=== PATIENT | female | born 1960 | race Caucasian/White ===

== ENCOUNTER 2017-04-20 01:56 | Emergency (ER) | payer MEDICAID ==
[~2017-04-20] VITALS: Ht 165.1 cm; Wt 45.4 kg
--- NOTE | 2017-04-20 02:05 | NUR ---
TO BED 1 A 56 YO FEMALE BIBSELF W C/O SOB AND PRODUCTIVE COUGH WITH GREEN PHLEGM [id number], HX COPD, SMOKER. VSS. AFEBRILE. NONDIAPHORETIC. GOWNED. COMFORT MEASURES RENDERED. AWAITING FOR ER MD MASSEY.
--- NOTE | 2017-04-20 02:10 | NUR ---
DR GANDHI AT BEDSIDE TO EVAL.
[2017-04-20] MEDS ORDERED: ALBUTEROL FS 2.5 MG/0.5 ML VIAL.NEB ONE (02:24)
[2017-04-20] MEDS ORDERED: ALBUTEROL FS 2.5 MG/0.5 ML VIAL.NEB NEB ONE (02:30)
--- NOTE | 2017-04-20 02:30 | NUR ---
ONGOING BREATHING TREATMENT BY RT.
--- NOTE | 2017-04-20 03:17 | NUR ---
Patient reports "feeling better, relieved from sob." Patient discharged to home in stable condition. Written and verbal after care instructions given. Patient verbalizes understanding of instruction. Patient is ambulatory with steady gait, no further complaints. vss.
[2017-04-20 03:18] VITALS: BP 128/76
== END 2017-04-20 03:19 | disposition home or self-care (01) ==
LOC: ER 01:57
DX: J45.909 Unspecified asthma, uncomplicated (principal); B19.20 Unspecified viral hepatitis C without hepatic coma; F17.200 Nicotine dependence, unspecified, uncomplicated; J44.9 Chronic obstructive pulmonary disease, unspecified; Z88.0 Allergy status to penicillin
CPT/HCPCS: 71010; 94640; 99283; A4606; Z7610

== ENCOUNTER 2017-05-26 07:44 | Emergency (ER) | payer MEDICAID ==
[~2017-05-26] VITALS: Ht 165.1 cm; Wt 45.4 kg
--- NOTE | 2017-05-26 09:30 | NUR ---
SELF PRESENT TO ER C/O SOB X 1 WEEK. PATIENT A/OX 4. BREATHING EVEN AND UNLABORED AT THIS TIME. VITALS WNL. SAFETY AND COMFORT MEASURES IN PLACE. AWAITING MD ORDERS .
[2017-05-26] MEDS ORDERED: ALBUTEROL FS 2.5 MG/3 ML VIAL.NEB ONE (10:14)
[2017-05-26] MEDS ORDERED: IPRATROPIUM NEB FS 0.5 MG/2.5 ML AMPUL.NEB ONE (10:14)
[2017-05-26] MEDS ORDERED: methylPREDNISolone SOD SUCC 125 MG/2ML VIAL IV ONE (10:30)
[2017-05-26] MEDS ORDERED: IPRATROPIUM NEB FS 0.5 MG/2.5 ML AMPUL.NEB NEB ONE (10:30)
[2017-05-26] MEDS ORDERED: LEVOFLOXACIN 500 MG /D5W 100ML 500 MG in PREMIX 1 EA IV SCH (10:30)
[2017-05-26] MEDS ORDERED: ALBUTEROL FS 2.5 MG/3 ML VIAL.NEB CONTNEB ONE (10:30)
[2017-05-26] MEDS ORDERED: IV NS 0.9% 1,000 ML BAG IV ONE (10:30)
--- NOTE | 2017-05-26 10:40 | NUR ---
NEW IV STARTED RFA, 22 G.
[2017-05-26] MEDS ORDERED: methylPREDNISolone SOD SUCC 125 MG/2ML VIAL ONE (10:44)
[2017-05-26] MEDS ORDERED: LEVOFLOXACIN 500 MG /D5W 100ML 100 ML IV ONE (10:50)
--- NOTE | 2017-05-26 10:57 | NUR ---
MOBILITY SCOOTER REPAIRER AT BEDSIDE.
[2017-05-26 10:58] LABS: BASOPHILS # (AUTO) 0.2 /CMM (0.0-0.2); BASOPHILS % (AUTO) 1.6 % (0.0-2.0); EOSINOPHILS # (AUTO) 0.3 /CMM (0.0-0.7); EOSINOPHILS % (AUTO) 2.6 % (0.0-6.0); HEMATOCRIT 43 % (33-45); HEMOGLOBIN 14.6 g/dL (11.5-14.8); LYMPHOCYTES % (AUTO) 15.4 % (20.0-44.0); MEAN CORPUSCULAR HEMOGLOBIN 30 PG (26.0-33.0); MEAN CORPUSCULAR HGB CONC 34 g/dl (31.0-36.0); MEAN CORPUSCULAR VOLUME 88 fL (82-100); MONOCYTES # (AUTO) 0.9 /CMM (0.1-1.30); MONOCYTES % (AUTO) 7.4 % (2.0-12.0); NEUTROPHILS # (AUTO) 9.4 /CMM (1.8-8.9); PLATELET COUNT (AUTO) 267 /CMM (150-450); RDW COEFFICIENT OF VARIATION 13.1 (11.5-15.0); RED BLOOD CELL COUNT(AUTO) 4.91 MIL/uL (4.0-5.2); WHITE BLOOD COUNT (AUTO) 12.8 K/uL (4.3-11.0)
[2017-05-26 11:01] LABS: CALCIUM, SERUM 9.8 mg/dL (8.5-10.1); CREATININE 0.7 mg/dL (0.6-1.3)
[2017-05-26 11:13] LABS: ALBUMIN 2.5 g/dL (3.4-5.0); BILIRUBIN,DIRECT 0.2 mg/dL (0.0-0.2); BILIRUBIN,TOTAL 0.4 mg/dL (0.2-1.0)
[2017-05-26 12:23] VITALS: BP 114/60
== END 2017-05-26 12:25 | disposition home or self-care (01) ==
LOC: ER 07:46
DX: J44.9 Chronic obstructive pulmonary disease, unspecified (principal); J45.909 Unspecified asthma, uncomplicated; B19.20 Unspecified viral hepatitis C without hepatic coma; Z88.0 Allergy status to penicillin; Z87.891 Personal history of nicotine dependence
CPT/HCPCS: 36415; 71010; 80048; 80076; 85025; 96365; 96375; 99285; A4216; A4606; J1956 ×2; J2930; J7030 ×2; Z7610

== ENCOUNTER 2017-06-14 22:25 | Emergency (ER) | payer MEDICAID ==
[~2017-06-14] VITALS: Ht 165.1 cm; Wt 45.4 kg
[2017-06-14 22:36] VITALS: BP 141/71
--- NOTE | 2017-06-14 23:10 | NUR ---
Kourtney Mendoza to evaluate patient.
== END 2017-06-14 23:40 | disposition home or self-care (01) ==
LOC: ER 22:33
DX: L03.317 Cellulitis of buttock (principal); J45.909 Unspecified asthma, uncomplicated; J44.9 Chronic obstructive pulmonary disease, unspecified; Z86.19 Personal history of other infectious and parasitic diseases; Z88.0 Allergy status to penicillin
CPT/HCPCS: 99284; A4606; Z7610

== ENCOUNTER 2017-06-17 14:24 | Emergency (ER) | payer MEDICAID ==
[~2017-06-17] VITALS: Ht 165.1 cm; Wt 46.3 kg
--- NOTE | 2017-06-17 14:35 | NUR ---
Presents to ER c/o worseing left buttock pain and swelling, seen here 3 days ago for possible cellulitis vs abscess, taking keflex and bactrim. Patient a/ox 4. Breathing even and unlabored. no sob. vitals stable. safety and comfort measurse in place. Awaiting md orders.
--- NOTE | 2017-06-17 14:45 | NUR ---
RICKEY POPE AT BEDSIDE FOR EVAL AND POSSIBLE I/D.
[2017-06-17 15:36] VITALS: BP 104/62
--- NOTE | 2017-06-17 15:38 | NUR ---
Patient discharged to home in stable condition. Written and verbal after care instructions given. Patient verbalizes understanding of instruction.
== END 2017-06-17 15:37 | disposition home or self-care (01) ==
LOC: ER 14:26
DX: L02.416 Cutaneous abscess of left lower limb (principal); B19.20 Unspecified viral hepatitis C without hepatic coma; J44.9 Chronic obstructive pulmonary disease, unspecified; F17.200 Nicotine dependence, unspecified, uncomplicated; Z88.0 Allergy status to penicillin; Z86.19 Personal history of other infectious and parasitic diseases
CPT/HCPCS: 10061; 99284; A4606; A6402; A6407; Z7610

== ENCOUNTER 2017-06-18 08:56 | Emergency (ER) | payer MEDICAID ==
[~2017-06-18] VITALS: Ht 167.6 cm; Wt 53.1 kg
[2017-06-18 09:04] VITALS: BP 106/59
== END 2017-06-18 09:19 | disposition home or self-care (01) ==
LOC: ER 08:58
DX: L02.31 Cutaneous abscess of buttock (principal); J44.9 Chronic obstructive pulmonary disease, unspecified; F17.200 Nicotine dependence, unspecified, uncomplicated; Z88.0 Allergy status to penicillin; Z86.19 Personal history of other infectious and parasitic diseases
CPT/HCPCS: 99282; A4217; A4606; Z7610

== ENCOUNTER 2017-06-26 20:43 | Inpatient (IN) | payer MEDICAID ==
[~2017-06-26] VITALS: Ht 165.1 cm; Wt 45.4 kg
[2017-06-26] MEDS ORDERED: Magnesium 1GM/D5W 100ML PREMIX 200 ML IV ONE (20:46)
[2017-06-26] MEDS ORDERED: ALBUTEROL FS 2.5 MG/3 ML VIAL.NEB ONE (20:51)
[2017-06-26] MEDS ORDERED: IPRATROPIUM NEB FS 0.5 MG/2.5 ML AMPUL.NEB ONE (20:51)
[2017-06-26] MEDS ORDERED: methylPREDNISolone SOD SUCC 125 MG/2ML VIAL IV ONE (21:00)
[2017-06-26] MEDS ORDERED: methylPREDNISolone SOD SUCC 125 MG/2ML VIAL ONE (21:00)
[2017-06-26] MEDS ORDERED: Magnesium 1GM/D5W 100ML PREMIX 100 ML IV ONE (21:00)
[2017-06-26] MEDS ORDERED: IPRATROPIUM NEB FS 0.5 MG/2.5 ML AMPUL.NEB NEB ONE (21:00)
[2017-06-26] MEDS ORDERED: ALBUTEROL FS 2.5 MG/3 ML VIAL.NEB CONTNEB ONE (21:00)
--- NOTE | 2017-06-26 21:00 | NUR ---
PT WALKED INTO ER FROM HOME, SOB/LABORED WITH AUDIBLE WHEEZING, O2 RA 91%, SKIN WARM/DRY/INTACT, NO C/O PAIN
--- NOTE | 2017-06-26 21:30 | NUR ---
PT SITTING IN BED, BREATHING UNLABORED WITH CONTINUOUS TX RUNNING, NETWORK STRATEGIST IN PLACE NSR, NO C/O PAIN
--- NOTE | 2017-06-26 21:41 | NUR ---
PT AMBULATED TO RESTROOM WITH STEADY GAIT, NO DISTURBANCES NOTED
--- NOTE | 2017-06-26 23:04 | NUR ---
PT SLEEPING IN BED, AROUSED EASILY TO VOICE, BREATHING EVEN/UNLABORED, OXYGEN 3L VIA NASAL CANULA SAT 95%, CARDIAC MONIOTR IN PLACE NSR 81BPM, NO C/O PAIN, NAD NOTED.
--- NOTE | 2017-06-26 23:27 | NUR ---
PT AMBULATED, NO GAIT DISTURBANCES, BREATHING EVEN/UNLABORED, NO C/O PAIN
[2017-06-27 00:15] LABS: BASOPHILS % (AUTO) 0.1 % (0.0-2.0); EOSINOPHILS # (AUTO) 0.1 /CMM (0.0-0.7); EOSINOPHILS % (AUTO) 0.8 % (0.0-6.0); HEMATOCRIT 45 % (33-45); HEMOGLOBIN 14.8 g/dL (11.5-14.8); LYMPHOCYTES # (AUTO) 0.7 /CMM (0.8-4.8); LYMPHOCYTES % (AUTO) 9.3 % (20.0-44.0); MEAN CORPUSCULAR HEMOGLOBIN 30 PG (26.0-33.0); MEAN CORPUSCULAR HGB CONC 33 g/dl (31.0-36.0); MEAN CORPUSCULAR VOLUME 90 fL (82-100); MONOCYTES % (AUTO) 0.4 % (2.0-12.0); NEUTROPHILS # (AUTO) 7.1 /CMM (1.8-8.9); NEUTROPHILS % (AUTO) 89.4 % (43.0-81.0); PLATELET COUNT (AUTO) 266 /CMM (150-450); RED BLOOD CELL COUNT(AUTO) 4.93 MIL/uL (4.0-5.2); WHITE BLOOD COUNT (AUTO) 7.9 K/uL (4.3-11.0)
[2017-06-27 00:18] LABS: ABG OXYGEN SATURATION 88.6 % (92.0-98.5); ABG PCO2 38.2 mmHg (35.0-45.0); COHb 0.6 % (0.5-1.5); MetHb 0.5 % (0.0-1.5); O2Hb 87.6 % (94.0-97.0); SITE, ABG Left Radial; VENT MODE, BG RA
[2017-06-27 00:27] LABS: CREATININE 0.9 mg/dL (0.6-1.3); POTASSIUM 3.9 mmol/L (3.5-5.1)
--- NOTE | 2017-06-27 00:40 | NUR ---
[facility] DR. MEDINA ON PHONE W/ MARCO A MILLAN
--- NOTE | 2017-06-27 00:42 | NUR ---
Lalo salvador in [facility] - 06/27/17 at 0043 by APASCUAL M/S [id number]
--- NOTE | 2017-06-27 00:43 | NUR ---
TELE [id number]
--- NOTE | 2017-06-27 00:55 | NUR ---
REPORT TO CATHI JOHANSEN
[2017-06-27 01:30] VITALS: BP 117/71
--- NOTE | 2017-06-27 01:30 | NUR ---
RN ADMITTING NOTES RECEIVED REPORT FROM HAND SPLITTER. Pt ARRIVED TO FLOOR VIA ER GURNEY. NO S/S OF ACUTE DISTRESS NOTED. Pt C/O NO CHEST PAIN OR SEVERE SOB. Pt IS A/OX4, VERBAL, ABLE TO MAKE NEEDS KNOWN. IV ACCESS ON RFA #20G, SL. ADMITTED TO TELE. SAFETY MEASURES IN PLACE. BED LOW, LOCKED, HOB ELEVATED SIDE RAILS UP, CALL LIGHT AND BED SIDE TABLE WITHIN REACH. WILL CONTINUE TO MONITOR Pt THROUGHOUT THE NIGHT FOR SAFETY.
[2017-06-27] MEDS ORDERED: ACETAMINOPHEN 325 MG TABLET PO PRN (02:00)
[2017-06-27] MEDS ORDERED: ONDANSETRON HCL/PF 4 MG/2 ML VIAL IVP PRN (02:00)
[2017-06-27] MEDS ORDERED: AZITHROMYCIN 250 MG TABLET PO SCH (02:00)
[2017-06-27] MEDS: methylPREDNISolone SOD SUCC 125 MG/2ML VIAL IV SCH ×4 (02:00→17:29)
[2017-06-27] MEDS ORDERED: AZITHROMYCIN 250 MG TABLET ONE (03:29)
[2017-06-27 04:00] VITALS: BP 114/69
[2017-06-27] MEDS ORDERED: TIOT4MIS3 IH (05:20)
[2017-06-27] MEDS ORDERED: ALBU8.5H2 INH (05:20)
--- NOTE | 2017-06-27 06:40 | NUR ---
RN CLOSING NOTES NO SIGNIFICANT CHANGES IN Pt's CONDITION. Pt REMAINS STABLE AT THIS TIME. NO S/S OF ACUTE DISTRESS OR SOB NOTED DURING THE NIGHT. ALL NEEDS MET AND ATTENDED TO. SAFETY MEASURES IN PLACE. WILL ENDORSE TO DAYSHIFT RN FOR Pt's ANDRE. Addendum: 06/27/17 at 0651 by JAE BRADFORD RN TELE READING [id number]
[2017-06-27 06:50] VITALS: BP 109/65
--- NOTE | 2017-06-27 07:30 | NUR ---
LABORATORY GENETICIST NOTES PATIENT ASLEEP BUT EASILY AROUSABLE, NO S/SX OF RESPIRATORY DISTRESS, NO IV FLUIDS ORDERED AT THIS TIME, ALL NEEDS ATTENDED AND ANTICIPATED, SAFETY MEASURES IN PLACED, CALL LIGHT WITHIN REACH, WILL CONTINUE TO MONITOR.
[2017-06-27] MEDS: PANTOPRAZOLE 40 MG TABLET.DR PO SCH (09:18)
[2017-06-27] MEDS: GUAIFENESIN LA 600 MG TABLET.SA PO SCH ×2 (09:18→20:50)
[2017-06-27] MEDS: IPRATROPIUM NEB FS 0.5 MG/2.5 ML AMPUL.NEB NEB SCH ×3 (09:47→20:16)
[2017-06-27] MEDS: ALBUTEROL FS 2.5 MG/0.5 ML VIAL.NEB NEB SCH ×3 (09:47→20:16)
[2017-06-27 16:00] VITALS: BP 93/53
--- NOTE | 2017-06-27 17:32 | NUR ---
RN MS NOTES PATIENT COMPLAINED OF NAUSEA, HEIDY PULLED OUT, WHEN OFFERED TO PATIENT, PATIENT REFUSED MEDICATION, STATING NAUSEA WENT AWAY. PATIENT COMPLAINTS OF SOB DURING ADLS ESPECIALLY WHEN PATIENT REMOVES OXYGEN. WHEN PATIENT IS PLACED BACK ON OXYGEN PATIENT FEELS RELIEVED AND SPO2 SHOWS MORE THAN 92%
[2017-06-27] MEDS ORDERED: ALBUTEROL SULFATE 8 GM HFA.AER.AD IH PRN (18:00)
--- NOTE | 2017-06-27 19:21 | NUR ---
RN MS NOTES PATIENT IS IN NO DISTRESS, NO CHANGE IN LOC, STILL NOTED WITH SHORTNESS OF BREATH ON SCHEDULED BREATHING TREATMENT, ALL DUE MEDS GIVEN ORDERED, ENCOURAGED PATIENT TO REST IN BED, BATHROOM PRIVILEGE ONLY, NEEDS ATTENDED AND MET, CALL LIGHT WITHIN REACH, SAFETY MEASURES IN PLACED, WILL ENDORSE TO TRANSPORTATION SALES CONSULTANT FOR ANDRE.
--- NOTE | 2017-06-27 19:35 | NUR ---
MS RN INITIAL NOTES PT IS IN BED SLEEPING, EASILY AROUSED. A/O X4 ABLE TO MAKE NEEDS KNOWN. BREATHING IS SOB. PT IS AMBULATORY, ABLE TO DO TO THE RESTROOM WITHOUT DISTRESS. IV ACCESS IS INTACT AND PATENT. DENIES PAIN. BED IS IN LOW AND LOCKED POSITION, CALL LIGHT IS WITHIN REACH. WILL CONTINUE TO MONITOR PT
--- NOTE | 2017-06-27 19:45 | NUR ---
RN MS NOTES ONDANSETRON VIAL WASTED WITNESSED BY ANOTHER NURSE DAVE.
[2017-06-27 20:00] VITALS: BP 97/53
[2017-06-27] MEDS: AZITHROMYCIN 250 MG TABLET PO SCH (20:50)
[2017-06-28] MEDS: ALBUTEROL FS 2.5 MG/0.5 ML VIAL.NEB NEB SCH ×4 (02:02→19:29)
[2017-06-28] MEDS: IPRATROPIUM NEB FS 0.5 MG/2.5 ML AMPUL.NEB NEB SCH ×4 (02:02→19:28)
--- NOTE | 2017-06-28 06:23 | NUR ---
MS RN CLOSING NOTES PT IS IN BED RESTING, NO ACUTE CHANGES THROUGHOUT MY SHIFT. SOB MINIMIZED THROUGHOUT THE NIGHT. ALL NEEDS WERE ANTICIPATED AND MET. BED IS IN LOW AND LOCKED POSITION, CALL LIGHT WITHIN REACH. WILL ENDORSE TO DAY SHIFT
[2017-06-28 07:53] LABS: BASOPHILS % (AUTO) 0.1 % (0.0-2.0); HEMATOCRIT 41 % (33-45); HEMOGLOBIN 13.5 g/dL (11.5-14.8); LYMPHOCYTES # (AUTO) 1.5 /CMM (0.8-4.8); LYMPHOCYTES % (AUTO) 5.4 % (20.0-44.0); MEAN CORPUSCULAR HEMOGLOBIN 30 PG (26.0-33.0); MEAN CORPUSCULAR HGB CONC 33 g/dl (31.0-36.0); MEAN CORPUSCULAR VOLUME 92 fL (82-100); MONOCYTES # (AUTO) 0.4 /CMM (0.1-1.30); MONOCYTES % (AUTO) 1.5 % (2.0-12.0); NEUTROPHILS # (AUTO) 26.3 /CMM (1.8-8.9); PLATELET COUNT (AUTO) 246 /CMM (150-450); RDW COEFFICIENT OF VARIATION 17.4 (11.5-15.0); RED BLOOD CELL COUNT(AUTO) 4.47 MIL/uL (4.0-5.2); WHITE BLOOD COUNT (AUTO) 28.3 K/uL (4.3-11.0)
[2017-06-28 08:00] VITALS: BP 97/61
[2017-06-28 08:06] LABS: ALBUMIN 2.4 g/dL (3.4-5.0); BILIRUBIN,TOTAL 0.2 mg/dL (0.2-1.0); CALCIUM, SERUM 10.5 mg/dL (8.5-10.1); CREATININE 0.8 mg/dL (0.6-1.3); MAGNESIUM 2.3 mg/dL (1.8-2.4); PHOSPHORUS 2.8 mg/dL (2.5-4.9); POTASSIUM 4.8 mmol/L (3.5-5.1); TOTAL PROTEIN, SERUM 7.1 g/dL (6.4-8.2)
[2017-06-28] MEDS: GUAIFENESIN LA 600 MG TABLET.SA PO SCH ×2 (08:23→21:09)
[2017-06-28] MEDS: PANTOPRAZOLE 40 MG TABLET.DR PO SCH (08:23)
[2017-06-28] MEDS: methylPREDNISolone SOD SUCC 125 MG/2ML VIAL IV SCH ×3 (08:23→16:40)
--- NOTE | 2017-06-28 10:12 | NUR ---
IV REMOVED FROM RIGHT FA AND PLACED IN FA. IV REMOVED WAS LEAKING. SITE CLEAR.
[2017-06-28 10:27] LABS: BAND % (MANUAL) 2 % (0.0-5.0); LYMPHOCYTES % (MANUAL) 6 % (16-48); MONOCYTES % (MANUAL) 3 % (0-11.0); NEUTROPHILS % (MANUAL) 89 (42-76)
[2017-06-28] MEDS: ENOXAPARIN SODIUM 30 MG/0.3 ML DISP.SYRIN SQ SCH (14:00)
[2017-06-28 16:00] VITALS: BP 104/66
[2017-06-28 16:07] LABS: APPEARANCE,URINE SL CLOUDY (CLEAR); BILIRUBIN,URINE NEGATIVE (NEGATIVE); BLOOD, URINE NEGATIVE Ery/uL (NEGATIVE); COLOR,URINE YELLOW (YELLOW); KETONES,URINE NEGATIVE (NEGATIVE); LEUKOCYTE ESTERASE ,URINE NEGATIVE (NEGATIVE); NITRITE, URINE NEGATIVE (NEGATIVE); PROTEIN,URINE NEGATIVE (NEGATIVE); UGLUCOSE TRACE mg/dL (NEGATIVE); UROBILINOGEN,URINE 0.2 EU/dL (0.2)
[2017-06-28 16:25] LABS: RBC,URINE 0-2 /HPF (0-2)
[2017-06-28 16:26] LABS: BACTERIA,URINE Many /HPF (None Seen); CALCIUM OXALATE CRYSTALS,UR Few /HPF (None Seen); SQUAMOUS EPITHELIAL CELL,UR Many /HPF (None Seen)
--- NOTE | 2017-06-28 17:16 | NUR ---
PER ND ALEXEI FERRERA TO PLACE ORDER FOR ZOLPIDEM 5MG 1X ONLY TO SEE HOW PTS TOLERATES. ORDER PLACED.
[2017-06-28] MEDS ORDERED: MENTHOL/CETYLPYRD (CEPACOL) 1 LOZ LOZENGE PO PRN (17:30)
--- NOTE | 2017-06-28 18:47 | NUR ---
MS RN: CLOSING NOTE PT A/O4. TOOK ALL MEDICATIONS ON TIME. NO ADVERSE REACTIONS NOTED. AMBULATORY WITH OUT ASSIST. ON REGULAR DIET. NO N/V NOTED. SKIN INTACT. L UP #24 SL. SITE CLEAR AND PATENT. NO REDNESS. NO BLEEDING NOTED. ON 3L NC SATING AT 96%. PER MD CHANCE TO TITRATE THE O2 DOWN TOLERATED. RESTING COMFORTABLY IN BED. CALL LIGHT WITHIN REACH.
--- NOTE | 2017-06-28 19:25 | NUR ---
MS RN OPENING NOTES RECEIVED PATIENT RESTING IN BED IN MODERATE SEMI URBAN POSITION. ON O2 @ 3 LPM VIA NC WITH O2SAT 95 %. NO SOB, NO C/O CHEST PAIN, NO ACUTE DISTRESS/DISCOMFORT NOTED. A & O X 4, TALKATIVE. IV ACCESS TO LFA, SL, INTACT PATENT. IN STABLE CONDITION. MILD COUGH NOTED INTERMITTENTLY, HAS COPD. BED IN LOW LOCKED POSITION. CALL LIGHT WITHIN REACH. WILL CONTINUE TO OBSERVE CLOSELY FOR ANY CHANGES.
--- NOTE | 2017-06-28 19:46 | NUR ---
PRN CEPACOL GIVEN PATIENT C/O IRRITATION TO HER THROAT & SLIGHT PRODUCTIVE COUGH. PRN CEPACOL GIVEN ORDERED BY MD. WILL MONITOR FOR EFFECTIVENESS.
[2017-06-28 20:00] VITALS: BP 103/67
[2017-06-28 20:01] VITALS: BP 103/67
[2017-06-28] MEDS ORDERED: ZOLPIDEM TARTRATE 5 MG TABLET PO ONE (21:00)
[2017-06-28] MEDS: AZITHROMYCIN 250 MG TABLET PO SCH (21:09)
[2017-06-29] MEDS: ALBUTEROL FS 2.5 MG/0.5 ML VIAL.NEB NEB SCH ×3 (02:06→20:20)
[2017-06-29] MEDS: IPRATROPIUM NEB FS 0.5 MG/2.5 ML AMPUL.NEB NEB SCH ×4 (02:06→20:20)
--- NOTE | 2017-06-29 06:28 | NUR ---
MS RN CLOSING NOTES PATIENT SLEPT INTERMITTENTLY IN HIGH URBAN POSITION. A & O X 4. NO C/O CP OR ANY OTHER PAIN NOTED. ON O2 @ 2LPM VIA NC SATING AROUND 95 %. BRP TOLERATED. ABLE TO TOLERATE PO INTAKE. NO WORSENING SYMPTOMS NOTED. BREATHING TX GIVEN BY RT ORDERED. MILD PRODUCTIVE COUGH NOTED, PRN CEPACOL GIVEN & EFFECTIVE. LABS IN AM. ASSISTED WITH ADL'S FOR SAFETY. BED IN LOW LOCKED POSITION. CALL LIGHT WITHIN REACH. WILL ENDORSE TO AM SHIFT FOR CONTINUITY OF CARE.
--- NOTE | 2017-06-29 07:10 | NUR ---
MS RN OPENING NOTES RECEIVED PT FROM NIGHTSHIFT NURSE IN STABLE CONDITION PT IS A.O X4. NO SOB OR SIGNS OF DISTRESS NOTED. BREATHING IS EVEN AND UNLABORED. PT IS ON 2L O2 AND SATING WELL @ 94%. PT DENIES ANY PAIN AT THIS TIME. IV NOTED ON LEFT ANTERIOR FOOT. IV IS PATENT AND INTACT. NO REDNESS OR SIGNS OF INFILTRATION NOTED. BED IN LOW LOCKED POSITION, SIDE RAILS UP X2, CALL LIGHT WITHIN REACH. WILL CONTINUE TO MONITOR.
[2017-06-29 07:21] LABS: BASOPHILS % (AUTO) 0.2 % (0.0-2.0); HEMATOCRIT 42 % (33-45); LYMPHOCYTES # (AUTO) 1.4 /CMM (0.8-4.8); LYMPHOCYTES % (AUTO) 5.9 % (20.0-44.0); MEAN CORPUSCULAR HEMOGLOBIN 31 PG (26.0-33.0); MEAN CORPUSCULAR HGB CONC 33 g/dl (31.0-36.0); MEAN CORPUSCULAR VOLUME 92 fL (82-100); MONOCYTES # (AUTO) 0.3 /CMM (0.1-1.30); MONOCYTES % (AUTO) 1.1 % (2.0-12.0); NEUTROPHILS # (AUTO) 21.3 /CMM (1.8-8.9); NEUTROPHILS % (AUTO) 92.8 % (43.0-81.0); PLATELET COUNT (AUTO) 253 /CMM (150-450); RDW COEFFICIENT OF VARIATION 17.5 (11.5-15.0); RED BLOOD CELL COUNT(AUTO) 4.58 MIL/uL (4.0-5.2)
[2017-06-29 08:00] VITALS: BP 115/67
[2017-06-29] MEDS: ENOXAPARIN SODIUM 30 MG/0.3 ML DISP.SYRIN SQ SCH (09:00)
[2017-06-29] MEDS: PANTOPRAZOLE 40 MG TABLET.DR PO SCH (09:18)
[2017-06-29] MEDS: GUAIFENESIN LA 600 MG TABLET.SA PO SCH ×2 (09:18→21:56)
[2017-06-29] MEDS: methylPREDNISolone SOD SUCC 125 MG/2ML VIAL IV SCH ×3 (09:18→18:12)
--- NOTE | 2017-06-29 11:34 | NUR ---
MS RN NOTES PER ALEXEI FERRERA, IT IS OKAY FOR THE PT TO HAVE HER IV ON HER FOOT. SEVERAL ATTEMPTS WERE MADE PRIOR TO BEGIN AN IV IN VARIOUS PLACES HOWEVER EACH HAVE INFILTRATED. IV WAS INSERTED BY AN ER NURSE DURING THE NIGHTSHIFT. THE PT CURRENTLY HAS AN IV ON HER LEFT ANTERIOR FOOT 24G. IV IS PATENT TO NS FLUSH AND INTACT. IV ON FOOT ORDER WAS PLACED.
[2017-06-29] MEDS: ALBUTEROL FS 2.5 MG/3 ML VIAL.NEB NEB PRN (13:38)
[2017-06-29 16:00] VITALS: BP 102/58
--- NOTE | 2017-06-29 18:32 | NUR ---
MS RN CLOSING NOTES PT REMAINS IN STABLE. NO ACUTE CHANGES IN CONDITION DURING SHIFT. ALL DUE MEDS GIVEN AND ORDERS CARRIED OUT ACCORDINGLY. IV REMAINS PATENT AND INTACT. NO SOB NOTED AT THIS TIME. PT REMAINS ON 2L O2 VIA NC AND SATING @96%. SAFETY MEASURES REMAIN IN PLACE. WILL ENDORSE TO NIGHTSHIFT NURSE FOR ANDRE
--- NOTE | 2017-06-29 19:30 | NUR ---
MS RN OPENING NOTES RECEIVED PT IN STABLE CONDITION PT IS A.O X4. NO SOB OR SIGNS OF DISTRESS NOTED. BREATHING IS EVEN AND UNLABORED. PT IS ON 2L O2 AND SATING WELL @ 96%. PT DENIES ANY PAIN AT THIS TIME. IV NOTED ON LEFT ANTERIOR FOOT. IV IS PATENT AND INTACT. NO REDNESS OR SIGNS OF INFILTRATION NOTED. BED IN LOW LOCKED POSITION, SIDE RAILS UP X2, CALL LIGHT WITHIN REACH. WILL CONTINUE TO MONITOR.
[2017-06-29 20:00] VITALS: BP 110/82
[2017-06-29] MEDS: AZITHROMYCIN 250 MG TABLET PO SCH (21:56)
[2017-06-29 22:00] VITALS: BP 110/82
[2017-06-30] MEDS ORDERED: ZOLPIDEM TARTRATE 5 MG TABLET ONE (01:27)
[2017-06-30] MEDS: ZOLPIDEM TARTRATE 5 MG TABLET PO PRN ×2 (01:31→21:15)
--- NOTE | 2017-06-30 06:17 | NUR ---
MS RN NOTE PATIENT STABLE. ALL NEEDS MET AND ATTENDED TO. WILL ENDORSE TO DAY SHIFT FOR ANDRE.
--- NOTE | 2017-06-30 07:24 | NUR ---
MS RN OPENING NOTES RECEIVED PATIENT IN STABLE CONDITION. PATIENT IS RESTING IN BED. BED IS LOCKED AND LOWERED. SIDE RAILS ARE UP X2. CALL LIGHT IS WITHIN REACH. WILL CONTINUE TO MONITOR.
[2017-06-30 08:00] VITALS: BP 113/79
[2017-06-30 08:18] LABS: BASOPHILS % (AUTO) 0.1 % (0.0-2.0); EOSINOPHILS # (AUTO) 0.1 /CMM (0.0-0.7); EOSINOPHILS % (AUTO) 0.3 % (0.0-6.0); HEMATOCRIT 40 % (33-45); HEMOGLOBIN 13.5 g/dL (11.5-14.8); LYMPHOCYTES # (AUTO) 1.2 /CMM (0.8-4.8); LYMPHOCYTES % (AUTO) 7.1 % (20.0-44.0); MEAN CORPUSCULAR HEMOGLOBIN 31 PG (26.0-33.0); MEAN CORPUSCULAR HGB CONC 34 g/dl (31.0-36.0); MEAN CORPUSCULAR VOLUME 92 fL (82-100); MONOCYTES # (AUTO) 0.8 /CMM (0.1-1.30); MONOCYTES % (AUTO) 4.9 % (2.0-12.0); NEUTROPHILS # (AUTO) 14.8 /CMM (1.8-8.9); NEUTROPHILS % (AUTO) 87.6 % (43.0-81.0); PLATELET COUNT (AUTO) 239 /CMM (150-450); RDW COEFFICIENT OF VARIATION 17.4 (11.5-15.0); RED BLOOD CELL COUNT(AUTO) 4.38 MIL/uL (4.0-5.2); WHITE BLOOD COUNT (AUTO) 16.9 K/uL (4.3-11.0)
[2017-06-30] MEDS: IPRATROPIUM NEB FS 0.5 MG/2.5 ML AMPUL.NEB NEB SCH (08:29)
[2017-06-30] MEDS: ALBUTEROL FS 2.5 MG/0.5 ML VIAL.NEB NEB SCH (08:29)
[2017-06-30 08:35] LABS: CALCIUM, SERUM 9.9 mg/dL (8.5-10.1); CREATININE 0.7 mg/dL (0.6-1.3); POTASSIUM 4.3 mmol/L (3.5-5.1)
[2017-06-30] MEDS: ENOXAPARIN SODIUM 30 MG/0.3 ML DISP.SYRIN SQ SCH (09:00)
[2017-06-30] MEDS: methylPREDNISolone SOD SUCC 125 MG/2ML VIAL IV SCH ×3 (09:15→17:00)
[2017-06-30] MEDS: PANTOPRAZOLE 40 MG TABLET.DR PO SCH (09:46)
[2017-06-30] MEDS: GUAIFENESIN LA 600 MG TABLET.SA PO SCH ×2 (09:46→20:56)
--- NOTE | 2017-06-30 11:19 | NUR ---
SPOKE TO ALEXEI FERRERA ABOUT BAD IV LINE AND UNABLE TO GET NEW IV. #24 LEFT ANTERIOR FOOT IV. SOLU MEDROL IV WILL BE DISCONTINUED AND SWITCHED TO PO. AWAITING ORDER.
[2017-06-30] MEDS: ALBUTEROL FS 2.5 MG/3 ML VIAL.NEB NEB PRN (15:11)
[2017-06-30 16:43] VITALS: BP 100/69
--- NOTE | 2017-06-30 19:00 | NUR ---
PATIENT IS IN STABLE CONDITION. ALERT AND ORIENTED. BEDSIDE RAILS ARE UP X2. BED IS LOCKED AND LOWERED. CALL LIGHT IS WITHIN REACH. WILL ENDORSE CARE TO PRESSER ALL AROUND NURSE FOR ANDRE.
--- NOTE | 2017-06-30 19:30 | NUR ---
RN OPENING NOTES PATIENT IS SLEEPING IN BED. EASILY AROUSABLE, ALERT AND ORIENTED X4. VS STABLE. NO SOB. RESPIRATIONS EVEN AND UNLABORED. IV ACCESS ON LEFT ANTERIOR FOOT #24 PATENT AND INTACT. BED IN LOW POSITION. SIDE RAILSX2. CALL LIGHT WITHIN EASY REACH. CONTINUE TO MONITOR AND EDUCATE DURING THE SHIFT.
[2017-06-30 20:00] VITALS: BP_SYST 101; BP_DIAS 69; BP_DIAS 96
[2017-06-30] MEDS: AZITHROMYCIN 250 MG TABLET PO SCH (20:57)
--- NOTE | 2017-07-01 06:46 | NUR ---
RN CLOSING NOTES PATIENT IS SLEEPING IN BED. EASILY AROUSABLE, ALERT AND ORIENTED X4. VS STABLE. NO SOB. NO C/O PAIN AT THIS TIME. RESPIRATIONS EVEN AND UNLABORED. PATIENT WANTS HER LAB DRAW AFTER THE BREAKFAST. ALL MEDICATIONS GIVEN PER MD ORDER. BED IN LOW POSITION. SIDE RAILSX2. CALL LIGHT WITHIN EASY REACH. WILL ENDORSE TO RN DAY SHIFT FOR CONTINUITY OF CARE.
--- NOTE | 2017-07-01 07:14 | NUR ---
MS RN OPENING NOTES RECEIVED PATIENT IN STABLE CONDITION. PATIENT IS RESTING IN BED IN NO APPARENT DISTRESS. BEDSIDE RAILS ARE UP X2. BED IS LOCKED AND LOWERED. CALL LIGHT IS WITHIN REACH. WILL CONTINUE TO MONITOR.
[2017-07-01 08:00] VITALS: BP 105/75
[2017-07-01] MEDS: ENOXAPARIN SODIUM 30 MG/0.3 ML DISP.SYRIN SQ SCH (09:00)
[2017-07-01] MEDS: ALBUTEROL FS 2.5 MG/3 ML VIAL.NEB NEB PRN ×2 (09:06→19:46)
[2017-07-01] MEDS: PANTOPRAZOLE 40 MG TABLET.DR PO SCH (09:41)
[2017-07-01] MEDS: GUAIFENESIN LA 600 MG TABLET.SA PO SCH ×2 (09:41→20:10)
--- NOTE | 2017-07-01 09:56 | NUR ---
SOLU MEDROL NOT ADMINISTERED. AWAITING MIDLINE INSERTION TO BEGIN SOLU MEDROL
[2017-07-01] MEDS: methylPREDNISolone SOD SUCC 125 MG/2ML VIAL IV SCH ×2 (12:51→20:12)
--- NOTE | 2017-07-01 13:00 | NUR ---
MIDLINE WAS STARTED ON RIGHT UPPER ARM. FIRST DOSE OF SOLU MEDROL WAS ADMINISTERED.
[2017-07-01 14:03] LABS: BASOPHILS % (AUTO) 0.2 % (0.0-2.0); EOSINOPHILS # (AUTO) 0.3 /CMM (0.0-0.7); HEMATOCRIT 39 % (33-45); HEMOGLOBIN 12.6 g/dL (11.5-14.8); LYMPHOCYTES # (AUTO) 2.1 /CMM (0.8-4.8); LYMPHOCYTES % (AUTO) 22.9 % (20.0-44.0); MEAN CORPUSCULAR HEMOGLOBIN 30 PG (26.0-33.0); MEAN CORPUSCULAR HGB CONC 33 g/dl (31.0-36.0); MEAN CORPUSCULAR VOLUME 93 fL (82-100); MONOCYTES # (AUTO) 0.8 /CMM (0.1-1.30); MONOCYTES % (AUTO) 8.2 % (2.0-12.0); NEUTROPHILS % (AUTO) 65.7 % (43.0-81.0); PLATELET COUNT (AUTO) 227 /CMM (150-450); RDW COEFFICIENT OF VARIATION 17.3 (11.5-15.0); RED BLOOD CELL COUNT(AUTO) 4.16 MIL/uL (4.0-5.2); WHITE BLOOD COUNT (AUTO) 9.2 K/uL (4.3-11.0)
[2017-07-01 14:19] LABS: CALCIUM, SERUM 9.2 mg/dL (8.5-10.1); CREATININE 0.9 mg/dL (0.6-1.3); POTASSIUM 3.6 mmol/L (3.5-5.1)
[2017-07-01 16:00] VITALS: BP 98/65
--- NOTE | 2017-07-01 18:19 | NUR ---
PATIENT IS ALERT AND IN NO APPARENT DISTRESS. ALL NEEDS WERE MET. PATIENT IS RESTING IN BED. BEDSIDE RAILS ARE UP X2. BED IS LOCKED AND LOWERED. WILL ENDORSE CARE TO DOCUMENT PROCESSING SPECIALIST NURSE FOR ANDRE.
--- NOTE | 2017-07-01 19:30 | NUR ---
RN OPENING NOTES PATIENT IS IN BED, ALERT AND ORIENTED X4. BOYFRIEND PRESENT AT BEDSIDE. VS STABLE. NO SOB. RESPIRATIONS EVEN AND UNLABORED. IV ACCESS ON RIGHT UPPER ARM MIDLINE PATENT AND INTACT. FLUSHING WELL WITH NS. NO SIGNS OF REDNESS OR INFILTRATION NOTED. BED IN LOW POSITION. SIDE RAILSX2. CALL LIGHT WITHIN EASY REACH. CONTINUE TO MONITOR AND EDUCATE DURING THE SHIFT.
[2017-07-01 20:00] VITALS: BP 108/63
[2017-07-01] MEDS: AZITHROMYCIN 250 MG TABLET PO SCH (20:10)
[2017-07-01] MEDS: ZOLPIDEM TARTRATE 5 MG TABLET PO PRN (21:46)
[2017-07-02] MEDS: methylPREDNISolone SOD SUCC 125 MG/2ML VIAL IV SCH ×3 (04:55→21:52)
--- NOTE | 2017-07-02 07:01 | NUR ---
RN CLOSING NOTES PATIENT IS SLEEPING IN BED, EASILY AROUSABLE. VS STABLE. NO SOB. RESPIRATIONS EVEN AND UNLABORED. IV ACCESS ON RIGHT UPPER ARM MIDLINE PATENT AND INTACT. FLUSHING WELL WITH NS. NO SIGNS OF REDNESS OR INFILTRATION NOTED. ALL MEDICATIONS GIVEN PER MD ORDER. BED IN LOW POSITION. SIDE RAILSX2. CALL LIGHT WITHIN EASY REACH. WILL ENDORSE TO RN DAY SHIFT FOR CONTINUITY OF CARE.
[2017-07-02 07:17] LABS: BASOPHILS % (AUTO) 0.1 % (0.0-2.0); HEMATOCRIT 40 % (33-45); LYMPHOCYTES # (AUTO) 0.7 /CMM (0.8-4.8); LYMPHOCYTES % (AUTO) 5.3 % (20.0-44.0); MEAN CORPUSCULAR HEMOGLOBIN 30 PG (26.0-33.0); MEAN CORPUSCULAR HGB CONC 33 g/dl (31.0-36.0); MEAN CORPUSCULAR VOLUME 92 fL (82-100); MONOCYTES # (AUTO) 0.1 /CMM (0.1-1.30); NEUTROPHILS % (AUTO) 93.6 % (43.0-81.0); PLATELET COUNT (AUTO) 222 /CMM (150-450); RDW COEFFICIENT OF VARIATION 17.4 (11.5-15.0); RED BLOOD CELL COUNT(AUTO) 4.32 MIL/uL (4.0-5.2); WHITE BLOOD COUNT (AUTO) 13.9 K/uL (4.3-11.0)
--- NOTE | 2017-07-02 07:20 | NUR ---
RN OPENING NOTES RECEIVED PATIENT IN BED RESTING, A/OX3. ON O2 AT 2LPM VIA NC. NO ACUTE DISTRESS, NO SOB NOTED. DENIES PAIN OR DISCOMFORT. IV SITE INTACT AND PATENT. BED IN LOW POSITION, LOCKED, SIDERAILS UPX2, CALL LIGHT IN REACH, WILL CONTINUE TO MONITOR ACCORDINGLY.
[2017-07-02 07:26] LABS: CALCIUM, SERUM 9.4 mg/dL (8.5-10.1); CREATININE 0.8 mg/dL (0.6-1.3); POTASSIUM 3.9 mmol/L (3.5-5.1)
[2017-07-02 08:00] VITALS: BP 102/68
[2017-07-02] MEDS: PANTOPRAZOLE 40 MG TABLET.DR PO SCH (08:57)
[2017-07-02] MEDS: GUAIFENESIN LA 600 MG TABLET.SA PO SCH ×2 (08:57→21:52)
[2017-07-02] MEDS: ENOXAPARIN SODIUM 30 MG/0.3 ML DISP.SYRIN SQ SCH (08:58)
[2017-07-02 16:00] VITALS: BP 111/67
--- NOTE | 2017-07-02 19:10 | NUR ---
MS/RN NOTES RECEIVED PT. SITTING UP IN BED. AWAKE, ALERT AND ORIENTED X4. BREATHING EVEN AND UNLABORED ON 2LPM O2 VIA NC. NO SOB, RESPIRATORY DISTRESS OR COMPLAINTS OF PAIN NOTED AT THIS TIME. PT. WITH RIGHT UPPER ARM MIDLINE PRESENT, PATENT AND INTACT. BED LOCKED AND IN LOWEST POSITION, SIDE RAILS UP X2, CALL LIGHT WITHIN REACH, WILL CONTINUE TO MONITOR.
--- NOTE | 2017-07-02 19:10 | NUR ---
RN CLOSING NOTES PATIENT IN BED RESTING, A/OX4. ON 2LPM O2 VIA NC, 94% SAT. NO ACUTE DISTRESS, NO SOB NOTED. DENIES PAIN OR DISCOMFORT. ALL NEEDS ATTENDED AND PROVIDED. BED IN LOWEST POSITION, LOCKED, SIDERAILS UPX2, CALL LIGHT IN REACH. ENDORSED TO NIGHT RN FOR ANDRE
[2017-07-02 20:00] VITALS: BP 118/73
[2017-07-03] MEDS: methylPREDNISolone SOD SUCC 125 MG/2ML VIAL IV SCH ×2 (05:32→17:05)
--- NOTE | 2017-07-03 06:37 | NUR ---
MS/RN NOTES PT. IS LYING IN BED RESTING. BREATHING EVEN AND UNLABORED ON 2LPM O2 VIA NC. NO SOB, RESPIRATORY DISTRESS OR COMPLAINTS OF PAIN NOTED AT THIS TIME AND THROUGHOUT SHIFT. PT. WITH RIGHT UPPER ARM MIDLINE PRESENT, PATENT AND INTACT. ALL PT. NEEDS MET. BED LOCKED AND IN LOWEST POSITION, SIDE RAILS UP X2, CALL LIGHT WITHIN REACH, WILL ENDORSE TO DAYSHIFT NURSE FOR CONTINUITY OF CARE.
[2017-07-03 07:31] LABS: BASOPHILS % (AUTO) 0.1 % (0.0-2.0); EOSINOPHILS % (AUTO) 0.2 % (0.0-6.0); HEMATOCRIT 39 % (33-45); HEMOGLOBIN 12.7 g/dL (11.5-14.8); LYMPHOCYTES # (AUTO) 1.1 /CMM (0.8-4.8); LYMPHOCYTES % (AUTO) 5.2 % (20.0-44.0); MEAN CORPUSCULAR HEMOGLOBIN 30 PG (26.0-33.0); MEAN CORPUSCULAR HGB CONC 33 g/dl (31.0-36.0); MEAN CORPUSCULAR VOLUME 92 fL (82-100); MONOCYTES # (AUTO) 0.5 /CMM (0.1-1.30); MONOCYTES % (AUTO) 2.5 % (2.0-12.0); NEUTROPHILS # (AUTO) 19.1 /CMM (1.8-8.9); PLATELET COUNT (AUTO) 203 /CMM (150-450); RDW COEFFICIENT OF VARIATION 17.2 (11.5-15.0); RED BLOOD CELL COUNT(AUTO) 4.21 MIL/uL (4.0-5.2); WHITE BLOOD COUNT (AUTO) 20.8 K/uL (4.3-11.0)
[2017-07-03 07:46] LABS: CALCIUM, SERUM 9.2 mg/dL (8.5-10.1); CREATININE 0.6 mg/dL (0.6-1.3); POTASSIUM 4.7 mmol/L (3.5-5.1)
[2017-07-03 08:00] VITALS: BP 101/65
[2017-07-03] MEDS: PANTOPRAZOLE 40 MG TABLET.DR PO SCH (08:02)
[2017-07-03] MEDS: GUAIFENESIN LA 600 MG TABLET.SA PO SCH ×2 (08:04→20:01)
[2017-07-03] MEDS: ENOXAPARIN SODIUM 30 MG/0.3 ML DISP.SYRIN SQ SCH (09:00)
[2017-07-03 16:00] VITALS: BP 98/62
--- NOTE | 2017-07-03 18:45 | NUR ---
RN CLOSING NOTES PATIENT IN BED RESTING, A/OX4. ON 2LPM O2 VIA NC, 96% SAT. NO ACUTE DISTRESS, NO SOB NOTED. DENIES PAIN OR DISCOMFORT. ALL NEEDS ATTENDED AND PROVIDED. BED IN LOWEST POSITION, LOCKED, SIDERAILS UPX2, CALL LIGHT IN REACH. WILL ENDORSE TO NIGHT RN FOR ANDRE.
[2017-07-03 20:00] VITALS: BP_SYST 101; BP_SYST 126; BP_DIAS 71; BP_DIAS 72
--- NOTE | 2017-07-03 20:00 | NUR ---
MS/RN OPENING NOTES PATIENT IN BED, AWAKE, ALERT X4. ABLE TO VERBALIZE NEEDS. REPORTED SOME INDIGESTIONS AND PREFER TO HAVE SLEEPING BED AT BEDTIME, REQUESTED FOR SOME SNACKS, JELLO AND PUDDING, CALM AND COOPERATIVE TO CARE. MD CONTACTED AND GAVE ORDER FOR TUMS FOR INDIGESTION, NO PAIN VERBALIZED. RECEIVED REPORT FROM AM RN FOR ANDRE. CALL LIGHTS WITHIN REACH, BED IN LOCK POSITION. WILL CONTINUE TO MONITOR.
[2017-07-03] MEDS: CALCIUM CARBONATE 500 MG TAB.CHEW PO SCH (20:01)
[2017-07-03] MEDS: ZOLPIDEM TARTRATE 5 MG TABLET PO PRN (21:51)
--- NOTE | 2017-07-04 06:31 | NUR ---
MS/RN NOTES PATIENT ABLE TO SLEEP DURING THE NIGHT, NO DISCOMFORT, OBSERVE NO GUARDING OR GRIMACE, SLEEPING MEDICATION EFFECTIVE, TOLERATE SNACKS AND VERBALIZE NEEDS AT ALL TIMES WHEN AWAKE. SAFETY MEASURES PROVIDED, VERBALIZED UNDERSTANDING, WILL ENDORSE TO AM RN FOR ANDRE.
--- NOTE | 2017-07-04 07:30 | NUR ---
MS RN OPENING NOTES RECEIVED PATIENT IN NO APPARENT DISTRESS. PATIENT IS ALERT AND ORIENTED. BEDSIDE RAILS ARE UP X2. BED IS LOCKED AND LOWERED. CALL LIGHT IS WITHIN REACH. WILL CONTINUE TO MONITOR.
[2017-07-04 08:59] VITALS: BP 98/67
[2017-07-04] MEDS: ENOXAPARIN SODIUM 30 MG/0.3 ML DISP.SYRIN SQ SCH (09:00)
[2017-07-04] MEDS: PANTOPRAZOLE 40 MG TABLET.DR PO SCH (09:18)
[2017-07-04] MEDS: CALCIUM CARBONATE 500 MG TAB.CHEW PO SCH ×2 (09:19→20:19)
[2017-07-04] MEDS: GUAIFENESIN LA 600 MG TABLET.SA PO SCH ×2 (09:19→20:19)
[2017-07-04] MEDS: methylPREDNISolone SOD SUCC 125 MG/2ML VIAL IV SCH ×2 (09:22→16:09)
--- NOTE | 2017-07-04 09:31 | NUR ---
CONTACTED JEANA FROM CASE MANAGEMENT TO SPEAK TO THE PATIENT ABOUT DISCHARGE OPTIONS. CASE MANAGEMENT WILL SPEAK TO THE PATIENT
[2017-07-04 16:00] VITALS: BP 102/67
--- NOTE | 2017-07-04 19:27 | NUR ---
MS RN CLOSING NOTES PATIENT IS IN NO APPARENT DISTRESS. BED IS LOCKED AND LOWERED. BEDSIDE RAILS ARE UP X2. CALL LIGHT IS WITHIN REACH. GAVE REPORT TO IDALIA SHOPFITTER NURSE FOR ANDRE.
--- NOTE | 2017-07-04 19:30 | NUR ---
MS/RN OPENING NOTES PT RECEIVED AWAKE, SITTING UP IN BED. A/OX4. ON ROOM AIR WITH NO APPARENT DISTRESS. BREATHING IS EVEN AND UNLABORED. DENIES SOB OR PAIN AT THIS TIME. CAMELIA MIDLINE PATENT AND INTACT. BED IN LOW/LOCKED POSITION WITH CALL LIGHT IN REACH. SIDE RAILS UPX2. WILL CONTINUE TO MONITOR
[2017-07-04 20:00] VITALS: BP 104/72
--- NOTE | 2017-07-05 06:54 | NUR ---
MS/RN CLOSING NOTES PT ASLEEP, EASILY AROUSABLE TO NAME. A/OX4. CURRENTLY ON 2L O2 VIA NC, BREATHING EVEN AND UNLABORED. NO APPARENT DISTRESS NOTED. DENIES SOB OR PAIN. CAMELIA MIDLINE PATENT AND INTACT. MADE PT COMFORTABLE DURING SHIFT. ALL NEEDS MET. BED IN LOW/LOCKED POSITION WITH CALL LIGHT IN REACH. SIDE RAILS UPX2. WILL ENDORSE TO AM SHIFT ANDRE.
[2017-07-05 08:00] VITALS: BP 109/73
--- NOTE | 2017-07-05 08:07 | NUR ---
MS RN NOTES PATIENT IN BED, AWAKE. A/O X4. BREATH SOUNDS CLEAR, NO SOB. CAMELIA MIDLINE INTACT, APPEARS COMFORTABLE IN BED. PER REPORT, PATIENT TO BE DISCHARGED HOME TODAY. WILL CONT TO MONITOR.
[2017-07-05] MEDS: methylPREDNISolone SOD SUCC 125 MG/2ML VIAL IV SCH (08:41)
[2017-07-05] MEDS: GUAIFENESIN LA 600 MG TABLET.SA PO SCH (08:42)
[2017-07-05] MEDS: PANTOPRAZOLE 40 MG TABLET.DR PO SCH (08:42)
[2017-07-05] MEDS: CALCIUM CARBONATE 500 MG TAB.CHEW PO SCH (08:43)
[2017-07-05] MEDS: ENOXAPARIN SODIUM 30 MG/0.3 ML DISP.SYRIN SQ SCH (08:54)
--- NOTE | 2017-07-05 16:18 | NUR ---
MS RN CLOSING NOTES PATIENT HAS BEEN CLEARED FOR DISCHARGE HOME BY SILVIANO. VS REMAINS STABLE, NO SOB. AMBULATORY WITH STEADY GAIT AND BALANCE, SKIN INTACT. PATIENT HAD BOWEL MOVEMENT TODAY. CAMELIA MIDLINE REMOVED, GAUZE APPLIED, NO BLEEDING NOTED. DISCHARGE INSTRUCTION GIVEN TO THE PATIENT, VERBALIZED UNDERSTANDING. BELONGINGS AND PRESCRIPTION GIVEN TO THE PATIENT UPON DC. PATIENT LEFT HOSP IN STABLE CONDITION, ACCOMPANIED BY HER FRIEND.
== END 2017-07-05 16:00 | disposition home or self-care (01) | DRG 140 ==
LOC: ER 20:45 → TELE 06-27 00:46 → MED 06-27 11:36
PROVIDERS: ADMIT Internal Medicine; ATTEND Internal Medicine
PROC: 05H533Z Insertion of Infusion Device into Right Subclavian Vein, Percutaneous Approach (ICD-10-PCS; principal; 2017-06-27)
PROC: B546ZZA Ultrasonography of Right Subclavian Vein, Guidance (ICD-10-PCS; principal; 2017-06-27)
DX: J44.1 Chronic obstructive pulmonary disease with (acute) exacerbation (principal); J96.01 Acute respiratory failure with hypoxia; E44.0 Moderate protein-calorie malnutrition; J44.0 Chronic obstructive pulmonary disease with (acute) lower respiratory infection; K21.9 Gastro-esophageal reflux disease without esophagitis; F41.9 Anxiety disorder, unspecified; D72.829 Elevated white blood cell count, unspecified; Z88.0 Allergy status to penicillin; Z98.890 Other specified postprocedural states; B19.20 Unspecified viral hepatitis C without hepatic coma; Z87.891 Personal history of nicotine dependence; T38.0X5A Adverse effect of glucocorticoids and synthetic analogues, initial encounter; Y92.009 Unspecified place in unspecified non-institutional (private) residence as the place of occurrence of the external cause; J20.9 Acute bronchitis, unspecified
CPT/HCPCS: 36415; 36600; 71010-TC; 80048-TC; 80053-TC; 81000-TC; 82803-TC; 83735-TC; 84100-TC; 85025-TC; 87040-TC; 87081-TC; 87086-TC; 94799-TC; A4606; J1650; J2405; J2930; J3475; Z7610

== ENCOUNTER 2017-08-13 01:25 | Emergency (ER) | payer MEDICAID ==
[~2017-08-13] VITALS: Ht 160 cm; Wt 50.3 kg
[~2017-08-13 01:25] MED LIST: ALBU8.5H8 INH; TIOT4MIS3 IH
[2017-08-13] MEDS ORDERED: DEXAMETHASONE SOD PHOSPHATE 10 MG/ML VIAL ONE (01:30)
--- NOTE | 2017-08-13 01:30 | NUR ---
56 YO FEMALE BB SELF. PATIENT IS A/O X 3, C/O SOB. PATIENT SPO2 IS NOTED TO BE 80% ON ROOM AIR, ON ASCULTATION NOTED WHEEZING ALL LOBES. PATIENT WAS GOWNED, PLACED ON DENSITY CONTROL PUNCHER. PATIENT IS NOTED TO BE TACHYCARDIC IN THE 140'S. AWAITING ORDERS FROM PROVIDER, WILL CONTINUE TO MONITOR
[2017-08-13] MEDS ORDERED: ALBUTEROL FS 2.5 MG/3 ML VIAL.NEB ONE (01:31)
[2017-08-13] MEDS ORDERED: IPRATROPIUM NEB FS 0.5 MG/2.5 ML AMPUL.NEB ONE (01:31)
[2017-08-13] MEDS: ALBUTEROL FS 2.5 MG/3 ML VIAL.NEB CONTNEB ONE (01:38)
[2017-08-13] MEDS: IPRATROPIUM NEB FS 0.5 MG/2.5 ML AMPUL.NEB NEB ONE (01:38)
[2017-08-13] MEDS: DEXAMETHASONE SOD PHOSPHATE 10 MG/ML VIAL IV ONE (01:52)
--- NOTE | 2017-08-13 01:55 | NUR ---
22GRIGHT ROMAN IV STARTED, BLOOD SAMPLE OBTAINED AND SENT TO LAB. MEDICATED PT ORDERED
[2017-08-13 02:04] LABS: ABG BASE EXCESS 2.2 mmol/L; ABG OXYGEN SATURATION 57.1 % (92.0-98.5); ABG PH 7.373 (7.350-7.450); ABG PO2 33.1 mmHg (75.0-100.0); COHb 1.3 % (0.5-1.5); MetHb 0.5 % (0.0-1.5); O2Hb 56.1 % (94.0-97.0); VENT MODE, BG Nebulizer mask 7L
[2017-08-13 02:10] LABS: BASOPHILS # (AUTO) 0.2 /CMM (0.0-0.2); BASOPHILS % (AUTO) 1.1 % (0.0-2.0); EOSINOPHILS # (AUTO) 0.3 /CMM (0.0-0.7); HEMATOCRIT 43 % (33-45); HEMOGLOBIN 14.4 g/dL (11.5-14.8); LYMPHOCYTES # (AUTO) 2.9 /CMM (0.8-4.8); MEAN CORPUSCULAR HEMOGLOBIN 30 PG (26.0-33.0); MEAN CORPUSCULAR HGB CONC 33 g/dl (31.0-36.0); MEAN CORPUSCULAR VOLUME 91 fL (82-100); MONOCYTES # (AUTO) 1.5 /CMM (0.1-1.30); MONOCYTES % (AUTO) 9.3 % (2.0-12.0); NEUTROPHILS # (AUTO) 11.4 /CMM (1.8-8.9); NEUTROPHILS % (AUTO) 69.6 % (43.0-81.0); PLATELET COUNT (AUTO) 340 /CMM (150-450); RED BLOOD CELL COUNT(AUTO) 4.77 MIL/uL (4.0-5.2); WHITE BLOOD COUNT (AUTO) 16.3 K/uL (4.3-11.0)
[2017-08-13 02:27] LABS: CALCIUM, SERUM 10.3 mg/dL (8.5-10.1); CARBON DIOXIDE 30 mmol/L (21-32); CHLORIDE 104 mmol/L (98-107); GLUCOSE 105 mg/dL (74-106); POTASSIUM 4.1 mmol/L (3.5-5.1); SODIUM SERUM 141 mmol/L (136-145); UREA NITROGEN, BLOOD 19 mg/dL (7-18)
[2017-08-13] MEDS ORDERED: ONDANSETRON HCL/PF 4 MG/2 ML VIAL ONE (02:33)
[2017-08-13 02:34] LABS: TROPONIN I < 0.017 ng/mL (0.00-0.056)
[2017-08-13] MEDS: ONDANSETRON HCL/PF 4 MG/2 ML VIAL IV ONE (02:37)
[2017-08-13 02:38] LABS: B-TYPE NATRIURETIC PEPTIDE 365 PG/ML (0-125)
[2017-08-13] MEDS ORDERED: DOXYCYCLINE 100 MG VIAL ONE (02:56)
[2017-08-13] MEDS: DOXYCYCLINE 100 MG in IV D5W 100 ML IV ONE (03:00)
--- NOTE | 2017-08-13 05:30 | NUR ---
pt ok to be discharged per dr massey. IV removed. Catheter intact and site benign. Pressure and 4x4 applied to site. No bleeding noted.Patient discharged to home in stable condition. Written and verbal after care instructions given. Patient verbalizes understanding of instruction.Patient is awake and alert to self, day, and place. pt ambulatory with a steady gait
[2017-08-13 05:31] VITALS: BP 115/71
== END 2017-08-13 05:33 | disposition home or self-care (01) ==
LOC: ER 01:27
DX: J44.1 Chronic obstructive pulmonary disease with (acute) exacerbation (principal); L03.115 Cellulitis of right lower limb; Z86.19 Personal history of other infectious and parasitic diseases; Z90.89 Acquired absence of other organs; Z88.0 Allergy status to penicillin
CPT/HCPCS: 36415; 36600; 71045; 80048; 83880; 84484; 85025; 87081; 87804 ×2; 93005; 94644; 96365; 96375; 99285; A4606; J1100; J2405; J3490 ×2; J7030; J7060; Z7610; 87400

== ENCOUNTER 2017-08-24 00:59 | Emergency (ER) | payer MEDICAID ==
[~2017-08-24] VITALS: Ht 160 cm; Wt 49.9 kg
--- NOTE | 2017-08-24 01:00 | NUR ---
to bed 3 bib self c/o worsening sob, wheezing heard bilaterally on auscultation. pt aaox4 no acute distress noted, resp even and unlabored. place pt on cardiac monitoring, continuous pox. er md at bedside to eval pt with orders received.
[2017-08-24] MEDS ORDERED: ALBUTEROL FS 2.5 MG/3 ML VIAL.NEB ONE ×2 (01:22→02:00)
--- NOTE | 2017-08-24 01:22 | NUR ---
rt at bedside to give hhn tx.
[2017-08-24] MEDS ORDERED: ALBUTEROL FS 2.5 MG/0.5 ML VIAL.NEB NEB ONE ×2 (01:30→02:00)
[2017-08-24] MEDS ORDERED: DEXAMETHASONE SOD PHOSPHATE 4 MG/ML VIAL IM ONE (02:00)
[2017-08-24] MEDS ORDERED: LIDOCAINE HCL/MPF 1% 30 ML VIAL IJ ONE (02:26)
[2017-08-24] MEDS ORDERED: DEXAMETHASONE SOD PHOSPHATE 10 MG/ML VIAL ONE (02:41)
--- NOTE | 2017-08-24 02:46 | NUR ---
edith silva at bedside for I&D.
--- NOTE | 2017-08-24 03:06 | NUR ---
Patient discharged to home in stable condition. Written and verbal after care instructions given. Patient verbalizes understanding of instruction. ambulatory with a steady gait noted. pt aaox4 no acute distress noted, resp even and unlabored.
[2017-08-24 03:08] VITALS: BP 106/51
== END 2017-08-24 03:09 | disposition home or self-care (01) ==
LOC: ER 01:00
DX: L02.415 Cutaneous abscess of right lower limb (principal); J44.9 Chronic obstructive pulmonary disease, unspecified; F17.200 Nicotine dependence, unspecified, uncomplicated; B19.20 Unspecified viral hepatitis C without hepatic coma; Z88.0 Allergy status to penicillin
CPT/HCPCS: 71045-TC; A4217; A4606; A6402; A6407; J1100; J3490; Z7610

== ENCOUNTER 2017-08-27 14:10 | Inpatient (IN) | payer MEDICAID ==
[~2017-08-27] VITALS: Ht 160 cm; Wt 63.6 kg
--- NOTE | 2017-08-27 14:20 | NUR ---
PRESENTS TO ER C/O WORSENING SOB, H/O COPD, WHEEZING. PATIENT ALSO STATING SHE HAS A WOUND ON RIGHT HIP. A/OX 4. BREATHING EVEN AND UNLABORED. VITALS STABLE. SAFETY AND COMFORT MEASURES IN PLACE. AWAITING MD ORDERS.
[2017-08-27] MEDS ORDERED: ALBUTEROL FS 2.5 MG/3 ML VIAL.NEB ONE (14:39)
[2017-08-27] MEDS ORDERED: IPRATROPIUM NEB FS 0.5 MG/2.5 ML AMPUL.NEB ONE (14:39)
--- NOTE | 2017-08-27 14:45 | NUR ---
NEW IV STARTED ON RFA, 20 G. BLOOD DRAWN AND SENT TO LAB.
[2017-08-27 14:55] LABS: BASOPHILS # (AUTO) 0.6 /CMM (0.0-0.2); BASOPHILS % (AUTO) 3.3 % (0.0-2.0); EOSINOPHILS # (AUTO) 0.8 /CMM (0.0-0.7); EOSINOPHILS % (AUTO) 4.5 % (0.0-6.0); HEMATOCRIT 49 % (33-45); HEMOGLOBIN 16.5 g/dL (11.5-14.8); LYMPHOCYTES # (AUTO) 3.8 /CMM (0.8-4.8); LYMPHOCYTES % (AUTO) 21.7 % (20.0-44.0); MEAN CORPUSCULAR HEMOGLOBIN 30 PG (26.0-33.0); MEAN CORPUSCULAR HGB CONC 34 g/dl (31.0-36.0); MEAN CORPUSCULAR VOLUME 89 fL (82-100); MONOCYTES # (AUTO) 1.1 /CMM (0.1-1.30); MONOCYTES % (AUTO) 6.5 % (2.0-12.0); NEUTROPHILS # (AUTO) 11.2 /CMM (1.8-8.9); PLATELET COUNT (AUTO) 253 /CMM (150-450); RDW COEFFICIENT OF VARIATION 13.7 (11.5-15.0); RED BLOOD CELL COUNT(AUTO) 5.48 MIL/uL (4.0-5.2); WHITE BLOOD COUNT (AUTO) 17.5 K/uL (4.3-11.0)
--- NOTE | 2017-08-27 14:55 | NUR ---
STAFF WRITER AT BEDSIDE.
[2017-08-27] MEDS ORDERED: ALBUTEROL FS 2.5 MG/3 ML VIAL.NEB CONTNEB ONE (15:00)
[2017-08-27] MEDS ORDERED: IPRATROPIUM NEB FS 0.5 MG/2.5 ML AMPUL.NEB NEB ONE (15:00)
[2017-08-27 15:05] LABS: CALCIUM, SERUM 9.7 mg/dL (8.5-10.1); CARBON DIOXIDE 26 mmol/L (21-32); CHLORIDE 105 mmol/L (98-107); GLUCOSE 161 mg/dL (74-106); POTASSIUM 3.6 mmol/L (3.5-5.1); SODIUM SERUM 138 mmol/L (136-145); UREA NITROGEN, BLOOD 23 mg/dL (7-18)
[2017-08-27 15:09] LABS: INR 1.06 (0.87-1.13)
[2017-08-27 15:13] LABS: TROPONIN I < 0.017 ng/mL (0.00-0.056)
[2017-08-27 15:16] LABS: ALANINE AMINOTRANSFERASE 74 U/L (12-78); ALBUMIN 2.7 g/dL (3.4-5.0); ALKALINE PHOSPHATASE 125 U/L (46-116); ASPARTATE AMINOTRANSFERASE 68 U/L (15-37); BILIRUBIN,DIRECT 0.1 mg/dL (0.0-0.2); BILIRUBIN,TOTAL 0.7 mg/dL (0.2-1.0); TOTAL PROTEIN, SERUM 6.8 g/dL (6.4-8.2)
[2017-08-27] MEDS ORDERED: LEVOFLOXACIN 750 MG /D5W 150ML 750 MG in PREMIX 1 EA IV SCH ×2 (15:30→17:30)
[2017-08-27] MEDS ORDERED: methylPREDNISolone SOD SUCC 125 MG/2ML VIAL IV ONE (15:30)
[2017-08-27] MEDS ORDERED: methylPREDNISolone SOD SUCC 125 MG/2ML VIAL ONE (15:35)
[2017-08-27 16:04] LABS: APPEARANCE,URINE Cloudy (CLEAR); BILIRUBIN,URINE SMALL (NEGATIVE); BLOOD, URINE Negative Ery/uL (NEGATIVE); KETONES,URINE 15 (NEGATIVE); LEUKOCYTE ESTERASE ,URINE Negative (NEGATIVE); NITRITE, URINE Negative (NEGATIVE); PH,URINE 5.5 (5.0-8.0); PROTEIN,URINE 30 mg/dl (NEGATIVE); UGLUCOSE Negative (NEGATIVE)
[2017-08-27 16:05] LABS: COLOR,URINE Dark Yellow (YELLOW)
[2017-08-27 16:17] LABS: RBC,URINE 0-3 /HPF (0-2)
[2017-08-27 16:18] LABS: BACTERIA,URINE Few /HPF (None Seen); CALCIUM OXALATE CRYSTALS,UR Few /HPF (None Seen); SQUAMOUS EPITHELIAL CELL,UR Few /HPF (None Seen)
[2017-08-27 16:24] LABS: ABG BASE EXCESS 0.9 mmol/L; ABG OXYGEN SATURATION 90.1 % (92.0-98.5); ABG PCO2 36.8 mmHg (35.0-45.0); ABG PH 7.444 (7.350-7.450); ABG PO2 59.7 mmHg (75.0-100.0); MetHb 0.4 % (0.0-1.5); O2Hb 88.8 % (94.0-97.0); SITE, ABG Right Radial; VENT MODE, BG ROOM AIR
--- NOTE | 2017-08-27 16:28 | NUR ---
CALLED [employer] REFINISH TECHNICIAN WAS PAGED.
[2017-08-27] MEDS ORDERED: IV NS 0.9% 1,000 ML BAG IV ONE (16:30)
[2017-08-27] MEDS ORDERED: VANCOMYCIN 1 GM in IV D5W 250 ML IV ONE (16:30)
--- NOTE | 2017-08-27 17:06 | NUR ---
CALLED [employer], SAFETY INVESTIGATOR/CAUSE ANALYST WAS PAGED.
[2017-08-27] MEDS ORDERED: PANTOPRAZOLE 40 MG VIAL IV SCH (17:30)
[2017-08-27] MEDS ORDERED: IV NS 0.9% 1,000 ML IV PRN (17:30)
[2017-08-27] MEDS ORDERED: GUAIFENESIN LA 600 MG TABLET.SA PO SCH (17:30)
[2017-08-27] MEDS ORDERED: ACETAMINOPHEN 650 MG/SUPP.RECT RC PRN ×2 (17:30→18:45)
[2017-08-27] MEDS ORDERED: ZOLPIDEM TARTRATE 5 MG TABLET PO PRN (17:30)
[2017-08-27] MEDS ORDERED: IPRATROPIUM NEB FS 0.5 MG/2.5 ML AMPUL.NEB NEB SCH (17:30)
--- NOTE | 2017-08-27 18:14 | NUR ---
Lalo salvador in [facility] - 08/27/17 at 1816 by VANESSA ROBEL BACA ON THE PHONE WITH LOADING RACK SUPERVISOR DEGRASSE.
--- NOTE | 2017-08-27 18:19 | NUR ---
REPORT GIVEN TO PRASANNA JOHANSEN FOR ANDRE UPON ADMISSION.
--- NOTE | 2017-08-27 18:35 | NUR ---
PATIENT TRANSPORTED TO [facility] VIA ACLS PROTOCOL. RNHILLARY TO PROVIDE ANDRE.
[2017-08-27 19:00] VITALS: BP 98/64
--- NOTE | 2017-08-27 19:00 | NUR ---
LONG TERM CARE PHARMACIST NOTE RECEIVED PATIENT AWAKE AND ALERT IN BED. NO SOB OR DISCOMFORT NOTED. ABLE TO MAKE NEEDS KNOWN. IV SITES INTACT WITH NO S/S OF INFECTION NOTED. ABSCESS NOTED TO RIGHT LATERAL HIP. CLEANSED WITH NS, PAT DRY, COVERED WITH 4X4 DRESSING. WOUND CONSULT ORDERED. ALL BELONGINGS CHECKED AND ACCOUNTED FOR. ORIENTED PATIENT TO ROOM AND TO UNIT. BED LOCKED AND IN LOWEST POSITION. SIDE RAILS UP, CALL LIGHT WITHIN REACH. WILL CONTINUE TO MONITOR.
[2017-08-27] MEDS ORDERED: ALBUTEROL FS 2.5 MG/0.5 ML VIAL.NEB NEB SCH (19:30)
[2017-08-27 20:00] VITALS: BP 107/74
[2017-08-27] MEDS: methylPREDNISolone SOD SUCC 40 MG/ML VIAL IV SCH (20:58)
[2017-08-27] MEDS: GUAIFENESIN LA 600 MG TABLET.SA PO SCH (20:58)
[2017-08-27] MEDS: IV NS 0.9% 1,000 ML IV PRN (20:58)
[2017-08-27] MEDS: ZOLPIDEM TARTRATE 5 MG TABLET PO PRN (21:00)
[2017-08-28] VITALS: BP 98/57
[2017-08-28 04:00] VITALS: BP 97/59
--- NOTE | 2017-08-28 06:32 | NUR ---
TESTING ENGINEER NOTE PATIENT STABLE. ALL NEEDS MET AND ATTENDED TO. DRESSING TO RIGHT HIP CHANGED. WILL ENDORSE TO DAY SHIFT FOR ANDRE.
[2017-08-28 08:00] VITALS: BP 126/73
--- NOTE | 2017-08-28 08:15 | NUR ---
RN NOTES RECEIVED PATIENT, AWAKE ALERT AND VERBALLY RESPONSIVE, IN BED RESTING COMFORTABLY, ABLE TO MAKE NEEDS KNOWN. RESPIRATIONS EVEN AND UNLABORED, DENIES ANY PAIN OR DISCOMFORT AT THIS TIME. IV ACCESS TO RIGHT FORE ARM PATENT AND INTACT NO REDNESS OR INFILTRATION NOTED. KEPT CLEAN AND COMFORTABLE, SAFETY MEASURES IN PLACE WILL CONTINUE TO MONITOR
[2017-08-28] MEDS ORDERED: methylPREDNISolone SOD SUCC 125 MG/2ML VIAL IV SCH (09:00)
[2017-08-28] MEDS: GUAIFENESIN LA 600 MG TABLET.SA PO SCH ×2 (09:01→21:11)
[2017-08-28] MEDS: methylPREDNISolone SOD SUCC 40 MG/ML VIAL IV SCH ×3 (09:01→16:46)
[2017-08-28] MEDS: PANTOPRAZOLE 40 MG VIAL IV SCH (09:01)
[2017-08-28] MEDS: ALBUTEROL FS 2.5 MG/0.5 ML VIAL.NEB NEB SCH ×3 (10:54→20:17)
[2017-08-28] MEDS: IPRATROPIUM NEB FS 0.5 MG/2.5 ML AMPUL.NEB NEB SCH ×3 (10:54→20:17)
--- NOTE | 2017-08-28 12:40 | NUR ---
WOUND CARE CONSULT: PT PRESENTS WITH ABSCESS WOUND S/P I&D TO RT HIP AREA, PRESENT ON ADMISSION. RECOMMEND SURGICAL FOLLOW UP. RECOMMENDATONS MADE FOR WOUND CARE AND SKIN PROTECTION. DISCUSSED WITH NURSING STAFF. PT IS AMBULATORY AND CONTINENT. WILL SEE PRN. MERAZ IN AGREEMENT WITH PLAN OF CARE. Addendum: 08/28/17 at 1242 by BREANNA WEEKS WNDNU Amended: Links added.
[2017-08-28] MEDS: LEVOFLOXACIN 750 MG /D5W 150ML 750 MG in PREMIX 1 EA IV SCH (15:08)
[2017-08-28] MEDS: IV NS 0.9% 1,000 ML IV PRN (15:10)
[2017-08-28 16:00] VITALS: BP_SYST 100; BP_SYST 126; BP_DIAS 64; BP_DIAS 73
--- NOTE | 2017-08-28 17:48 | NUR ---
met with patient, she is alert and pleasant. She lives locally with a roommate. She is ambulatory and independent with adl's. Has no DME or homehealth reported. She plan to return home when discharge. Addendum: 08/28/17 at 1748 by MELISSA LANGE RN Amended: Links added.
--- NOTE | 2017-08-28 19:20 | NUR ---
RN NOTES PATIENT, AWAKE ALERT AND VERBALLY RESPONSIVE, IN BED RESTING COMFORTABLY, ABLE TO MAKE NEEDS KNOWN. RESPIRATIONS EVEN AND UNLABORED, DENIES ANY PAIN OR DISCOMFORT AT THIS TIME. IV ACCESS TO RIGHT ARM PATENT AND INTACT NO REDNESS OR INFILTRATION NOTED. KEPT CLEAN AND COMFORTABLE, SAFETY MEASURES IN PLACE ENDORSED TO NEXT SHIFT FOR CONTINUITY OF CARE
--- NOTE | 2017-08-28 19:40 | NUR ---
MS RN OPENING NOTES RECEIVED PATIENT RESTING IN BED, AWAKE ALERT AND VERBALLY RESPONSIVE, ABLE TO MAKE NEEDS KNOWN. RESPIRATIONS EVEN AND UNLABORED, DENIES ANY PAIN, SOB OR ANY ACUTE DISCOMFORT AT THIS TIME. IV ACCESS TO RIGHT FORE ARM PATENT AND INTACT, RUNNING WITH LAST BAG OF MAGNESIUM REPLACEMENT. NO REDNESS OR INFILTRATION NOTED. BED IN LOW LOCKED POSITION. CALL LIGHT WITHIN REACH. SAFETY MEASURES IN PLACE WILL CONTINUE TO MONITOR CLOSELY.
--- NOTE | 2017-08-28 19:40 | NUR ---
ADDENDUM PT NOT RUNNING WITH MAGNESIUM REPLACEMENT, IV ACCESS TO RIGHT ARM RUNNING WITH NS @ 100ML/HR ORDERED. WILL CONTINUE TO MONITOR.
[2017-08-28 20:00] VITALS: BP 103/65
[2017-08-28 20:17] VITALS: BP 103/65
[2017-08-28] MEDS: ZOLPIDEM TARTRATE 5 MG TABLET PO PRN (21:15)
--- NOTE | 2017-08-28 21:15 | NUR ---
PRN AMBIEN GIVEN PATIENT REQUESTED FOR AMBIEN FOR SLEEPLESSNESS, PRN AMBIEN GIVEN. WILL MONITOR FOR EFFECTIVENESS.
--- NOTE | 2017-08-28 21:59 | NUR ---
REFUSED IVF PATIENT REFUSED TO BE CONNECTED TO IVF @ THIS TIME, SHE STATED, SHE IS TAKING GOOD PO FLUIDS & WILL LET THE NURSE KNOW WHEN SHE IS READY TO BE CONNECTED TO IVF.
--- NOTE | 2017-08-28 23:12 | NUR ---
MS RN NOTES PATIENT ALLOWED TO GET CONNECTED TO IVF @ THIS TIME. WILL CONTINUE TO OBSERVE.
[2017-08-29] MEDS: IPRATROPIUM NEB FS 0.5 MG/2.5 ML AMPUL.NEB NEB SCH ×3 (00:28→15:41)
[2017-08-29] MEDS: ALBUTEROL FS 2.5 MG/0.5 ML VIAL.NEB NEB SCH ×3 (00:28→15:41)
--- NOTE | 2017-08-29 02:05 | NUR ---
REFUSED IVF AGAIN PATIENT WANTED THE IVF LINE TO BE DISCONNECTED @ THIS TIME & REFUSED TO GET CONNECTED BACK TO IVF, STATED THAT SHE IS EATING & DRINKING WELL, WHICH SHE IS & TOLERATING WELL WELL. WILL MONITOR CLOSELY.
--- NOTE | 2017-08-29 07:08 | NUR ---
MS RN CLOSING NOTES PATIENT SLEPT INTERMITTENTLY @ NIGHT, AWAKE ALERT AND VERBALLY RESPONSIVE, ABLE TO MAKE NEEDS KNOWN. RESPIRATIONS EVEN AND UNLABORED, DENIES ANY PAIN, SOB OR ANY ACUTE DISCOMFORT AT THIS TIME. IV ACCESS TO RIGHT FORE ARM PATENT AND INTACT. NO REDNESS OR INFILTRATION NOTED. BED IN LOW LOCKED POSITION. CALL LIGHT WITHIN REACH. SAFETY MEASURES IN PLACE WILL ENDORSE TO AM RN FOR CONTINUITY OF CARE.
[2017-08-29 08:00] VITALS: BP 112/72
[2017-08-29] MEDS: GUAIFENESIN LA 600 MG TABLET.SA PO SCH (09:24)
[2017-08-29] MEDS: PANTOPRAZOLE 40 MG VIAL IV SCH (09:24)
[2017-08-29] MEDS: methylPREDNISolone SOD SUCC 40 MG/ML VIAL IV SCH ×2 (09:24→13:00)
[2017-08-29] MEDS: LEVOFLOXACIN 750 MG /D5W 150ML 750 MG in PREMIX 1 EA IV SCH (15:00)
[2017-08-29 16:00] VITALS: BP 107/74
--- NOTE | 2017-08-29 16:09 | NUR ---
Social service consult requested by MARCO A Eng for possible transportation and medication refills. Pt. is a 56 year old female who was admitted to [facility] for Acute Respiratory Failure. Pt. has been to [facility] several times in the past. Pt. states she resides with her roommate and his mom [place] [id number], [address] in [place]. [place] Pt. receives approximately $2000 every three months in benefits. Pt. lost her a few months ago and became emotional while talking about it. SW offered emotional support to the pt. SW encouraged pt. to seek therapy due to her recent loss. SW gave pt. list of referrals to mental health clinics in [facility]. Pt. states she would like bus tokens to get to her pharmacy to get her prescription refilled. LASHANDA informed CAPRI Tong that pt. would need three bus tokens upon discharge. lead portfolio manager Jasmin Huff gave pt. information to [facility] so that pt. can follow up with her primary care doctor. No other social service needs are required at this time. SW is available if needed.
--- NOTE | 2017-08-29 17:30 | NUR ---
RN NOTES PATIENT, AWAKE ALERT AND VERBALLY RESPONSIVE, IN BED RESTING COMFORTABLY, ABLE TO MAKE NEEDS KNOWN. RESPIRATIONS EVEN AND UNLABORED, DENIES ANY PAIN OR DISCOMFORT AT THIS TIME. IV ACCESS TO RIGHT FORE ARM REMOVED WITH NO ASE NOTED. WOUND DRESSING CLEANED, PT WITH DISCHARGE ORDERS ALL DISCHARGE INSTRUCTIONS GIVEN TO PATIENT AND REVIEWED WITH NOTED VERBAL UNDERSTANDING NOTED. BUS TOKENS PROVIDED, PRESCRIPTIONS PROVIDED, ASSISTED TO LOBBY BY RN, DISCHARGED IN STABLE CONDITION Addendum: 08/29/17 at 1940 by ALEJANDRO ACEVES RN RN NOTES PICTURE OF WOUND WITHIN 24 HOURS
== END 2017-08-29 17:20 | disposition home or self-care (01) | DRG 140 ==
LOC: ER 14:13 → TELE 19:20 → MED 08-28 11:20
PROVIDERS: ADMIT Internal Medicine; ATTEND Internal Medicine
DX: J44.1 Chronic obstructive pulmonary disease with (acute) exacerbation (principal); J96.20 Acute and chronic respiratory failure, unspecified whether with hypoxia or hypercapnia; B19.20 Unspecified viral hepatitis C without hepatic coma; K21.9 Gastro-esophageal reflux disease without esophagitis; Z87.891 Personal history of nicotine dependence; Z98.890 Other specified postprocedural states; Z88.0 Allergy status to penicillin; Z79.899 Other long term (current) drug therapy; J44.0 Chronic obstructive pulmonary disease with (acute) lower respiratory infection
CPT/HCPCS: 36415; 36600; 71045-TC; 80048-TC; 80076-TC; 81000-TC; 82803-TC; 83605-TC; 84484-TC; 85025-TC; 85730-TC; 87040-TC; 87081-TC; 87086-TC; A4216; A4606; A6253; A6402; A6407; C9113; J1956; J2920; J2930; J3370; J7030; J7060; Z7610

== ENCOUNTER 2017-09-21 02:07 | Emergency (ER) | payer MEDICAID ==
[~2017-09-21] VITALS: Ht 157.5 cm; Wt 56.7 kg
--- NOTE | 2017-09-21 02:15 | NUR ---
TO BED 6 A 56 YO FEMALE PT BIB SELF, PT C/O SOB X 1 WEEK. PATIENT IS SATTING AT 90% ON ROOM AIR, TACHYPNEIC. KEPT HOB ELEVATED. PAGED RT. PLACED PT ON CARDIAC AND VS MONITORING.
[2017-09-21] MEDS ORDERED: ALBUTEROL FS 2.5 MG/0.5 ML VIAL.NEB ONE ×2 (02:17→04:00)
[2017-09-21] MEDS ORDERED: ALBUTEROL FS 2.5 MG/3 ML VIAL.NEB ONE ×2 (02:29→04:00)
[2017-09-21] MEDS ORDERED: IPRATROPIUM NEB FS 0.5 MG/2.5 ML AMPUL.NEB ONE ×2 (02:29→04:00)
[2017-09-21] MEDS ORDERED: ALBUTEROL FS 2.5 MG/0.5 ML VIAL.NEB NEB ONE ×3 (02:30→04:00)
--- NOTE | 2017-09-21 02:40 | NUR ---
ONGOING BREATHING TREATMENT WITH RT RAOUL AT BEDSIDE.
[2017-09-21] MEDS ORDERED: DEXAMETHASONE SOD PHOSPHATE 10 MG/ML VIAL ONE (02:59)
[2017-09-21] MEDS ORDERED: ALBUTEROL FS 2.5 MG/3 ML VIAL.NEB CONTNEB ONE (03:00)
[2017-09-21] MEDS ORDERED: DEXAMETHASONE SOD PHOSPHATE 4 MG/ML VIAL IM ONE (03:00)
[2017-09-21] MEDS ORDERED: IPRATROPIUM NEB FS 0.5 MG/2.5 ML AMPUL.NEB NEB ONE ×2 (03:00→04:00)
--- NOTE | 2017-09-21 05:22 | NUR ---
Patient discharged to home in stable condition. Written and verbal after care instructions given. Patient verbalizes understanding of instruction. Patient is ambulatory with steady gait, vss. nad noted. No further complaints.
[2017-09-21 05:23] VITALS: BP 135/74
== END 2017-09-21 05:23 | disposition home or self-care (01) ==
LOC: ER 02:09
DX: J44.9 Chronic obstructive pulmonary disease, unspecified (principal); J98.01 Acute bronchospasm; F17.200 Nicotine dependence, unspecified, uncomplicated; Z86.19 Personal history of other infectious and parasitic diseases; Z90.89 Acquired absence of other organs; Z88.0 Allergy status to penicillin
CPT/HCPCS: 71045-TC; A4606; J1100; Z7610

== ENCOUNTER 2017-09-24 22:50 | Inpatient (IN) | payer MEDICAID ==
[~2017-09-24] VITALS: Ht 165.1 cm; Wt 47.2 kg
[2017-09-24] MEDS ORDERED: methylPREDNISolone SOD SUCC 125 MG/2ML VIAL ONE (23:24)
[2017-09-24] MEDS ORDERED: methylPREDNISolone SOD SUCC 125 MG/2ML VIAL IV ONE (23:30)
[2017-09-24] MEDS ORDERED: ALBUTEROL FS 2.5 MG/3 ML VIAL.NEB CONTNEB ONE (23:30)
[2017-09-24] MEDS ORDERED: IPRATROPIUM NEB FS 0.5 MG/2.5 ML AMPUL.NEB NEB ONE (23:30)
--- NOTE | 2017-09-24 23:30 | NUR ---
PT A/OX4 PT C/O SOB WITH DIFFIXULTY BRATHING X 1 DAY, PT WAS PUT ON A NON REBREATHER AND STATES IT IS HELPING, RT WAS CALLED FOR A BREATHING TREATMENT, IV PLACED LABS DRAWN, PT ON MONITOR, IN GOWMD Jay MADE AWARE WILL CONTINUE TO MONITOR
[2017-09-24] MEDS ORDERED: IPRATROPIUM NEB FS 0.5 MG/2.5 ML AMPUL.NEB ONE (23:38)
[2017-09-24] MEDS ORDERED: ALBUTEROL FS 2.5 MG/3 ML VIAL.NEB ONE (23:38)
[2017-09-24 23:52] LABS: BASOPHILS # (AUTO) 0.1 /CMM (0.0-0.2); BASOPHILS % (AUTO) 0.8 % (0.0-2.0); EOSINOPHILS # (AUTO) 0.7 /CMM (0.0-0.7); EOSINOPHILS % (AUTO) 9.8 % (0.0-6.0); HEMATOCRIT 46 % (33-45); HEMOGLOBIN 15.6 g/dL (11.5-14.8); LYMPHOCYTES # (AUTO) 2.5 /CMM (0.8-4.8); LYMPHOCYTES % (AUTO) 32.2 % (20.0-44.0); MEAN CORPUSCULAR HEMOGLOBIN 31 PG (26.0-33.0); MEAN CORPUSCULAR HGB CONC 34 g/dl (31.0-36.0); MEAN CORPUSCULAR VOLUME 91 fL (82-100); MONOCYTES # (AUTO) 0.6 /CMM (0.1-1.30); MONOCYTES % (AUTO) 8.4 % (2.0-12.0); NEUTROPHILS # (AUTO) 3.7 /CMM (1.8-8.9); NEUTROPHILS % (AUTO) 48.8 % (43.0-81.0); PLATELET COUNT (AUTO) 181 /CMM (150-450); RDW COEFFICIENT OF VARIATION 14.6 (11.5-15.0); RED BLOOD CELL COUNT(AUTO) 5.09 MIL/uL (4.0-5.2); WHITE BLOOD COUNT (AUTO) 7.6 K/uL (4.3-11.0)
[2017-09-24 23:54] LABS: CARBON DIOXIDE 31 mmol/L (21-32); CHLORIDE 111 mmol/L (98-107); SODIUM SERUM 148 mmol/L (136-145)
[2017-09-24 23:55] LABS: CALCIUM, SERUM 10.2 mg/dL (8.5-10.1); CREATININE 0.7 mg/dL (0.6-1.3); GLUCOSE 108 mg/dL (74-106); UREA NITROGEN, BLOOD 11 mg/dL (7-18)
--- NOTE | 2017-09-25 00:05 | NUR ---
PT IN BED WITH EYES CLOSED PT STATES SHE IS FEELING BETTER THAN SHE WAS, MD MADE AWARE WILL CONTINUE TO MONITOR.
[2017-09-25 00:07] LABS: ALANINE AMINOTRANSFERASE 67 U/L (12-78); ALKALINE PHOSPHATASE 133 U/L (46-116); ASPARTATE AMINOTRANSFERASE 58 U/L (15-37); B-TYPE NATRIURETIC PEPTIDE 164 PG/ML (0-125); BILIRUBIN,DIRECT 0.1 mg/dL (0.0-0.2); BILIRUBIN,TOTAL 0.5 mg/dL (0.2-1.0); TROPONIN I < 0.017 ng/mL (0.00-0.056)
--- NOTE | 2017-09-25 01:39 | NUR ---
PANEL PAGED PER ER MD ORDER.
[2017-09-25] MEDS ORDERED: LEVOFLOXACIN 750 MG /D5W 150ML PIGGYBACK IV ONE (02:00)
[2017-09-25] MEDS ORDERED: LEVOFLOXACIN 750 MG /D5W 150ML 150 ML IV ONE (02:50)
--- NOTE | 2017-09-25 02:50 | NUR ---
LAB AT BEDSIDE TO DRAW BLOOD CULTURES
--- NOTE | 2017-09-25 03:00 | NUR ---
PT STATES SHE IS FEELING BETTER, PT IS ON A NC AT 2L PER MD ORDER, PT IS IN NAD AT THIS TIME, MD MADE AWARE WILL CONTINUE TO MONITOR.
[2017-09-25] MEDS ORDERED: IPRATROPIUM NEB FS 0.5 MG/2.5 ML AMPUL.NEB NEB PRN (03:30)
[2017-09-25] MEDS ORDERED: ALBUTEROL FS 2.5 MG/3 ML VIAL.NEB NEB PRN (03:30)
[2017-09-25] MEDS ORDERED: MAGNESIUM HYDROXIDE 30 ML UDC PO PRN (03:30)
[2017-09-25] MEDS ORDERED: ONDANSETRON HCL/PF 4 MG/2 ML VIAL IVP PRN (03:30)
[2017-09-25] MEDS ORDERED: HYDROCODONE/APAP 5/325MG 1 EACH TABLET PO PRN (03:30)
[2017-09-25] MEDS ORDERED: ACETAMINOPHEN 325 MG TABLET PO PRN (03:30)
--- NOTE | 2017-09-25 03:37 | NUR ---
20G RIGHT FOREARM IV INFLITRATED, INFUSION STOPPED, IV REMOVED, NEW IV ESTABLISHED IN OPPOSITE ARM, INFUSION STARTED AGAIN, MD MADE AWARE PT DENIES ANY PAIN AT THIS TIME WILL CONTINUE TO MONITOR.
[2017-09-25 04:00] VITALS: BP 118/83
--- NOTE | 2017-09-25 04:00 | NUR ---
RN OPEN NOTES RECEIVED PATIENT FROM ER VIA GURNEY, PATIENT ABLE TO AMBULATE TO BED. A/OX4. NO SIGNS OF DISTRESS OR DISCOMFORT. BREATHING EVEN AND UNLABORED. ON 2LPM O2 VIA NC. ATTACHED PATIENT TO TELE MONITOR WITH ST 112 NOTED. ORIENTED PATIENT TO UNIT AND ROOM. BED IN LOW LOCKED POSITION WITH SIDE RAILS X2. CALL LIGHT WITHIN REACH. WILL CONTINUE TO MONITOR.
[2017-09-25] MEDS: methylPREDNISolone SOD SUCC 40 MG/ML VIAL IV SCH ×3 (05:29→21:20)
--- NOTE | 2017-09-25 06:49 | NUR ---
RN CLOSING NOTES PATIENT AWAKE IN BED. A/OX4. NO SIGNS OF DISTRESS OR DISCOMFORT. BREATHING EVEN AND UNLABORED. ON 2LPM O2 VIA NC. ON TELE MONITOR WITH SR 83 NOTED. ALL NEEDS MET. NO SIGNIFICANT CHANGES THROUGH THE NIGHT. BED IN LOW LOCKED POSITION WITH SIDE RAILS X2. CALL LIGHT WITHIN REACH. WILL ENDORSE TO AM SHIFT FOR ANDRE.
--- NOTE | 2017-09-25 07:25 | NUR ---
RN NOTES PT IS SLEEPING IN BED, NO SIGNS OF DISTRESS NOTED. PT ON 2L O2, RESPIRATIONS ARE EVEN AND UNLABORED. IV ON LFA INTACT AND SL. SAFETY MEASURES ARE IN PLACE, CALL LIGHT IS IN REACH. WILL CONTINUE TO MONITOR.
[2017-09-25] MEDS: PANTOPRAZOLE 40 MG TABLET.DR PO SCH (07:30)
[2017-09-25 08:00] VITALS: BP 110/64
[2017-09-25] MEDS: DOCUSATE SODIUM 100 MG CAPSULE PO SCH ×2 (08:08→17:13)
[2017-09-25] MEDS: FLUTICASONE/VILANTEROL 1 EACH BLST.W.DEV IH SCH (09:25)
[2017-09-25] MEDS ORDERED: IV NS 0.9% 1,000 ML IV PRN (09:35)
--- NOTE | 2017-09-25 09:50 | NUR ---
RN NOTES PT IS SITTING UP IN BED, NO SIGNS OF DISTRESS NOTED. PT A/O X4. ON 2L O2, RESPIRATIONS ARE EVEN AND UNLABORED. IV ON LFA INTACT AND RUNNING NS @ 75ML/HR. SAFETY MEASURES ARE IN PLACE, CALL LIGHT IS IN REACH. WILL ENDORSE TO [facility] [place] RN FOR CONTINUITY OF CARE.
--- NOTE | 2017-09-25 10:13 | NUR ---
ZEHRA BARRAGAN RN: INITIAL NOTE RECEIVED REPORT FROM ADOLFO JOHANSEN. PT A/OX4. NO DISTRESS NOTED. NO SOB NOTED. NO PAIN NOTED. ON 2L NC SATING AT 95%. BRP. SKIN INTACT. ON REGULAR DIET, LFA #18 RUNNING NS AT 125ML/HR. SITE CLEAR AND PATENT. RESTING COMFORTABLY IN BED. CALL LIGHT WITHIN REACH.
[2017-09-25] MEDS ORDERED: IV D5/0.45 NACL 1,000 ML IV ONE (10:30)
[2017-09-25 10:59] LABS: BASOPHILS % (AUTO) 0.2 % (0.0-2.0); HEMATOCRIT 44 % (33-45); HEMOGLOBIN 14.6 g/dL (11.5-14.8); LYMPHOCYTES # (AUTO) 0.6 /CMM (0.8-4.8); LYMPHOCYTES % (AUTO) 9.7 % (20.0-44.0); MEAN CORPUSCULAR HEMOGLOBIN 30 PG (26.0-33.0); MEAN CORPUSCULAR HGB CONC 33 g/dl (31.0-36.0); MEAN CORPUSCULAR VOLUME 91 fL (82-100); MONOCYTES % (AUTO) 0.3 % (2.0-12.0); NEUTROPHILS # (AUTO) 5.8 /CMM (1.8-8.9); NEUTROPHILS % (AUTO) 89.8 % (43.0-81.0); PLATELET COUNT (AUTO) 189 /CMM (150-450); RDW COEFFICIENT OF VARIATION 14.9 (11.5-15.0); WHITE BLOOD COUNT (AUTO) 6.5 K/uL (4.3-11.0)
[2017-09-25 11:53] LABS: THYROID STIMULATING HORMONE 0.455 uIU/mL (0.358-3.74)
[2017-09-25 14:48] LABS: CREATININE 1.1 mg/dL (0.6-1.3); POTASSIUM 3.9 mmol/L (3.5-5.1)
[2017-09-25 14:58] LABS: MAGNESIUM 2.1 mg/dL (1.8-2.4); PHOSPHORUS 2.4 mg/dL (2.5-4.9)
[2017-09-25 16:00] VITALS: BP 95/73
[2017-09-25 18:42] VITALS: BP 95/75
--- NOTE | 2017-09-25 18:43 | NUR ---
MS RN: CLOSING NOTE PT TOOK ALL MEDICATIONS ON TIME. NO ADVERSE REACTIONS NOTED. NO SOB NOTED. ON 2L NC SATING AT 95%. A/OX4. MS. BRP. AMBULATORY. SKIN INTACT. REGULAR DIET. INSERTED NEW IV ON R WRIST RUNNING D5 1/2 NS AT 100ML/HR. SITE CLEAR AND PATENT. L FA #22 SL. SITE CLEAR AND PATENT. RESTING COMFORTABLY IN BED. CALL LIGHT WITHIN REACH.
--- NOTE | 2017-09-25 19:20 | NUR ---
RN OPEN NOTES RECEIVED PATIENT AWAKE IN BED WATCHING TV. A/O X4. NO SIGNS OF DISTRESS OR DISCOMFORT. BREATHING EVEN AND UNLABORED. ON 2LPM O2 VIA NC. IV ACCESS IN R WRIST WITH D5 1/2 NS INFUSING, PATENT AND INTACT, NO SIGNS OF REDNESS OR INFILTRATION . BED IN LOW LOCKED POSITION WITH SIDE RAILS X2. CALL LIGHT WITHIN REACH. WILL CONTINUE TO MONITOR.
[2017-09-25 20:00] VITALS: BP 107/68
--- NOTE | 2017-09-25 20:10 | NUR ---
Patient lives locally with a roommate. She is ambulatory and independent with adl's. Has no DME or homehealth reported. She plan to return home when discharge. Addendum: 09/25/17 at 2011 by MELISSA LANGE RN Amended: Links added.
[2017-09-26] MEDS: methylPREDNISolone SOD SUCC 40 MG/ML VIAL IV SCH ×3 (06:05→20:02)
--- NOTE | 2017-09-26 06:29 | NUR ---
RN CLOSING NOTES PATIENT AWAKE IN BED. A/OX4. NO SIGNS OF DISTRESS OR DISCOMFORT. BREATHING EVEN AND UNLABORED. ON 2LPM O2 VIA NC. IV ACCESS IN R WRIST, PATENT AND INTACT, NO SIGNS OF REDNESS OR INFILTRATION. ALL NEEDS MET. NO SIGNIFICANT CHANGES THROUGH THE NIGHT. BED IN LOW LOCKED POSITION WITH SIDE RAILS X2. CALL LIGHT WITHIN REACH. WILL ENDORSE TO AM SHIFT FOR ANDRE.
--- NOTE | 2017-09-26 07:25 | NUR ---
RN NOTES PT IS SITTING UP IN BED, ALERT AND ORIENTED. PT ON 3L O2, RESPIRATIONS ARE EVEN AND UNLABORED. NO SIGNS OF DISTRESS NOTED. IV ON LFA INTACT AND PATENT. SAFETY MEASURES ARE IN PLACE, CALL LIGHT IS IN REACH. WILL CONTINUE TO MONITOR.
[2017-09-26 07:57] VITALS: BP 109/67
[2017-09-26 08:02] LABS: BASOPHILS % (AUTO) 0.1 % (0.0-2.0); HEMATOCRIT 42 % (33-45); HEMOGLOBIN 14.1 g/dL (11.5-14.8); LYMPHOCYTES # (AUTO) 1.4 /CMM (0.8-4.8); LYMPHOCYTES % (AUTO) 6.8 % (20.0-44.0); MEAN CORPUSCULAR HEMOGLOBIN 30 PG (26.0-33.0); MEAN CORPUSCULAR HGB CONC 33 g/dl (31.0-36.0); MEAN CORPUSCULAR VOLUME 91 fL (82-100); MONOCYTES # (AUTO) 0.8 /CMM (0.1-1.30); MONOCYTES % (AUTO) 3.7 % (2.0-12.0); NEUTROPHILS # (AUTO) 18.3 /CMM (1.8-8.9); NEUTROPHILS % (AUTO) 89.4 % (43.0-81.0); PLATELET COUNT (AUTO) 169 /CMM (150-450); RDW COEFFICIENT OF VARIATION 14.5 (11.5-15.0); RED BLOOD CELL COUNT(AUTO) 4.67 MIL/uL (4.0-5.2); WHITE BLOOD COUNT (AUTO) 20.5 K/uL (4.3-11.0)
[2017-09-26] MEDS: FLUTICASONE/VILANTEROL 1 EACH BLST.W.DEV IH SCH (08:18)
[2017-09-26] MEDS: DOCUSATE SODIUM 100 MG CAPSULE PO SCH ×2 (08:18→16:00)
[2017-09-26] MEDS: PANTOPRAZOLE 40 MG TABLET.DR PO SCH (08:18)
[2017-09-26] MEDS: LEVOFLOXACIN 500 MG /D5W 100ML 500 MG in PREMIX 1 EA IV SCH (08:19)
[2017-09-26 09:56] LABS: CALCIUM, SERUM 10.1 mg/dL (8.5-10.1); CREATININE 0.8 mg/dL (0.6-1.3); MAGNESIUM 2.1 mg/dL (1.8-2.4); POTASSIUM 4.1 mmol/L (3.5-5.1)
[2017-09-26 16:54] VITALS: BP_SYST 109; BP_SYST 114; BP_DIAS 66; BP_DIAS 85
--- NOTE | 2017-09-26 18:45 | NUR ---
RN NOTES PT IS SITTING UP IN BED, RESTING COMFORTABLY. PT ON 2L O2, RESPIRATIONS ARE EVEN AND UNLABORED. IV ON LFA INTACT AND SL. ALL MEDS GIVEN ORDERED AND PT NEEDS MET. BREATHING TREATMENTS GIVEN ORDERED. SAFETY MEASURES ARE IN PLACE, CALL LIGHT IS IN REACH. WILL ENDORSE TO TELEHEALTH NURSE EDUCATOR RN FOR CONTINUITY OF CARE.
--- NOTE | 2017-09-26 19:25 | NUR ---
MS HAILY OPENING NOTES: RECEIVED PT AWAKE AND IS ANTICIPATING SOME VISITORS. PT INFORMED TO USE HER NASAL CANNULA FOR O2 SUPPLEMENTATION. PT ON ROOM AIR AT THIS TIME AND TOLERATING WELL. PT HAS IV ON L FOREARM #18G AND IS PATENT AND INTACT. CURRENTLY S/L. PT ALSO HAS IV ON R FOREARM #20G AND IS CURRENTLY S/L. CALL LIGHT WITHIN PT'S REACH. BED KEPT IN HIGH URBAN'S POSITION, LOCKED, AND LOW. WILL CONTINUE TO MONITOR PT.
--- NOTE | 2017-09-26 19:40 | NUR ---
MS RN NOTES: SPOKE WITH WEB PRESS OPERATOR IBAN. INFORMED HIM THAT PT IS REQUESTING FOR TUMS. GOT ORDER FOR PRN TABLET.
[2017-09-26 20:00] VITALS: BP 110/69
[2017-09-26] MEDS: CALCIUM CARBONATE 500 MG TAB.CHEW PO PRN (20:02)
--- NOTE | 2017-09-26 21:20 | NUR ---
MS RN NOTES: PT REQUESTED FOR SLEEPING PILL. PT WAS ADMINISTERED AMBIEN 5MG PO.
[2017-09-26] MEDS: ZOLPIDEM TARTRATE 5 MG TABLET PO PRN (21:22)
--- NOTE | 2017-09-27 05:50 | NUR ---
MS RN NOTES: PT WOULD LIKE HER SOLUMEDROL A LITTLE AFTER 6.
[2017-09-27] MEDS: methylPREDNISolone SOD SUCC 40 MG/ML VIAL IV SCH ×3 (06:08→21:22)
--- NOTE | 2017-09-27 06:30 | NUR ---
MS RN CLOSING NOTES: ALL NEEDS WERE ATTENDED AND ANTICIPATED FOR. PT ASLEEP AT THIS TIME AND IS ON HIGH URBAN'S POSITION. PT HAS L FOREARM #18G AND IS CURRENTLY S/L. PT ALSO HAS R FOREARM #20G AND IS PATENT AND INTACT AND ALSO S/L. PT ON ROOM AIR AND TOLERATING WELL. PT HAS NC AT BEDSIDE FOR O2 SUPPLEMENTATION. CALL LIGHT WITHIN PT'S REACH. BED KEPT IN LOW, LOCKED POSITION, AND SIDE RAILS X 2UP. WILL ENDORSE TO AM NURSE FOR ANDRE.
[2017-09-27 08:00] VITALS: BP 126/75
[2017-09-27 08:07] LABS: BASOPHILS % (AUTO) 0.2 % (0.0-2.0); HEMATOCRIT 44 % (33-45); HEMOGLOBIN 14.6 g/dL (11.5-14.8); LYMPHOCYTES # (AUTO) 1.6 /CMM (0.8-4.8); LYMPHOCYTES % (AUTO) 8.3 % (20.0-44.0); MEAN CORPUSCULAR HEMOGLOBIN 30 PG (26.0-33.0); MEAN CORPUSCULAR HGB CONC 34 g/dl (31.0-36.0); MEAN CORPUSCULAR VOLUME 91 fL (82-100); NEUTROPHILS # (AUTO) 16.9 /CMM (1.8-8.9); NEUTROPHILS % (AUTO) 86.5 % (43.0-81.0); PLATELET COUNT (AUTO) 193 /CMM (150-450); RDW COEFFICIENT OF VARIATION 14.6 (11.5-15.0); RED BLOOD CELL COUNT(AUTO) 4.81 MIL/uL (4.0-5.2); WHITE BLOOD COUNT (AUTO) 19.6 K/uL (4.3-11.0)
[2017-09-27 08:15] LABS: CREATININE 0.7 mg/dL (0.6-1.3); MAGNESIUM 2.2 mg/dL (1.8-2.4); POTASSIUM 3.9 mmol/L (3.5-5.1)
--- NOTE | 2017-09-27 08:20 | NUR ---
ms rn receive don bed, awake,alert,orientedx4,not in any form of distress, respirations even and unlabored,no sob noted, lungs have ronchi bilaterally,abdomen soft,positive bowel sounds denies pain at this time,all needs attended.
--- NOTE | 2017-09-27 09:00 | NUR ---
ms castillo breakfast served,due meds given,tolerated well.
[2017-09-27] MEDS ORDERED: ERGOCALCIFEROL (VITAMIN D 2) 50,000 UNIT CAPSULE PO SCH (09:30)
[2017-09-27] MEDS ORDERED: MAGNESIUM HYDROXIDE 30 ML UDC PO PRN (09:30)
[2017-09-27] MEDS: PANTOPRAZOLE 40 MG TABLET.DR PO SCH (09:38)
[2017-09-27] MEDS: LEVOFLOXACIN 500 MG /D5W 100ML 500 MG in PREMIX 1 EA IV SCH (09:38)
[2017-09-27] MEDS: CALCIUM CARBONATE 500 MG TAB.CHEW PO PRN ×2 (09:38→21:49)
[2017-09-27] MEDS: DOCUSATE SODIUM 100 MG CAPSULE PO SCH ×2 (09:38→16:26)
--- NOTE | 2017-09-27 11:00 | NUR ---
ms rn inserted new iv at right thumb g 24, w/ good venous return.
[2017-09-27] MEDS: BENZONATATE 100 MG CAPSULE PO SCH ×2 (14:32→16:26)
[2017-09-27] MEDS: GUAIFENESIN LA 600 MG TABLET.SA PO SCH ×2 (14:32→21:47)
[2017-09-27] MEDS: SENNOSIDES/DOCUSATE SODIUM 1 TAB TABLET PO SCH (14:33)
--- NOTE | 2017-09-27 15:00 | NUR ---
ms rn on bed, no distress noted.
[2017-09-27 16:00] VITALS: BP 107/67
[2017-09-27] MEDS: FLUTICASONE/VILANTEROL 1 EACH BLST.W.DEV IH SCH (16:25)
--- NOTE | 2017-09-27 18:32 | NUR ---
ms rn on bed,no change of condition.
[2017-09-27 20:00] VITALS: BP 118/83
--- NOTE | 2017-09-27 20:00 | NUR ---
MS MEDICATION COORDINATOR INITIAL NOTES RECEIVED PT IN BED AWAKE AND ALERT SITTING WHILE WATCHING TV AT THIS TIME. DENIES ANY DISCOMFORT NO SOB NOTED , WITH O2 AT 2 LITERS VIA NC. PT REQUESTED TO HAVE HER SLEEP MEDICATION LATER, KEPT HER WARM AND COMFORTABLE AT ALL TIMES. PLACE CALL LIGHT AT REACH. WILL CONTINUE MONITORING.
[2017-09-27] MEDS: ZOLPIDEM TARTRATE 5 MG TABLET PO PRN (21:47)
--- NOTE | 2017-09-27 22:00 | NUR ---
SOAKER HIDES NOTES ROUTINE MEDS GIVEN WELL HER SLEEP MEDICATION . LIGHT SNACKS ALSO SERVED. PT TOLERATED WELL . KEPT HER WARM AND COMFORTABLE AT ALL TIMES. LIGHT WITHIN REACH.
--- NOTE | 2017-09-28 01:32 | NUR ---
COOLER SERVICE SUPERVISOR/NOTES SLEEPING AT THIS TIME WITHOUT ANY ACUTE DISTRESS NOTED. KEPT HER WARM AND COMFORTABLE AT ALL TIMES. WILL CONTINUE TO MONITOR.
[2017-09-28] MEDS: methylPREDNISolone SOD SUCC 40 MG/ML VIAL IV SCH (05:49)
--- NOTE | 2017-09-28 07:51 | NUR ---
PIPE ASSEMBLY WORKER/CLOSING NOTYES PT SEEM AWAKE NOW AND SITTING ON HER BED WITHOUT ANY ACUTE DISTRESS NOTED. STILL WITH O2 AT 3LITERS VIA NC. STABLE STEPHANIE THE NIGHT AND SLEEP WELL. ALL DUE MEDS GIVEN AND ALL NEEDS MET. KEPT HER WARM AND COMFORTABLE AT ALL TIMES. PLACE CALL LIGHT AT REACH. ENDORSE TO AM NURSE.
[2017-09-28 08:00] VITALS: BP 106/67
--- NOTE | 2017-09-28 08:00 | NUR ---
MS RN NOTES PATIENT IN BED RESTING NO SOB OR ACUTE DISTRESS NOTED. PATIENT ALERT, ORIENTED X3. DENIES ANY PAIN AT THIS TIME. BED IN LOW LOCKED POSITION. CALL LIGHT WITHIN REACH. PERIPHERAL IV INTACT PATENT. WILL CONTINUE TO MONITOR.
[2017-09-28] MEDS: BENZONATATE 100 MG CAPSULE PO SCH ×3 (08:14→17:46)
[2017-09-28] MEDS: PANTOPRAZOLE 40 MG TABLET.DR PO SCH (08:14)
[2017-09-28] MEDS: GUAIFENESIN LA 600 MG TABLET.SA PO SCH ×2 (08:14→20:55)
[2017-09-28] MEDS: SENNOSIDES/DOCUSATE SODIUM 1 TAB TABLET PO SCH (08:14)
[2017-09-28] MEDS: DOCUSATE SODIUM 100 MG CAPSULE PO SCH ×2 (08:15→17:46)
[2017-09-28] MEDS: FLUTICASONE/VILANTEROL 1 EACH BLST.W.DEV IH SCH (08:18)
[2017-09-28] MEDS ORDERED: LEVO500T2 PO (10:06)
[2017-09-28] MEDS ORDERED: METH4TAB3 PO (10:06)
[2017-09-28] MEDS ORDERED: GUAI600T53 PO (10:06)
--- NOTE | 2017-09-28 10:37 | NUR ---
Social service consult requested by Dr. Chung for social issues. Pt. is a 56 year old female who was admitted to [facility] for COPD Exacerbation. Pt. has been to [facility] several times in the past. SW is familiar with pt. from previous admission. Pt. states she resides with her roommate Mahin and his mom at [id number], [address] in [place]. [place] Pt. receives approximately $2000 every three months in benefits. Pt. states she has anxiety and panic attacks. SW informed pt. she will inform her RN Zara regarding her anxiety and possibly getting medication for it by consulting with Dr. Chung. Pt. informed SW that her roommate will not be home until tomorrow morning. SW informed pt. she is unclear as to when the discharge is and will follow up with her once there is discharge order. No other social service needs are required at this time. SW is available if needed.
[2017-09-28] MEDS: LEVOFLOXACIN (500MG) 500 MG TABLET PO SCH (11:13)
--- NOTE | 2017-09-28 12:00 | NUR ---
MS RN NOTES PATIENT SEEN AND EVALUATED BY DR. KAISER ORDERS FOR DISCHARGE. NOTED AND CARRIED OUT.
--- NOTE | 2017-09-28 12:30 | NUR ---
MS RN NOTES PATIENT STATES SHE HAS NO ONE AT HOME TO HELP HER TODAY OR PICK HER UP. SHE STATES HER ROOMMATE WILL BE ABLE TO PICK HER UP TOMORROW MORNING. CASE MANGER INFORMED . STATES WILL SPEAK TO PATIENT AND MAKE ARRANGEMENTS.
[2017-09-28 16:00] VITALS: BP 121/77
--- NOTE | 2017-09-28 19:30 | NUR ---
RN NOTES: RECEIVED AWAKE LYING ON BED,ON RA SPO2-93%,NO SOB OR SIGN OF RESPIRATORY DISTRESS NOTED UPON ENDORSEMENT,A/OX4, ABLE TO MAKE NEEDS KNOWN,FALL,SAFETY AND ASPIRATION PRECAUTION OBSERVED, CALLS AND NEEDS ATTENDED, REQUEST FOR SNACK, GIVEN.CALL LIGHT KEPT WITHIN EASY REACH.
--- NOTE | 2017-09-28 19:33 | NUR ---
MS RN NOTES PATIENT IN BED RESTING NO SOB OR ACUTE DISTRESS NOTED. ALL DUE MEDICATIONS ADMINISTERED. ALL NEEDS MET. PERIPHERAL IV INTACT PATENT. ENDORSED CARE TO PM SHIFT.
[2017-09-28 20:00] VITALS: BP 119/74
[2017-09-28] MEDS: ZOLPIDEM TARTRATE 5 MG TABLET PO PRN (20:56)
--- NOTE | 2017-09-28 20:56 | NUR ---
RN NOTES: PATIENT STILL AWAKE NO SOB REQUEST FOR HER AMBIEN PRN AFTER MUCINEX WAS GIVEN,PRN MEDS GIVEN PER PATIENT REQUEST, KEPT COMFORTABLE IN BED, CALL LIGHT WITHIN EASY REACH.
--- NOTE | 2017-09-28 22:00 | NUR ---
RN NOTES: ABLE TO SLEEP AND REST, ASLEEP ,KEPT CALL LIGHT WITHIN EASY REACH.
--- NOTE | 2017-09-29 06:34 | NUR ---
RN NOTES: STILL ASLEEP, NO SOB IN THE NIGHT, KEPT COMFORTABLE IN BED, CALL LIHGT WITHIN EASY REACH, ENDORSED FOR CONTINUITY OF CARE.
[2017-09-29 08:00] VITALS: BP 115/85
--- NOTE | 2017-09-29 08:00 | NUR ---
MS RN NOTES PATIENT IN BED RESTING NO SOB OR ACUTE DISTRESS NOTED. PATIENT ALERT, ORIENTED X2. DENIES ANY PAIN AT THIS TIME. BED IN LOW LOCKED POSITION. CALL LIGHT WITHIN REACH. PERIPHERAL IV INTACT PATENT. WILL CONTINUE TO MONITOR.
[2017-09-29] MEDS: PANTOPRAZOLE 40 MG TABLET.DR PO SCH (08:21)
[2017-09-29] MEDS: GUAIFENESIN LA 600 MG TABLET.SA PO SCH ×2 (08:22→21:06)
[2017-09-29] MEDS: predniSONE 20 MG TABLET PO SCH (08:22)
[2017-09-29] MEDS: SENNOSIDES/DOCUSATE SODIUM 1 TAB TABLET PO SCH (08:22)
[2017-09-29] MEDS: BENZONATATE 100 MG CAPSULE PO SCH ×3 (08:22→16:46)
[2017-09-29] MEDS: DOCUSATE SODIUM 100 MG CAPSULE PO SCH ×2 (08:22→16:45)
[2017-09-29] MEDS: FLUTICASONE/VILANTEROL 1 EACH BLST.W.DEV IH SCH (08:25)
[2017-09-29 08:38] LABS: BASOPHILS # (AUTO) 0.1 /CMM (0.0-0.2); BASOPHILS % (AUTO) 0.8 % (0.0-2.0); EOSINOPHILS # (AUTO) 0.4 /CMM (0.0-0.7); EOSINOPHILS % (AUTO) 3.2 % (0.0-6.0); HEMATOCRIT 43 % (33-45); HEMOGLOBIN 14.3 g/dL (11.5-14.8); LYMPHOCYTES # (AUTO) 2.8 /CMM (0.8-4.8); MEAN CORPUSCULAR HEMOGLOBIN 31 PG (26.0-33.0); MEAN CORPUSCULAR HGB CONC 34 g/dl (31.0-36.0); MEAN CORPUSCULAR VOLUME 91 fL (82-100); MONOCYTES # (AUTO) 1.3 /CMM (0.1-1.30); MONOCYTES % (AUTO) 10.8 % (2.0-12.0); NEUTROPHILS # (AUTO) 7.2 /CMM (1.8-8.9); NEUTROPHILS % (AUTO) 61.2 % (43.0-81.0); PLATELET COUNT (AUTO) 161 /CMM (150-450); RDW COEFFICIENT OF VARIATION 14.8 (11.5-15.0); RED BLOOD CELL COUNT(AUTO) 4.66 MIL/uL (4.0-5.2); WHITE BLOOD COUNT (AUTO) 11.8 K/uL (4.3-11.0)
[2017-09-29 08:59] LABS: CALCIUM, SERUM 9.7 mg/dL (8.5-10.1); CREATININE 0.7 mg/dL (0.6-1.3); MAGNESIUM 2.1 mg/dL (1.8-2.4); PHOSPHORUS 2.8 mg/dL (2.5-4.9); POTASSIUM 3.9 mmol/L (3.5-5.1)
[2017-09-29] MEDS: LEVOFLOXACIN (500MG) 500 MG TABLET PO SCH (11:05)
[2017-09-29] MEDS ORDERED: ALBUTEROL FS 2.5 MG/3 ML VIAL.NEB NEB SCH (13:30)
--- NOTE | 2017-09-29 13:30 | NUR ---
MS RN NOTES PATIENT SEEN AND EVALUATED BY DR. KAISER ORDERS NOTED AND CARRIED OUT.
--- NOTE | 2017-09-29 13:30 | NUR ---
MS RN NOTES PATIENT IN BED RESTING NO SOB OR ACUTE DISTRESS NOTED. ALL DUE MEDICATIONS ADMINISTERED. ALL NEEDS MET. PERIPHERAL IV INTACT PATENT. WILL ENDORSE CARE TO PM SHIFT. Addendum: 09/29/17 at 1832 by FANTA SOLO RN ERROR CHARTING.
[2017-09-29] MEDS: ALBUTEROL FS 2.5 MG/3 ML VIAL.NEB NEB SCH ×2 (14:23→19:40)
[2017-09-29] MEDS: IPRATROPIUM NEB FS 0.5 MG/2.5 ML AMPUL.NEB NEB SCH ×2 (14:23→19:40)
[2017-09-29 16:00] VITALS: BP 104/63
--- NOTE | 2017-09-29 18:28 | NUR ---
MS RN NOTES PATIENT IN BED RESTING NO SOB OR ACUTE DISTRESS NOTED. ALL DUE MEDICATIONS ADMINISTERED. ALL NEEDS MET. PERIPHERAL IV INTACT PATENT.WILL ENDORSE CARE TO PM SHIFT.
--- NOTE | 2017-09-29 19:05 | NUR ---
RN OPENING NOTES PT RESTING IN BED. NO COMPLAINTS OF SOB, PAIN OR DISTRESS AT THIS TIME. PT HAS A RIGHT THUMB #20 IV INTACT AND PATENT. SAFETY PRECAUTIONS IN PLACE. BED IN LOW LOCKED POSITION, X2 SIDE RAILS UP, CALL LIGHT WITHIN REACH. WILL CONTINUE TO MONITOR.
[2017-09-29 20:00] VITALS: BP 142/80
--- NOTE | 2017-09-29 21:00 | NUR ---
RN NOTES PT REQUESTED PRN AMBIEN 5MG FOR SLEEP. WILL ADMINISTER AND CONTINUE TO MONITOR.
[2017-09-29] MEDS: ZOLPIDEM TARTRATE 5 MG TABLET PO PRN (21:06)
[2017-09-30] MEDS: ALBUTEROL FS 2.5 MG/3 ML VIAL.NEB NEB SCH ×4 (01:06→20:18)
[2017-09-30] MEDS: IPRATROPIUM NEB FS 0.5 MG/2.5 ML AMPUL.NEB NEB SCH ×4 (01:07→20:18)
--- NOTE | 2017-09-30 06:23 | NUR ---
RN CLOSING NOTES PT SLEEPING IN BED. PT WAKES UP TO NAME. NO COMPLAINTS OF PAIN, DISTRESS, OR SOB. NO SIGNIFICANT CHANGES OVERNIGHT. PT SLEPT WELL. PT IS AMBULATORY WITH BRP. PT HAS A RIGHT THUMB #20 IV, INTACT AND PATENT. PER SW NOTES F/U BEFORE DC. DC PLANNING DONE, DC ORDERED FROM DR KAISER 09/28/17. SAFETY PRECAUTIONS IN PLACE. BED IN LOW LOCKED POSITION, X2SIDE RAILS UP, CALL LIGHT WITHIN REACH. WILL ENDORSE TO DAY SHIFT NURSE FOR CONTINUITY OF CARE.
[2017-09-30 08:00] VITALS: BP 103/70
[2017-09-30 08:24] LABS: CALCIUM, SERUM 9.2 mg/dL (8.5-10.1); CREATININE 0.6 mg/dL (0.6-1.3); MAGNESIUM 2.1 mg/dL (1.8-2.4); PHOSPHORUS 3.5 mg/dL (2.5-4.9); POTASSIUM 3.8 mmol/L (3.5-5.1)
[2017-09-30] MEDS: PANTOPRAZOLE 40 MG TABLET.DR PO SCH (09:45)
[2017-09-30] MEDS: DOCUSATE SODIUM 100 MG CAPSULE PO SCH ×3 (09:45→17:12)
[2017-09-30] MEDS: SENNOSIDES/DOCUSATE SODIUM 1 TAB TABLET PO SCH (09:45)
[2017-09-30] MEDS: GUAIFENESIN LA 600 MG TABLET.SA PO SCH ×2 (09:45→21:16)
[2017-09-30] MEDS: BENZONATATE 100 MG CAPSULE PO SCH ×3 (09:45→17:07)
[2017-09-30] MEDS: FLUTICASONE/VILANTEROL 1 EACH BLST.W.DEV IH SCH (09:45)
[2017-09-30] MEDS: predniSONE 20 MG TABLET PO SCH (09:45)
[2017-09-30] MEDS: LEVOFLOXACIN (500MG) 500 MG TABLET PO SCH (12:20)
[2017-09-30 16:00] VITALS: BP 105/58
--- NOTE | 2017-09-30 19:15 | NUR ---
RN OPENING NOTES PT WAKE AND RESTING IN BED. NO COMPLAINTS OF PAIN, DISTRESS, OR SOB. PT IS AMBULATORY WITH BRP. PT HAS A RIGHT THUMB #20 IV, INTACT AND PATENT. SAFETY PRECAUTIONS IN PLACE. BED IN LOW LOCKED POSITION, X2 SIDE RAILS UP, CALL LIGHT WITHIN REACH. WILL CONTINUE TO MONITOR.
[2017-09-30 20:00] VITALS: BP 120/82
[2017-09-30] MEDS: ZOLPIDEM TARTRATE 5 MG TABLET PO PRN (21:16)
[2017-10-01] MEDS: IPRATROPIUM NEB FS 0.5 MG/2.5 ML AMPUL.NEB NEB SCH ×3 (01:14→15:09)
[2017-10-01] MEDS: ALBUTEROL FS 2.5 MG/3 ML VIAL.NEB NEB SCH ×3 (01:14→15:08)
--- NOTE | 2017-10-01 06:38 | NUR ---
RN CLOSING NOTES PT SLEEPING IN BED. PT IS AMBULATORY WITH [facility]. PT WAKES UP TO NAME. NO COMPLAINTS OF PAIN, DISTRESS, OR SOB. NO SIGNIFICANT CHANGES OVERNIGHT. PT SLEPT WELL. PT HAS A RIGHT THUMB #20 IV, INTACT AND PATENT. SAFETY PRECAUTIONS IN PLACE. BED IN LOW LOCKED POSITION, X2SIDE RAILS UP, CALL LIGHT WITHIN REACH. WILL ENDORSE TO DAY SHIFT NURSE FOR CONTINUITY OF CARE.
[2017-10-01 08:00] VITALS: BP 109/78
[2017-10-01] MEDS ORDERED: SIMETHICONE 80 MG TAB.CHEW PO PRN (08:30)
[2017-10-01] MEDS ORDERED: MAG HYDROX/AL HYDROX/SIMETH 30 ML UDC PO PRN (08:30)
[2017-10-01] MEDS: SENNOSIDES/DOCUSATE SODIUM 1 TAB TABLET PO SCH (09:00)
[2017-10-01] MEDS ORDERED: predniSONE 20 MG TABLET PO SCH (09:00)
[2017-10-01] MEDS: DOCUSATE SODIUM 100 MG CAPSULE PO SCH (09:00)
[2017-10-01] MEDS ORDERED: FAMOTIDINE (20 MG) 20 MG TABLET PO SCH (09:00)
[2017-10-01] MEDS: GUAIFENESIN LA 600 MG TABLET.SA PO SCH (09:46)
[2017-10-01] MEDS: PANTOPRAZOLE 40 MG TABLET.DR PO SCH (09:46)
[2017-10-01] MEDS: FLUTICASONE/VILANTEROL 1 EACH BLST.W.DEV IH SCH (09:46)
[2017-10-01] MEDS: BENZONATATE 100 MG CAPSULE PO SCH ×3 (09:47→16:37)
--- NOTE | 2017-10-01 12:00 | NUR ---
m/s structural ironworker: notes received pt in bed awake, a/ox4. on o2 at 2l/min via n/c. pt for d'c planning home, awaiting for order. pt made aware. instructed to call for assistance. will continue to monitor.
[2017-10-01] MEDS: LEVOFLOXACIN (500MG) 500 MG TABLET PO SCH (13:46)
--- NOTE | 2017-10-01 15:45 | NUR ---
m/s grey stock recorder: notes received order to d'c pt to home. order acknowledged. pt aware, but wants to go home tomorrow instead. cn and case management made aware and will talk pt.
[2017-10-01 16:00] VITALS: BP 98/55
--- NOTE | 2017-10-01 16:00 | NUR ---
m/s pediatrics physician: notes junior and luis enrique (case management) talking to pt at this time. pt agreed to go at 1800 via taxi per case management. cn aware.
--- NOTE | 2017-10-01 18:00 | NUR ---
m/s branch banker: d'c instructions discharged instructions with prescriptions given to pt and verbalized understanding including medications teaching provided. all valuables returned to pt. h/l already dislodged with tip intact with no bleeding noted.
--- NOTE | 2017-10-01 18:45 | NUR ---
m/s truck rental clerk: discharged discharged home via taxi with voucher in stable condition with all d'c papers and belongings.
== END 2017-10-01 18:45 | disposition home or self-care (01) | DRG 133 ==
LOC: ER 22:52 → TELE 09-25 03:09 → MED 09-25 09:24
PROVIDERS: ADMIT Internal Medicine; ATTEND Internal Medicine
DX: J96.20 Acute and chronic respiratory failure, unspecified whether with hypoxia or hypercapnia (principal); E87.0 Hyperosmolality and hypernatremia; E87.2 Acidosis; J44.0 Chronic obstructive pulmonary disease with (acute) lower respiratory infection; J45.901 Unspecified asthma with (acute) exacerbation; E44.1 Mild protein-calorie malnutrition; B19.20 Unspecified viral hepatitis C without hepatic coma; J44.1 Chronic obstructive pulmonary disease with (acute) exacerbation; Z91.19 Patient's noncompliance with other medical treatment and regimen; Z87.891 Personal history of nicotine dependence; Z88.0 Allergy status to penicillin; Z98.890 Other specified postprocedural states; Z79.51 Long term (current) use of inhaled steroids; E55.9 Vitamin D deficiency, unspecified; K59.00 Constipation, unspecified; E86.0 Dehydration; E78.5 Hyperlipidemia, unspecified; F41.9 Anxiety disorder, unspecified; I10 Essential (primary) hypertension; K21.9 Gastro-esophageal reflux disease without esophagitis; J20.8 Acute bronchitis due to other specified organisms; R74.0 Nonspecific elevation of levels of transaminase and lactic acid dehydrogenase [LDH]
CPT/HCPCS: 31720; 36415; 71045-TC; 80048-TC; 80061-TC; 80076-TC; 82306; 83735-TC; 83880; 84100-TC; 84439-TC; 84443-TC; 84484-TC; 85025-TC; 87040-TC; 87081-TC; 93307-TC; 94003-TC; 94799-TC; A4216; A4606; J1956; J2920; J2930; J3490; J7030; Z7610

== ENCOUNTER 2018-05-01 04:31 | Inpatient (IN) | payer MEDICAID ==
[~2018-05-01] VITALS: Ht 167.6 cm; Wt 48.6 kg
[~2018-05-01 04:31] MED LIST changes: +GUAI600T53 PO; +LEVO500T2 PO; +METH4TAB3 PO
--- NOTE | 2018-05-01 04:44 | NUR ---
BIB SELF TO BED 3. PT AA/OX4. C/C OF SOB. SECONDARY TO WHEEZING X4 HOURS. "I HAVE ASTHMA." SPEAKING 3 TO 4 WORD SENTENCES. PAIN TO RIGHT SHOULDER. BILATERAL WHEEZING. SKIN PINK, WARM, DRY. AMBULATED TO BED WITH STEADY GAIT. TACHYCARDIC AT 120 BPM, O2 SAT ROOM AIR 91%. ALL OTHER VSS. AWAITING MD ORDERS/ EVAL.
--- NOTE | 2018-05-01 04:44 | NUR ---
Note undone in EDM - 05/01/18 at 0520 by MARYURI BIB SELF TO BED 3. PT AA/OX4. C/C OF SOB. SECONDARY TO WHEEZING X4 HOURS. "I HAVE ASTHMA." SPEAKING 3 TO 4 WORD SENTENCES. PAIN TO RIGHT SHOULDER. BILATERAL WHEEZING. SKIN PINK, WARM, DRY. AMBULATED TO BED WITH STEADY GAIT. TACHYCARDIC AT 120 BPM. ALL VSS. STABLE CONDITION. AWAITING MD ORDERS/ EVAL.
[2018-05-01] MEDS ORDERED: predniSONE 20 MG TABLET ONE (04:52)
--- NOTE | 2018-05-01 04:54 | NUR ---
AIRPLANE NAVIGATOR AT BEDSIDE
[2018-05-01] MEDS ORDERED: VANCOMYCIN 1 GM VIAL ONE (04:56)
[2018-05-01] MEDS ORDERED: predniSONE 20 MG TABLET PO ONE (05:00)
[2018-05-01] MEDS ORDERED: IPRATROPIUM NEB FS 0.5 MG/2.5 ML AMPUL.NEB NEB ONE (05:00)
[2018-05-01] MEDS ORDERED: VANCOMYCIN 1 GM in IV D5W 250 ML IV ONE (05:00)
[2018-05-01] MEDS ORDERED: ALBUTEROL FS 2.5 MG/3 ML VIAL.NEB NEB ONE (05:00)
[2018-05-01] MEDS ORDERED: ALBUTEROL FS 2.5 MG/3 ML VIAL.NEB ONE ×2 (05:01→06:19)
[2018-05-01] MEDS ORDERED: IPRATROPIUM NEB FS 0.5 MG/2.5 ML AMPUL.NEB ONE (05:01)
--- NOTE | 2018-05-01 05:02 | NUR ---
RT AT BEDSIDE
[2018-05-01 05:42] LABS: BASOPHILS # (AUTO) 0.1 /CMM (0.0-0.2); BASOPHILS % (AUTO) 0.9 % (0.0-2.0); EOSINOPHILS % (AUTO) 2.4 % (0.0-6.0); HEMATOCRIT 44 % (33-45); HEMOGLOBIN 14.6 g/dL (11.5-14.8); LYMPHOCYTES # (AUTO) 2.8 /CMM (0.8-4.8); LYMPHOCYTES % (AUTO) 30.3 % (20.0-44.0); MEAN CORPUSCULAR HEMOGLOBIN 29 PG (26.0-33.0); MEAN CORPUSCULAR HGB CONC 33 g/dl (31.0-36.0); MEAN CORPUSCULAR VOLUME 88 fL (82-100); MONOCYTES # (AUTO) 0.5 /CMM (0.1-1.30); MONOCYTES % (AUTO) 5.7 % (2.0-12.0); NEUTROPHILS # (AUTO) 5.5 /CMM (1.8-8.9); NEUTROPHILS % (AUTO) 60.7 % (43.0-81.0); PLATELET COUNT (AUTO) 190 /CMM (150-450); RDW COEFFICIENT OF VARIATION 13.4 (11.5-15.0); RED BLOOD CELL COUNT(AUTO) 5.04 MIL/uL (4.0-5.2); WHITE BLOOD COUNT (AUTO) 9.1 K/uL (4.3-11.0)
--- NOTE | 2018-05-01 05:47 | NUR ---
DR. TANNER PAGED THROUGH ANSWERING SERVICE.
--- NOTE | 2018-05-01 05:53 | NUR ---
REPORT GIVEN TO MARY METZ
[2018-05-01 06:01] LABS: CALCIUM, SERUM 9.4 mg/dL (8.5-10.1); CREATININE 0.7 mg/dL (0.6-1.3); POTASSIUM 3.4 mmol/L (3.5-5.1)
[2018-05-01 06:06] LABS: INR 1.05 (0.87-1.13)
[2018-05-01 06:08] LABS: ALBUMIN 2.8 g/dL (3.4-5.0); BILIRUBIN,DIRECT 0.2 mg/dL (0.0-0.2); BILIRUBIN,TOTAL 0.6 mg/dL (0.2-1.0); TOTAL PROTEIN, SERUM 7.2 g/dL (6.4-8.2)
--- NOTE | 2018-05-01 06:29 | NUR ---
"DR. TANNER PAGED AGAIN" PER ANSWERING SERVICE
[2018-05-01] MEDS ORDERED: ALBUTEROL FS 2.5 MG/3 ML VIAL.NEB CONTNEB ONE (06:30)
--- NOTE | 2018-05-01 06:37 | NUR ---
PT TRANSPORTED TO TELE UNIT STABLE CONDITION. VSS. NAD. VIA ACLS PROTOCOL
--- NOTE | 2018-05-01 06:45 | NUR ---
SEWER PIPE CLEANER CLOSING NOTE Patient arrived from ED on stretcher, transferred and made comfortable in bed. Placed on 2L O2 NC and connected to court recording monitor. Vitals taken; patient sinus tachycardia at 117 bpm. IV noted in left EJ. Patient oriented to room and call pizarro within reach. Patient care endorsed to day shift nurse.
--- NOTE | 2018-05-01 07:10 | NUR ---
TELE/RN OPENING NOTE PATIENT IS RECEIVED IN BED. AWAKE. ALERT AND ORIENTED X4. RECEIVING OXYGEN 2L/MIN VIA NASAL CANULA AND THE PATIENT DENIES SOB. DENIES PAIN. EXTERNAL TELE BOX ON AND READING SINUS TACHYCARDIA 110. THE PATIENT IN NO APPARENT DISTRESS. NOTED TO HAVE RIGHT ARM REDNESS AND SWELLING. LEFT EXTERNAL JUGULAR G 18 PATENT AND SALINE LOCKED. BED LOW AND LOCKED. SIDE RAILS UP X2. CALL LIGHT WITHIN REACH. WILL CONTINUE TO MONITOR.
[2018-05-01 08:00] VITALS: BP_SYST 115; BP_SYST 145; BP_DIAS 73; BP_DIAS 79
[2018-05-01] MEDS ORDERED: ALBUTEROL HALF STRENGTH 1.25 MG/3 ML VIAL.NEB NEB PRN (08:00)
[2018-05-01] MEDS ORDERED: ACETAMINOPHEN 325 MG TABLET PO PRN (08:00)
[2018-05-01] MEDS ORDERED: IPRATROPIUM NEB FS 0.5 MG/2.5 ML AMPUL.NEB NEB PRN (08:00)
[2018-05-01] MEDS ORDERED: ONDANSETRON HCL/PF 4 MG/2 ML VIAL IVP PRN (08:00)
[2018-05-01] MEDS ORDERED: FEE PK DOSING 1 MIN EA MC ONE (08:03)
[2018-05-01] MEDS: HYDROCODONE/APAP 5/325MG 1 EACH TABLET PO PRN ×2 (08:51→19:40)
[2018-05-01] MEDS: LEVOFLOXACIN 500 MG /D5W 100ML 500 MG in PREMIX 1 EA IV SCH (08:51)
[2018-05-01] MEDS: FLUTICASONE/VILANTEROL 1 EACH BLST.W.DEV IH SCH (08:51)
[2018-05-01] MEDS: methylPREDNISolone SOD SUCC 40 MG/ML VIAL IV SCH ×3 (08:51→23:44)
[2018-05-01] MEDS ORDERED: POTASSIUM CHLORIDE 20 MEQ TAB.PRT.SR PO SCH (11:30)
[2018-05-01 16:00] VITALS: BP 88/54
[2018-05-01] MEDS: VANCOMYCIN 0.75 GM in IV D5W 250 ML IV SCH (17:50)
--- NOTE | 2018-05-01 18:21 | NUR ---
TELE/RN CLOSING NOTE PATIENT IS ALERT AND ORIENTED X4. RECEIVING OXYGEN 2L/MIN VIA NASAL CANNULA AND SATURATION AT 96%. DENIES SOB. NO COUGH NOTED. DENIES PAIN AT THIS TIME. RIGHT UPPER ARM REDNESS AND SWELLING STILL NOTED. EXTERNAL TELE BOX ON AND READING SR 91. LEFT EXTERNAL JUGULAR G 18 PATENT AND IV ANTIBIOTIC INFUSING PER ORDER AND NO ADVERSE REACTIONS NOTED. NO S/S INFILTRATION NOTED. PATIENT CONTINENT ON BOWEL AND BLADDER. NOTED TO HAVE STABLE WALK. BED LOW AND LOCKED. SIDE RAILS UP X3. CALL LIGHT WITHIN REACH. WILL ENDORSE TO HEALTH PROMOTION MANAGER.
--- NOTE | 2018-05-01 19:00 | NUR ---
RN NOTES PT AWAKE AND ALERT, SITTING IN BED. PT IN ROOM AIR, TOLERATING WELL, NO SIGNS OF LABORED BREATHING, NO DISTRESS. CARDIAC MONITORING SHOWS SINUS TACHYCARDIA AT 104. IV ACCESS ON THE LEFT EXTERNAL JUGULAR AUGUST 18G IS PATENT AND INTACT. SAFETY MEASURES IN PLACED, CALL LIGHT WITHIN REACH. WILL CONTINUE TO MONITOR AND ASSESS.
[2018-05-01 20:00] VITALS: BP 109/64
[2018-05-02] VITALS: BP 103/64
[2018-05-02 04:00] VITALS: BP 96/51
[2018-05-02 04:30] VITALS: BP 96/51
--- NOTE | 2018-05-02 04:30 | NUR ---
RN NOTES/ BP PT BP IS 96/51, PT IS RESTING, SLEEPING COMFORTABLY. ASYMPTOMATIC, NO SIGNS OF DISTRESS.
--- NOTE | 2018-05-02 06:13 | NUR ---
RN CLOSING NOTES PT ASLEEP IN BED, COMFORTABLY. PT O2 VIA NASAL CANNULA AT 2L, NO SIGNS OF LABORED BREATHING, NO DISTRESS, SYMMETRICAL EXPANSION OF THE CHEST. CARDIAC MONITORING SHOWS SINUS RHYTHM TO SINUS TACHYCARDIA RANGING FROM 80s-106s. IV ACCESS ON THE LEFT EXTERNAL JUGULAR VEIN 18G IS PATENT AND INTACT. SKIN IS INTACT, RIGHT UPPER ARM TATTOO SHOWS NO WORSENING OF CONDITION, SWELLING HAS IMPROVED AND DECREASED, PICTURE IS ON THE CHART. SAFETY MEASURES IN PLACED, CALL LIGHT WITHIN REACH. WILL ENDORSE CONTINUITY OF CARE TO THE ONCOMING NURSE.
[2018-05-02 06:18] LABS: BASOPHILS % (AUTO) 0.3 % (0.0-2.0); HEMATOCRIT 43 % (33-45); HEMOGLOBIN 13.8 g/dL (11.5-14.8); LYMPHOCYTES % (AUTO) 7.2 % (20.0-44.0); MEAN CORPUSCULAR HEMOGLOBIN 30 PG (26.0-33.0); MEAN CORPUSCULAR HGB CONC 32 g/dl (31.0-36.0); MEAN CORPUSCULAR VOLUME 92 fL (82-100); MONOCYTES # (AUTO) 0.5 /CMM (0.1-1.30); MONOCYTES % (AUTO) 3.4 % (2.0-12.0); NEUTROPHILS # (AUTO) 12.1 /CMM (1.8-8.9); NEUTROPHILS % (AUTO) 89.1 % (43.0-81.0); PLATELET COUNT (AUTO) 162 /CMM (150-450); RDW COEFFICIENT OF VARIATION 14.2 (11.5-15.0); RED BLOOD CELL COUNT(AUTO) 4.67 MIL/uL (4.0-5.2); WHITE BLOOD COUNT (AUTO) 13.6 K/uL (4.3-11.0)
[2018-05-02 06:22] LABS: ALBUMIN 2.6 g/dL (3.4-5.0); BILIRUBIN,TOTAL 0.3 mg/dL (0.2-1.0); CALCIUM, SERUM 9.8 mg/dL (8.5-10.1); CREATININE 0.7 mg/dL (0.6-1.3); MAGNESIUM 2.3 mg/dL (1.8-2.4); POTASSIUM 4.1 mmol/L (3.5-5.1); TOTAL PROTEIN, SERUM 6.9 g/dL (6.4-8.2)
[2018-05-02] MEDS: VANCOMYCIN 0.75 GM in IV D5W 250 ML IV SCH (06:46)
[2018-05-02] MEDS ORDERED: PANTOPRAZOLE 40 MG TABLET.DR PO SCH (07:30)
--- NOTE | 2018-05-02 07:58 | NUR ---
SWITCH CLEANER OPENING NOTES RECEIVED PT FROM NIGHTSHIFT NURSE IN STABLE CONDITION. PT IS A/O X3. N O SOB OR ACUTE SIGNS OF DISTRESS NOTED. BREATHING IS EVEN AND UNLABORED. PT ON RA AND SATING WELL. SHE DENIES ANY PAIN AT THIS TIME. PT IS CURRENTLY SINUS RHYTHM ON THE TELE MONITOR WITH A HR OF 95. IV TO LEFT EXTERNAL JUGULAR NOTED TO BE PATENT AND INTACT. NO REDNESS OR SIGNS OF INFILTRATION NOTED. BED IN LOW LOCKED POSITION, SIDE RAILS UP X2, CALL LIGHT WITHIN REACH. WILL CONTINUE TO MONITOR
[2018-05-02 08:11] VITALS: BP 112/63
[2018-05-02] MEDS: methylPREDNISolone SOD SUCC 40 MG/ML VIAL IV SCH ×2 (08:23→15:24)
[2018-05-02] MEDS: LEVOFLOXACIN 500 MG /D5W 100ML 500 MG in PREMIX 1 EA IV SCH (08:23)
[2018-05-02] MEDS: FLUTICASONE/VILANTEROL 1 EACH BLST.W.DEV IH SCH (08:23)
[2018-05-02] MEDS: HYDROCODONE/APAP 5/325MG 1 EACH TABLET PO PRN (08:41)
--- NOTE | 2018-05-02 10:00 | NUR ---
MS RN NOTES: MD VERBAL ORDERS DR CUNHA IN ROOM AND GAVE VERBAL ORDERS TO APPLY A HOT COMPRESS TO RIGHT UPPER EXTREMITY. INTERVENTION INITIATED AND CARRIED OUT. FURTHER ORDER GIVEN TO OBTAIN A CT OF THE PT'S RIGHT SHOULDER WITH CONTRAST. CONSENT FOR CONTRAST SIGNED BY PT. RADIOLOGIST NOTIFIED AND STATES THAT HE WILL BE UP AROUND 11 TO GET THE PT. LASTLY, ANOTHER VERBAL ORDER WAS GIVEN FOR A SURGICAL CONSULT WITH DR. SHAIKH THE MD IS SUSPECTING AN ABSCESS WHICH MAY BE FORMING IN THAT EXTREMITY. ORDER PLACED. WILL CONTINUE TO MONITOR
--- NOTE | 2018-05-02 12:19 | NUR ---
PT TAKEN DOWN TO CT IN STABLE CONDITION
[2018-05-02] MEDS ORDERED: CT SWABBABLE VALVE TRANS SET 1 EA INFUS.SET MC ONE (12:21)
[2018-05-02] MEDS ORDERED: IV NS 0.9% 250 ML IV ONE (12:21)
[2018-05-02] MEDS ORDERED: IOHEXOL-300 100 ML VIAL IV ONE (12:21)
[2018-05-02] MEDS ORDERED: K PHOS NEUTRAL 250 MG TABLET PO ONE (13:30)
[2018-05-02] MEDS ORDERED: CALCIUM CARBONATE 500 MG TAB.CHEW PO ONE (16:00)
[2018-05-02] MEDS: DOCUSATE SODIUM 100 MG CAPSULE PO SCH ×2 (16:03→16:51)
[2018-05-02 16:08] VITALS: BP 107/68
--- NOTE | 2018-05-02 18:05 | NUR ---
MS REHABILITATOR NOTES PT WAS TRANSFERRED TO [facility] IN STABLE CONDITION. REPORT CALLED AND GIVEN TO GRETEL THE RECEIVING RN,. PER RN, ATTENDING PHYSICIAN IS NOT KNOWN AT THIS TIME, HOWEVER THEIR ADMITTING ALONG WITH THE UNIT IS AWARE THAT THE PT IS EN ROUTE. FACILITY MADE AWARE OF PT'S CT RESULTS ALONG WITH ALL OTHER PERTINENT MEDICAL INFORMATION. RN ALSO MADE AWARE THAT PT WILL BE COMING WITH HER IV. IV WAS PATENT AND INTACT PRIOR TO D/C. NO REDNESS OR SIGNS OF INFILTRATION NOTED. ALL BELONGINGS ACCOUNTED FOR PRIOR. D/C PAPERWORK SIGNED BY PT AND COPIES WERE MADE AND PLACED IN PT'S CHART. D/C PHOTO TAKEN. PT WA SAFELY TRANSFERRED FROM [facility] TO [facility] AND LEFT VIA AMBULANCE TRANSPORT
[2018-05-02] MEDS ORDERED: SENNOSIDES 8.6 MG TABLET PO SCH (22:00)
== END 2018-05-02 18:10 | DRG 140 ==
LOC: ER 04:32 → TELE 05:43 → MED 05-02 08:55
PROVIDERS: ADMIT Internal Medicine; ATTEND Internal Medicine
DX: J44.1 Chronic obstructive pulmonary disease with (acute) exacerbation (principal); I80.9 Phlebitis and thrombophlebitis of unspecified site; B19.20 Unspecified viral hepatitis C without hepatic coma; Z98.82 Breast implant status; L03.113 Cellulitis of right upper limb; E87.6 Hypokalemia; Z98.890 Other specified postprocedural states; Z88.0 Allergy status to penicillin; Z79.51 Long term (current) use of inhaled steroids; R74.0 Nonspecific elevation of levels of transaminase and lactic acid dehydrogenase [LDH]; Z87.891 Personal history of nicotine dependence; E78.5 Hyperlipidemia, unspecified; I10 Essential (primary) hypertension; K21.9 Gastro-esophageal reflux disease without esophagitis
CPT/HCPCS: 36415; 71045-TC; 73060-TC; 73201-TC; 80048-TC; 80053-TC; 80076-TC; 80202-TC; 83735-TC; 84100-TC; 85025-TC; 85730-TC; 87040-TC; 87081-TC; A4216; A4606; J1956; J2920; J3370; J7050; J7060; Q9967; Z7610

== ENCOUNTER 2018-05-11 12:59 | Inpatient (IN) | payer MEDICAID ==
[~2018-05-11] VITALS: Ht 165.1 cm; Wt 43.1 kg
--- NOTE | 2018-05-11 13:02 | NUR ---
CALLED TO TRIAGE, WENT TO VENDING MACHINE PER WR BLOCK CUBER
--- NOTE | 2018-05-11 13:20 | NUR ---
PT AMBULATORY TO ER BED 09. PRESENTS W/ L UPPER EXTREMITY PAIN, REDNESS AND SWELLING. PT WAS ADMITTED FOR CELLULITIS WEEK AGO. TAKING LEVAQUIN. PLACED ALIYA MONITOR. AFEBRILE. AWAITING MD MASSEY.
--- NOTE | 2018-05-11 13:33 | NUR ---
DR MCCLURE AT BEDSIDE FOR EVAL.
[2018-05-11] MEDS ORDERED: LEVO500T90 PO (13:41)
[2018-05-11] MEDS ORDERED: TIOT18CA3 IH (13:41)
[2018-05-11] MEDS ORDERED: PANT40TA4 PO (13:41)
[2018-05-11] MEDS ORDERED: FLUT1DIS5 IH (13:41)
--- NOTE | 2018-05-11 13:49 | NUR ---
IV LINE STARTED BLOOD DRAWN AND SENT TO LAB.
[2018-05-11 14:00] LABS: BASOPHILS # (AUTO) 0.1 /CMM (0.0-0.2); BASOPHILS % (AUTO) 0.9 % (0.0-2.0); EOSINOPHILS % (AUTO) 1.5 % (0.0-6.0); HEMATOCRIT 47 % (33-45); HEMOGLOBIN 15.1 g/dL (11.5-14.8); LYMPHOCYTES # (AUTO) 2.1 /CMM (0.8-4.8); LYMPHOCYTES % (AUTO) 21.8 % (20.0-44.0); MEAN CORPUSCULAR HGB CONC 32 g/dl (31.0-36.0); MEAN CORPUSCULAR VOLUME 90 fL (82-100); MONOCYTES # (AUTO) 0.7 /CMM (0.1-1.30); MONOCYTES % (AUTO) 7.2 % (2.0-12.0); NEUTROPHILS # (AUTO) 6.8 /CMM (1.8-8.9); NEUTROPHILS % (AUTO) 68.6 % (43.0-81.0); PLATELET COUNT (AUTO) 176 /CMM (150-450); RDW COEFFICIENT OF VARIATION 14.6 (11.5-15.0); WHITE BLOOD COUNT (AUTO) 9.8 K/uL (4.3-11.0)
[2018-05-11] MEDS ORDERED: VANCOMYCIN 1 GM in IV D5W 250 ML IV ONE (14:00)
[2018-05-11 14:09] LABS: CREATININE 0.8 mg/dL (0.6-1.3)
--- NOTE | 2018-05-11 14:20 | NUR ---
CALLED [facility] PAGED RIM FIRE PRIMING TOOL SETTER - [place]UL[place]O FOR THIS PATIENT.
--- NOTE | 2018-05-11 14:23 | NUR ---
CALLED NURSING SUP REQUESTING MED SURG BED FOR THIS PATIENT
--- NOTE | 2018-05-11 15:15 | NUR ---
REPORT GIVEN TO JOHANNA JOHANSEN. PT AWAITING TRANSFER TO FLOOR.
--- NOTE | 2018-05-11 15:19 | NUR ---
PT ADMIT TO ROOM 315-2
[2018-05-11] MEDS ORDERED: IPRATROPIUM NEB FS 0.5 MG/2.5 ML AMPUL.NEB NEB PRN (16:00)
[2018-05-11] MEDS ORDERED: ONDANSETRON HCL/PF 4 MG/2 ML VIAL IVP PRN (16:00)
[2018-05-11] MEDS ORDERED: ACETAMINOPHEN 325 MG TABLET PO PRN (16:00)
[2018-05-11] MEDS ORDERED: MAG HYDROX/AL HYDROX/SIMETH 30 ML UDC PO PRN (16:00)
[2018-05-11] MEDS ORDERED: Z GUARD REMEDY 2 OZ OINT TP PRN (16:00)
[2018-05-11] MEDS ORDERED: MAGNESIUM HYDROXIDE 30 ML UDC PO PRN (16:00)
[2018-05-11] MEDS ORDERED: ALBUTEROL FS 2.5 MG/3 ML VIAL.NEB NEB PRN (16:00)
--- NOTE | 2018-05-11 16:15 | NUR ---
PATIENT TRANSPORTED TO [facility] VIA WHEELCHAIR. RNJOHANNA TO PROVIDE ANDRE.
[2018-05-11] MEDS ORDERED: FEE PK DOSING 1 MIN EA MC ONE (16:44)
--- NOTE | 2018-05-11 17:00 | NUR ---
ms rn received a new admission, awake,alert,oriented x4,not in any form of distress, respirations even and unlabored,no sob noted, lungs are clear,abdomen soft,positive bowel sounds, denies pain at this time,came in w/ dx of left upper arm cellulitis, w/ reddish color at site, denies pain at this time,all needs attended.
--- NOTE | 2018-05-11 18:00 | NUR ---
ms rn inserted a new iv site at left forearm due to pain at right site.started on iv hydration, tolerated well.
[2018-05-11] MEDS: IV NS 0.9% 1,000 ML IV PRN (18:30)
--- NOTE | 2018-05-11 18:30 | NUR ---
ms anna text jose or enrique result of 3.0 , awaiting for answer.
--- NOTE | 2018-05-11 19:03 | NUR ---
ms anna garcia did not text back yet, will endorsed to plant operator/shift supervisor for elizabeth.no distress noted.
--- NOTE | 2018-05-11 19:35 | NUR ---
rn ms opening notes received patient in bed,awake alert and oriented x4 , respirations even and unlabored with equal rise and fall of chest, o2 offered per patient will use when needed. iv site to left fa #24g intact and patent, no redness , no infiltration present, ivf running as ordered NS at 75ml/hr. oriented to staff and call light and kept within reach, fluids offered, safety precautions in place, low bed and locked, all needs attended at this time remains comfortable, will continue to monitor.
[2018-05-11 20:00] VITALS: BP 107/50
[2018-05-11] MEDS: HYDROCODONE/APAP 5/325MG 1 EACH TABLET PO PRN (20:26)
--- NOTE | 2018-05-11 20:46 | NUR ---
rn ms notes noted patient with blood pressure of 107/50 highest and lowest 86/55. per patient states " blood pressure is usually on the lower side around 90/60-100/60." no complaints of dizziness or no signs and symptoms present, patient remains comfortable at this time. called and spoked to dr. celis regarding blood pressure and made aware patient is currently on NS @75ml/hr and asymptomatic also made MD aware of patient newly admitted with potassium lab of 3.0 and no replacement was given, new order received and read back potassium PO 40MEQ ONCE. order noted and carried out .
[2018-05-11] MEDS ORDERED: POTASSIUM CHLORIDE 20 MEQ TAB.PRT.SR PO ONE (21:00)
[2018-05-11] MEDS: ZOLPIDEM TARTRATE 5 MG TABLET PO PRN (22:52)
[2018-05-12] MEDS: VANCOMYCIN 0.75 GM in IV D5W 250 ML IV SCH ×2 (01:36→14:24)
--- NOTE | 2018-05-12 07:03 | NUR ---
rn ms closing notes patient in bed sleeping but easily arousable and oriented x4 , respirations even and unlabored with equal rise and fall of chest, iv site to left fa #24g intact and patent, no redness , no infiltration present, ivf running as ordered NS at 75ml/hr. call light kept within reach, fluids offered, safety precautions in place, low bed and locked, all needs attended at this time remains comfortable, will continue to monitor and endorse to next shift.
--- NOTE | 2018-05-12 07:20 | NUR ---
MS/RN OPENING NOTE PATIENT ALERT AND ORIENTED X4. DENIES SOB AT THIS TIME. RESPIRATION REGULAR AND UNLABORED. DENIES PAIN. LEFT UPPER ARM REDNESS AND SWELLING NOTED. NO INCREASE FROM ORIGINAL SIZE AND NO CHANGE IN COLOR. RADIAL PULSE PRESENT. LFA G 24 PATENT AND NORMAL SALINE INFUSING AT 75ML/HR. NO S/S INFILTRATION NOTED. BED LOW AND LOCKED. SIDE RAILS UP X3. CALL LIGHT WITHIN REACH. WILL CONTINUE TO MONITOR.
[2018-05-12 08:00] VITALS: BP 95/53
[2018-05-12 08:31] LABS: BASOPHILS # (AUTO) 0.1 /CMM (0.0-0.2); BASOPHILS % (AUTO) 1.3 % (0.0-2.0); EOSINOPHILS % (AUTO) 2.9 % (0.0-6.0); HEMATOCRIT 44 % (33-45); HEMOGLOBIN 14.5 g/dL (11.5-14.8); LYMPHOCYTES # (AUTO) 2.2 /CMM (0.8-4.8); LYMPHOCYTES % (AUTO) 32.9 % (20.0-44.0); MEAN CORPUSCULAR HGB CONC 33 g/dl (31.0-36.0); MEAN CORPUSCULAR VOLUME 91 fL (82-100); MONOCYTES # (AUTO) 0.4 /CMM (0.1-1.30); MONOCYTES % (AUTO) 6.4 % (2.0-12.0); NEUTROPHILS # (AUTO) 3.8 /CMM (1.8-8.9); NEUTROPHILS % (AUTO) 56.5 % (43.0-81.0); PLATELET COUNT (AUTO) 177 /CMM (150-450); RDW COEFFICIENT OF VARIATION 14.5 (11.5-15.0); RED BLOOD CELL COUNT(AUTO) 4.88 MIL/uL (4.0-5.2); WHITE BLOOD COUNT (AUTO) 6.8 K/uL (4.3-11.0)
[2018-05-12 08:49] LABS: CALCIUM, SERUM 9.2 mg/dL (8.5-10.1); CREATININE 0.8 mg/dL (0.6-1.3); MAGNESIUM 1.9 mg/dL (1.8-2.4); PHOSPHORUS 2.7 mg/dL (2.5-4.9); POTASSIUM 3.9 mmol/L (3.5-5.1)
[2018-05-12 09:04] LABS: THYROID STIMULATING HORMONE 6.133 uIU/mL (0.358-3.74)
[2018-05-12] MEDS: HYDROCODONE/APAP 5/325MG 1 EACH TABLET PO PRN ×2 (09:10→15:40)
[2018-05-12] MEDS: PANTOPRAZOLE 40 MG TABLET.DR PO SCH (09:10)
[2018-05-12] MEDS: IV NS 0.9% 1,000 ML IV PRN (09:11)
[2018-05-12 16:00] VITALS: BP 96/57
--- NOTE | 2018-05-12 19:24 | NUR ---
MS/RN CLOSING NOTE PATIENT ALERT AND ORIENTED X4. DENIES SOB. RESPIRATION REGULAR AND UNLABORED. LEFT UPPER ARM REDNESS AND SWELLING STILL NOTED BUT WITH NO CHANGE IN COLOR AND SIZE. DENIES PAIN. PATIENT IN NO APPARENT DISTRESS. LFA G 24 PATENT AND NORMAL SALINE INFUSING AT 75ML/HR AND NO S/S INFILTRATION NOTED. BED LOW AND LOCKED. SIDE RAILS UP X3. CALL LIGHT WITHIN REACH. WILL ENDORSE TO BUNKER WORKER.
--- NOTE | 2018-05-12 19:30 | NUR ---
RN MS OPENING NOTES RECEIVED PATIENT IN BED AWAKE. ALERT AND ORIENTED X4. VERBALLY RESPONSIVE. BREATHING EVEN AND UNLABORED. NO SOB NOTED. TOLERATING ROOM AIR. NO COMPLAINTS OF PAIN OR DISCOMFORT. NO FACIAL GRIMACING. IV ACCESS ON LEFT FOREARM INTACT AND PATENT. SKIN DRY AND WARM TO TOUCH. AFEBRILE. ALL OTHER NEEDS ATTENDED TO. SAFETY MEASURES ON PLACE. CALL LIGHT WITHIN REACH. WILL CONTINUE TO MONITOR
[2018-05-12 20:00] VITALS: BP 96/65
[2018-05-13] MEDS: ZOLPIDEM TARTRATE 5 MG TABLET PO PRN (00:02)
[2018-05-13] MEDS: VANCOMYCIN 0.75 GM in IV D5W 250 ML IV SCH ×2 (02:21→13:57)
--- NOTE | 2018-05-13 05:03 | NUR ---
RN MS NOTES PATIENT COMPLAINED OF "STINGING" FEELING ON LEFT FOREARM IV ACCESS. IV ACCESS INTACT AND PATENT - WITH GOOD BLOOD RETURN. NO S/S OF INFILTRATION, SWELLING, OR REDNESS. OFFERED TO PUT A NEW IV ACCESS BUT PATIENT REFUSED. PER PATIENT, SHE CAN TOLERATE AND IT ONLY HAPPENS WHEN IT IS BEING IN USED.
[2018-05-13 05:11] VITALS: BP 105/72
--- NOTE | 2018-05-13 06:40 | NUR ---
RN MS CLOSING NOTES PATIENT IN BED ASLEEP. EASILY AROUSABLE. NO ACUTE CHANGES THROUGHOUT SHIFT. ALERT AND ORIENTED X4. VERBALLY RESPONSIVE. BREATHING EVEN AND UNLABORED. NO SOB NOTED. TOLERATING ROOM AIR. NO COMPLAINTS OF PAIN OR DISCOMFORT. NO FACIAL GRIMACING. IV ACCESS ON LEFT FOREARM INTACT AND PATENT - INFUSING NS @ 75ML/HR. SKIN DRY AND WARM TO TOUCH. AFEBRILE. KEPT CLEAN AND COMFORTABLE. ALL OTHER NEEDS ATTENDED TO. SAFETY MEASURES ON PLACE. CALL LIGHT WITHIN REACH. WILL ENDORSE TO ONCOMING NURSE FOR CONTINUITY OF CARE.
[2018-05-13 07:05] LABS: CREATININE 0.7 mg/dL (0.6-1.3); POTASSIUM 3.5 mmol/L (3.5-5.1)
--- NOTE | 2018-05-13 07:10 | NUR ---
MS RN NOTES PATIENT IN BED ALERT ORIENTED X 3. NO ACUTE DISTRESS NOTED. BREATHING UNLABORED. NO SOB NOTED. IV ACCESS PATENT AND INTACT, NO SWELLING OR REDNESS NOTED. SAFETY MEASURES IN PLACE. CALL LIGHT WITHIN REACH. WILL CONTINUE TO MONITOR ACCORDINGLY.
[2018-05-13 08:00] VITALS: BP 99/70
[2018-05-13] MEDS: PANTOPRAZOLE 40 MG TABLET.DR PO SCH (08:10)
[2018-05-13] MEDS: HYDROCODONE/APAP 5/325MG 1 EACH TABLET PO PRN ×2 (08:13→14:05)
[2018-05-13 16:00] VITALS: BP 102/62
[2018-05-13] MEDS ORDERED: ENSURE ENLIVE 237 ML LIQUID (VANILLA) PO SCH (18:00)
--- NOTE | 2018-05-13 19:00 | NUR ---
MS RN NOTES PATIENT DISCHARGE TO [facility] IN STABLE CONDITION. NO ACUTE DISTRESS NOTED. BREATHING UNLABORED. NO SOB NOTED. DISCHARGE INSTRUCTIONS GIVEN TO THE PATIENT, VERBALIZED UNDERSTANDING. REPORT GIVEN TO PERRI JOHANSEN. ALL BELONGINGS ACCOUNTED FOR. IV ACCESS REMOVED, NO BLEEDING, NO REDNESS, NO SWELLING NOTED. DUE MEDICATIONS GIVEN, NO ASE NOTED. NEEDS ATTENDED AND ANTICIPATED. KEPT CLEAN, DRY AND COMFORTABLE. PICKED UP VIA AMBULANCE IN A GURNEY ACCOMPANIED BY 2 EMT PERSONNEL IN STABLE CONDITION.
[2018-05-13] MEDS ORDERED: ALBUTEROL FS 2.5 MG/3 ML VIAL.NEB NEB PRN (19:30)
[2018-05-13] MEDS ORDERED: IPRATROPIUM NEB FS 0.5 MG/2.5 ML AMPUL.NEB NEB SCH (19:30)
[2018-05-14] MEDS ORDERED: FLUTICASONE/VILANTEROL 1 EACH BLST.W.DEV IH SCH (09:00)
[2018-05-14] MEDS ORDERED: LEVOFLOXACIN (500MG) 500 MG TABLET PO SCH (09:00)
== END 2018-05-13 19:00 | disposition short-term general hospital (02) | DRG 383 ==
LOC: ER 13:00 → MED 15:45
PROVIDERS: ADMIT Hospitalist; ATTEND Hospitalist
DX: L03.114 Cellulitis of left upper limb (principal); E43 Unspecified severe protein-calorie malnutrition; J44.9 Chronic obstructive pulmonary disease, unspecified; E87.6 Hypokalemia; Z88.0 Allergy status to penicillin; Z68.1 Body mass index [BMI] 19.9 or less, adult; I10 Essential (primary) hypertension; E78.5 Hyperlipidemia, unspecified; K21.9 Gastro-esophageal reflux disease without esophagitis; Z87.891 Personal history of nicotine dependence
CPT/HCPCS: 36415; 80048-TC; 80061-TC; 80202-TC; 83735-TC; 84100-TC; 84443-TC; 85025-TC; 87081-TC; A4216; A4606; J3370; J7030; J7060; Z7610

== ENCOUNTER 2018-05-30 22:14 | Emergency (ER) | payer MEDICAID ==
[~2018-05-30] VITALS: Ht 165.1 cm; Wt 45.4 kg
[~2018-05-30 22:14] MED LIST changes: +FLUT1DIS5 IH; -GUAI600T53 PO; -LEVO500T2 PO; -METH4TAB3 PO; +PANT40TA4 PO; +TIOT18CA3 IH; -TIOT4MIS3 IH
--- NOTE | 2018-05-30 22:50 | NUR ---
TO ER BED 14 C/O NECK PAIN, COUGH, PICC LINE REMOVAL. PT AA/OX 4. NO S/S SOB. SKIN PINK, WARM, DRY. AMBULATED TO HOSPITAL BED WITH STABLE GAIT. MOVES ALL EXTREMITIES WELL. VSS. NAD. STABLE CONDITION. WILL CONTINUE TO MONITOR.
[2018-05-30] MEDS ORDERED: IPRATROPIUM NEB FS 0.5 MG/2.5 ML AMPUL.NEB NEB ONE (23:30)
[2018-05-30] MEDS ORDERED: CARISOPRODOL 350 MG TABLET PO ONE (23:30)
[2018-05-30] MEDS ORDERED: KETOROLAC TROMETHAMINE INJ 30 MG/ML VIAL IM ONE (23:30)
[2018-05-30] MEDS ORDERED: ALBUTEROL FS 2.5 MG/3 ML VIAL.NEB NEB ONE (23:30)
[2018-05-30] MEDS ORDERED: methylPREDNISolone SOD SUCC 125 MG/2ML VIAL IV ONE (23:30)
[2018-05-30] MEDS ORDERED: IV NS 0.9% 1,000 ML BAG IV ONE (23:30)
[2018-05-30] MEDS ORDERED: methylPREDNISolone SOD SUCC 125 MG/2ML VIAL ONE (23:31)
[2018-05-30] MEDS ORDERED: KETOROLAC TROMETHAMINE INJ 60 MG/2 ML VIAL IM ONE (23:31)
[2018-05-30] MEDS ORDERED: CARISOPRODOL 350 MG TABLET ONE (23:31)
[2018-05-31] MEDS ORDERED: ALBUTEROL FS 2.5 MG/3 ML VIAL.NEB ONE (00:29)
[2018-05-31] MEDS ORDERED: IPRATROPIUM NEB FS 0.5 MG/2.5 ML AMPUL.NEB ONE (00:29)
--- NOTE | 2018-05-31 00:37 | NUR ---
SITTING UPRIGHT IN BED WITH FAMILY AT BEDSIDE. NAD. VSS. SAFTEY MEASURES IN PLACE. CALL LIGHT WITHIN REACH.
[2018-05-31] MEDS ORDERED: KETOROLAC TROMETHAMINE INJ 60 MG/2 ML VIAL IM ONE (00:58)
--- NOTE | 2018-05-31 01:29 | NUR ---
Patient discharged to home in stable condition. Written and verbal after care instructions given. Patient verbalizes understanding of instruction. IV removed. Catheter intact and site benign. Pressure and 4x4 applied to site. No bleeding noted. AMBULATED WITH STEADY GAIT. INSTRUCTED NOT TO DRIVE OR OPERATE HEAVY MACHINERY.
[2018-05-31 01:33] VITALS: BP 110/74
== END 2018-05-31 01:33 | disposition home or self-care (01) ==
LOC: ER 22:22
DX: M54.2 Cervicalgia (principal); R06.2 Wheezing; J44.9 Chronic obstructive pulmonary disease, unspecified; E87.6 Hypokalemia; E88.09 Other disorders of plasma-protein metabolism, not elsewhere classified; F17.200 Nicotine dependence, unspecified, uncomplicated; Z45.2 Encounter for adjustment and management of vascular access device; Z90.89 Acquired absence of other organs; Z88.0 Allergy status to penicillin
CPT/HCPCS: 94640; 96372; 96374; 99284; J1885; J2930; J7030; A4606; A6402; Z7610

== ENCOUNTER 2018-08-01 23:37 | Emergency (ER) | payer OTHER ==
[~2018-08-01] VITALS: Ht 165.1 cm; Wt 46.3 kg
--- NOTE | 2018-08-02 01:00 | NUR ---
PT BIBSELF COMPLAINING OF SOB X5 DAYS, PT STATES WORSE TODAY. PT ABLE TO SPEAK FULL SENTENCES. PT C/O PAIN WITH COUGH AND DEEP INSPIRATION. NOTED PRODUCTIVE COUGH WITH GREEN SPUTUM. PT 91% ON ROOM AIR, PT PLACED ON 2L NC O2, TOLERATED WELL. O2 SAT NOW 97%. PT ALSO COMPLAINING OF RIGHT HAND PAIN. NOTED SWELLING AND REDDNESS, PT DENIES TRUAMA. PT IS AAOX4. RESPIRATIONS EVEN AND UNLABORED. SKIN WARM AND INTACT. NO ACUTE DISTRESS NOTED AT THIS TIME
--- NOTE | 2018-08-02 01:07 | NUR ---
RADIOLOGY AT BEDSIDE FOR CXR
--- NOTE | 2018-08-02 02:18 | NUR ---
Patient discharged to home in stable condition. Written and verbal after care instructions given. Patient verbalizes understanding of instruction. Pt ambulatory with a steady gait
[2018-08-02 02:20] VITALS: BP 135/76
== END 2018-08-02 02:20 | disposition home or self-care (01) ==
LOC: ER 23:47
DX: S69.81XA Other specified injuries of right wrist, hand and finger(s), initial encounter (principal); J40 Bronchitis, not specified as acute or chronic; F17.200 Nicotine dependence, unspecified, uncomplicated; E88.09 Other disorders of plasma-protein metabolism, not elsewhere classified; Z90.89 Acquired absence of other organs; Z88.0 Allergy status to penicillin; Z87.19 Personal history of other diseases of the digestive system; Z79.899 Other long term (current) drug therapy; X58.XXXA Exposure to other specified factors, initial encounter; Y93.89 Activity, other specified; Y92.89 Other specified places as the place of occurrence of the external cause; Y99.8 Other external cause status
CPT/HCPCS: 71045-TC; 73130-TC; A4606; Z7610

== ENCOUNTER 2018-08-12 22:30 | Inpatient (IN) | payer OTHER ==
[~2018-08-12] VITALS: Ht 165.1 cm; Wt 46.3 kg
[2018-08-12] MEDS ORDERED: ALBUTEROL FS 2.5 MG/3 ML VIAL.NEB ONE (22:57)
[2018-08-12] MEDS ORDERED: IPRATROPIUM NEB FS 0.5 MG/2.5 ML AMPUL.NEB ONE (22:57)
[2018-08-12] MEDS ORDERED: IPRATROPIUM NEB FS 0.5 MG/2.5 ML AMPUL.NEB NEB ONE (23:00)
[2018-08-12] MEDS ORDERED: predniSONE 20 MG TABLET PO ONE (23:00)
[2018-08-12] MEDS ORDERED: ALBUTEROL FS 2.5 MG/3 ML VIAL.NEB CONTNEB ONE (23:00)
[2018-08-12] MEDS ORDERED: AZITHROMYCIN 500 MG in IV D5W 250 ML IV ONE (23:30)
[2018-08-12 23:50] LABS: BASOPHILS # (AUTO) 0.1 /CMM (0.0-0.2); BASOPHILS % (AUTO) 1.2 % (0.0-2.0); EOSINOPHILS % (AUTO) 2.4 % (0.0-6.0); HEMATOCRIT 43 % (33-45); HEMOGLOBIN 14.2 g/dL (11.5-14.8); LYMPHOCYTES # (AUTO) 3.2 /CMM (0.8-4.8); LYMPHOCYTES % (AUTO) 38.4 % (20.0-44.0); MEAN CORPUSCULAR HGB CONC 33 g/dl (31.0-36.0); MEAN CORPUSCULAR VOLUME 93 fL (82-100); MONOCYTES # (AUTO) 0.7 /CMM (0.1-1.30); NEUTROPHILS # (AUTO) 4.2 /CMM (1.8-8.9); PLATELET COUNT (AUTO) 215 /CMM (150-450); RED BLOOD CELL COUNT(AUTO) 4.59 MIL/uL (4.0-5.2); WHITE BLOOD COUNT (AUTO) 8.5 K/uL (4.3-11.0)
[2018-08-12] MEDS ORDERED: predniSONE 20 MG TABLET ONE (23:51)
[2018-08-12] MEDS ORDERED: AZITHROMYCIN 500 MG VIAL ONE (23:56)
[2018-08-12 23:59] LABS: CALCIUM, SERUM 9.9 mg/dL (8.5-10.1); CREATININE 0.7 mg/dL (0.6-1.3); POTASSIUM 3.2 mmol/L (3.5-5.1)
[2018-08-13] MEDS ORDERED: ONDANSETRON HCL/PF 4 MG/2 ML VIAL IVP PRN (01:30)
[2018-08-13] MEDS: IPRATROPIUM NEB FS 0.5 MG/2.5 ML AMPUL.NEB NEB SCH ×4 (01:30→20:14)
[2018-08-13] MEDS ORDERED: ACETAMINOPHEN 325 MG TABLET PO PRN (01:30)
[2018-08-13] MEDS: ALBUTEROL FS 2.5 MG/0.5 ML VIAL.NEB NEB SCH ×4 (01:30→20:14)
[2018-08-13] MEDS ORDERED: IV NS 0.9% 1,000 ML BAG IV ONE (01:30)
[2018-08-13 04:00] VITALS: BP 100/74
[2018-08-13] MEDS ORDERED: MORPHINE SULFATE INJ 4 MG/ML DISP.SYRIN IV PRN (04:30)
[2018-08-13] MEDS ORDERED: LEVOFLOXACIN 750 MG /D5W 150ML 150 ML IV ONE (04:35)
[2018-08-13] MEDS: LEVOFLOXACIN 750 MG /D5W 150ML 750 MG in PREMIX 1 EA IV SCH ×2 (04:45→05:00)
[2018-08-13 04:55] LABS: BILIRUBIN,DIRECT 0.2 mg/dL (0.0-0.2); BILIRUBIN,TOTAL 0.4 mg/dL (0.2-1.0)
[2018-08-13] MEDS ORDERED: POTASSIUM CHLORIDE 20 MEQ TAB.PRT.SR PO ONE (05:30)
[2018-08-13 08:00] VITALS: BP 94/60
[2018-08-13] MEDS: methylPREDNISolone SOD SUCC 40 MG/ML VIAL IV SCH ×2 (09:21→16:49)
[2018-08-13 12:00] VITALS: BP 90/56
[2018-08-13] MEDS: HYDROMORPHONE INJ 2 MG/ML DISP.SYRIN IV PRN ×2 (13:26→22:58)
[2018-08-13 16:00] VITALS: BP 97/59
[2018-08-13 20:00] VITALS: BP 101/67
[2018-08-13] MEDS: AZITHROMYCIN 500 MG in IV D5W 250 ML IV SCH (20:09)
[2018-08-14] VITALS: BP 97/57
[2018-08-14] MEDS: methylPREDNISolone SOD SUCC 40 MG/ML VIAL IV SCH ×2 (00:41→08:50)
[2018-08-14] MEDS: ALBUTEROL FS 2.5 MG/0.5 ML VIAL.NEB NEB SCH ×4 (01:00→20:13)
[2018-08-14] MEDS: IPRATROPIUM NEB FS 0.5 MG/2.5 ML AMPUL.NEB NEB SCH ×4 (01:00→20:13)
[2018-08-14] MEDS ORDERED: ZOLPIDEM TARTRATE 5 MG TABLET PO PRN (01:00)
[2018-08-14 04:00] VITALS: BP 95/54
[2018-08-14 07:17] LABS: BASOPHILS # (AUTO) 0.1 /CMM (0.0-0.2); BASOPHILS % (AUTO) 0.3 % (0.0-2.0); HEMATOCRIT 40 % (33-45); HEMOGLOBIN 13.5 g/dL (11.5-14.8); LYMPHOCYTES # (AUTO) 1.2 /CMM (0.8-4.8); LYMPHOCYTES % (AUTO) 7.3 % (20.0-44.0); MEAN CORPUSCULAR HGB CONC 34 g/dl (31.0-36.0); MEAN CORPUSCULAR VOLUME 94 fL (82-100); MONOCYTES # (AUTO) 0.4 /CMM (0.1-1.30); MONOCYTES % (AUTO) 2.5 % (2.0-12.0); NEUTROPHILS # (AUTO) 15.3 /CMM (1.8-8.9); NEUTROPHILS % (AUTO) 89.9 % (43.0-81.0); PLATELET COUNT (AUTO) 115 /CMM (150-450); RED BLOOD CELL COUNT(AUTO) 4.28 MIL/uL (4.0-5.2)
[2018-08-14 07:43] LABS: ALBUMIN 2.5 g/dL (3.4-5.0); BILIRUBIN,TOTAL 0.2 mg/dL (0.2-1.0); CREATININE 0.7 mg/dL (0.6-1.3); MAGNESIUM 2.2 mg/dL (1.8-2.4); PHOSPHORUS 3.1 mg/dL (2.5-4.9); POTASSIUM 4.6 mmol/L (3.5-5.1); TOTAL PROTEIN, SERUM 5.7 g/dL (6.4-8.2)
[2018-08-14 08:00] VITALS: BP 95/58
[2018-08-14 12:00] VITALS: BP 98/52
[2018-08-14] MEDS ORDERED: GUAIFENESIN/D-METHORPHAN HB 5 ML UDC PO PRN (15:30)
[2018-08-14] MEDS ORDERED: IV NS 0.9% 1,000 ML IV PRN (15:30)
[2018-08-14 16:00] VITALS: BP 97/50
[2018-08-14] MEDS ORDERED: BENZONATATE 100 MG CAPSULE PO SCH (17:00)
[2018-08-14] MEDS ORDERED: MEROPENEM 1 G in IV NS 0.9% 100 ML IV SCH (17:00)
[2018-08-14] MEDS ORDERED: ENSURE ENLIVE 237 ML LIQUID (VANILLA) PO SCH (17:00)
[2018-08-14] MEDS ORDERED: PIPERACILLIN /TAZOBACTAM 4.5 G in IV D5W 50 ML IV SCH (18:00)
[2018-08-14] MEDS: HYDROMORPHONE INJ 2 MG/ML DISP.SYRIN IV PRN (19:50)
[2018-08-14 20:00] VITALS: BP 113/62
[2018-08-14] MEDS: AZITHROMYCIN 500 MG in IV D5W 250 ML IV SCH (21:01)
[2018-08-15] MEDS ORDERED: methylPREDNISolone SOD SUCC 40 MG/ML VIAL IV SCH (09:00)
== END 2018-08-14 22:54 | disposition short-term general hospital (02) | DRG 139 ==
LOC: ER 22:33 → TELE 08-13 02:40
PROVIDERS: ADMIT Internal Medicine; ATTEND Internal Medicine
DX: J15.9 Unspecified bacterial pneumonia (principal); J80 Acute respiratory distress syndrome; E88.01 Alpha-1-antitrypsin deficiency; J44.0 Chronic obstructive pulmonary disease with (acute) lower respiratory infection; J44.1 Chronic obstructive pulmonary disease with (acute) exacerbation; I10 Essential (primary) hypertension; B19.20 Unspecified viral hepatitis C without hepatic coma; Z88.0 Allergy status to penicillin; E87.6 Hypokalemia; K21.9 Gastro-esophageal reflux disease without esophagitis; Z79.51 Long term (current) use of inhaled steroids; Z79.899 Other long term (current) drug therapy; Z87.891 Personal history of nicotine dependence
CPT/HCPCS: 36415; 71045-TC; 80048-TC; 80053-TC; 82247-TC; 82248-TC; 83605-TC; 83735-TC; 84100-TC; 85025-TC; 87040-TC; 87081-TC; A4216; G0378; J0456; J1170; J1956; J2185; J2270; J2405; J2543; J2920; J7030; J7040; J7060

== ENCOUNTER 2018-09-07 18:37 | Emergency (ER) | payer OTHER ==
[~2018-09-07] VITALS: Ht 165.1 cm; Wt 48.1 kg
--- NOTE | 2018-09-07 19:05 | NUR ---
patientbib mariya fdue to sob and previously diagnosed with PNA. on room air, labored breathing, patient verbalized she has copd, not using oxygen at home, 92% on RA. connected to the monitor with HR of 121, kept comfortable, IV access initiated on the right hand G24. will continue to monitor accordingly.
[2018-09-07] MEDS ORDERED: methylPREDNISolone SOD SUCC 125 MG/2ML VIAL ONE (19:17)
--- NOTE | 2018-09-07 19:17 | NUR ---
RT PAGED FOR ALIN HERNANDEZ. BUSINESS SOLUTIONS CONSULTANT AT BEDSIDE FOR BLOD DRAW.
[2018-09-07] MEDS ORDERED: ALBUTEROL FS 2.5 MG/3 ML VIAL.NEB ONE ×2 (19:29→20:35)
[2018-09-07] MEDS ORDERED: methylPREDNISolone SOD SUCC 125 MG/2ML VIAL IV ONE (19:30)
[2018-09-07] MEDS ORDERED: ALBUTEROL FS 2.5 MG/3 ML VIAL.NEB NEB ONE ×2 (19:30→20:30)
[2018-09-07 19:53] LABS: BASOPHILS # (AUTO) 0.1 /CMM (0.0-0.2); BASOPHILS % (AUTO) 1.2 % (0.0-2.0); EOSINOPHILS % (AUTO) 6.4 % (0.0-6.0); HEMATOCRIT 45 % (33-45); HEMOGLOBIN 15.2 g/dL (11.5-14.8); LYMPHOCYTES # (AUTO) 2.8 /CMM (0.8-4.8); MEAN CORPUSCULAR HGB CONC 34 g/dl (31.0-36.0); MEAN CORPUSCULAR VOLUME 93 fL (82-100); MONOCYTES # (AUTO) 0.6 /CMM (0.1-1.30); NEUTROPHILS # (AUTO) 3.7 /CMM (1.8-8.9); NEUTROPHILS % (AUTO) 48.4 % (43.0-81.0); PLATELET COUNT (AUTO) 172 /CMM (150-450); WHITE BLOOD COUNT (AUTO) 7.7 K/uL (4.3-11.0)
[2018-09-07 20:02] LABS: CALCIUM, SERUM 10.2 mg/dL (8.5-10.1); CARBON DIOXIDE 28 mmol/L (21-32); CHLORIDE 108 mmol/L (98-107); CREATININE 0.6 mg/dL (0.6-1.3); GLUCOSE 109 mg/dL (74-106); POTASSIUM 3.6 mmol/L (3.5-5.1); SODIUM SERUM 141 mmol/L (136-145); UREA NITROGEN, BLOOD 14 mg/dL (7-18)
[2018-09-07 20:15] LABS: B-TYPE NATRIURETIC PEPTIDE 38 PG/ML (0-125)
--- NOTE | 2018-09-07 20:16 | NUR ---
pt continuously coughing, pt states "I have a very thick mucous stuck in the back of my throat". er md made aware with orders received. RT paged for erica magaña.
[2018-09-07 20:48] LABS: ABG BASE EXCESS -0.1 mmol/L; ABG OXYGEN SATURATION 94.3 % (92.0-98.5); ABG PCO2 41.6 mmHg (35.0-45.0); ABG PH 7.394 (7.350-7.450); ABG PO2 76.1 mmHg (75.0-100.0); AaDO2 74.5 mmHg; COHb 0.8 % (0.5-1.5); MetHb 0.5 % (0.0-1.5); O2Hb 93.1 % (94.0-97.0); SITE, ABG Right Radial; VENT MODE, BG Nasal Cannula
--- NOTE | 2018-09-07 21:50 | NUR ---
RT HAND 24G IV removed. Catheter intact and site benign. Pressure and 4x4 applied to site. No bleeding noted. PT WAS C/O OF PAIN. PT'S PRIMARY NURSE NOTIFIED.
--- NOTE | 2018-09-07 22:48 | NUR ---
pt resting quietly, no acute distress noted, resp even and unlabored. call light within reach. will continue to monitor pt closely.
--- NOTE | 2018-09-07 23:12 | NUR ---
Pt accepted to [facility] [address] Ragland. # for report [phone].
--- NOTE | 2018-09-07 23:51 | NUR ---
[facility] called for transport, ETA 0500.
--- NOTE | 2018-09-07 23:54 | NUR ---
[facility] called for transport , eta 90-120 minutes. Trip#[id number]
--- NOTE | 2018-09-08 00:41 | NUR ---
FOOD TRAY PROVIDED TO PT REQUESTED.
[2018-09-08 02:01] VITALS: BP 125/82
--- NOTE | 2018-09-08 02:01 | NUR ---
TRANSPORT AT BEDSIDE REPORT GIVEN TO EMT.
--- NOTE | 2018-09-08 02:11 | NUR ---
MARQUIS CALLED TO [facility] HAILY MARTINEZ.
== END 2018-09-08 02:26 | disposition short-term general hospital (02) ==
LOC: ER 18:43
DX: J44.1 Chronic obstructive pulmonary disease with (acute) exacerbation (principal); E87.6 Hypokalemia; E88.01 Alpha-1-antitrypsin deficiency; E88.09 Other disorders of plasma-protein metabolism, not elsewhere classified; F17.200 Nicotine dependence, unspecified, uncomplicated; Z86.19 Personal history of other infectious and parasitic diseases; Z98.82 Breast implant status; Z88.0 Allergy status to penicillin; Z88.1 Allergy status to other antibiotic agents
CPT/HCPCS: 36415; 36600 ×2; 71045; 80048; 82803; 83605; 83880; 84484; 85025; 87040; 87804 ×2; 93005; 94640; 96374; 99285; A4606; J2930; Z7610; 87400

== ENCOUNTER 2018-10-09 23:01 | Emergency (ER) | payer OTHER ==
[~2018-10-09] VITALS: Ht 165.1 cm; Wt 49.9 kg
--- NOTE | 2018-10-09 23:25 | NUR ---
ATTEMPTED TO START SL X3 WITH UNSUCCESSFUL RESULT. BRIAN MERAZ MADE AWARE.
[2018-10-09] MEDS ORDERED: IPRATROPIUM NEB FS 0.5 MG/2.5 ML AMPUL.NEB NEB ONE (23:30)
[2018-10-09] MEDS ORDERED: ALBUTEROL FS 2.5 MG/0.5 ML VIAL.NEB NEB ONE (23:30)
[2018-10-09] MEDS ORDERED: methylPREDNISolone SOD SUCC 125 MG/2ML VIAL IV ONE (23:30)
[2018-10-09] MEDS ORDERED: ALBUTEROL FS 2.5 MG/0.5 ML VIAL.NEB ONE (23:40)
[2018-10-09] MEDS ORDERED: IPRATROPIUM NEB FS 0.5 MG/2.5 ML AMPUL.NEB ONE (23:40)
--- NOTE | 2018-10-10 00:40 | NUR ---
PT TRANSPORTED TO RADIOLOGY FOR CT.
[2018-10-10 00:43] LABS: BASOPHILS # (AUTO) 0.1 /CMM (0.0-0.2); BASOPHILS % (AUTO) 0.9 % (0.0-2.0); EOSINOPHILS % (AUTO) 2.3 % (0.0-6.0); HEMATOCRIT 44 % (33-45); HEMOGLOBIN 14.7 g/dL (11.5-14.8); LYMPHOCYTES # (AUTO) 3.1 /CMM (0.8-4.8); LYMPHOCYTES % (AUTO) 34.1 % (20.0-44.0); MEAN CORPUSCULAR HGB CONC 33 g/dl (31.0-36.0); MEAN CORPUSCULAR VOLUME 93 fL (82-100); MONOCYTES # (AUTO) 0.8 /CMM (0.1-1.30); MONOCYTES % (AUTO) 8.4 % (2.0-12.0); NEUTROPHILS % (AUTO) 54.3 % (43.0-81.0); PLATELET COUNT (AUTO) 184 /CMM (150-450); RED BLOOD CELL COUNT(AUTO) 4.73 MIL/uL (4.0-5.2); WHITE BLOOD COUNT (AUTO) 9.2 K/uL (4.3-11.0)
--- NOTE | 2018-10-10 00:52 | NUR ---
PT BACK FROM RADIOLOGY. PENDING CT RESULT.
[2018-10-10 00:53] LABS: CALCIUM, SERUM 9.7 mg/dL (8.5-10.1); CREATININE 0.6 mg/dL (0.6-1.3); POTASSIUM 3.4 mmol/L (3.5-5.1)
--- NOTE | 2018-10-10 02:04 | NUR ---
Patient discharged to home in stable condition. Written and verbal after care instructions given. Patient verbalizes understanding of instruction. ambulatory with a steady gait. pt aaox4 no acute distress noted. resp even and unlabored.
[2018-10-10 02:10] VITALS: BP 139/81
== END 2018-10-10 02:11 | disposition home or self-care (01) ==
LOC: ER 23:07
DX: J98.01 Acute bronchospasm (principal); J39.8 Other specified diseases of upper respiratory tract; E87.6 Hypokalemia; E88.09 Other disorders of plasma-protein metabolism, not elsewhere classified; F17.200 Nicotine dependence, unspecified, uncomplicated; Z86.19 Personal history of other infectious and parasitic diseases; Z98.82 Breast implant status; Z88.0 Allergy status to penicillin; Z88.1 Allergy status to other antibiotic agents
CPT/HCPCS: 36415; 70490; 71045; 80048; 85025; 85730; 94640; 99284; A4606

== ENCOUNTER 2018-10-26 23:24 | Emergency (ER) | payer OTHER ==
[~2018-10-26] VITALS: Ht 165.1 cm; Wt 49.4 kg
--- NOTE | 2018-10-26 23:30 | NUR ---
PT BIBSELF C/O SOB X1 WEEK. PT HAS HX OF COPD. PT DENIES CHEST PAIN, HEADACHE, N/V/D. PT AAOX4. RESPIRATIONS EVEN. VITAL SIGNS STABLE. NO ACUTE DISTRESS NOTED AT THIS TIME. PLACED ON MONITOR WILL CONTINUE TO MONITOR.
--- NOTE | 2018-10-27 00:20 | NUR ---
MD AT BEDSIDE FOR EVALUATION
--- NOTE | 2018-10-27 00:26 | NUR ---
RT AT BEDSIDE FOR BREATHING TREATMENT
[2018-10-27] MEDS ORDERED: ALBUTEROL FS 2.5 MG/3 ML VIAL.NEB ONE (00:27)
[2018-10-27] MEDS ORDERED: IPRATROPIUM NEB FS 0.5 MG/2.5 ML AMPUL.NEB ONE (00:27)
[2018-10-27] MEDS ORDERED: predniSONE 20 MG TABLET ONE (00:28)
[2018-10-27] MEDS ORDERED: predniSONE 20 MG TABLET PO ONE (00:30)
[2018-10-27] MEDS ORDERED: ALBUTEROL FS 2.5 MG/3 ML VIAL.NEB NEB ONE (00:30)
[2018-10-27] MEDS ORDERED: IPRATROPIUM NEB FS 0.5 MG/2.5 ML AMPUL.NEB NEB ONE (00:30)
--- NOTE | 2018-10-27 01:15 | NUR ---
PT C/O RIGHT ARM AND BREAST PAIN. AUTOMOTIVE ENGINEERING TECHNICIAN TO DR. MCCLURE FOR BREAST EXAMINATION.
[2018-10-27] MEDS ORDERED: AZITHROMYCIN 250 MG TABLET PO ONE (01:30)
[2018-10-27] MEDS ORDERED: AZITHROMYCIN 250 MG TABLET ONE (01:48)
--- NOTE | 2018-10-27 01:55 | NUR ---
Patient discharged to home in stable condition. Written and verbal after care instructions given. Patient verbalizes understanding of instruction. Pt ambulatory with a steady gait
[2018-10-27 02:00] VITALS: BP 129/87
== END 2018-10-27 02:01 | disposition home or self-care (01) ==
LOC: ER 23:28
DX: J44.9 Chronic obstructive pulmonary disease, unspecified (principal); E88.01 Alpha-1-antitrypsin deficiency; E87.6 Hypokalemia; R74.0 Nonspecific elevation of levels of transaminase and lactic acid dehydrogenase [LDH]; E88.09 Other disorders of plasma-protein metabolism, not elsewhere classified; F17.200 Nicotine dependence, unspecified, uncomplicated; Z86.19 Personal history of other infectious and parasitic diseases; Z98.82 Breast implant status; Z88.0 Allergy status to penicillin; Z88.1 Allergy status to other antibiotic agents
CPT/HCPCS: 71045; 94640; 99283; A4606; J7512

== ENCOUNTER 2018-10-28 20:22 | Emergency (ER) | payer OTHER ==
[~2018-10-28] VITALS: Ht 165.1 cm; Wt 49.9 kg
--- NOTE | 2018-10-28 20:45 | NUR ---
TO BED 3 AMBULATORY C/O SOB X10 DAYS WORSE LAST NIGHT, WAS SEEN HERE 2 DAYS AGO DX'D BRONCHITIS. PT AAOX4 NO ACUTE DISTRESS NOTED, RESP EVEN AND UNLABORED. PLACE PT ON CARDIAC MONITORING, CONTINUOUS POX, O2@2L/NC. PENDING ER MD MASSEY.
[2018-10-28] MEDS ORDERED: methylPREDNISolone SOD SUCC 125 MG/2ML VIAL ONE (20:54)
[2018-10-28] MEDS ORDERED: IPRATROPIUM NEB FS 0.5 MG/2.5 ML AMPUL.NEB NEB ONE (21:00)
[2018-10-28] MEDS ORDERED: ALBUTEROL FS 2.5 MG/3 ML VIAL.NEB NEB ONE (21:00)
[2018-10-28] MEDS ORDERED: methylPREDNISolone SOD SUCC 125 MG/2ML VIAL IV ONE (21:00)
--- NOTE | 2018-10-28 21:15 | NUR ---
BLOOD DRAWN AND SENT TO LAB.
[2018-10-28 21:21] LABS: BASOPHILS # (AUTO) 0.1 /CMM (0.0-0.2); BASOPHILS % (AUTO) 1.6 % (0.0-2.0); EOSINOPHILS % (AUTO) 3.9 % (0.0-6.0); HEMATOCRIT 47 % (33-45); HEMOGLOBIN 15.8 g/dL (11.5-14.8); LYMPHOCYTES # (AUTO) 2.3 /CMM (0.8-4.8); LYMPHOCYTES % (AUTO) 30.7 % (20.0-44.0); MEAN CORPUSCULAR HGB CONC 33 g/dl (31.0-36.0); MEAN CORPUSCULAR VOLUME 95 fL (82-100); MONOCYTES # (AUTO) 0.6 /CMM (0.1-1.30); MONOCYTES % (AUTO) 7.7 % (2.0-12.0); NEUTROPHILS # (AUTO) 4.2 /CMM (1.8-8.9); NEUTROPHILS % (AUTO) 56.1 % (43.0-81.0); PLATELET COUNT (AUTO) 185 /CMM (150-450); RED BLOOD CELL COUNT(AUTO) 4.98 MIL/uL (4.0-5.2); WHITE BLOOD COUNT (AUTO) 7.5 K/uL (4.3-11.0)
--- NOTE | 2018-10-28 21:32 | NUR ---
RT AT BEDSIDE TO GIVE HHN TX.
[2018-10-28] MEDS ORDERED: ALBUTEROL FS 2.5 MG/3 ML VIAL.NEB ONE (21:34)
[2018-10-28] MEDS ORDERED: IPRATROPIUM NEB FS 0.5 MG/2.5 ML AMPUL.NEB ONE (21:34)
[2018-10-28 21:42] LABS: B-TYPE NATRIURETIC PEPTIDE 24 PG/ML (0-125)
[2018-10-28 22:35] LABS: CALCIUM, SERUM 9.4 mg/dL (8.5-10.1); CARBON DIOXIDE 29 mmol/L (21-32); CHLORIDE 110 mmol/L (98-107); CREATININE 0.6 mg/dL (0.6-1.3); GLUCOSE 96 mg/dL (74-106); POTASSIUM 3.3 mmol/L (3.5-5.1); SODIUM SERUM 143 mmol/L (136-145); UREA NITROGEN, BLOOD 21 mg/dL (7-18)
[2018-10-28 22:40] LABS: ALANINE AMINOTRANSFERASE 49 U/L (12-78); ALKALINE PHOSPHATASE 87 U/L (46-116); ASPARTATE AMINOTRANSFERASE 38 U/L (15-37); BILIRUBIN,DIRECT 0.2 mg/dL (0.0-0.2); BILIRUBIN,TOTAL 0.5 mg/dL (0.2-1.0); TOTAL PROTEIN, SERUM 5.7 g/dL (6.4-8.2)
--- NOTE | 2018-10-28 23:01 | NUR ---
PT RESTING QUIETLY, NO ACUTE DISTRESS NOTED, RESP EVEN AND UNLABORED. CALL LIGHT WITHIN REACH.
--- NOTE | 2018-10-29 02:12 | NUR ---
PT ASLEEP, NO ACUTE DISTRESS NOTED, RESP EVEN AND UNLABORED. CALL LIG WITHIN REACH. WILL CONTINUE TO MONITOR PT CLOSELY.
--- NOTE | 2018-10-29 06:01 | NUR ---
PT ACCEPTED TO [facility] BY DR COYNE. # FOR REPORT [phone]
--- NOTE | 2018-10-29 06:07 | NUR ---
PT ASLEEP, EASILY AROUSABLE, NO ACUTE DISTRESS NOTED, RESP EVEN AND UNLABORED. CALL LIGHT WITHIN REACH. WILL CONTINUE TO MONITOR PT CLOSELY.
--- NOTE | 2018-10-29 06:12 | NUR ---
[facility] CALLED FOR [facility]. ETA [phone] TRIP# [id number]
--- NOTE | 2018-10-29 07:31 | NUR ---
REPORT GIVEN TO MELISSA JOHANSEN AT [facility].
[2018-10-29 10:05] VITALS: BP 106/68
--- NOTE | 2018-10-29 10:10 | NUR ---
patient picked up by regular ambulance going to [facility] in no apparent distress noted. denies any pain or discomfort.
== END 2018-10-29 10:08 | disposition short-term general hospital (02) ==
LOC: ER 20:24
DX: J44.9 Chronic obstructive pulmonary disease, unspecified (principal); E87.6 Hypokalemia; E88.09 Other disorders of plasma-protein metabolism, not elsewhere classified; F17.200 Nicotine dependence, unspecified, uncomplicated; Z86.19 Personal history of other infectious and parasitic diseases; Z88.0 Allergy status to penicillin; Z88.1 Allergy status to other antibiotic agents; Z98.82 Breast implant status
CPT/HCPCS: 36415; 80048; 80076; 83880; 84484; 85025; 93005; 94640; 96374; 99285; A4606; J2930

== ENCOUNTER 2018-12-07 00:26 | Inpatient (IN) | payer OTHER ==
[~2018-12-07] VITALS: Ht 165.1 cm; Wt 52.6 kg
--- NOTE | 2018-12-07 00:34 | NUR ---
PT BIBSELF C/O INTERMITTENT SOB X 1 DAY SAT 90% ON RA, HX OF COPD. L LOWER EXT PAIN/CRAMPS, PT IS AAOX4, V/S STABLE, HOOKED TO MONITOR, KEPT RESTED AND COMFORTABLE, WILL CONTINUE TO MONITOR.
--- NOTE | 2018-12-07 00:46 | NUR ---
DR. YOO AT BEDSIDE FOR EVAL.
[2018-12-07] MEDS ORDERED: ALBUTEROL FS 2.5 MG/3 ML VIAL.NEB NEB ONE (01:00)
[2018-12-07] MEDS ORDERED: IPRATROPIUM NEB FS 0.5 MG/2.5 ML AMPUL.NEB NEB ONE (01:00)
[2018-12-07] MEDS ORDERED: IPRATROPIUM NEB FS 0.5 MG/2.5 ML AMPUL.NEB ONE (01:10)
[2018-12-07] MEDS ORDERED: ALBUTEROL FS 2.5 MG/3 ML VIAL.NEB ONE (01:10)
[2018-12-07 01:45] LABS: BASOPHILS # (AUTO) 0.1 /CMM (0.0-0.2); BASOPHILS % (AUTO) 1.5 % (0.0-2.0); EOSINOPHILS % (AUTO) 2.7 % (0.0-6.0); HEMATOCRIT 46 % (33-45); HEMOGLOBIN 15.4 g/dL (11.5-14.8); LYMPHOCYTES # (AUTO) 2.2 /CMM (0.8-4.8); LYMPHOCYTES % (AUTO) 24.5 % (20.0-44.0); MEAN CORPUSCULAR HGB CONC 33 g/dl (31.0-36.0); MEAN CORPUSCULAR VOLUME 94 fL (82-100); MONOCYTES # (AUTO) 0.8 /CMM (0.1-1.30); MONOCYTES % (AUTO) 9.1 % (2.0-12.0); NEUTROPHILS # (AUTO) 5.6 /CMM (1.8-8.9); NEUTROPHILS % (AUTO) 62.2 % (43.0-81.0); PLATELET COUNT (AUTO) 211 /CMM (150-450); RED BLOOD CELL COUNT(AUTO) 4.91 MIL/uL (4.0-5.2)
--- NOTE | 2018-12-07 01:50 | NUR ---
CXR TAKEN AT BEDSIDE.
[2018-12-07 01:56] LABS: CREATININE 0.9 mg/dL (0.6-1.3); POTASSIUM 3.5 mmol/L (3.5-5.1)
[2018-12-07 02:08] LABS: ALBUMIN 3.1 g/dL (3.4-5.0); BILIRUBIN,DIRECT 0.2 mg/dL (0.0-0.2); BILIRUBIN,TOTAL 0.5 mg/dL (0.2-1.0); TOTAL PROTEIN, SERUM 6.6 g/dL (6.4-8.2)
[2018-12-07 02:37] LABS: ABG OXYGEN SATURATION 93.3 % (92.0-98.5); ABG PCO2 45.8 mmHg (35.0-45.0); ABG PH 7.423 (7.350-7.450); ABG PO2 70.8 mmHg (75.0-100.0); AaDO2 74.8 mmHg; COHb 0.8 % (0.5-1.5); MetHb 0.6 % (0.0-1.5); SITE, ABG Right Radial; VENT MODE, BG 2LPM O2 ON NC
[2018-12-07] MEDS ORDERED: IOHEXOL-350 100 ML VIAL IV ONE (02:56)
[2018-12-07] MEDS ORDERED: CT SWABBABLE VALVE TRANS SET 1 EA INFUS.SET MC ONE (02:56)
[2018-12-07] MEDS ORDERED: IV NS 0.9% 0 ML IV ONE (02:57)
[2018-12-07] MEDS ORDERED: KETOROLAC TROMETHAMINE INJ 30 MG/ML VIAL ONE (03:00)
[2018-12-07] MEDS ORDERED: KETOROLAC TROMETHAMINE INJ 30 MG/ML VIAL IV ONE (03:00)
--- NOTE | 2018-12-07 03:21 | NUR ---
313-2 TELE BED GIVEN
--- NOTE | 2018-12-07 03:40 | NUR ---
REPORT GIVEN TO HAILY ABDI FOR ADMISSION.
[2018-12-07 04:00] VITALS: BP 121/75
[2018-12-07 04:20] VITALS: BP 121/75
--- NOTE | 2018-12-07 05:30 | NUR ---
PAGED SHEN KOEHLER FOR ADMITTING ORDERS AWAITING
--- NOTE | 2018-12-07 06:00 | NUR ---
PER SHEN KOEHLER HOSPITALIST HE WILL ENTER THE ORDERS
--- NOTE | 2018-12-07 06:10 | NUR ---
FIBER DRIER OPERATOR RECEIVE PT VIA GURIMELDA FROM [facility] AT 0415, A/O X4 RESPIRATION EVEN AND UNLABORED, STABLE AND NOT IN DISTRESS, DENIES CHEST PAIN AT THIS TIME. SR 81 IN THE TELE MONITOR. HEAD TO TOE ASSESSMENT IS DONE. NEEDS ATTENDED AND ANTICIPATED, KEPT CLEAN AND DRY AND COMFORTABLE. NURSING CARE RENDERED, SAFETY MEASURES AT ALL TIMES. NO COMPLAIN OF PAIN AT THIS TIME. ENDORSE TO THE NEXT SHIFT.
[2018-12-07] MEDS ORDERED: Z GUARD REMEDY 2 OZ OINT TP PRN (06:30)
[2018-12-07] MEDS ORDERED: ZOLPIDEM TARTRATE 5 MG TABLET PO PRN (06:30)
[2018-12-07] MEDS ORDERED: ONDANSETRON HCL/PF 4 MG/2 ML VIAL IVP PRN (06:30)
[2018-12-07] MEDS ORDERED: IV LR 1000 ML 1,000 ML IV PRN (06:30)
[2018-12-07] MEDS ORDERED: ACETAMINOPHEN 325 MG TABLET PO PRN (06:30)
[2018-12-07] MEDS: ALBUTEROL FS 2.5 MG/0.5 ML VIAL.NEB NEB SCH ×5 (07:48→23:34)
[2018-12-07] MEDS: IPRATROPIUM NEB FS 0.5 MG/2.5 ML AMPUL.NEB NEB SCH ×5 (07:48→23:34)
--- NOTE | 2018-12-07 07:54 | NUR ---
CRUSHER FOREMAN OPENING NOTES RECEIVED PATIENT ON BED ASLEEP BUT EASILY AROUSABLE. A/O X 4 AND ABLE TO MAKE NEEDS KNOWN. RESPIRATION EVEN AND NON LABORED WITH NO ACUTE RESPIRATORY DISTRESS, ON OXYGEN AT 2LPM NEEDED. ABDOMEN SOFT AND NON DISTENDED WITH ACTIVE BOWEL SOUNDS TO ALL QUADRANTS. PATIENT DENIES PAIN AND DISCOMFORT. SKIN WARM TO TOUCH AND DRY. RIGHT LOWER LEG IV AND WAITING FOR PICC LINE INSERTION, LR RUNNING AT 80 ML/HR. TELE MONITOR WITH SR 83. ALL CONCERNS ATTENDED. PLACED CALL LIGHT WITHIN REACH. WILL CONTINUE TO EVALUATE CARE.
[2018-12-07 08:00] VITALS: BP 97/61
[2018-12-07] MEDS ORDERED: IPRATROPIUM NEB FS 0.5 MG/2.5 ML AMPUL.NEB NEB SCH (08:00)
[2018-12-07 08:44] LABS: ABG BASE EXCESS 3.9 mmol/L; ABG OXYGEN SATURATION 93.5 % (92.0-98.5); ABG PCO2 44.4 mmHg (35.0-45.0); AaDO2 77.3 mmHg; COHb 0.9 % (0.5-1.5); MetHb 0.7 % (0.0-1.5); SITE, ABG Right Radial; VENT MODE, BG NC 2L
[2018-12-07] MEDS: methylPREDNISolone SOD SUCC 125 MG/2ML VIAL IV SCH ×3 (09:14→17:05)
[2018-12-07] MEDS: PANTOPRAZOLE 40 MG TABLET.DR PO SCH (09:14)
[2018-12-07] MEDS: FLUTICASONE/VILANTEROL 1 EACH BLST.W.DEV IH SCH (09:33)
--- NOTE | 2018-12-07 13:01 | NUR ---
M/S RN NOTES PAGED DR. HWANG FOR ORDER OF PICC LINE. WAITING FOR RESPONSE.
--- NOTE | 2018-12-07 13:08 | NUR ---
M/S RN NOTES DR. HWANG CALLED BACK WITH NEW ORDER TO DISCONTINUE IV FLUID, KEEP RIGHT LOWER LEG IV SITE IN PLACE SINCE PATIENT DOESN'T HAVE ANY IV ATB. FLUIDS NOT NEEDED AT THIS TIME. ORDER READ BACK, VERIFIED, NOTED AND CARRIED OUT. PATIENT NOTIFIED.
--- NOTE | 2018-12-07 13:58 | NUR ---
M/S RN NOTES CALLED RADIOLOGY AND SPOKE WITH DEMETRIS CLARIFYING THE DISCONTINUATION OF CTA ORDERED. PER DEMETRIS, BRIANA IS LUMBER TRIMMER WITH NO NOTES PLACED FOR DC ORDER.
[2018-12-07 16:00] VITALS: BP 102/72
--- NOTE | 2018-12-07 18:35 | NUR ---
M/S RN CLOSING NOTES PATIENT A/O X 4 AND ABLE TO MAKE NEEDS KNOWN, RESPONSIVE TO ALL STIMULI. RESPIRATION EVEN AND NON LABORED WITH NO SHORTNESS OF BREATH IF SITTING, ON OXYGEN AT 2LPM VIA NASAL CANNULA AND TOLERATED WELL. PATIENT WITH MINIMAL EXERTION IN AMBULATION AND TRANSFER AND NEEDS RESTING PERIOD INTERMITTENTLY. ABDOMEN SOFT AND NON DISTENDED WITH ACTIVE BOWEL SOUNDS, ABLE TO URINATE TODAY WITH BRP IN CLEAR YELLOW URINE. SKIN WARM TO TOUCH AND DRY. PATIENT DENIES PAIN AND DISCOMFORT ALL THROUGHOUT THE SHIFT. IV SITE AT RIGHT LOWER LEG WITH GAUGE 22, PATENT IN FLUSHING WITH NO S/SX OF INFILTRATION. ALL CONCERNS ATTENDED. PLACED MADHU LIGHT WITHIN REACH TO ENSURE SAFETY AT ALL TIMES. ENDORSED PATIENT CARE TO NEXT SHIFT.
--- NOTE | 2018-12-07 19:25 | NUR ---
MS RN A/O X 3, RESPIRATIONS EVEN AND UNLABORED, NO SOB NOTED, NO DISTRESS, SAFETY MEASURES IN PLACE. WILL CONTINUE TO MONITOR.
[2018-12-07 20:00] VITALS: BP_SYST 114; BP_SYST 139; BP_DIAS 53; BP_DIAS 70
--- NOTE | 2018-12-08 01:38 | NUR ---
MS JOHANSEN ASSISTED PT BACK TO BED WITH BILL PEDDLER Addendum: 12/08/18 at 0235 by JESSIE ADAMS RN MISTAKEN ENTRY: DISREGARD THIS DOCUMENTATION THIS IS FOR DIFFERENT PATIENT
--- NOTE | 2018-12-08 01:38 | NUR ---
MS RN ALARM WENT OFF PT FOUND SITTING ON THE FLOOR ASKED PT WHAT HE WAS TRYING TO DO PATIENT STATED "I JUST NEED TO URINATE AND I SUDDENLY SAT DOWN" ASKED PT IF HE HIT HIS HEAD PER PT "NO I DIDN'T HIT MY HEAD I JUST SAT IN THE FLOOR" ASSESS PT LEVEL OF CONSCIOUSNESS NUERO INTACT NO CHANGE IN LOC, NO BRUISES, NO HEMATOMA, ALL EXTREMITIES WNL, NO COMPLAIN OF PAIN. PASTOR. EDUCATED PT TO USE CALL LIGHT IF HE NEEDS ANYTHING VERBALIZED UNDERSTANDING. VS STABLE BP 132/75 R 19 P 77 T 98.7 02 AT 97% Addendum: 12/08/18 at 023 by JESSIE ADAMS RN HEAD TO TOE ASSESSMENT IS DONE NO NOTED INJURY ABLE TO MOVE ALL EXTREMITIES PT TOILETS ALONE AND INSISTS THOUGH NEEDS ASSISTANCE PT EDUCATED IMPORTANCE TO USE CALL LIGHT WHEN NEEDED Addendum: 12/08/18 at 023 by JESSIE ADAMS RN MISTAKEN ENTRY: DISREGARD THIS DOCUMENTATION THIS IS FOR DIFFERENT PATIENT
--- NOTE | 2018-12-08 01:51 | NUR ---
CALLED ADI LEYVA () MADE AWARE ABOUT THE INCIDENT TOLD HER PT IS OKAY AND DIDNT HIT HIS HEAD HE JUST SAT DOWN. APPRECIATIVE TO NURSES Addendum: 12/08/18 at 0235 by JESSIE ADAMS RN MISTAKEN ENTRY: DISREGARD THIS DOCUMENTATION THIS IS FOR DIFFERENT PATIENT
--- NOTE | 2018-12-08 02:19 | NUR ---
JOCY HOSPITALIST SPOKE TO SHEN KOEHLER MADE AWARE ABOUT THE INCIDENT NO NEW ORDERS NOTED AND CARRIED OUT PT NO INJURY NOTED Addendum: 12/08/18 at 0234 by JESSIE ADAMS RN MISTAKEN ENTRY: DISREGARD THIS DOCUMENTATION THIS IS FOR DIFFERENT PATIENT
[2018-12-08] MEDS: IPRATROPIUM NEB FS 0.5 MG/2.5 ML AMPUL.NEB NEB SCH ×6 (03:10→23:02)
[2018-12-08] MEDS: ALBUTEROL FS 2.5 MG/0.5 ML VIAL.NEB NEB SCH ×6 (03:10→23:03)
--- NOTE | 2018-12-08 06:14 | NUR ---
MS HAILY ASLEEP AND EASILY AWAKEN, TOLERATING ROOM AIR 98%. PT SLEPT WELL THROUGHOUT THE NIGHT, RESPIRATION EVEN AND UNLABORED, IN NO APPARENT DISTRESS. NEEDS ATTENDED AND ANTICIPATED, KEPT CLEAN AND DRY AND COMFORTABLE. AM CARE RENDERED. SAFETY MEASURES AT ALL TIMES. ENDORSE TO THE NEXT SHIFT. Addendum: 12/08/18 at 0619 by JESSIE ADAMS RN PT HAS 2LPM VIA NC O2 PRN NEEDED
[2018-12-08 07:25] LABS: BASOPHILS % (AUTO) 0.3 % (0.0-2.0); HEMATOCRIT 44 % (33-45); HEMOGLOBIN 14.8 g/dL (11.5-14.8); LYMPHOCYTES % (AUTO) 7.2 % (20.0-44.0); MEAN CORPUSCULAR HGB CONC 34 g/dl (31.0-36.0); MEAN CORPUSCULAR VOLUME 94 fL (82-100); MONOCYTES # (AUTO) 0.4 /CMM (0.1-1.30); MONOCYTES % (AUTO) 2.9 % (2.0-12.0); NEUTROPHILS # (AUTO) 11.8 /CMM (1.8-8.9); NEUTROPHILS % (AUTO) 89.6 % (43.0-81.0); PLATELET COUNT (AUTO) 184 /CMM (150-450); WHITE BLOOD COUNT (AUTO) 13.2 K/uL (4.3-11.0)
[2018-12-08 07:27] LABS: CALCIUM, SERUM 10.2 mg/dL (8.5-10.1); CREATININE 0.8 mg/dL (0.6-1.3); MAGNESIUM 2.2 mg/dL (1.8-2.4); PHOSPHORUS 2.8 mg/dL (2.5-4.9); POTASSIUM 4.1 mmol/L (3.5-5.1)
--- NOTE | 2018-12-08 08:00 | NUR ---
MS RN OPENING NOTES Received Patient awake and watching TV. A/O x 4. VS stable with no acute distress. Breathing even and unlabored on 2LPM via NC with no respiratory distress. Denies pain at the moment. PIV on RIGHT LOWER LEG 22g clean, dry, intact and flushes well. Skin intact. Safety precautions in place. Bed locked and in lowest position with side rails x 2 up. Call light within reach. Will continue to monitor.
[2018-12-08 08:30] VITALS: BP 109/69
[2018-12-08] MEDS: methylPREDNISolone SOD SUCC 125 MG/2ML VIAL IV SCH ×2 (09:40→12:42)
[2018-12-08] MEDS: PANTOPRAZOLE 40 MG TABLET.DR PO SCH (09:40)
[2018-12-08] MEDS: ENOXAPARIN SODIUM 40 MG/0.4 ML DISP.SYRIN SQ SCH (09:42)
[2018-12-08] MEDS: FLUTICASONE/VILANTEROL 1 EACH BLST.W.DEV IH SCH (09:45)
--- NOTE | 2018-12-08 12:45 | NUR ---
M/S RN NOTES RECEIVED REPORT FROM HAILY NORWOOD FOR PATIENT CONTINUITY OF CARE. PATIENT A/O X 4 AND ABLE TO MAKE NEEDS KNOWN, ON O2 AT 2LPM VIA NASAL CANNULA WITH NO SOB IN SITTING, MINIMAL EXERTION PRESENT IN AMBULATION, NOT USIGN ACCESSORY MUSCLE BUT IN NEED RESTING PERIOD INTERMITTENTLY. ABD SOFT AND NON DISTENDED, DENIES PAIN AND DISCOMFORT. SKIN WARM TO TOUCH AND DRY. ALL CONCERNS ADDRESSED, PLACED CALL LIGHT WITHIN REACH FOR SAFETY. WILL CONTINUE CARE.
--- NOTE | 2018-12-08 13:10 | NUR ---
M/S RN NOTES PAGED DR. HWANG DUE TO PATIENT "STUNG" FEELING ON IV SITE WHEN ADMINISTERING SOLU MEDROL IV PUSH. OBTAINED NEW ORDER TO CHANGE SOLU MEDROL 60 MG IV TO PREDNISONE 60 MG TAB PO TID. READ BACK ORDER, NOTED AND CARRIED OUT. PATIENT NOT IN NEED OF RE-INSERTION PER MD NEITHER MIDLINE NOR PICC LINE SINCE PATIENT IS POSSIBLE DC TOMORROW. PATIENT NOTIFIED.
[2018-12-08 14:03] LABS: ABG BASE EXCESS 3.1 mmol/L; ABG OXYGEN SATURATION 96.3 % (92.0-98.5); ABG PH 7.436 (7.350-7.450); ABG PO2 85.8 mmHg (75.0-100.0); AaDO2 64.3 mmHg; COHb 1.5 % (0.5-1.5); MetHb 1.1 % (0.0-1.5); O2Hb 93.8 % (94.0-97.0); SITE, ABG Right Radial; VENT MODE, BG 2L NC
[2018-12-08 15:51] VITALS: BP 114/65
[2018-12-08] MEDS: predniSONE 20 MG TABLET PO SCH (16:33)
--- NOTE | 2018-12-08 18:20 | NUR ---
M/S RN CLOSING NOTES PATIENT A/O X 4 AND ABLE TO MAKE NEEDS KNOWN, RESPONSIVE TO ALL STIMULI. RESPIRATION EVEN AND UNLABORED WITH NO ACUTE RESPIRATORY DISTRESS. ON O2 AT 1LPM VIA NASAL CANNULA WITH GOAL IN WEANING OFF OXYGEN, PATIENT SATURATION WITH NO O2 AT 95-97%, O2 AT 1LPM 97-99%, PATIENT WITH ON AND OFF OXYGEN, KEPT HEAD OF BED ELEVATED FOR LUNG EXPANSION WITH PATIENT'S COMFORT. ABDOMEN SOFT AND NON DISTENDED WITH ACTIVE BOWEL SOUNDS TO ALL QUADRANTS, CONTINENT IN B&B WITH BRP. SKIN WARM TO TOUCH AND DRY, WOUNDS CLEANED AND LEFT OPEN PER PATIENT PREFERENCE, NO S/SX OF INFECTION NOTED ON SKIN TEARS. PATIENT DENIES PAIN AND DISCOMFORT DURING THE SHIFT. IV SITE AT RIGHT LOWER LEG GAUGE 22, PATENT IN FLUSHING WITH STINGING FEELING WHEN FLUSH PER PATIENT, NO S/SX OF INFILTRATION. PATIENT WITH POSSIBLE DC TOMORROW. ALL CONCERNS AND GOAL MET. CALL LIGHT WITHIN REACH FOR SAFETY. ENDORSED PATIENT CARE TO NEXT SHIFT.
--- NOTE | 2018-12-08 19:52 | NUR ---
RN MS OPENING NOTES RECEIVED PT IN BED AWAKE ALERT ORIENTEDX4, BREATHING EVEN AND UNLABORED ON 1L 02 VIA NC. NO COMPLAINT OF PAIN OR DISCOMFORT AT THIS TIME, IV ACCESS ON THE R LOWER LEG 22G SL. BED IN LOWEST LOCKED POSITION, CALL LIGHT WITHIN REACH AT ALL TIMES, WILL CONTINUE TO MONITOR FREQUENTLY.
[2018-12-08 20:00] VITALS: BP 114/68
[2018-12-08 23:14] VITALS: BP 114/68
--- NOTE | 2018-12-09 01:50 | NUR ---
APPAREL TRIMMINGS SALES REPRESENTATIVE OF CARE NOTES GAVE REPORT TO ERIKA GAYLE IN STABLE CONDITION. SLEEPING, EASILY AROUSED TO NAME CALL OR TOUCH.
--- NOTE | 2018-12-09 01:51 | NUR ---
MS RN NOTE RECEIVED PT IN STABLE CONDITION, A&O X4, ABLE TO MAKE NEEDS KNOWN. PT. CURRENTLY ASLEEP. NO SIGNS OF SOB OR DISTRESS, NO C/O PAIN. ALL CURRENT NEEDS ATTENDED TO. SAFETY PRECAUTIONS IN PLACE: BED LOW, LOCKED,UPPER RAILS UP, AND CALL LIGHT WITHIN REACH. WILL CONT TO MONITOR.
[2018-12-09] MEDS: ALBUTEROL FS 2.5 MG/0.5 ML VIAL.NEB NEB SCH ×3 (03:30→11:12)
[2018-12-09] MEDS: IPRATROPIUM NEB FS 0.5 MG/2.5 ML AMPUL.NEB NEB SCH ×3 (03:30→11:12)
--- NOTE | 2018-12-09 06:41 | NUR ---
MS RN NOTE PT REMAINS IN STABLE CONDITION, A&O X4, ABLE TO MAKE NEEDS KNOWN. PT. STILL ASLEEP EASILY AROUSABLE WHEN NAME IS CALLED. NO SIGNS OF SOB OR DISTRESS, NO C/O PAIN. ALL CURRENT NEEDS ATTENDED TO. SAFETY PRECAUTIONS IN PLACE: BED LOW, LOCKED,UPPER RAILS UP, AND CALL LIGHT WITHIN REACH. WILL CONT TO MONITOR AND ENDORSE TO NEXT SHIFT FOR ANDRE.
--- NOTE | 2018-12-09 07:47 | NUR ---
RT PT REQUESTED BREATHING TX AT A LATER TIME. NO RESP. DISTRESS NOTED. VITAL SIGNS WNL. WILL GIVE TX AT A LATER TIME.
--- NOTE | 2018-12-09 08:00 | NUR ---
MS RN OPENING NOTES Received Patient comfortable and asleep in bed. A/O x 4. VS stable with no acute distress. Breathing even and unlabored on room air with no respiratory distress. Denies pain. PIV 22g on RIGHT LOWER LEG, clean, dry and intact. LEFT LOWER LEG ABRASION kept clean and open to air. Safety precautions in place. Bed locked and in lowest position with side rails x 2 up. All needs rendered at this time. Call light within reach. Will continue to monitor.
[2018-12-09] MEDS ORDERED: PRED20TA PO (08:19)
[2018-12-09 08:35] VITALS: BP 109/73
[2018-12-09 08:37] LABS: BASOPHILS # (AUTO) 0.1 /CMM (0.0-0.2); BASOPHILS % (AUTO) 0.4 % (0.0-2.0); HEMATOCRIT 44 % (33-45); HEMOGLOBIN 14.7 g/dL (11.5-14.8); LYMPHOCYTES # (AUTO) 1.5 /CMM (0.8-4.8); LYMPHOCYTES % (AUTO) 8.1 % (20.0-44.0); MEAN CORPUSCULAR HGB CONC 33 g/dl (31.0-36.0); MEAN CORPUSCULAR VOLUME 94 fL (82-100); MONOCYTES # (AUTO) 1.1 /CMM (0.1-1.30); MONOCYTES % (AUTO) 5.7 % (2.0-12.0); NEUTROPHILS # (AUTO) 15.8 /CMM (1.8-8.9); NEUTROPHILS % (AUTO) 85.8 % (43.0-81.0); PLATELET COUNT (AUTO) 194 /CMM (150-450); RED BLOOD CELL COUNT(AUTO) 4.74 MIL/uL (4.0-5.2); WHITE BLOOD COUNT (AUTO) 18.5 K/uL (4.3-11.0)
[2018-12-09 08:48] LABS: CALCIUM, SERUM 9.9 mg/dL (8.5-10.1); CREATININE 0.8 mg/dL (0.6-1.3); POTASSIUM 4.4 mmol/L (3.5-5.1)
[2018-12-09] MEDS: predniSONE 20 MG TABLET PO SCH ×2 (08:58→13:11)
[2018-12-09] MEDS: PANTOPRAZOLE 40 MG TABLET.DR PO SCH (08:58)
[2018-12-09] MEDS: FLUTICASONE/VILANTEROL 1 EACH BLST.W.DEV IH SCH (08:59)
[2018-12-09] MEDS: ENOXAPARIN SODIUM 40 MG/0.4 ML DISP.SYRIN SQ SCH (08:59)
--- NOTE | 2018-12-09 14:43 | NUR ---
MS PLY SPLICER NOTES Patient discharged at this time going home. VS stable. Breathing even and unlabored upon rest. Patient has tolerable SOB while ambulating, which is baseline for Patient. Denies pain. Skin assessment pictures taken and placed in chart. Medication reconciliation and discharge orders reviewed and explained to Patient. Patient verbalized understanding. All belongings with Patient. Patient will follow up with PCP in 1 week and Title 1 Tutor as scheduled. Escorted Patient to the lobby for safety. Patient picked up by Taxi.
== END 2018-12-09 14:45 | disposition home or self-care (01) | DRG 140 ==
LOC: ER 00:30 → TELE 03:35 → MED 09:42
PROVIDERS: ADMIT Family Medicine; ATTEND Family Medicine
DX: J44.1 Chronic obstructive pulmonary disease with (acute) exacerbation (principal); J96.01 Acute respiratory failure with hypoxia; J96.02 Acute respiratory failure with hypercapnia; Z79.51 Long term (current) use of inhaled steroids; E44.1 Mild protein-calorie malnutrition; Z87.01 Personal history of pneumonia (recurrent); B19.20 Unspecified viral hepatitis C without hepatic coma; E88.01 Alpha-1-antitrypsin deficiency; Z88.1 Allergy status to other antibiotic agents; Z88.0 Allergy status to penicillin; Z79.899 Other long term (current) drug therapy; Z87.891 Personal history of nicotine dependence; J98.11 Atelectasis; R73.9 Hyperglycemia, unspecified; K21.9 Gastro-esophageal reflux disease without esophagitis; Z98.82 Breast implant status; Z82.5 Family history of asthma and other chronic lower respiratory diseases; I10 Essential (primary) hypertension
CPT/HCPCS: 36415; 36600; 71045-TC; 80048-TC; 80061-TC; 80076-TC; 82103; 82803-TC; 83735-TC; 83880; 84100-TC; 84484-TC; 85025-TC; 85378-TC; 87081-TC; 93307-TC; 94799-TC; G0378; J1650; J1885; J2930; J7050; J7120; Q9967

== ENCOUNTER 2019-01-31 23:46 | Emergency (ER) | payer OTHER ==
[~2019-01-31] VITALS: Ht 165.1 cm; Wt 49.9 kg
[~2019-01-31 23:46] MED LIST changes: +PRED20TA PO
--- NOTE | 2019-02-01 | NUR ---
TO BED 2 AMBULATORY C/O "PAIN IN THE BACK OF LUNGS, MY FACE AND HANDS ARE SWOLLEN" X2 DAYS. PT AAOX4 NO ACUTE DISTRESS NOTED, RESP EVEN AND UNLABORED. PLACE PT ON CARDIAC MONITORING, CONTINUOUS POX. PENDING ER MD MASSEY.
[2019-02-01] MEDS ORDERED: ALBUTEROL FS 2.5 MG/0.5 ML VIAL.NEB NEB ONE (00:30)
[2019-02-01] MEDS ORDERED: ALBUTEROL FS 2.5 MG/0.5 ML VIAL.NEB ONE (00:50)
--- NOTE | 2019-02-01 01:43 | NUR ---
Patient discharged to home in stable condition. Written and verbal after care instructions given. Patient verbalizes understanding of instruction. ambulatory with a steady gait
[2019-02-01 01:44] VITALS: BP 127/73
[2019-02-10] MEDS ORDERED: PRED20TA PO (13:35)
[2019-02-10] MEDS ORDERED: METH4TAB3 PO (13:35)
[2019-02-10] MEDS ORDERED: ALBU18HF2 INH (14:09)
== END 2019-02-01 01:45 | disposition home or self-care (01) ==
LOC: ER 23:54
DX: J44.9 Chronic obstructive pulmonary disease, unspecified (principal); E87.6 Hypokalemia; R74.0 Nonspecific elevation of levels of transaminase and lactic acid dehydrogenase [LDH]; E88.09 Other disorders of plasma-protein metabolism, not elsewhere classified; F17.200 Nicotine dependence, unspecified, uncomplicated; Z86.19 Personal history of other infectious and parasitic diseases; Z98.890 Other specified postprocedural states; Z88.0 Allergy status to penicillin; Z88.1 Allergy status to other antibiotic agents
CPT/HCPCS: 71045-TC

== ENCOUNTER 2019-02-07 20:34 | Inpatient (IN) | payer OTHER ==
[~2019-02-07] VITALS: Ht 165.1 cm; Wt 52.2 kg
[2019-02-07] MEDS ORDERED: Magnesium 1GM/D5W 100ML PREMIX 200 ML IV ONE ×2 (20:51→21:04)
[2019-02-07] MEDS ORDERED: ALBUTEROL FS 2.5 MG/3 ML VIAL.NEB ONE (20:57)
[2019-02-07] MEDS ORDERED: IPRATROPIUM NEB FS 0.5 MG/2.5 ML AMPUL.NEB ONE (20:57)
[2019-02-07] MEDS ORDERED: TERBUTALINE SULFATE 1 MG/ML VIAL SQ ONE (21:00)
[2019-02-07] MEDS ORDERED: IV NS 0.9% 500 ML IV ONE (21:00)
[2019-02-07] MEDS ORDERED: IPRATROPIUM NEB FS 0.5 MG/2.5 ML AMPUL.NEB NEB ONE (21:00)
[2019-02-07] MEDS ORDERED: ALBUTEROL FS 2.5 MG/3 ML VIAL.NEB CONTNEB ONE (21:00)
[2019-02-07] MEDS ORDERED: methylPREDNISolone SOD SUCC 125 MG/2ML VIAL IV ONE (21:00)
[2019-02-07] MEDS ORDERED: TERBUTALINE SULFATE 1 MG/ML VIAL ONE (21:03)
[2019-02-07] MEDS ORDERED: methylPREDNISolone SOD SUCC 125 MG/2ML VIAL ONE (21:03)
[2019-02-07 21:25] LABS: ABG OXYGEN SATURATION 91.4 % (92.0-98.5); ABG PCO2 33.1 mmHg (35.0-45.0); ABG PH 7.475 (7.350-7.450); ABG PO2 60.9 mmHg (75.0-100.0); AaDO2 49.2 mmHg; COHb 1.1 % (0.5-1.5); MetHb 0.6 % (0.0-1.5); O2Hb 89.8 % (94.0-97.0); SITE, ABG Left Radial; VENT MODE, BG ROOM AIR
[2019-02-07 21:25] LABS: BASOPHILS # (AUTO) 0.2 /CMM (0.0-0.2); BASOPHILS % (AUTO) 1.3 % (0.0-2.0); EOSINOPHILS % (AUTO) 1.8 % (0.0-6.0); HEMATOCRIT 43 % (33-45); HEMOGLOBIN 14.5 g/dL (11.5-14.8); LYMPHOCYTES # (AUTO) 3.2 /CMM (0.8-4.8); LYMPHOCYTES % (AUTO) 26.2 % (20.0-44.0); MEAN CORPUSCULAR HGB CONC 34 g/dl (31.0-36.0); MEAN CORPUSCULAR VOLUME 94 fL (82-100); MONOCYTES # (AUTO) 0.7 /CMM (0.1-1.30); MONOCYTES % (AUTO) 5.4 % (2.0-12.0); NEUTROPHILS # (AUTO) 7.9 /CMM (1.8-8.9); NEUTROPHILS % (AUTO) 65.3 % (43.0-81.0); PLATELET COUNT (AUTO) 210 /CMM (150-450); RED BLOOD CELL COUNT(AUTO) 4.56 MIL/uL (4.0-5.2); WHITE BLOOD COUNT (AUTO) 12.2 K/uL (4.3-11.0)
[2019-02-07 21:33] LABS: CALCIUM, SERUM 9.7 mg/dL (8.5-10.1); CARBON DIOXIDE 26 mmol/L (21-32); CHLORIDE 106 mmol/L (98-107); CREATININE 0.7 mg/dL (0.6-1.3); GLUCOSE 170 mg/dL (74-106); POTASSIUM 3.9 mmol/L (3.5-5.1); SODIUM SERUM 138 mmol/L (136-145); UREA NITROGEN, BLOOD 13 mg/dL (7-18)
[2019-02-07 21:49] LABS: ALANINE AMINOTRANSFERASE 53 U/L (12-78); ALBUMIN 2.7 g/dL (3.4-5.0); ALKALINE PHOSPHATASE 175 U/L (46-116); ASPARTATE AMINOTRANSFERASE 36 U/L (15-37); B-TYPE NATRIURETIC PEPTIDE 49 PG/ML (0-125); BILIRUBIN,DIRECT 0.2 mg/dL (0.0-0.2); BILIRUBIN,TOTAL 0.6 mg/dL (0.2-1.0); TOTAL PROTEIN, SERUM 6.2 g/dL (6.4-8.2)
[2019-02-07 22:55] VITALS: BP 118/72
[2019-02-07] MEDS ORDERED: ONDANSETRON HCL/PF 4 MG/2 ML VIAL IVP PRN (23:00)
[2019-02-07] MEDS ORDERED: ACETAMINOPHEN 325 MG TABLET PO PRN (23:00)
[2019-02-07] MEDS ORDERED: DOXYCYCLINE 100 MG VIAL ONE (23:51)
[2019-02-07] MEDS: DOXYCYCLINE 100 MG in IV D5W 100 ML IV SCH (23:57)
[2019-02-08] VITALS: BP 115/66
[2019-02-08] MEDS: IPRATROPIUM NEB FS 0.5 MG/2.5 ML AMPUL.NEB NEB SCH ×5 (01:30→19:56)
[2019-02-08] MEDS: ALBUTEROL FS 2.5 MG/0.5 ML VIAL.NEB NEB SCH ×5 (01:30→19:56)
[2019-02-08 04:00] VITALS: BP 109/63
[2019-02-08] MEDS: PANTOPRAZOLE 40 MG TABLET.DR PO SCH (07:42)
[2019-02-08 08:00] VITALS: BP 98/61
[2019-02-08] MEDS: GUAIFENESIN LA 600 MG TABLET.SA PO SCH ×2 (08:51→21:22)
[2019-02-08] MEDS: methylPREDNISolone SOD SUCC 125 MG/2ML VIAL IV SCH ×4 (08:51→16:59)
[2019-02-08] MEDS: DOXYCYCLINE 100 MG in IV D5W 100 ML IV SCH ×2 (11:34→21:22)
[2019-02-08 14:20] LABS: BASOPHILS % (AUTO) 0.1 % (0.0-2.0); HEMATOCRIT 40 % (33-45); HEMOGLOBIN 13.3 g/dL (11.5-14.8); LYMPHOCYTES # (AUTO) 0.7 /CMM (0.8-4.8); LYMPHOCYTES % (AUTO) 4.6 % (20.0-44.0); MEAN CORPUSCULAR HGB CONC 33 g/dl (31.0-36.0); MEAN CORPUSCULAR VOLUME 94 fL (82-100); MONOCYTES # (AUTO) 0.2 /CMM (0.1-1.30); MONOCYTES % (AUTO) 1.1 % (2.0-12.0); NEUTROPHILS # (AUTO) 15.4 /CMM (1.8-8.9); NEUTROPHILS % (AUTO) 94.2 % (43.0-81.0); PLATELET COUNT (AUTO) 179 /CMM (150-450); RED BLOOD CELL COUNT(AUTO) 4.26 MIL/uL (4.0-5.2); WHITE BLOOD COUNT (AUTO) 16.3 K/uL (4.3-11.0)
[2019-02-08 14:44] LABS: CALCIUM, SERUM 9.6 mg/dL (8.5-10.1); CREATININE 0.9 mg/dL (0.6-1.3); MAGNESIUM 2.1 mg/dL (1.8-2.4); PHOSPHORUS 1.9 mg/dL (2.5-4.9); POTASSIUM 4.1 mmol/L (3.5-5.1)
[2019-02-08 16:00] VITALS: BP 97/61
[2019-02-08] MEDS ORDERED: IBUPROFEN 400 MG TABLET PO PRN (17:30)
[2019-02-08 20:00] VITALS: BP 116/71
[2019-02-09] MEDS: ALBUTEROL FS 2.5 MG/0.5 ML VIAL.NEB NEB SCH ×4 (01:30→19:29)
[2019-02-09] MEDS: IPRATROPIUM NEB FS 0.5 MG/2.5 ML AMPUL.NEB NEB SCH ×4 (01:30→19:29)
[2019-02-09 04:00] VITALS: BP 101/59
[2019-02-09 07:01] LABS: BASOPHILS % (AUTO) 0.1 % (0.0-2.0); HEMATOCRIT 39 % (33-45); HEMOGLOBIN 12.7 g/dL (11.5-14.8); LYMPHOCYTES % (AUTO) 4.4 % (20.0-44.0); MEAN CORPUSCULAR HGB CONC 33 g/dl (31.0-36.0); MEAN CORPUSCULAR VOLUME 94 fL (82-100); MONOCYTES # (AUTO) 0.6 /CMM (0.1-1.30); MONOCYTES % (AUTO) 2.7 % (2.0-12.0); NEUTROPHILS # (AUTO) 20.5 /CMM (1.8-8.9); NEUTROPHILS % (AUTO) 92.8 % (43.0-81.0); PLATELET COUNT (AUTO) 192 /CMM (150-450); WHITE BLOOD COUNT (AUTO) 22.1 K/uL (4.3-11.0)
[2019-02-09] MEDS: PANTOPRAZOLE 40 MG TABLET.DR PO SCH (07:33)
[2019-02-09 07:55] LABS: CALCIUM, SERUM 9.7 mg/dL (8.5-10.1); CREATININE 0.9 mg/dL (0.6-1.3); MAGNESIUM 2.1 mg/dL (1.8-2.4); POTASSIUM 4.5 mmol/L (3.5-5.1)
[2019-02-09 08:00] VITALS: BP 109/53
[2019-02-09] MEDS: methylPREDNISolone SOD SUCC 125 MG/2ML VIAL IV SCH ×3 (08:50→17:13)
[2019-02-09] MEDS: GUAIFENESIN LA 600 MG TABLET.SA PO SCH ×2 (08:50→21:40)
[2019-02-09] MEDS: DOXYCYCLINE 100 MG in IV D5W 100 ML IV SCH ×2 (08:50→21:40)
[2019-02-09 16:00] VITALS: BP_SYST 125; BP_SYST 97; BP_DIAS 62
[2019-02-09] MEDS ORDERED: INSULIN REGULAR, HUMAN 100 UNIT/ML 3 ML VIAL SQ PRN (17:30)
[2019-02-09] MEDS ORDERED: DEXTROSE 50%-WATER 50 ML DISP.SYRIN IV PRN (17:30)
[2019-02-09] MEDS: BLOOD SUGAR DIAGNOSTIC 1 EACH STRIP IN SCH ×2 (17:42→21:52)
[2019-02-09 20:00] VITALS: BP 122/72
[2019-02-09 23:11] LABS: APPEARANCE,URINE CLEAR (CLEAR); BILIRUBIN,URINE NEGATIVE (NEGATIVE); BLOOD, URINE NEGATIVE Ery/uL (NEGATIVE); COLOR,URINE YELLOW (YELLOW); KETONES,URINE NEGATIVE (NEGATIVE); LEUKOCYTE ESTERASE ,URINE NEGATIVE (NEGATIVE); NITRITE, URINE NEGATIVE (NEGATIVE); PROTEIN,URINE NEGATIVE (NEGATIVE); UGLUCOSE NEGATIVE (NEGATIVE); UROBILINOGEN,URINE 0.2 EU/dL (0.2)
[2019-02-10] VITALS: BP 126/68
[2019-02-10] MEDS: IPRATROPIUM NEB FS 0.5 MG/2.5 ML AMPUL.NEB NEB SCH ×3 (01:26→14:27)
[2019-02-10] MEDS: ALBUTEROL FS 2.5 MG/0.5 ML VIAL.NEB NEB SCH ×3 (01:26→14:27)
[2019-02-10 07:12] LABS: CALCIUM, SERUM 9.7 mg/dL (8.5-10.1); CREATININE 0.8 mg/dL (0.6-1.3); PHOSPHORUS 2.8 mg/dL (2.5-4.9); POTASSIUM 4.8 mmol/L (3.5-5.1)
[2019-02-10 07:17] LABS: BASOPHILS % (AUTO) 0.2 % (0.0-2.0); HEMATOCRIT 38 % (33-45); HEMOGLOBIN 12.7 g/dL (11.5-14.8); LYMPHOCYTES # (AUTO) 1.2 /CMM (0.8-4.8); LYMPHOCYTES % (AUTO) 6.6 % (20.0-44.0); MEAN CORPUSCULAR HGB CONC 33 g/dl (31.0-36.0); MEAN CORPUSCULAR VOLUME 95 fL (82-100); MONOCYTES # (AUTO) 0.9 /CMM (0.1-1.30); NEUTROPHILS # (AUTO) 15.9 /CMM (1.8-8.9); NEUTROPHILS % (AUTO) 88.2 % (43.0-81.0); PLATELET COUNT (AUTO) 172 /CMM (150-450); RED BLOOD CELL COUNT(AUTO) 4.01 MIL/uL (4.0-5.2)
[2019-02-10 08:00] VITALS: BP 109/70
[2019-02-10] MEDS ORDERED: methylPREDNISolone SOD SUCC 125 MG/2ML VIAL IV SCH (09:00)
[2019-02-10] MEDS: BLOOD SUGAR DIAGNOSTIC 1 EACH STRIP IN SCH ×2 (09:10→12:23)
[2019-02-10] MEDS: GUAIFENESIN LA 600 MG TABLET.SA PO SCH (09:11)
[2019-02-10] MEDS: PANTOPRAZOLE 40 MG TABLET.DR PO SCH (09:12)
[2019-02-10] MEDS: DOXYCYCLINE 100 MG in IV D5W 100 ML IV SCH (09:13)
[2019-02-10 12:00] VITALS: BP 106/61
[2019-02-10] MEDS ORDERED: METH4TAB3 PO (13:35)
[2019-02-10] MEDS ORDERED: PRED20TA PO (13:35)
[2019-02-10] MEDS ORDERED: ALBU18HF2 INH (14:09)
[2019-02-10 16:00] VITALS: BP 106/61
== END 2019-02-10 17:10 | disposition home or self-care (01) | DRG 140 ==
LOC: ER 20:41 → TELE1 21:49 → MEDSG1 02-08 10:25
PROVIDERS: ADMIT Internal Medicine; ATTEND Registered Nurse
PROC: B546ZZA Ultrasonography of Right Subclavian Vein, Guidance (ICD-10-PCS; principal; 2019-02-08)
PROC: 05H533Z Insertion of Infusion Device into Right Subclavian Vein, Percutaneous Approach (ICD-10-PCS; principal; 2019-02-08)
DX: J44.1 Chronic obstructive pulmonary disease with (acute) exacerbation (principal); J96.21 Acute and chronic respiratory failure with hypoxia; K21.9 Gastro-esophageal reflux disease without esophagitis; E87.6 Hypokalemia; E78.5 Hyperlipidemia, unspecified; Z98.82 Breast implant status; Z87.891 Personal history of nicotine dependence; Z79.899 Other long term (current) drug therapy; Z79.51 Long term (current) use of inhaled steroids; Z87.01 Personal history of pneumonia (recurrent); I10 Essential (primary) hypertension; D72.829 Elevated white blood cell count, unspecified; B19.20 Unspecified viral hepatitis C without hepatic coma; Z88.1 Allergy status to other antibiotic agents; Z88.0 Allergy status to penicillin; J20.9 Acute bronchitis, unspecified
CPT/HCPCS: 36415; 36569; 36600; 71045-TC; 80048-TC; 80076-TC; 81000-TC; 82803-TC; 82962-TC; 83735-TC; 83880; 84100-TC; 84484-TC; 85025-TC; 87070-TC; 87081-TC; 94799-TC; G0378; J1815; J2930; J3105; J3475; J3490; J7040; J7060

== ENCOUNTER 2019-02-21 14:11 | Inpatient (IN) | payer OTHER ==
[~2019-02-21] VITALS: Ht 157.5 cm; Wt 56.2 kg
[~2019-02-21 14:11] MED LIST changes: +ALBU18HF2 INH; +METH4TAB3 PO
--- NOTE | 2019-02-21 14:17 | NUR ---
PT SELF PRESENTS TO ED, WHEELED TO ED BED 09 C/O SHORTNESS OF BREATH WORST WHEN SHE STEPPED OUT OF THE HOUSE AND WENT TO [place]. DENIES CHEST PAIN UPON INITIAL ASSESSMENT. GOWNED AAO, GOWNED AND PLACED ON MONITOR. AWAITING MD MASSEY.
[2019-02-21] MEDS ORDERED: IV NS 0.9% 1,000 ML IV ONE (14:21)
[2019-02-21] MEDS ORDERED: Magnesium 1GM/D5W 100ML PREMIX 200 ML IV ONE ×2 (14:21→14:45)
--- NOTE | 2019-02-21 14:23 | NUR ---
DR KING AT BEDSIDE FOR EVAL.
[2019-02-21] MEDS ORDERED: IPRATROPIUM NEB FS 0.5 MG/2.5 ML AMPUL.NEB NEB ONE (14:30)
[2019-02-21] MEDS ORDERED: ALBUTEROL FS 2.5 MG/3 ML VIAL.NEB CONTNEB ONE (14:30)
--- NOTE | 2019-02-21 14:41 | NUR ---
RT AT BEDSIDE FOR BREATHING TREATMENT.
[2019-02-21] MEDS ORDERED: ALBUTEROL FS 2.5 MG/3 ML VIAL.NEB ONE (14:42)
[2019-02-21] MEDS ORDERED: IPRATROPIUM NEB FS 0.5 MG/2.5 ML AMPUL.NEB ONE (14:42)
[2019-02-21 14:43] LABS: BASOPHILS % (AUTO) 0.3 % (0.0-2.0); EOSINOPHILS % (AUTO) 0.1 % (0.0-6.0); HEMATOCRIT 45 % (33-45); HEMOGLOBIN 14.9 g/dL (11.5-14.8); LYMPHOCYTES # (AUTO) 0.9 /CMM (0.8-4.8); LYMPHOCYTES % (AUTO) 6.6 % (20.0-44.0); MEAN CORPUSCULAR HGB CONC 33 g/dl (31.0-36.0); MEAN CORPUSCULAR VOLUME 95 fL (82-100); MONOCYTES # (AUTO) 0.4 /CMM (0.1-1.30); MONOCYTES % (AUTO) 2.9 % (2.0-12.0); NEUTROPHILS # (AUTO) 12.3 /CMM (1.8-8.9); NEUTROPHILS % (AUTO) 90.1 % (43.0-81.0); PLATELET COUNT (AUTO) 167 /CMM (150-450); WHITE BLOOD COUNT (AUTO) 13.6 K/uL (4.3-11.0)
[2019-02-21] MEDS ORDERED: ALBU18HF2 IH (14:43)
[2019-02-21] MEDS ORDERED: PRED20TA PO (14:43)
--- NOTE | 2019-02-21 14:43 | NUR ---
CALLED FOR ICU BED
[2019-02-21 14:49] LABS: CALCIUM, SERUM 9.4 mg/dL (8.5-10.1); CARBON DIOXIDE 30 mmol/L (21-32); CHLORIDE 108 mmol/L (98-107); CREATININE 0.8 mg/dL (0.6-1.3); GLUCOSE 151 mg/dL (74-106); POTASSIUM 3.8 mmol/L (3.5-5.1); SODIUM SERUM 143 mmol/L (136-145); UREA NITROGEN, BLOOD 21 mg/dL (7-18)
[2019-02-21] MEDS ORDERED: DEXAMETHASONE SOD PHOSPHATE 10 MG/ML VIAL ONE (14:56)
[2019-02-21] MEDS ORDERED: DEXAMETHASONE SOD PHOSPHATE 10 MG/ML VIAL IV ONE (15:00)
[2019-02-21 15:05] LABS: B-TYPE NATRIURETIC PEPTIDE 109 PG/ML (0-125)
--- NOTE | 2019-02-21 16:14 | NUR ---
REPORT GIVEN TO CAT RN. AWAITING TRANSFER TO FLOOR.
[2019-02-21] MEDS ORDERED: IV NS 0.9% 1,000 ML IV PRN (16:47)
--- NOTE | 2019-02-21 16:49 | NUR ---
PER JORDAN ELECTRICAL HIGH TENSION TESTER; PT CAN GO MEDR
[2019-02-21] MEDS ORDERED: ONDANSETRON HCL/PF 4 MG/2 ML VIAL IVP PRN (17:00)
[2019-02-21] MEDS ORDERED: ACETAMINOPHEN 325 MG TABLET PO PRN (17:00)
[2019-02-21] MEDS ORDERED: MAG HYDROX/AL HYDROX/SIMETH 30 ML UDC PO PRN (17:00)
[2019-02-21] MEDS ORDERED: MAGNESIUM HYDROXIDE 30 ML UDC PO PRN (17:00)
[2019-02-21] MEDS ORDERED: IPRATROPIUM NEB FS 0.5 MG/2.5 ML AMPUL.NEB NEB PRN (17:00)
[2019-02-21] MEDS ORDERED: ALBUTEROL FS 2.5 MG/3 ML VIAL.NEB NEB PRN (17:00)
--- NOTE | 2019-02-21 17:50 | NUR ---
BATH STEWARD NOTES PATIENT CAME IN VIA GURNEY. AMBULATED TO GO TO HER BED. PATIENT STEADY AND USES A CANE NEEDED. CC OF SOB WHILE WALKING. DC FROM THIS UNIT 10 DAYS AGO. DX WITH COPD EXACERBATION. ON 2L NC SATING 94%. ALERT AND ORIENTED X4. ON TELE MONITOR SR, HR 71. HAS EDEMA ON BOTH FEET. AMBULATORY TO GO TO THE BATHROOM. SKIN HAS VISIBLE SCRATCHES AND BRUISES IN HER EXTREMITIES. HAS A LEFT HAND #22. PER ER NURSE, ROGELIO RUNNING AT 250 ML/HR. NO COMPLAINS OF ANY PAIN NOR SOB. CALL LIGHT WITHIN REACH. WILL CONTINUE TO MONITOR CLOSELY
[2019-02-21 18:00] VITALS: BP 122/75
--- NOTE | 2019-02-21 19:00 | NUR ---
DIRECTOR OF LABOR AND DELIVERY OPENING NOTES PATIENT IN BED, AWAKE AND ALERT X4. ON OXYGEN 2L VIA NASAL CANNULA, SATURATING 94%. NO SOB OR ACUTE DISTRESS NOTED. RR EVEN AND UNLABORED. ON TELE MONITOR SR WITH HR 80S. PATIENT'S IV SITE IS INFILTRATED. SHE COMPLAINS OF STINGING AND PAIN AT SITE. WILL TRY TO INSERT NEW IV. PATIENT STATED "I PREFER TO GET A MIDLINE INSTEAD OF BEING POKED OVER AND OVER AGAIN" SAFETY MEASURES MAINTAINED; BED LOCKED AND IN LOWEST POSITION, CALL LIGHT WITHIN REACH, SIDE RAILS UP X2. WILL CONT TO MONITOR PT.
--- NOTE | 2019-02-21 19:06 | NUR ---
RN CLOSING NOTES PATIENT IN BED, AWAKE AND ALERT. DINNER WAS SERVED. PATIENT ASKED FOR 2 MORE PILLOWS AND FOR HER DIET TO BE CHANGED TO CARDIAC INSTEAD OF CARDIAC/CCHO. PATIENT'S IV SITE IS INFILTRATED. SHE COMPLAINS OF STINGING AND HER SKIN TURNS WHITE EVERY TIME I START THE FLUIDS. ENDORSED THE PROBLEM TO [facility] SHIFT NURSE. PATIENT SAID SHE USUALLY GETS PICC LINE BUT REFUSES TO GET ONE BECAUSE SHE SAID SHE WILL ONLY BE HERE OVERNIGHT AND SHE CAN JUST DRINK WATER PO. NIGHT NURSE IS AWARE. BED LOCKED AND IN LOWEST POSITION. CALL LIGHT WITHIN REACH. ENDORSED EVERYTHING TO NOC SHIFT
[2019-02-21 20:00] VITALS: BP 122/67
[2019-02-21] MEDS: IPRATROPIUM NEB FS 0.5 MG/2.5 ML AMPUL.NEB NEB SCH (20:21)
[2019-02-21] MEDS: methylPREDNISolone SOD SUCC 40 MG/ML VIAL IV SCH (21:21)
[2019-02-21] MEDS: ZOLPIDEM TARTRATE 5 MG TABLET PO PRN (23:26)
[2019-02-22] VITALS: BP 127/79
[2019-02-22] MEDS: IPRATROPIUM NEB FS 0.5 MG/2.5 ML AMPUL.NEB NEB SCH ×4 (01:15→20:06)
[2019-02-22 04:00] VITALS: BP 118/78
[2019-02-22] MEDS: methylPREDNISolone SOD SUCC 40 MG/ML VIAL IV SCH ×2 (05:01→12:32)
[2019-02-22 06:42] LABS: BASOPHILS % (AUTO) 0.2 % (0.0-2.0); HEMATOCRIT 41 % (33-45); HEMOGLOBIN 13.7 g/dL (11.5-14.8); LYMPHOCYTES # (AUTO) 0.8 /CMM (0.8-4.8); LYMPHOCYTES % (AUTO) 5.7 % (20.0-44.0); MEAN CORPUSCULAR HGB CONC 33 g/dl (31.0-36.0); MEAN CORPUSCULAR VOLUME 95 fL (82-100); MONOCYTES # (AUTO) 0.3 /CMM (0.1-1.30); MONOCYTES % (AUTO) 1.8 % (2.0-12.0); NEUTROPHILS # (AUTO) 13.7 /CMM (1.8-8.9); NEUTROPHILS % (AUTO) 92.3 % (43.0-81.0); PLATELET COUNT (AUTO) 141 /CMM (150-450); RED BLOOD CELL COUNT(AUTO) 4.31 MIL/uL (4.0-5.2); WHITE BLOOD COUNT (AUTO) 14.9 K/uL (4.3-11.0)
--- NOTE | 2019-02-22 06:54 | NUR ---
AUDITING SPECIALIST CLOSING NOTES PATIENT IN BED, SLEEPING, BUT EASY TO AROUSE. PATIENT A/OX4. ON OXYGEN 2L VIA NASAL CANNULA; NO SOB OR ACUTE DISTRESS NOTED.RR EVEN AND UNLABORED. ON TELE MONITOR SR WITH HR 80S. IV SITE FA 22G, PATENT AND INTACT, SITE C/D/I. SAFETY MEASURES MAINTAINED; BED LOCKED AND IN LOWEST POSITION, CALL LIGHT WITHIN REACH, SIDE RAILS UP X2. WILL ENDORSE TO AM RN FOR ANDRE.
[2019-02-22 06:55] LABS: CALCIUM, SERUM 9.4 mg/dL (8.5-10.1); CREATININE 0.8 mg/dL (0.6-1.3); MAGNESIUM 2.4 mg/dL (1.8-2.4); PHOSPHORUS 3.1 mg/dL (2.5-4.9); POTASSIUM 4.1 mmol/L (3.5-5.1)
--- NOTE | 2019-02-22 07:10 | NUR ---
RN INITIAL NOTES PATIENT IN BED ASLEEP BUT EASILY AWAKEN WHEN I ENTERED THE ROOM. ALERT AND ORIENTEDX4. ON 2L NC, SATING WELL AT 92-94%. ON TELE MONITOR, SR. HAS BILATERAL FEET EDEMA. AMBULATORY, STEADY. CANE AT BEDSIDE. STATES SHE USES IT PRN. HAS A RIGHT FA #22, NS SUPPOSED TO BE RUNNING BUT PATIENT REFUSED AND STATES SHE WILL JUST DRINK MORE WATER. NO COMPLAINS OF ANY PAIN AND SOB AT THIS TIME. BED IN LOWEST POSITION. WILL CONTINUE TO MONITOR PATIENT
[2019-02-22 08:00] VITALS: BP 107/74
[2019-02-22] MEDS: FLUTICASONE/VILANTEROL 1 EACH BLST.W.DEV IH SCH (08:05)
[2019-02-22] MEDS: PANTOPRAZOLE 40 MG TABLET.DR PO SCH (08:05)
--- NOTE | 2019-02-22 08:45 | NUR ---
RN NOTES PATIENT DUE FOR HER BREATHING TX. I'M AT BEDSIDE, TOGETHER WITH THE RT. PATIENT AWAKE AND ALERT.
[2019-02-22] MEDS ORDERED: TIOTROPIUM BROMIDE 6 CAP/BOX CAP.W.DEV IH SCH (09:00)
[2019-02-22] MEDS ORDERED: FLUTICASONE/SALMETEROL DISKUS IH SCH (09:00)
--- NOTE | 2019-02-22 10:15 | NUR ---
RN NOTES PATIENT DID NOT EAT HER BREAKFAST, SHE SAID SHE IS SLEEPY AND DID NOT GET A GOOD NIGHT SLEEP LAST NIGHT.
--- NOTE | 2019-02-22 14:50 | NUR ---
RN NOTES SOLU MEDROL HAS NOT GIVEN. IV LINE WAS NOT WORKING. MD AWARE. MEDICATION ALREADY IN [place]. WILL TOSS AWAY AND RECORD FROM [facility]
[2019-02-22] MEDS: predniSONE 20 MG TABLET PO SCH (15:16)
[2019-02-22 16:00] VITALS: BP 139/106
--- NOTE | 2019-02-22 16:18 | NUR ---
RN NOTES IV LINE REMOVED. PATIENT DOES NOT HAVE ANY IV SITE, MD AWARE. PATIENT IS A HARD STICK AND MD DOES NOT WANT TO INSERT MIDLINE OR PICC SINCE PT MIGHT GET DC TOMORROW. SOLU MEDROL IV HAS BEEN CHANGED TO PO AND IV FLUIDS DC'D.
[2019-02-22] MEDS ORDERED: ZOLP10TA6 PO (16:28)
--- NOTE | 2019-02-22 18:54 | NUR ---
RN CLOSING NOTES PATIENT AWAKE AND ALERT, WAS IN THE BATHROOM BRUSHING HER TEETH. ON 2L NC, >92%. NO COMPLAINS OF ANY PAIN NOR SOB. ALL MEDS GIVEN. NO IV SITE, MD AWARE. BED ON LOWEST POSITION. CALL LIGHT WITHIN REACH. ENDORSED TO NOC SHIFT FOR ANDRE
--- NOTE | 2019-02-22 19:05 | NUR ---
MS RN OPENING NOTES PATIENT IN BED, AWAKE, A/OX4. ON 2L NC, TOLERATING WELL, NO SOB NOTED, RR EVEN AND UNLABORED. NO IV SITE NOTED, PER AM RN REPORT, AWARE AND DID NOT ORDER NEW IV SITE D/T PATIENT MIGHT BE D/C TOMORROW AND IS HARD STICK. DENIES ANY PAIN OR DISCOMFORT AT THIS TIME. SAFETY MEASURES IN PLACE; BED IN LOWEST POSITION, CALL LIGHT WITHIN REACH. WILL CONTINUE TO MONITOR PATIENT.
[2019-02-22 20:00] VITALS: BP 146/85
[2019-02-22] MEDS: ZOLPIDEM TARTRATE 5 MG TABLET PO PRN (23:04)
[2019-02-23] MEDS: IPRATROPIUM NEB FS 0.5 MG/2.5 ML AMPUL.NEB NEB SCH ×4 (01:30→19:46)
[2019-02-23 04:00] VITALS: BP 131/81
--- NOTE | 2019-02-23 07:23 | NUR ---
MS RN CLOSING NOTES BEDSIDE REPORT GIVEN. PATIENT SLEEPING, BUT EASY TO AROUSE. A/OX4. ON 2L NC, TOLERATING WELL, NO SOB NOTED, RR EVEN AND UNLABORED. NO ACUTE CHANGES THROUGHOUT SHIFT. SAFETY MEASURES MAINTAINED; BED IN LOWEST POSITION, CALL LIGHT WITHIN REACH. ENDORSED TO AM NURSE FOR ANDRE.
[2019-02-23 08:00] VITALS: BP_SYST 125; BP_SYST 128; BP_DIAS 80
--- NOTE | 2019-02-23 08:26 | NUR ---
patient recieved with no iv access and shift superintendent report MD barney
[2019-02-23] MEDS: PANTOPRAZOLE 40 MG TABLET.DR PO SCH (08:46)
[2019-02-23] MEDS: predniSONE 20 MG TABLET PO SCH (09:32)
[2019-02-23] MEDS: FLUTICASONE/VILANTEROL 1 EACH BLST.W.DEV IH SCH (09:33)
--- NOTE | 2019-02-23 13:59 | NUR ---
RESP TX DEFERRED. PT ASLEEP AND IN NO RESP DISTRESS ATT. RN NOTIFIED. WILL CONT TO MONITOR
[2019-02-23 16:00] VITALS: BP 128/82
--- NOTE | 2019-02-23 16:30 | NUR ---
patient ambulates and tolerating well. MARCO A Kiser in and informed about the patient,s blood sugar level.with orders for dischargr home .
--- NOTE | 2019-02-23 19:06 | NUR ---
discharge instructions on file for thr discharge. patient will go after and report will be relayed to the transport tech rn for thr discharge.
[2019-02-23 20:00] VITALS: BP 138/76
--- NOTE | 2019-02-23 20:15 | NUR ---
RN NOTES, PATIENT REPORTED THAT SHE STILL FEEL SHORTNESS OR BREATH WHEN GET UP FROM BED AND WITH EXERTION, O2 SAT 92-94% ON ROOM AIR, REPORTED TO MD BI APPLICATION DEVELOPER CIRO AND REPLIED WITH ORDER TO KEEP PATIENT TONIGHT AND DC IN THE MORNING, NOTED AND CARRIED OUT.
[2019-02-23] MEDS: ZOLPIDEM TARTRATE 5 MG TABLET PO PRN (23:39)
[2019-02-24] MEDS: IPRATROPIUM NEB FS 0.5 MG/2.5 ML AMPUL.NEB NEB SCH ×2 (01:30→07:35)
[2019-02-24 04:00] VITALS: BP 121/75
--- NOTE | 2019-02-24 06:35 | NUR ---
RN notes, patient in stable condition, no acute changes during the night, will be discharged this morning, patient aware, education provided regarding medications, and instructions to follow, will endorse continuity of care to [facility].
--- NOTE | 2019-02-24 07:20 | NUR ---
RN INITIAL NOTES PATIENT IN BED, ASLEEP BUT EASILY AROUSABLE. PER NOC SHIFT RN, PATIENT WAS SUPPOSED TO BE DC LAST NIGHT AT 7PM BUT PATIENT WAS COMPLAINING OF STILL HAVING SOB. PER MD'S ORDERS, STAY FOR THE NIGHT AND DC THIS MORNING. PATIENT IS AWARE. ON 2L NC, SATING WELL >92%. ALERT AND ORIENTED X4. AMBULATORY STEADY GAIT. NO IV SITE, MD IS AWARE. PATIENT REFUSED TO HAVE AN IV SITE. BED IN LOWEST POSITION, CALL LIGHT WITHIN REACH. WILL CONT TO MONITOR
[2019-02-24 08:00] VITALS: BP 119/86
[2019-02-24] MEDS: predniSONE 20 MG TABLET PO SCH (08:01)
[2019-02-24] MEDS: PANTOPRAZOLE 40 MG TABLET.DR PO SCH (08:01)
[2019-02-24] MEDS: FLUTICASONE/VILANTEROL 1 EACH BLST.W.DEV IH SCH (08:02)
--- NOTE | 2019-02-24 11:22 | NUR ---
EXHAUST EMISSIONS INSPECTOR NOTES PATIENT WHEELED OUT THE UNIT BY THE ORNAMENTAL METAL ERECTOR APPRENTICE. PATIENT AWARE AND ALERT. TAXI WAS PROVIDED FOR PATIENT TO GO HOME. NO COMPLAINS OF ANY PAIN NOR SOB. PATIENT STATES SHE LIVES WITH HER FRIEND AT HOME. EXIT CARE GIVEN AND EDUCATED PATIENT REGARDING DISCHARGE INSTRUCTIONS PER MD. PRESCRIPTION GIVEN TOGETHER WITH EXIT CARE. BELONGINGS LIST SIGNED. ID BAND REMOVED. NO IV SITE.
== END 2019-02-24 11:19 | disposition home or self-care (01) | DRG 140 ==
LOC: ER 14:12 → TELE1 17:34 → MEDSG1 02-22 11:22
PROVIDERS: ADMIT Nurse Practitioner Acute Care; ATTEND Nurse Practitioner Acute Care
DX: J44.1 Chronic obstructive pulmonary disease with (acute) exacerbation (principal); J96.01 Acute respiratory failure with hypoxia; J96.02 Acute respiratory failure with hypercapnia; E88.01 Alpha-1-antitrypsin deficiency; E87.6 Hypokalemia; K21.9 Gastro-esophageal reflux disease without esophagitis; Z88.1 Allergy status to other antibiotic agents; Z88.0 Allergy status to penicillin; Z98.890 Other specified postprocedural states; I10 Essential (primary) hypertension; Z87.891 Personal history of nicotine dependence; Z98.82 Breast implant status; Z79.899 Other long term (current) drug therapy; Z79.51 Long term (current) use of inhaled steroids; B19.20 Unspecified viral hepatitis C without hepatic coma
CPT/HCPCS: 36415; 71045-TC; 80048-TC; 83735-TC; 83880; 84100-TC; 84484-TC; 85025-TC; 94799-TC; G0378; J1100; J2920; J3475; J7030

== ENCOUNTER 2019-03-02 19:43 | Inpatient (IN) | payer OTHER ==
[~2019-03-02] VITALS: Ht 165.1 cm; Wt 52.2 kg
[~2019-03-02 19:43] MED LIST changes: +ALBU18HF2 IH; -ALBU18HF2 INH; -ALBU8.5H8 INH; -METH4TAB3 PO; -PANT40TA4 PO; +ZOLP10TA6 PO
--- NOTE | 2019-03-02 20:00 | NUR ---
PT BIBSELF C/O SOB X 30 MIN. HX COPD. PT AOX4. NAD NOTED. RESP EVEN. PT ON MONITOR IN BED 2 AWAITING MD MASSEY. WILL CONTINUE TO MONITOR.
[2019-03-02] MEDS ORDERED: Magnesium 1GM/D5W 100ML PREMIX 200 ML IV ONE (20:39)
--- NOTE | 2019-03-02 20:44 | NUR ---
TECH AT BEDSIDE FOR EKG
[2019-03-02] MEDS ORDERED: ALBUTEROL FS 2.5 MG/3 ML VIAL.NEB ONE ×2 (20:48)
[2019-03-02] MEDS ORDERED: IPRATROPIUM NEB FS 0.5 MG/2.5 ML AMPUL.NEB ONE (20:49)
[2019-03-02] MEDS ORDERED: methylPREDNISolone SOD SUCC 125 MG/2ML VIAL IV ONE (21:00)
[2019-03-02] MEDS ORDERED: IPRATROPIUM NEB FS 0.5 MG/2.5 ML AMPUL.NEB NEB ONE (21:00)
[2019-03-02] MEDS ORDERED: TERBUTALINE SULFATE 1 MG/ML VIAL SQ ONE (21:00)
[2019-03-02] MEDS ORDERED: ALBUTEROL FS 2.5 MG/3 ML VIAL.NEB CONTNEB ONE (21:00)
--- NOTE | 2019-03-02 21:06 | NUR ---
RADIOLOGY AT BEDSIDE FOR XRAY
--- NOTE | 2019-03-02 21:29 | NUR ---
NURSE AT BEDSIDE FOR MIDLINE INSERTION
[2019-03-02 21:34] LABS: ABG BASE EXCESS 3.9 mmol/L; ABG OXYGEN SATURATION 92.5 % (92.0-98.5); ABG PCO2 32.9 mmHg (35.0-45.0); ABG PH 7.518 (7.350-7.450); ABG PO2 64.5 mmHg (75.0-100.0); AaDO2 96.3 mmHg; COHb 1.1 % (0.5-1.5); MetHb 0.5 % (0.0-1.5); SITE, ABG Right Radial
--- NOTE | 2019-03-02 21:41 | NUR ---
R UPPER ARM 18G MIDLINE INSERTED.
[2019-03-02] MEDS ORDERED: Magnesium 1GM/D5W 100ML PREMIX 100 ML IV ONE (21:51)
[2019-03-02] MEDS ORDERED: TERBUTALINE SULFATE 1 MG/ML VIAL ONE (21:51)
[2019-03-02] MEDS ORDERED: methylPREDNISolone SOD SUCC 125 MG/2ML VIAL ONE (21:51)
--- NOTE | 2019-03-02 21:51 | NUR ---
[facility] PAGED
[2019-03-02 22:12] LABS: BASOPHILS # (AUTO) 0.1 /CMM (0.0-0.2); BASOPHILS % (AUTO) 0.6 % (0.0-2.0); EOSINOPHILS % (AUTO) 1.3 % (0.0-6.0); HEMATOCRIT 48 % (33-45); HEMOGLOBIN 15.8 g/dL (11.5-14.8); LYMPHOCYTES % (AUTO) 19.7 % (20.0-44.0); MEAN CORPUSCULAR HGB CONC 33 g/dl (31.0-36.0); MEAN CORPUSCULAR VOLUME 95 fL (82-100); MONOCYTES # (AUTO) 1.1 /CMM (0.1-1.30); MONOCYTES % (AUTO) 6.9 % (2.0-12.0); NEUTROPHILS % (AUTO) 71.5 % (43.0-81.0); PLATELET COUNT (AUTO) 188 /CMM (150-450); RED BLOOD CELL COUNT(AUTO) 5.02 MIL/uL (4.0-5.2); WHITE BLOOD COUNT (AUTO) 15.4 K/uL (4.3-11.0)
[2019-03-02 22:22] LABS: CALCIUM, SERUM 9.8 mg/dL (8.5-10.1); CREATININE 1.1 mg/dL (0.6-1.3); POTASSIUM 3.5 mmol/L (3.5-5.1)
[2019-03-02 22:35] LABS: ALBUMIN 2.8 g/dL (3.4-5.0); BILIRUBIN,DIRECT 0.4 mg/dL (0.0-0.2); BILIRUBIN,TOTAL 1.1 mg/dL (0.2-1.0); TOTAL PROTEIN, SERUM 6.1 g/dL (6.4-8.2)
--- NOTE | 2019-03-02 22:41 | NUR ---
REPORT GIVEN TO HAILY ABDI FOR ANDRE
--- NOTE | 2019-03-02 22:50 | NUR ---
HAILY MS ADMISSION NOTES RECEIVED PATIENT FROM ER VIA SHARI. DX. COPD. PATIENT WAS CURRENTLY ADMITTED 10 DAYS AGO FOR SAME REASON. PATIENT IS ALERT AND ORIENTED X4, VERBALLY RESPONSIVE, ABLE TO MAKE NEEDS KNOWN. BREATHING EVEN AND UNLABORED. NO SOB NOTED. ON 2LPM VIA MT. DENIES ANY PAIN OR DISCOMFORT. NO CP. NO N/V. RIGHT UPPER MIDLINE INTACT AND PATENT. SKIN DRY AND WARM TO TOUCH. AFEBRILE. PATIENT IS AMBULATORY WITH STEADY GAIT. ORIENTED TO THE USE OF UNIT AMENITIES. SKIN ASSESSMENT RENDERED WITH PICTURES TAKE AND PLACED IN CHART. SAFETY MEASURES IN PLACE. CALL LIGHT WITHIN REACH. WILL CONTINUE TO MONITOR.
[2019-03-02] MEDS ORDERED: ZOLPIDEM TARTRATE 10 MG TABLET PO PRN (23:30)
[2019-03-02 23:40] VITALS: BP 115/64
[2019-03-03] MEDS ORDERED: AZITHROMYCIN 250 MG TABLET PO ONE (01:00)
[2019-03-03] MEDS ORDERED: MAGNESIUM HYDROXIDE 30 ML UDC PO PRN (01:00)
[2019-03-03] MEDS ORDERED: MAG HYDROX/AL HYDROX/SIMETH 30 ML UDC PO PRN (01:00)
[2019-03-03] MEDS ORDERED: ALBUTEROL FS 2.5 MG/3 ML VIAL.NEB NEB PRN (01:00)
[2019-03-03] MEDS ORDERED: LORAZEPAM 1 MG TABLET PO PRN (01:00)
[2019-03-03] MEDS ORDERED: ONDANSETRON HCL/PF 4 MG/2 ML VIAL IVP PRN (01:00)
[2019-03-03] MEDS ORDERED: Z GUARD REMEDY 2 OZ OINT TP PRN (01:00)
[2019-03-03] MEDS ORDERED: ZOLPIDEM TARTRATE 5 MG TABLET PO PRN (01:00)
[2019-03-03] MEDS ORDERED: HYDROCODONE/APAP 5/325MG 1 EACH TABLET PO PRN (01:00)
[2019-03-03] MEDS ORDERED: ACETAMINOPHEN 325 MG TABLET PO PRN (01:00)
[2019-03-03] MEDS: AZITHROMYCIN 250 MG TABLET PO SCH (01:12)
[2019-03-03] MEDS: IPRATROPIUM NEB FS 0.5 MG/2.5 ML AMPUL.NEB NEB SCH ×4 (01:30→21:15)
--- NOTE | 2019-03-03 02:24 | NUR ---
RN MS NOTES PATIENT REFUSED BREATHING TREATMENT. EXPLAINED RISKS AND BENEFITS BUT STILL REFUSED AND WOULD JUST LIKE TO REST. PATIENT IN NO DISTRESS. NO SOB. SATURATION 93% ON RA. PUT NASAL CANNULA BACK ON AT 2LPM. WILL CONTINUE TO MONITOR.
--- NOTE | 2019-03-03 06:50 | NUR ---
RN MS CLOSING NOTES PATIENT RESTING IN BED. NO ACUTE CHANGES THROUGHOUT SHIFT. BREATHING EVEN AND UNLABORED. NO SOB NOTED. ON 2LPM VIA NC. NO COMPLAINTS OF PAIN OR DISCOMFORT. ALL NEEDS MET AND ATTENDED TO. SAFETY MEASURES IN PLACE. CALL LIGHT WITHIN REACH. WILL ENDORSE TO ONCOMING NURSE FOR ANDRE.
--- NOTE | 2019-03-03 07:44 | NUR ---
MS RN OPENING NOTE PATIENT IN BED RESTING COMFORTABLY. PATIENT BREATHING ON OXYGEN NC 2L. PATIENT IN NO ACUTE DISTRESS. NO SOB NOTED. PATIENT VERBALIZES NEEDS AND CONCERNS. NEEDS AND CONCERNS ADDRESSED. PATIENT BREATHING IS EVEN AND UNLABORED. SAFETY PRECAUTIONS IN PLACE. PATIENT BED IS LOCKED AND IN LOWEST POSITION. CALL LIGHT WITHIN REACH. WILL CONTINUE TO MONITOR.
[2019-03-03 08:00] VITALS: BP 110/69
--- NOTE | 2019-03-03 09:09 | NUR ---
WOUND CARE CONSULT: PT REFUSED SKIN ASSESSMENT, STATED THAT SHE ONLY HAS SCRATCHES AND BRUISES. PT STATES THAT SHE SCRATCHES HER SKIN. PT IS AMBULATORY AND CONTINENT. WILL SEE PRN. CURRENT JOE SCORE IS 20.
[2019-03-03] MEDS: methylPREDNISolone SOD SUCC 125 MG/2ML VIAL IV SCH ×4 (09:46→20:40)
--- NOTE | 2019-03-03 10:00 | NUR ---
MS RN NOTE PATIENTS BREO ELLIPTA INHALER IS NOT IN [place]. CALLED TO INFORM PHARMACY. PER PHARMACY THE INHALER IS TO BE BROUGHT ANYTIME FROM 1000 TO 1200 WHEN MADE READILY AVAILABLE. PATIENT IN NO ACUTE DISTRESS. WILL CONTINUE TO MONITOR.
--- NOTE | 2019-03-03 11:34 | NUR ---
MS RN NOTE PATIENT IS IN NO ACUTE DISTRESS. PATIENT VERBALIZES NEEDS AND CONCERNS. NEEDS AND CONCERNS WERE ADDRESSED. PATIENT BREATHING IS EVEN AND UNLABORED. PATIENT ON OXYGEN NC 2L. WILL CONTINUE TO MONITOR.
[2019-03-03] MEDS: FLUTICASONE/VILANTEROL 1 EACH BLST.W.DEV IH SCH (12:43)
[2019-03-03 16:00] VITALS: BP 111/69
--- NOTE | 2019-03-03 19:02 | NUR ---
MS RN CLOSING NOTES PATIENT IN BED WATCHING TV. PATIENT BREATHING ON OXYGEN NC AT 2L SATURATING >95% SPO2. PATIENT IN NO ACUTE DISTRESS. NO SOB NOTED. PATIENT BREATHING IS EVEN AND UNLABORED. PATIENT VERBALIZED NEEDS AND CONCERNS. NEEDS AND CONCERNS ADDRESSED. IV INTACT. ALL NURSING NEEDS MET. PATIENT COMPLAINS OF NO PAIN AT THIS TIME. PATIENT BED IS LOCKED AND IN LOWEST POSITION. CALL LIGHT WITHIN REACH. WILL ENDORSE CARE TO PM SHIFT FOR ANDRE.
--- NOTE | 2019-03-03 20:25 | NUR ---
MS RN OPENING NOTES Received this patient, A/O x4, able to perform ADLs independently. Denies discomfort at this time. Discussed with patient the POC for this shift, patient verbalized understanding. Kept bed low and locked, call light within easy reach. Will continue to monitor accordingly.
[2019-03-03 20:33] VITALS: BP 122/77
[2019-03-04] MEDS: AZITHROMYCIN 250 MG TABLET PO SCH (00:05)
[2019-03-04] MEDS: IPRATROPIUM NEB FS 0.5 MG/2.5 ML AMPUL.NEB NEB SCH ×4 (01:54→20:16)
[2019-03-04 06:21] LABS: BASOPHILS # (AUTO) 0.1 /CMM (0.0-0.2); BASOPHILS % (AUTO) 0.7 % (0.0-2.0); EOSINOPHILS % (AUTO) 0.4 % (0.0-6.0); HEMATOCRIT 41 % (33-45); HEMOGLOBIN 13.5 g/dL (11.5-14.8); LYMPHOCYTES # (AUTO) 0.6 /CMM (0.8-4.8); LYMPHOCYTES % (AUTO) 3.6 % (20.0-44.0); MEAN CORPUSCULAR HGB CONC 33 g/dl (31.0-36.0); MEAN CORPUSCULAR VOLUME 96 fL (82-100); MONOCYTES # (AUTO) 0.4 /CMM (0.1-1.30); MONOCYTES % (AUTO) 2.7 % (2.0-12.0); NEUTROPHILS # (AUTO) 14.4 /CMM (1.8-8.9); NEUTROPHILS % (AUTO) 92.6 % (43.0-81.0); PLATELET COUNT (AUTO) 147 /CMM (150-450); RED BLOOD CELL COUNT(AUTO) 4.33 MIL/uL (4.0-5.2); WHITE BLOOD COUNT (AUTO) 15.5 K/uL (4.3-11.0)
[2019-03-04 06:35] LABS: CALCIUM, SERUM 9.9 mg/dL (8.5-10.1); CREATININE 0.9 mg/dL (0.6-1.3); MAGNESIUM 2.2 mg/dL (1.8-2.4); PHOSPHORUS 2.7 mg/dL (2.5-4.9)
--- NOTE | 2019-03-04 06:41 | NUR ---
MS RN CLOSING NOTES Patient asleep at this time. No complaints made within the shift. Alverto noted to be effective. Able to take all due meds as ordered. All nursing needs attended. Kept clean, dry and comfortable. Call light within easy reach. Endorsed to the next shift.
--- NOTE | 2019-03-04 07:27 | NUR ---
MS/RN - Assessment Patient in bed awake, A/O X 4, states breathing improved, no apparent distress seen, stable on room air, no complaints overnight. Midline on the CAMELIA is patent, intact, flushing well. Labs reviewed, no critical results. Fall precautions maintained. Patient updated on plan of care and in agreement. Will continue with current medical management.
[2019-03-04 08:00] VITALS: BP 125/81
[2019-03-04] MEDS: FLUTICASONE/VILANTEROL 1 EACH BLST.W.DEV IH SCH (08:09)
[2019-03-04] MEDS: methylPREDNISolone SOD SUCC 125 MG/2ML VIAL IV SCH ×4 (08:09→21:36)
[2019-03-04 09:49] LABS: ALBUMIN 2.4 g/dL (3.4-5.0); BILIRUBIN,DIRECT 0.1 mg/dL (0.0-0.2); BILIRUBIN,TOTAL 0.7 mg/dL (0.2-1.0); TOTAL PROTEIN, SERUM 5.3 g/dL (6.4-8.2)
--- NOTE | 2019-03-04 11:10 | NUR ---
MS/RN - Hospitalist leon Seen and examined by Dao Martines NP with order to check labs in AM.
[2019-03-04] MEDS: ALBUTEROL FS 2.5 MG/3 ML VIAL.NEB NEB SCH ×2 (12:00→13:30)
--- NOTE | 2019-03-04 14:30 | NUR ---
MS/RN - Rell Elmore Seen and examined by Dr. Escobar with orders, noted and carried out.
[2019-03-04 15:30] VITALS: BP 134/85
[2019-03-04] MEDS: ALBUTEROL HALF STRENGTH 1.25 MG/3 ML VIAL.NEB NEB SCH ×2 (15:30→20:16)
--- NOTE | 2019-03-04 17:15 | NUR ---
MS/RN - End of shift summary Patient denies pain, currently on low flow oxygen, still c/o shortness of breath with exertion, continue IV steroids, bronchodilators adjusted by Dr. Escobar, pending Xray sinus complete. All needs attended. Will continue with current medical management.
--- NOTE | 2019-03-04 19:16 | NUR ---
RN cynthiasurstanford opening notes Received Pt from morning nurse. Pt is alert and oriented X4. Pt is resting in bed comfortably watching TV. Respiration is normal. Pt is on low oxygen 2 L NC. No SOB. No nausea or vomiting. Pt denies any pain or discomfort. IV sites at CAMELIA midline# 18 is intact, patent and SL. Pt has a steady gait. Safety precautions is maintained. Instructed to call. Bed at low position, brakes on, side rails up x2 and call light is within reach. Will continue to monitor and assist all needs.
[2019-03-04 20:00] VITALS: BP 137/87
--- NOTE | 2019-03-04 21:45 | NUR ---
RN medsurg notes Contacted and informed Dr. Chavarria that Pt needs a sleeping pill.
--- NOTE | 2019-03-04 21:55 | NUR ---
RN medsurg notes Received an ordered Ambien 5 mg/PO from Dr. Chavarria. Order carried out.
[2019-03-04] MEDS ORDERED: ZOLPIDEM TARTRATE 5 MG TABLET PO PRN (22:00)
--- NOTE | 2019-03-04 22:23 | NUR ---
RN medsurg notes Administered Ambien 5 mg/PO as ordered per Pt requested. Instructed to call. Will continue to monitor.
--- NOTE | 2019-03-04 23:08 | NUR ---
HAILY medsurstanford notes Pt is resting in bed comfortably. NO SOB. Pt denies any pain or discomfort at this time. Instructed to call. Will continue to monitor.
[2019-03-05] MEDS: AZITHROMYCIN 250 MG TABLET PO SCH (00:30)
[2019-03-05] MEDS: ALBUTEROL HALF STRENGTH 1.25 MG/3 ML VIAL.NEB NEB SCH ×4 (00:47→19:56)
[2019-03-05] MEDS: IPRATROPIUM NEB FS 0.5 MG/2.5 ML AMPUL.NEB NEB SCH ×4 (00:47→19:56)
--- NOTE | 2019-03-05 00:55 | NUR ---
HAILY medsurstanford notes Pt refused breathing treatment by RT.
[2019-03-05 06:40] LABS: BASOPHILS % (AUTO) 0.2 % (0.0-2.0); HEMATOCRIT 42 % (33-45); LYMPHOCYTES % (AUTO) 4.4 % (20.0-44.0); MEAN CORPUSCULAR HGB CONC 33 g/dl (31.0-36.0); MEAN CORPUSCULAR VOLUME 96 fL (82-100); NEUTROPHILS % (AUTO) 92.4 % (43.0-81.0); PLATELET COUNT (AUTO) 118 /CMM (150-450); RED BLOOD CELL COUNT(AUTO) 4.38 MIL/uL (4.0-5.2); WHITE BLOOD COUNT (AUTO) 15.3 K/uL (4.3-11.0)
[2019-03-05 06:41] LABS: LYMPHOCYTES # (AUTO) 0.7 /CMM (0.8-4.8); MONOCYTES # (AUTO) 0.5 /CMM (0.1-1.30); NEUTROPHILS # (AUTO) 14.1 /CMM (1.8-8.9)
[2019-03-05 06:48] LABS: CALCIUM, SERUM 10.4 mg/dL (8.5-10.1); CREATININE 0.8 mg/dL (0.6-1.3); POTASSIUM 4.1 mmol/L (3.5-5.1)
--- NOTE | 2019-03-05 07:00 | NUR ---
RN medsurg closing notes Pt is alert and orientedX4. Pt is asleep in bed comfortably. No SOB. No nausea or vomiting. No S/S of distress noted. IV sites at CAMELIA is intact, patent and SL. Routine meds were given as ordered. Pt refused to have NC on. Education and teaching provided. Pt verbalized understanding. VS is stable. All needs met and attended. Safety precautions is maintained. Bed at low position and call light is within reach. Will endorse to morning nurse for ANDRE.
--- NOTE | 2019-03-05 07:30 | NUR ---
RN OPENING NOTES RECEIVED PATIENT IN BED ASLEEP, EASILY AROUSABLE. A/OX3, ABLE TO MAKE NEEDS KNOWN. NOT IN ANY FORM OF DISTRESS, NO SOB, DENIED PAIN OR DISCOMFORT AT THIS TIME. IV ACCESS INTACT AND PATENT. KEPT PATIENT SAFE AND COMFORTABLE. BED IN LOW/LOCKED POSITION. SIDERAILS UPX2, CALL LIGHT IN REACH. WILL CONTINUE TO MONITOR ACCORDINGLY
[2019-03-05 08:00] VITALS: BP 118/74
[2019-03-05] MEDS: methylPREDNISolone SOD SUCC 125 MG/2ML VIAL IV SCH ×4 (09:59→20:46)
[2019-03-05 16:00] VITALS: BP 138/78
--- NOTE | 2019-03-05 18:26 | NUR ---
RN CLOSING NOTES PATIENT IN STABLE CONDITION. ALL NEEDS ATTENDED AND PROVIDED. ALL DUE MEDICATIONS GIVEN ORDERED. ASSISTED WITH ADLS. KEPT PATIENT SAFE AND COMFORTABLE. BED IN LOW/LOCKED POSITION, SIDERAILS UPX2, CALL LIGHT IN REACH. WILL ENDORSE TO NIGHT RN FOR ANDRE.
--- NOTE | 2019-03-05 19:36 | NUR ---
RN MS OPENING NOTES RECEIVED PATIENT IN BED AWAKE, ALERT AND ORIENTED X4, VERBALLY RESPONSIVE, ABLE TO MAKE NEEDS KNOWN. BREATHING EVEN AND UNLABORED. NO SOB NOTED. ON 2LPM VIA NC. CURRENTLY WITH NO COMPLAINTS OF PAIN OR DISCOMFORT. RIGHT UPPER MIDLINE INTACT AND PATENT. SKIN DRY AND WARM TO TOUCH. AFEBRILE. ALL OTHER NEEDS MET. SAFETY MEASURES IN PLACE. CALL LIGHT WITHIN REACH. WILL CONTINUE TO MONITOR.
[2019-03-05 20:00] VITALS: BP 125/72
[2019-03-06] MEDS: ALBUTEROL HALF STRENGTH 1.25 MG/3 ML VIAL.NEB NEB SCH ×4 (00:57→19:30)
[2019-03-06] MEDS: IPRATROPIUM NEB FS 0.5 MG/2.5 ML AMPUL.NEB NEB SCH ×4 (00:57→19:30)
[2019-03-06] MEDS: AZITHROMYCIN 250 MG TABLET PO SCH (01:11)
--- NOTE | 2019-03-06 01:14 | NUR ---
RN MS NOTES PATIENT REFUSED BREATHING TX. EXPLAINED RISKS AND BENEFITS BUT STILL REFUSED. PER PATIENT, SHE WOULD JUST LIKE TO SLEEP. PATIENT IN NO DISTRESS. NO SOB NOTED. TOLERATING ROOM AIR. SP02 >92%. WILL CONTINUE TO MONITOR.
--- NOTE | 2019-03-06 07:07 | NUR ---
RN MS CLOSING NOTES PATIENT RESTING IN BED. NO ACUTE CHANGES THROUGHOUT SHIFT. BREATHING EVEN AND UNLABORED. NO SOB NOTED. TOLERATING ROOM AIR. NO COMPLAINTS OF PAIN OR DISCOMFORT. ALL NEEDS MET AND ATTENDED TO. SAFETY MEASURES IN PLACE. CALL LIGHT WITHIN REACH. WILL ENDORSE TO ONCOMING NURSE FOR ANDRE.
--- NOTE | 2019-03-06 07:30 | NUR ---
MS RN NOTE RECEIVED PATIENT IN BED. A/O X4. RESPIRATIONS ARE EVEN AND UNLABORED. PATIENT DENIES SOB. PATIENT DENIES PAIN AT THIS TIME. PATIENT IN NO APPARENT DISTRESS. IV ACCESS IS RIGHT UPPER ARM MIDLINE GAUGE 18 PATENT AND SALINE LOCKED. BED IS IN THE LOWEST POSSIBLE SETTING AND LOCKED. CALL LIGHT WITHIN REACH. WILL CONTINUE TO MONITOR.
[2019-03-06 08:00] VITALS: BP 133/86
[2019-03-06] MEDS: methylPREDNISolone SOD SUCC 125 MG/2ML VIAL IV SCH (08:31)
[2019-03-06 16:00] VITALS: BP 134/84
--- NOTE | 2019-03-06 18:12 | NUR ---
MS/RN NOTE THE PATIENT IS ALERT AND ORIENTED X4. RECEIVING OXYGEN AT 2L/MIN VIA NASAL CANNULA AND SATURATION IS AT 96%. DENIES SOB. RESPIRATION REGULAR AND UNLABORED. DENIES PAIN. PATIENT IN NO APPARENT DISTRESS. CAMELIA MIDLINE G 18 PATENT AND SALINE LOCKED. BED LOW AND LOCKED. SIDE RAILS UP X3. CALL LIGHT WITHIN REACH. WILL ENDORSE TO DIRECTOR CASE.
--- NOTE | 2019-03-06 19:30 | NUR ---
MS RN RECEIVE PT IN AWAKE WATCHING TV IN BED A/O X 3, STABLE, RESPIRATIONS EVEN AND UNLABORED, SAFETY MEASURES IN PLACE. WILL CONTINUE TO MONITOR
[2019-03-06 20:00] VITALS: BP 125/75
[2019-03-07] MEDS: AZITHROMYCIN 250 MG TABLET PO SCH (00:02)
[2019-03-07] MEDS: IPRATROPIUM NEB FS 0.5 MG/2.5 ML AMPUL.NEB NEB SCH ×3 (00:35→14:08)
[2019-03-07] MEDS: ALBUTEROL HALF STRENGTH 1.25 MG/3 ML VIAL.NEB NEB SCH ×3 (00:35→14:08)
--- NOTE | 2019-03-07 06:23 | NUR ---
MILL DRESSER PT SLEPT WELL THROUGHOUT THE NIGHT. NO SOB. TOLERATING ROOM AIR. NO S/S OF DISTRESS, NOT IN RESPIRATORY DISTRESS. KEPT CLEAN AND DRY AND COMFORTABLE. NEEDS ATTENDED AND ANTICIPATED. NURSING CARE RENDERED, NO C/O PAIN AT THIS TIME.OFFLOAD HEELS AND ELBOWS AT ALL TIMES. SAFETY MEASURES AT ALL TIMES. ENDORSE TO THE NEXT SHIFT.
--- NOTE | 2019-03-07 07:24 | NUR ---
MS RN OPENING NOTES RECEIVED PT AWAKE, SITTING UP IN BED. A/O X4. RESPIRATIONS ARE EVEN AND UNLABORED, NOT IN ANY ACUTE DISTRESS NOTED. PT DENIES ANY PAIN AT THIS TIME, NO C/O SOB, N/V. MIDLINE TO CAMELIA INTACT, NO INFILTRATION NOTED. DRESSING KEPT CLEAN AND DRY. SAFETY MEASURES ARE IN PLACE. INSTRUCTED PT TO USE CALL LIGHT WHEN ASSISTANCE IS NEEDED, CALL LIGHT IS LEFT WITHIN REACH. WILL MONITOR THROUGHOUT SHIFT FOR CONTINUITY OF CARE.
[2019-03-07 07:51] LABS: CREATININE 0.8 mg/dL (0.6-1.3); POTASSIUM 4.1 mmol/L (3.5-5.1)
[2019-03-07 07:53] LABS: BASOPHILS % (AUTO) 0.6 % (0.0-2.0); EOSINOPHILS % (AUTO) 0.7 % (0.0-6.0); HEMATOCRIT 46 % (33-45); HEMOGLOBIN 15.2 g/dL (11.5-14.8); LYMPHOCYTES # (AUTO) 0.9 /CMM (0.8-4.8); LYMPHOCYTES % (AUTO) 10.9 % (20.0-44.0); MEAN CORPUSCULAR HGB CONC 33 g/dl (31.0-36.0); MEAN CORPUSCULAR VOLUME 96 fL (82-100); MONOCYTES # (AUTO) 0.6 /CMM (0.1-1.30); NEUTROPHILS # (AUTO) 6.7 /CMM (1.8-8.9); NEUTROPHILS % (AUTO) 80.8 % (43.0-81.0); PLATELET COUNT (AUTO) 79 /CMM (150-450); RED BLOOD CELL COUNT(AUTO) 4.78 MIL/uL (4.0-5.2); WHITE BLOOD COUNT (AUTO) 8.3 K/uL (4.3-11.0)
[2019-03-07 08:00] VITALS: BP_SYST 115; BP_SYST 124; BP_DIAS 66; BP_DIAS 77
[2019-03-07] MEDS ORDERED: methylPREDNISolone SOD SUCC 125 MG/2ML VIAL IV SCH (09:00)
[2019-03-07] MEDS ORDERED: PRED20TA PO (09:50)
[2019-03-07 10:06] LABS: LYMPHOCYTES % (MANUAL) 13 % (16-48); MONOCYTES % (MANUAL) 6 % (0-11.0); NEUTROPHILS % (MANUAL) 81 (42-76)
--- NOTE | 2019-03-07 12:59 | NUR ---
MS RN NOTES-- PT ABLE TO MAKE NEEDS KNOWN. NEEDS MET AND ANTICIPATED. PT MADE AWARE OF DISCHARGE. PER PT, "I WILL LEAVE TONIGHT BECAUSE MY ROOMMATE GETS HOME AT 5PM TONIGHT."
--- NOTE | 2019-03-07 18:21 | NUR ---
MS DATABASE OPERATOR NOTE PT DISCHARGED TO HOME VIA TAXI IN STABLE CONDITION. PT IS A/O X4, AFEBRILE. RESPIRATIONS ARE EVEN AND UNLABORED, NOT IN ANY ACUTE DISTRESS NOTED. PT DENIES ANY PAIN AT THIS TIME, NO C/O SOB, N/V. ABDOMEN IS SOFT AND NONDISTENDED, BOWEL SOUNDS ARE PRESENT IN ALL 4 QUADRANTS UPON AUSCULTATION. DENIES ANY BLADDER DISCOMFORT. PT IS AMBULATORY AND CONTINENT. PICTURES TAKEN OF SKIN DURING SKIN ASSESSMENT AND PLACED IN CHART. EXPLAINED DISCHARGE PAPERWORK TO PT W/ VERBAL AND WRITTEN UNDERSTANDING, INCLUDING TAKING PRESCRIBED MEDICATIONS ORDERED. MIDLINE TO CAMELIA REMOVED, APPLIED PRESSURE AND TOLERATED WELL. ID BANDS REMOVED. PT LEFT WITH ALL BELONGINGS ACCOMPANIED W/ 1 STAFF ASSIST VIA WC TO TAXI. PT LEFT IN STABLE CONDITION.
== END 2019-03-07 18:25 | disposition home or self-care (01) | DRG 140 ==
LOC: ER 19:51 → TELE 22:23 → MED 03-03 01:07
PROVIDERS: ADMIT Internal Medicine; ATTEND Internal Medicine
PROC: 05H933Z Insertion of Infusion Device into Right Brachial Vein, Percutaneous Approach (ICD-10-PCS; principal; 2019-03-02)
DX: J44.1 Chronic obstructive pulmonary disease with (acute) exacerbation (principal); J96.01 Acute respiratory failure with hypoxia; E43 Unspecified severe protein-calorie malnutrition; E87.0 Hyperosmolality and hypernatremia; D69.6 Thrombocytopenia, unspecified; E88.01 Alpha-1-antitrypsin deficiency; J98.11 Atelectasis; R74.0 Nonspecific elevation of levels of transaminase and lactic acid dehydrogenase [LDH]; T38.0X5A Adverse effect of glucocorticoids and synthetic analogues, initial encounter; Y92.89 Other specified places as the place of occurrence of the external cause; D72.829 Elevated white blood cell count, unspecified; I10 Essential (primary) hypertension; E78.5 Hyperlipidemia, unspecified; K21.9 Gastro-esophageal reflux disease without esophagitis; Z87.891 Personal history of nicotine dependence; Z86.19 Personal history of other infectious and parasitic diseases; Z68.1 Body mass index [BMI] 19.9 or less, adult; F41.9 Anxiety disorder, unspecified; Z88.0 Allergy status to penicillin
CPT/HCPCS: 36415; 36600; 70220-TC; 71045-TC; 80048-TC; 80076-TC; 83735-TC; 83880; 84100-TC; 84484-TC; 85025-TC; 87081-TC; 94799-TC; A4216; G0378; J2930; J3105; J3475

== ENCOUNTER 2019-03-11 20:01 | Emergency (ER) | payer OTHER ==
[~2019-03-11] VITALS: Ht 165.1 cm; Wt 52.2 kg
--- NOTE | 2019-03-11 22:47 | NUR ---
VOUCHER CLERK AT THE BED SIDE
[2019-03-11] MEDS ORDERED: ALBUTEROL FS 2.5 MG/3 ML VIAL.NEB ONE (22:51)
[2019-03-11] MEDS ORDERED: IPRATROPIUM NEB FS 0.5 MG/2.5 ML AMPUL.NEB ONE (22:51)
[2019-03-11] MEDS ORDERED: ALBUTEROL FS 2.5 MG/3 ML VIAL.NEB NEB ONE (23:00)
[2019-03-11] MEDS ORDERED: IPRATROPIUM NEB FS 0.5 MG/2.5 ML AMPUL.NEB NEB ONE (23:00)
[2019-03-11] MEDS ORDERED: LIDOCAINE 1% INJ 50 ML MDV IJ ONE ×2 (23:30→23:39)
--- NOTE | 2019-03-12 00:17 | NUR ---
AT THE BED SIDE
--- NOTE | 2019-03-12 00:34 | NUR ---
Patient discharged to home in stable condition. Rx and Written and verbal after care instructions given. Patient verbalizes understanding of instruction.
[2019-03-12 00:47] VITALS: BP 133/81
== END 2019-03-12 00:56 | disposition home or self-care (01) ==
LOC: ER 20:01
DX: S60.451A Superficial foreign body of left index finger, initial encounter (principal); J44.1 Chronic obstructive pulmonary disease with (acute) exacerbation; I10 Essential (primary) hypertension; Z98.890 Other specified postprocedural states; Z86.19 Personal history of other infectious and parasitic diseases; Z88.0 Allergy status to penicillin; Z88.1 Allergy status to other antibiotic agents; Z79.899 Other long term (current) drug therapy; X58.XXXA Exposure to other specified factors, initial encounter; Y93.89 Activity, other specified; Y92.89 Other specified places as the place of occurrence of the external cause; Y99.8 Other external cause status
CPT/HCPCS: 64450; 71045; 73140; 93005; 94640; 99284; A6403; J3490

== ENCOUNTER 2019-04-08 23:33 | Emergency (ER) | payer OTHER ==
[2019-04-09] MEDS ORDERED: ALBUTEROL FS 2.5 MG/3 ML VIAL.NEB CONTNEB ONE
[2019-04-09] MEDS ORDERED: IPRATROPIUM NEB FS 0.5 MG/2.5 ML AMPUL.NEB NEB ONE
[2019-04-09] MEDS ORDERED: ALBUTEROL FS 2.5 MG/3 ML VIAL.NEB ONE (00:03)
[2019-04-09] MEDS ORDERED: IPRATROPIUM NEB FS 0.5 MG/2.5 ML AMPUL.NEB ONE (00:03)
[2019-04-09] MEDS ORDERED: POTASSIUM CHLORIDE 20 MEQ TAB.PRT.SR PO ONE ×2 (01:30→01:49)
[2019-04-28] MEDS ORDERED: CEFE1PIG3 IV (15:07)
[2019-04-28] MEDS ORDERED: methylPREDNISolone SOD SUCC IV (15:07)
[2019-04-28] MEDS ORDERED: VANC750F IV (15:07)
[2019-04-28] MEDS ORDERED: RXVAN XX (15:07)
== END 2019-04-09 04:06 | disposition home or self-care (01) ==
DX: J44.1 Chronic obstructive pulmonary disease with (acute) exacerbation (principal); J98.01 Acute bronchospasm; H11.31 Conjunctival hemorrhage, right eye; I10 Essential (primary) hypertension; E87.6 Hypokalemia; R74.0 Nonspecific elevation of levels of transaminase and lactic acid dehydrogenase [LDH]; F17.200 Nicotine dependence, unspecified, uncomplicated; R00.0 Tachycardia, unspecified; Z86.19 Personal history of other infectious and parasitic diseases; Z98.890 Other specified postprocedural states; Z88.0 Allergy status to penicillin; Z88.1 Allergy status to other antibiotic agents

== ENCOUNTER 2019-04-20 04:05 | Emergency (ER) | payer OTHER ==
[~2019-04-20] VITALS: Ht 154.9 cm; Wt 55.3 kg
[2019-04-20 04:12] VITALS: BP 137/76
--- NOTE | 2019-04-20 04:12 | NUR ---
PT BIBS. C/O "COULDNT BREATHE AT HOME, INHALER NOT WORKING" +SOB NOTED. PT AOX4. VSS. NAD NOTED. PT DENIES PAIN AT THIS TIME. PT ON MONITOR IN BED 9. WILL CONTINUE TO MONITOR.
[2019-04-20] MEDS ORDERED: predniSONE 20 MG TABLET ONE (04:16)
--- NOTE | 2019-04-20 04:19 | NUR ---
RADIOLOGY AT BEDSIDE FOR XRAY
[2019-04-20] MEDS ORDERED: ALBUTEROL FS 2.5 MG/3 ML VIAL.NEB ONE (04:20)
[2019-04-20] MEDS ORDERED: IPRATROPIUM NEB FS 0.5 MG/2.5 ML AMPUL.NEB ONE (04:21)
--- NOTE | 2019-04-20 04:21 | NUR ---
RT AT BEDSIDE FOR BREATHING TREATMENT
[2019-04-20] MEDS ORDERED: IPRATROPIUM NEB FS 0.5 MG/2.5 ML AMPUL.NEB NEB ONE (04:30)
[2019-04-20] MEDS ORDERED: predniSONE 20 MG TABLET PO ONE (04:30)
[2019-04-20] MEDS ORDERED: ALBUTEROL FS 2.5 MG/0.5 ML VIAL.NEB NEB ONE (04:30)
[2019-04-20] MEDS ORDERED: DOXYCYCLINE HYCLATE (100 MG) 100 MG TABLET PO ONE (05:00)
[2019-04-20] MEDS ORDERED: DOXYCYCLINE HYCLATE (100 MG) 100 MG TABLET ONE (05:05)
--- NOTE | 2019-04-20 05:50 | NUR ---
Patient discharged to home in stable condition. Written and verbal after care instructions given. Patient verbalizes understanding of instruction. PT AMBULATORY WITH STEADY GAIT.
[2019-04-28] MEDS ORDERED: RXVAN XX (15:07)
[2019-04-28] MEDS ORDERED: CEFE1PIG3 IV (15:07)
[2019-04-28] MEDS ORDERED: methylPREDNISolone SOD SUCC IV (15:07)
[2019-04-28] MEDS ORDERED: VANC750F IV (15:07)
== END 2019-04-20 05:59 | disposition home or self-care (01) ==
LOC: ER 04:07
DX: J44.9 Chronic obstructive pulmonary disease, unspecified (principal); L03.116 Cellulitis of left lower limb; F17.200 Nicotine dependence, unspecified, uncomplicated; I10 Essential (primary) hypertension; Z86.19 Personal history of other infectious and parasitic diseases; Z98.890 Other specified postprocedural states; Z88.0 Allergy status to penicillin; Z88.1 Allergy status to other antibiotic agents; Z79.899 Other long term (current) drug therapy
CPT/HCPCS: 71045; 94644; 99285; 99406; J7512

== ENCOUNTER 2019-04-23 15:42 | Emergency (ER) | payer OTHER ==
[~2019-04-23] VITALS: Ht 165.1 cm; Wt 53.5 kg
[2019-04-23] MEDS ORDERED: IPRATROPIUM NEB FS 0.5 MG/2.5 ML AMPUL.NEB ONE (16:40)
[2019-04-23] MEDS ORDERED: ALBUTEROL FS 2.5 MG/3 ML VIAL.NEB ONE (16:40)
--- NOTE | 2019-04-23 16:55 | NUR ---
SOB X1 WK, HEADACHE. PT AAOX4, DENIES CP, DIZZINESS, N/V, WEAKNESS @ THIS TIME. SEEN & EVAL'D BY DR. GARCIA. PT'S GETTING BREATHING TX, PT JESSY WELL. PLACED ON VICE PRESIDENT FINANCIAL, NO ECTOPY NOTED. WILL CONT TO MONITOR.
[2019-04-23] MEDS ORDERED: SULFAMETH/TRIMETH 800/160 MG 1 UDTAB TABLET PO ONE (17:00)
[2019-04-23] MEDS ORDERED: IPRATROPIUM NEB FS 0.5 MG/2.5 ML AMPUL.NEB NEB ONE (17:00)
[2019-04-23] MEDS ORDERED: ALBUTEROL FS 2.5 MG/3 ML VIAL.NEB NEB ONE (17:00)
[2019-04-23 17:05] LABS: BASOPHILS # (AUTO) 0.1 /CMM (0.0-0.2); BASOPHILS % (AUTO) 0.4 % (0.0-2.0); EOSINOPHILS % (AUTO) 0.4 % (0.0-6.0); HEMATOCRIT 46 % (33-45); LYMPHOCYTES # (AUTO) 1.3 /CMM (0.8-4.8); LYMPHOCYTES % (AUTO) 9.5 % (20.0-44.0); MEAN CORPUSCULAR HGB CONC 33 g/dl (31.0-36.0); MEAN CORPUSCULAR VOLUME 96 fL (82-100); MONOCYTES # (AUTO) 0.5 /CMM (0.1-1.30); MONOCYTES % (AUTO) 3.8 % (2.0-12.0); NEUTROPHILS # (AUTO) 11.4 /CMM (1.8-8.9); NEUTROPHILS % (AUTO) 85.9 % (43.0-81.0); PLATELET COUNT (AUTO) 245 /CMM (150-450); RED BLOOD CELL COUNT(AUTO) 4.77 MIL/uL (4.0-5.2); WHITE BLOOD COUNT (AUTO) 13.3 K/uL (4.3-11.0)
[2019-04-23 17:11] LABS: CALCIUM, SERUM 10.1 mg/dL (8.5-10.1); CREATININE 1.2 mg/dL (0.6-1.3); POTASSIUM 3.9 mmol/L (3.5-5.1)
[2019-04-23] MEDS ORDERED: SULFAMETH/TRIMETH 800/160 MG 1 UDTAB TABLET ONE (17:34)
--- NOTE | 2019-04-23 18:09 | NUR ---
Patient discharged to home in stable condition. Written and verbal after care instructions given. Patient verbalizes understanding of instruction.
[2019-04-23 18:10] VITALS: BP 124/72
[2019-04-28] MEDS ORDERED: CEFE1PIG3 IV (15:07)
[2019-04-28] MEDS ORDERED: methylPREDNISolone SOD SUCC IV (15:07)
[2019-04-28] MEDS ORDERED: VANC750F IV (15:07)
[2019-04-28] MEDS ORDERED: RXVAN XX (15:07)
== END 2019-04-23 18:12 | disposition home or self-care (01) ==
LOC: ER 15:44
DX: J44.9 Chronic obstructive pulmonary disease, unspecified (principal); L03.317 Cellulitis of buttock; I10 Essential (primary) hypertension; F17.200 Nicotine dependence, unspecified, uncomplicated; Z86.19 Personal history of other infectious and parasitic diseases; Z88.0 Allergy status to penicillin; Z88.1 Allergy status to other antibiotic agents; Z79.899 Other long term (current) drug therapy
CPT/HCPCS: 36415; 71045-TC; 80048-TC; 85025-TC; 87040-TC

== ENCOUNTER 2019-04-27 17:07 | Inpatient (IN) | payer OTHER ==
[~2019-04-27] VITALS: Ht 165.1 cm; Wt 52.6 kg
[2019-04-27] MEDS ORDERED: ALBUTEROL FS 2.5 MG/3 ML VIAL.NEB NEB ONE (17:30)
[2019-04-27] MEDS ORDERED: IPRATROPIUM NEB FS 0.5 MG/2.5 ML AMPUL.NEB NEB ONE (17:30)
[2019-04-27] MEDS ORDERED: ALBUTEROL FS 2.5 MG/3 ML VIAL.NEB ONE (17:59)
[2019-04-27] MEDS ORDERED: IPRATROPIUM NEB FS 0.5 MG/2.5 ML AMPUL.NEB ONE (17:59)
--- NOTE | 2019-04-27 18:05 | NUR ---
GAVE MOVESHEET TO ADMITTING FOR IPA CASE MANAGEMENT
--- NOTE | 2019-04-27 18:07 | NUR ---
PT REC'D TO ER C/O SOB IV STARTED 22G RT HAND LABS DRAWN SENT TO LAB. RT AT THE BEDSIDE GIVING BREATHING TX
--- NOTE | 2019-04-27 18:11 | NUR ---
called house sup for tele bed
[2019-04-27 18:18] LABS: BASOPHILS % (AUTO) 0.3 % (0.0-2.0); EOSINOPHILS % (AUTO) 0.1 % (0.0-6.0); HEMATOCRIT 45 % (33-45); HEMOGLOBIN 14.7 g/dL (11.5-14.8); LYMPHOCYTES # (AUTO) 0.8 /CMM (0.8-4.8); LYMPHOCYTES % (AUTO) 5.7 % (20.0-44.0); MEAN CORPUSCULAR HGB CONC 33 g/dl (31.0-36.0); MEAN CORPUSCULAR VOLUME 97 fL (82-100); MONOCYTES # (AUTO) 0.4 /CMM (0.1-1.30); MONOCYTES % (AUTO) 2.5 % (2.0-12.0); NEUTROPHILS # (AUTO) 13.2 /CMM (1.8-8.9); NEUTROPHILS % (AUTO) 91.4 % (43.0-81.0); PLATELET COUNT (AUTO) 207 /CMM (150-450); RED BLOOD CELL COUNT(AUTO) 4.64 MIL/uL (4.0-5.2); WHITE BLOOD COUNT (AUTO) 14.4 K/uL (4.3-11.0)
[2019-04-27] MEDS ORDERED: SULF1TAB3 PO (18:24)
[2019-04-27] MEDS ORDERED: FURO20TA4 PO (18:24)
[2019-04-27] MEDS ORDERED: DOXY100C2 PO (18:24)
[2019-04-27 18:28] LABS: CALCIUM, SERUM 9.9 mg/dL (8.5-10.1); CARBON DIOXIDE 25 mmol/L (21-32); CHLORIDE 102 mmol/L (98-107); GLUCOSE 216 mg/dL (74-106); POTASSIUM 4.1 mmol/L (3.5-5.1); SODIUM SERUM 137 mmol/L (136-145); UREA NITROGEN, BLOOD 18 mg/dL (7-18)
[2019-04-27 18:41] LABS: ALANINE AMINOTRANSFERASE 109 U/L (12-78); ALKALINE PHOSPHATASE 331 U/L (46-116); ASPARTATE AMINOTRANSFERASE 72 U/L (15-37); B-TYPE NATRIURETIC PEPTIDE 90 PG/ML (0-125); BILIRUBIN,TOTAL 0.8 mg/dL (0.2-1.0); TOTAL PROTEIN, SERUM 7.1 g/dL (6.4-8.2)
[2019-04-27 18:50] LABS: ALBUMIN 2.6 g/dL (3.4-5.0)
[2019-04-27] MEDS ORDERED: CEFTRIAXONE 1 G in IV D5W 50 ML IV STA (19:02)
[2019-04-27] MEDS ORDERED: CEFTRIAXONE 1GM BAG (ER ONLY) 50 ML IV ONE (19:17)
[2019-04-27] MEDS ORDERED: CEFEPIME 1 GM in IV D5W 50 ML IV STA (19:20)
[2019-04-27] MEDS ORDERED: VANCOMYCIN 1 GM in IV D5W 250 ML IV STA (19:20)
--- NOTE | 2019-04-27 19:23 | NUR ---
JOCY JIMENEZ FOR ADMISSION
[2019-04-27] MEDS ORDERED: AZITHROMYCIN 500 MG in IV D5W 250 ML IV ONE (19:30)
[2019-04-27] MEDS ORDERED: IV NS 0.9% 1,000 ML BAG IV ONE (19:30)
[2019-04-27] MEDS ORDERED: LIDOCAINE HCL/PF 1% 30 ML VIAL TP ONE (19:30)
[2019-04-27] MEDS ORDERED: LIDOCAINE 1%-EPI 1:100,000 20 ML VIAL ONE (19:44)
[2019-04-27] MEDS ORDERED: CEFEPIME 1 GM VIAL ONE (19:45)
[2019-04-27] MEDS ORDERED: VANCOMYCIN 1 GM VIAL ONE (19:46)
[2019-04-27] MEDS ORDERED: LIDOCAINE 1% INJ 50 ML MDV IJ ONE (19:54)
--- NOTE | 2019-04-27 19:56 | NUR ---
at the bed side for i&d
--- NOTE | 2019-04-27 20:01 | NUR ---
pt assigned to bed 312-2.
--- NOTE | 2019-04-27 20:26 | NUR ---
REPORT GIVE TO LINDA ON THIRD FLOOR
[2019-04-27] MEDS ORDERED: Z GUARD REMEDY 2 OZ OINT TP PRN (20:30)
[2019-04-27] MEDS ORDERED: HYDROCODONE/APAP 5/325MG 1 EACH TABLET PO PRN (20:30)
[2019-04-27] MEDS ORDERED: ALBUTEROL FS 2.5 MG/0.5 ML VIAL.NEB NEB PRN (20:30)
[2019-04-27] MEDS ORDERED: CEFEPIME 1 GM in IV D5W 50 ML IV SCH (20:30)
[2019-04-27] MEDS ORDERED: MAGNESIUM HYDROXIDE 30 ML UDC PO PRN (20:30)
[2019-04-27] MEDS ORDERED: MAG HYDROX/AL HYDROX/SIMETH 30 ML UDC PO PRN (20:30)
[2019-04-27] MEDS ORDERED: ACETAMINOPHEN 325 MG TABLET PO PRN (20:30)
[2019-04-27] MEDS ORDERED: ONDANSETRON HCL/PF 4 MG/2 ML VIAL IVP PRN (20:30)
--- NOTE | 2019-04-27 20:49 | NUR ---
pt was transferred to 312 under acls .
--- NOTE | 2019-04-27 21:00 | NUR ---
RAJINDER MEDICARE BILLER NOTE: RECEIVED TRANSFER PT FROM [facility] WITH ADMITTING DIAGNOSIS OF SEPSIS. PT IS ALERT AND ORIENTED X4. NO APPARENT DISTRESS NOTED. DENIES PAIN AND DISCOMFORT AT THIS TIME. ON 2LPM NASAL CANNULA, NO SOB NOTED AT THIS TIME. ON TELE MONITOR SINUS RHYTHM HR 99BPM. IV ON RIGHT WRIST #22 INTACT AND PATENT, FLUSHING WELL. PERTINENT ASSESSMENTS DONE, SCABS ON LEFT FOOT AND RIGHT ANKLE WAS NOTED, WOUND ON LEFT HIP WAS ALSO NOTED, PER PT I&D WAS DONE IN ER. MINIMAL BLEEDING STILL NOTED ON THE WOUND, PICTURES TAKEN AND PLACED ON CHART. KEPT CLEAN, DRY AND COMFORTABLE. CALL LIGHT PLACED WITHIN REACH. SAFETY AND FALL PRECAUTIONS OBSERVED AND MAINTAINED. WILL CONTINUE TO MONITOR PT Addendum: 04/28/19 at 0631 by HUSSEIN YU RN UNABLE TO MEASURE WOUND ON LEFT HIP BECAUSE OF THE PACKING THAT WAS PUT IN THE ER.
[2019-04-27] MEDS ORDERED: methylPREDNISolone SOD SUCC 125 MG/2ML VIAL IV ONE (21:30)
--- NOTE | 2019-04-27 21:52 | NUR ---
TD RN NOTE: RECEIVED A CALL FROM LAB REGARDING CRIT HIGH LACTIC ACID 3.3. DR. JIMENEZ NOTIFIED, 1.6L OF NS WILL BE GIVEN. WILL CONTINUE TO MONITOR PT.
[2019-04-27 22:18] VITALS: BP 112/52
[2019-04-28] VITALS: BP 107/63
[2019-04-28 04:00] VITALS: BP 110/66
[2019-04-28 06:33] LABS: BASOPHILS % (AUTO) 0.1 % (0.0-2.0); HEMATOCRIT 39 % (33-45); HEMOGLOBIN 12.7 g/dL (11.5-14.8); LYMPHOCYTES # (AUTO) 0.5 /CMM (0.8-4.8); LYMPHOCYTES % (AUTO) 4.7 % (20.0-44.0); MEAN CORPUSCULAR HGB CONC 33 g/dl (31.0-36.0); MEAN CORPUSCULAR VOLUME 96 fL (82-100); MONOCYTES # (AUTO) 0.1 /CMM (0.1-1.30); MONOCYTES % (AUTO) 1.1 % (2.0-12.0); NEUTROPHILS # (AUTO) 10.1 /CMM (1.8-8.9); NEUTROPHILS % (AUTO) 94.1 % (43.0-81.0); PLATELET COUNT (AUTO) 142 /CMM (150-450); RED BLOOD CELL COUNT(AUTO) 4.03 MIL/uL (4.0-5.2); WHITE BLOOD COUNT (AUTO) 10.7 K/uL (4.3-11.0)
--- NOTE | 2019-04-28 06:37 | NUR ---
TD RN NOTE: NO CHANGES NOTED THROUGHOUT THE SHIFT. NO APPARENT DISTRESS NOTED. DENIES PAIN AND DISCOMFORT AT THIS TIME. ON 2LPM NASAL CANNULA, BREATHING EVEN AND UNLABORED WITH NORMAL RESPIRATIONS. SINUS RHYTHM ON TELE MONITOR HR 90BPM. RIGHT UPPER ARM MIDLINE INTACT AND PATENT, FLUSHING WELL. KEPT CLEAN, DRY AND COMFORTABLE. CALL LIGHT PLACED WITHIN REACH. SAFETY AND FALL PRECAUTIONS OBSERVED AND MAINTAINED. WILL ENDORSE TO DAY SHIFT RN FOR CONTINUITY OF CARE.
[2019-04-28 06:45] LABS: CALCIUM, SERUM 9.2 mg/dL (8.5-10.1); CREATININE 0.8 mg/dL (0.6-1.3); MAGNESIUM 1.9 mg/dL (1.8-2.4); PHOSPHORUS 2.3 mg/dL (2.5-4.9); POTASSIUM 4.3 mmol/L (3.5-5.1)
[2019-04-28] MEDS ORDERED: FEE PK DOSING 1 MIN EA MC ONE (07:13)
[2019-04-28 08:00] VITALS: BP 111/68
[2019-04-28] MEDS: methylPREDNISolone SOD SUCC 125 MG/2ML VIAL IV SCH ×3 (08:27→16:44)
[2019-04-28] MEDS ORDERED: VANCOMYCIN 0.75 GM in IV D5W 250 ML IV SCH (09:00)
--- NOTE | 2019-04-28 09:00 | NUR ---
RN NOTE 0715: Received patient awake, A/Ox3. On room air at this time, tolerated. CAMELIA midline intact. No adverse reactions from ATB therapy. Encouraged patient to use call light when needed assistance or just by blue to restroom to assist. 0830:L S/E by Soheila, for wound care consult, with order of packing left hip SP I&D. Tolerated diet. 0900: S/E by Bobbi STRICKLAND, awaiting LA result.Still on room air, tolerated.
--- NOTE | 2019-04-28 09:01 | NUR ---
WOUND CARE CONSULT: PT PRESENTS WITH WOUND TO LEFT HIP AREA, S/P I&D IN ER. RECOMMENDATIONS MADE FOR WOUND CARE AND SKIN PROTECTION. DISCUSSED WITH NURSING STAFF. PACKING CHANGED. PT TOLERATED WELL. SLIGHT REDNESS NOTED AROUND HIP/BUTTOCK AREA BUT NO INDURATION. WILL SEE PRN. MERAZ IN AGREEMENT WITH PLAN OF CARE. Addendum: 04/28/19 at 0903 by BREANNA WEEKS WNDNU Amended: Links added.
[2019-04-28 12:00] VITALS: BP 115/70
[2019-04-28] MEDS ORDERED: K PHOS NEUTRAL 250 MG TABLET PO ONE (12:30)
[2019-04-28] MEDS ORDERED: IV NS 0.9% 500 ML IV ONE (13:00)
--- NOTE | 2019-04-28 13:02 | NUR ---
RN NOTE Informed Martines PIEROGI MAKER re: LA 3.3, obtained order to give 500mL NS bolus and repeat LA after. Made patient aware and verbalized understanding.
[2019-04-28] MEDS ORDERED: IV NS 0.9% 1,000 ML IV PRN ×2 (14:00→15:00)
--- NOTE | 2019-04-28 14:30 | NUR ---
RN NOTE Phleb came and given blood from line. Endorsed to [facility] for ANDRE.
[2019-04-28] MEDS ORDERED: CEFE1PIG3 IV (15:07)
[2019-04-28] MEDS ORDERED: RXVAN XX (15:07)
[2019-04-28] MEDS ORDERED: methylPREDNISolone SOD SUCC IV (15:07)
[2019-04-28] MEDS ORDERED: VANC750F IV (15:07)
[2019-04-28 16:00] VITALS: BP 122/77
--- NOTE | 2019-04-28 16:00 | NUR ---
ICU/RN: RECEIVED REPORT FROM NICHOLE JOHANSEN. PT ALERT, AWAKE, FOLLOWS COMMANDS. ON ROOM AIR, NO DISTRESS. ALL NEEDS WILL BE ATTENDED TO, SAFETY MEASURES TAKEN, BED IN LOW POSITION, SIDE RAILS UP, CALL LIGHT WITHIN REACH. WILL CONTINUE CARE. POSSIBLE TRANSFER TO [facility] TODAY.
--- NOTE | 2019-04-28 17:53 | NUR ---
ICU/RN: REPORT ENDORSED TO THIEN JOHANSEN AT [facility]. PT SCHEDULED FOR PICKUP AT 1800. PT WILL BE GOING TO ROOM 2260. REPORT CALLED TO [phone]. PT INFORMED. ACCEPTING MD IS .
[2019-04-28] MEDS ORDERED: CEFEPIME 2 GM in IV D5W 100 ML IV SCH (18:00)
--- NOTE | 2019-04-28 18:20 | NUR ---
ICU/RN: AMBULANCE AT BEDSIDE. REPORT ENDORSED. ALL BELONGINGS SENT WITH PT. EXIT CARE PACKET AND RECORDS SENT WITH EMT. WOUND PHOTOS NOT TAKEN, PHOTOS TAKEN IN AM, PLACED IN CHART. ALL NEEDS ATTENDED TO. REPORT ENDORSED TO [facility].
== END 2019-04-28 18:30 | disposition short-term general hospital (02) | DRG 720 ==
LOC: ER 17:13 → TELE 20:13 → TELE-TD 21:15 → MEDSG1 04-28 12:00
PROVIDERS: ADMIT Internal Medicine; ATTEND Nurse Practitioner Acute Care
PROC: 05HB33Z Insertion of Infusion Device into Right Basilic Vein, Percutaneous Approach (ICD-10-PCS; principal; 2019-04-28)
DX: A41.9 Sepsis, unspecified organism (principal); J96.01 Acute respiratory failure with hypoxia; E43 Unspecified severe protein-calorie malnutrition; R65.21 Severe sepsis with septic shock; E87.2 Acidosis; J44.1 Chronic obstructive pulmonary disease with (acute) exacerbation; E88.01 Alpha-1-antitrypsin deficiency; I10 Essential (primary) hypertension; K21.9 Gastro-esophageal reflux disease without esophagitis; Z88.1 Allergy status to other antibiotic agents; Z88.0 Allergy status to penicillin; Z79.899 Other long term (current) drug therapy; Z79.51 Long term (current) use of inhaled steroids; L03.116 Cellulitis of left lower limb; L02.416 Cutaneous abscess of left lower limb; Z98.82 Breast implant status; Z87.891 Personal history of nicotine dependence; Z86.19 Personal history of other infectious and parasitic diseases; Z98.890 Other specified postprocedural states
CPT/HCPCS: 36415; 71045-TC; 80048-TC; 80076-TC; 83605-TC; 83735-TC; 83880; 84100-TC; 84484-TC; 85025-TC; 87040-TC; 87081-TC; A6253; A6407; G0378; J0692; J0696; J2930; J3370; J3490; J7030; J7040; J7060

== ENCOUNTER 2019-05-20 15:39 | Emergency (ER) | payer OTHER ==
[~2019-05-20] VITALS: Ht 165.1 cm; Wt 52.2 kg
[~2019-05-20 15:39] MED LIST changes: +CEFE1PIG3 IV; -PRED20TA PO; +RXVAN XX; +VANC750F IV; +methylPREDNISolone SOD SUCC IV
--- NOTE | 2019-05-20 16:00 | NUR ---
BETSY CAME IN TO THE ER C/O L SIDED RIB AREA PAIN, SOB X 2 DAYS. ON 02 2 2LPM VIA NC, BREATHING EVENLY AND UNLABORED. CONNECTED TO THE MONITOR AND PULSE OX. KEPT COMFORTABLE, WILL CONTINUE TO MONITOR ACCORDINGLY.
[2019-05-20] MEDS ORDERED: ALBUTEROL FS 2.5 MG/3 ML VIAL.NEB NEB ONE (17:00)
[2019-05-20] MEDS ORDERED: IPRATROPIUM NEB FS 0.5 MG/2.5 ML AMPUL.NEB NEB ONE (17:00)
[2019-05-20 17:07] LABS: ABG BASE EXCESS 5.9 mmol/L; ABG OXYGEN SATURATION 92.4 % (92.0-98.5); ABG PH 7.481 (7.350-7.450); ABG PO2 66.8 mmHg (75.0-100.0); AaDO2 84.5 mmHg; COHb 1.8 % (0.5-1.5); MetHb 0.5 % (0.0-1.5); O2Hb 90.3 % (94.0-97.0); SITE, ABG Left Radial; VENT MODE, BG Nasal Cannuia
[2019-05-20] MEDS ORDERED: ALBUTEROL FS 2.5 MG/3 ML VIAL.NEB ONE (17:09)
[2019-05-20] MEDS ORDERED: IPRATROPIUM NEB FS 0.5 MG/2.5 ML AMPUL.NEB ONE (17:09)
[2019-05-20 17:19] LABS: BASOPHILS # (AUTO) 0.1 /CMM (0.0-0.2); BASOPHILS % (AUTO) 1.6 % (0.0-2.0); EOSINOPHILS % (AUTO) 3.2 % (0.0-6.0); HEMATOCRIT 40 % (33-45); HEMOGLOBIN 13.2 g/dL (11.5-14.8); LYMPHOCYTES # (AUTO) 1.6 /CMM (0.8-4.8); MEAN CORPUSCULAR HGB CONC 33 g/dl (31.0-36.0); MEAN CORPUSCULAR VOLUME 94 fL (82-100); MONOCYTES # (AUTO) 0.8 /CMM (0.1-1.30); MONOCYTES % (AUTO) 11.9 % (2.0-12.0); NEUTROPHILS % (AUTO) 59.3 % (43.0-81.0); PLATELET COUNT (AUTO) 213 /CMM (150-450); RED BLOOD CELL COUNT(AUTO) 4.22 MIL/uL (4.0-5.2); WHITE BLOOD COUNT (AUTO) 6.7 K/uL (4.3-11.0)
[2019-05-20 17:37] LABS: ALANINE AMINOTRANSFERASE 63 U/L (12-78); ALBUMIN 2.6 g/dL (3.4-5.0); ALKALINE PHOSPHATASE 204 U/L (46-116); ASPARTATE AMINOTRANSFERASE 93 U/L (15-37); BILIRUBIN,DIRECT 0.6 mg/dL (0.0-0.2); BILIRUBIN,TOTAL 1.1 mg/dL (0.2-1.0); CALCIUM, SERUM 9.2 mg/dL (8.5-10.1); CARBON DIOXIDE 33 mmol/L (21-32); CHLORIDE 98 mmol/L (98-107); GLUCOSE 178 mg/dL (74-106); TOTAL PROTEIN, SERUM 6.4 g/dL (6.4-8.2); UREA NITROGEN, BLOOD 12 mg/dL (7-18)
[2019-05-20 17:44] LABS: SODIUM SERUM 137 mmol/L (136-145)
[2019-05-20 17:47] LABS: POTASSIUM 2.7 mmol/L (3.5-5.1)
[2019-05-20] MEDS ORDERED: POTASSIUM CHLORIDE 20 MEQ TAB.PRT.SR PO ONE ×2 (18:00→18:34)
[2019-05-20] MEDS: POTASSIUM CL. PREMIX PERIPHER. 50 ML IV SCH ×4 (18:00→21:00)
[2019-05-20] MEDS ORDERED: MEROPENEM 500 MG in IV NS 0.9% 50 ML IV ONE (18:00)
[2019-05-20] MEDS ORDERED: AZITHROMYCIN 500 MG in IV D5W 250 ML IV ONE (18:00)
[2019-05-20] MEDS ORDERED: POTASSIUM CL. PREMIX PERIPHER. 200 ML ONE (18:10)
[2019-05-20] MEDS ORDERED: MONT10TA22 PO (18:35)
[2019-05-20] MEDS ORDERED: FURO-144 PO (18:35)
[2019-05-20] MEDS ORDERED: APIX5TAB PO (18:35)
--- NOTE | 2019-05-20 18:46 | NUR ---
patient refused potassium IV. MD at bedside and made aware.
[2019-05-20] MEDS ORDERED: IV NS 0.9% 1,000 ML BAG IV ONE (19:00)
--- NOTE | 2019-05-20 19:19 | NUR ---
REC'D REPORT FROM PEDRO JOHANSEN FOR ANDRE
--- NOTE | 2019-05-20 20:20 | NUR ---
PT PROVIDED WITH SANDWICH AND WATER PER PT REQUEST
--- NOTE | 2019-05-20 21:55 | NUR ---
CALLED SOCIAL CONTACT WORKER: WAS TOLD AWAITING FOR [facility] TO PROVIDE APPROPRIATE BED. WILL CALL BACK SHORTLY.
--- NOTE | 2019-05-20 23:26 | NUR ---
PT WILL BE TRANSFERRED TO [facility] BY INSURANCE REQUEST ACCEPTING : DR. CISSE NUMBER FOR REPORT: [phone] BED ASSIGNMENT: [id number]
--- NOTE | 2019-05-20 23:32 | NUR ---
Lalo salvador in [place] - 05/21/19 at 0045 by ROBERT CALLED [facility] FOR TRANSPORTATION. ETA 0330 TRIP NUMBER [id number]
--- NOTE | 2019-05-20 23:39 | NUR ---
CALLED [facility] FOR TRANSPORTATION. ETA [id number]
--- NOTE | 2019-05-20 23:47 | NUR ---
GAVE REPORT TO AGNES JOHANSEN FROM [facility] FOR ANDRE
[2019-05-20 23:52] VITALS: BP 122/63
--- NOTE | 2019-05-21 00:45 | NUR ---
GAVE REPORT TO [place] [id number] FOR TRANSPORTATION ANDRE
== END 2019-05-21 01:01 | disposition short-term general hospital (02) ==
LOC: ER 15:45
DX: R65.20 Severe sepsis without septic shock (principal); J96.00 Acute respiratory failure, unspecified whether with hypoxia or hypercapnia; J44.1 Chronic obstructive pulmonary disease with (acute) exacerbation; E87.6 Hypokalemia; I10 Essential (primary) hypertension; F17.200 Nicotine dependence, unspecified, uncomplicated; Z98.890 Other specified postprocedural states; Z86.19 Personal history of other infectious and parasitic diseases; Z88.0 Allergy status to penicillin; Z88.1 Allergy status to other antibiotic agents; Z79.899 Other long term (current) drug therapy
CPT/HCPCS: 36415; 36600 ×2; 71045; 80048; 80076; 82803; 83605 ×2; 83735; 84145; 84484; 85025; 85730; 87040 ×2; 93005; 94644; 96365; 96368; 99291; A4216; J0456; J2185; J3480; J7030; J7060

== ENCOUNTER 2019-07-05 18:53 | Inpatient (IN) | payer OTHER ==
[~2019-07-05] VITALS: Ht 165.1 cm; Wt 50.8 kg
[~2019-07-05 18:53] MED LIST changes: +APIX5TAB PO; -CEFE1PIG3 IV; +FURO-144 PO; +MONT10TA22 PO; -RXVAN XX; -VANC750F IV; -ZOLP10TA6 PO; -methylPREDNISolone SOD SUCC IV
--- NOTE | 2019-07-05 19:36 | NUR ---
SENT FROM URGENT CARE FOR "R HIP CELLULITIS", AFEBRILE. -PUS, +REDNESS, TO ER BED 1 MD DONALD AT BEDSIDE
[2019-07-05] MEDS ORDERED: ALBUTEROL FS 2.5 MG/3 ML VIAL.NEB NEB ONE (20:00)
[2019-07-05] MEDS ORDERED: IV NS 0.9% 1,000 ML BAG IV ONE (20:00)
[2019-07-05 20:23] LABS: BASOPHILS % (AUTO) 0.3 % (0.0-2.0); EOSINOPHILS % (AUTO) 0.2 % (0.0-6.0); HEMATOCRIT 41 % (33-45); HEMOGLOBIN 13.4 g/dL (11.5-14.8); LYMPHOCYTES % (AUTO) 6.2 % (20.0-44.0); MEAN CORPUSCULAR HGB CONC 32 g/dl (31.0-36.0); MEAN CORPUSCULAR VOLUME 89 fL (82-100); MONOCYTES # (AUTO) 0.4 /CMM (0.1-1.30); MONOCYTES % (AUTO) 2.2 % (2.0-12.0); NEUTROPHILS # (AUTO) 14.8 /CMM (1.8-8.9); NEUTROPHILS % (AUTO) 91.1 % (43.0-81.0); PLATELET COUNT (AUTO) 262 /CMM (150-450); RED BLOOD CELL COUNT(AUTO) 4.68 MIL/uL (4.0-5.2); WHITE BLOOD COUNT (AUTO) 16.2 K/uL (4.3-11.0)
--- NOTE | 2019-07-05 20:23 | NUR ---
BLOOD DRAWN BY PROMOTOR GROUP TICKET SALES SENT TO LAB
[2019-07-05 20:33] LABS: CALCIUM, SERUM 9.5 mg/dL (8.5-10.1); CARBON DIOXIDE 30 mmol/L (21-32); CHLORIDE 104 mmol/L (98-107); CREATININE 0.9 mg/dL (0.6-1.3); GLUCOSE 229 mg/dL (74-106); POTASSIUM 3.4 mmol/L (3.5-5.1); SODIUM SERUM 141 mmol/L (136-145); UREA NITROGEN, BLOOD 20 mg/dL (7-18)
[2019-07-05 20:39] LABS: ALANINE AMINOTRANSFERASE 78 U/L (12-78); ALBUMIN 2.5 g/dL (3.4-5.0); ALKALINE PHOSPHATASE 198 U/L (46-116); ASPARTATE AMINOTRANSFERASE 52 U/L (15-37); BILIRUBIN,DIRECT 0.3 mg/dL (0.0-0.2); BILIRUBIN,TOTAL 0.7 mg/dL (0.2-1.0); TOTAL PROTEIN, SERUM 5.8 g/dL (6.4-8.2)
[2019-07-05] MEDS ORDERED: CT SWABBABLE VALVE TRANS SET 1 EA INFUS.SET MC ONE (20:40)
[2019-07-05] MEDS ORDERED: IOHEXOL-300 100 ML VIAL IV ONE (20:40)
[2019-07-05] MEDS ORDERED: IV NS 0.9% 250 ML IV ONE (20:40)
[2019-07-05] MEDS ORDERED: VANCOMYCIN 1 GM in IV D5W 250 ML IV ONE (21:00)
[2019-07-05] MEDS ORDERED: ALBUTEROL FS 2.5 MG/3 ML VIAL.NEB ONE (21:12)
--- NOTE | 2019-07-05 21:31 | NUR ---
SPOKE TO PET FEEDER MELITON, ASKED TO BE CALLED BACK WHNE WE HAVE CT RESULTS, WAITING FOR PICC LINE NURSE FOR INSERTION
--- NOTE | 2019-07-05 21:45 | NUR ---
PICC LINE NURSE AT BEDSIDE FOR INSERTION
--- NOTE | 2019-07-05 22:14 | NUR ---
PT TAKEN TO RADIOLOGY VIA SHARI
--- NOTE | 2019-07-05 22:15 | NUR ---
PT TAKEN TO CT
[2019-07-05] MEDS ORDERED: VANCOMYCIN 1 GM VIAL ONE (22:23)
--- NOTE | 2019-07-05 23:20 | NUR ---
ADMISSION AUTHORIZED BY DRY PRESS OPERATOR HELPER
--- NOTE | 2019-07-05 23:33 | NUR ---
CALLED [facility] PAGED JAIDEN
--- NOTE | 2019-07-06 00:15 | NUR ---
PIPE FITTER APPRENTICE CALL, WILL SPEAK TO MD AND CALL BACK.
--- NOTE | 2019-07-06 00:16 | NUR ---
EXERCISE PHYSIOLOGY PROFESSOR [phone]
--- NOTE | 2019-07-06 00:57 | NUR ---
SPOKE WITH GIVER MELITON, SAYS DR. CISSE IS REFUSING ADMISSION.
[2019-07-06] MEDS ORDERED: ALBUTEROL SULFATE INH 18 GM HFA.AER.AD IH PRN (02:30)
[2019-07-06] MEDS ORDERED: Z GUARD REMEDY 2 OZ OINT TP PRN (02:30)
[2019-07-06] MEDS ORDERED: ONDANSETRON HCL/PF 4 MG/2 ML VIAL IVP PRN (02:30)
[2019-07-06] MEDS ORDERED: MAGNESIUM HYDROXIDE 30 ML UDC PO PRN (02:30)
[2019-07-06] MEDS ORDERED: ACETAMINOPHEN 325 MG TABLET PO PRN (02:30)
[2019-07-06] MEDS ORDERED: MAG HYDROX/AL HYDROX/SIMETH 30 ML UDC PO PRN (02:30)
[2019-07-06] MEDS ORDERED: ZOLPIDEM TARTRATE 5 MG TABLET PO PRN (02:30)
[2019-07-06 02:45] VITALS: BP 128/86
--- NOTE | 2019-07-06 02:49 | NUR ---
TRANSPORTED TO FLOOR VIA ACLS PROTOCOL
--- NOTE | 2019-07-06 02:50 | NUR ---
COMMERCIAL DRIVER'S LICENSE DRIVERDIRECTOR OF SCIENCE NOTES Received patient A/O x4, awake, on O2 inhalation via NC, saturating well. Brought in by ER staff via gurney. Admitted to Tele 304-2 due to Sepsis under the service of Dr. Hawkins. Admission routine done. On tele monitor with NSR noted. Patient claimed on pain with 8/10, no grimacing or s/sx of discomfort noted. Kept patient on bed clean, dry and comfortable. With ADRIANA Midline #20, initiated with IVF NS @ 125ml/hr as ordered infusing well. Patient preferred to keep her clothes on. Initial skin assessment done, patient denies any skin issues except for redness of R hip and generalized bruising, patient is taking anticoagulant, + hx of blood clot. Kept on bed clean, dry and comfortable with call light at bedside. Will continue to monitor accordingly.
[2019-07-06] MEDS: IV NS 0.9% 1,000 ML IV PRN ×2 (02:58→17:42)
[2019-07-06] MEDS ORDERED: CLINDAMYCIN IV RTU IN D5W 900 MG/50 ML PIGGYBACK IV SCH (03:00)
--- NOTE | 2019-07-06 03:00 | NUR ---
FORGING DIE SINKER NOTES Faxed Chindamycin order to Mechanical Maintenance on duty for stock. Awaiting for the medicine at this time.
[2019-07-06] MEDS ORDERED: CLINDAMYCIN 900 MG/6 ML VIAL ONE (03:50)
[2019-07-06 04:00] VITALS: BP 128/86
--- NOTE | 2019-07-06 04:09 | NUR ---
ESTIMATOR PRINTING PLATE MAKING NOTES Clindamycin picked up from Nursing Office at this time. Administered accordingly.
--- NOTE | 2019-07-06 06:46 | NUR ---
CIGARETTE VENDOR CLOSING NOTES Patient asleep on bed on RA at this time, no SOB/respiratory distress noted. All nursing needs attended, no new complaints made. On tele monitor with NSR noted. Kept on bed clean, dry and comfortable. Call light within easy reach. Endorsed to the next shift.
[2019-07-06 07:22] LABS: BASOPHILS % (AUTO) 0.3 % (0.0-2.0); EOSINOPHILS % (AUTO) 0.9 % (0.0-6.0); HEMATOCRIT 35 % (33-45); HEMOGLOBIN 11.2 g/dL (11.5-14.8); LYMPHOCYTES # (AUTO) 2.1 /CMM (0.8-4.8); LYMPHOCYTES % (AUTO) 18.3 % (20.0-44.0); MEAN CORPUSCULAR HGB CONC 32 g/dl (31.0-36.0); MEAN CORPUSCULAR VOLUME 88 fL (82-100); MONOCYTES % (AUTO) 8.1 % (2.0-12.0); NEUTROPHILS # (AUTO) 8.5 /CMM (1.8-8.9); NEUTROPHILS % (AUTO) 72.4 % (43.0-81.0); PLATELET COUNT (AUTO) 196 /CMM (150-450); RED BLOOD CELL COUNT(AUTO) 3.99 MIL/uL (4.0-5.2); WHITE BLOOD COUNT (AUTO) 11.7 K/uL (4.3-11.0)
[2019-07-06 07:29] LABS: CALCIUM, SERUM 8.5 mg/dL (8.5-10.1); CREATININE 0.6 mg/dL (0.6-1.3); MAGNESIUM 1.4 mg/dL (1.8-2.4); PHOSPHORUS 2.4 mg/dL (2.5-4.9); POTASSIUM 2.9 mmol/L (3.5-5.1)
[2019-07-06 07:59] LABS: BILIRUBIN,DIRECT 0.2 mg/dL (0.0-0.2); BILIRUBIN,TOTAL 0.6 mg/dL (0.2-1.0); TOTAL PROTEIN, SERUM 4.8 g/dL (6.4-8.2)
[2019-07-06 08:00] VITALS: BP 118/72
--- NOTE | 2019-07-06 08:00 | NUR ---
STRUCTURAL METAL FABRICATOR APPRENTICE NOTES PATIENT IN BED RESTING NO SOB OR ACUTE DISTRESS NOTED. MIDLINE INTACT PATIENT. PATIENT AMBULATORY. SKIN INTACT WITH REDNESS TO RIGHT BUTTOCKS AND HIP. BED IN LOW LOCKED POSITION, CALL LIGHT WITHIN REACH. WILL CONTINUE TO MONITOR.
[2019-07-06] MEDS: FLUTICASONE/VILANTEROL 1 EACH BLST.W.DEV IH SCH (08:43)
[2019-07-06] MEDS: FUROSEMIDE 40 MG TABLET PO SCH (08:43)
[2019-07-06] MEDS: MONTELUKAST SODIUM (10MG) 10 MG TABLET PO SCH (08:43)
[2019-07-06] MEDS: APIXABAN 5 MG TABLET PO SCH ×2 (08:44→17:36)
[2019-07-06] MEDS: Magnesium 1GM/D5W 100ML PREMIX 100 ML IV SCH ×4 (10:48→15:51)
[2019-07-06] MEDS ORDERED: K PHOS NEUTRAL 250 MG TABLET PO ONE (11:30)
[2019-07-06] MEDS: POTASSIUM CHLORIDE 20 MEQ TAB.PRT.SR PO SCH ×3 (11:34→13:59)
[2019-07-06 12:00] VITALS: BP_SYST 110; BP_SYST 120; BP_DIAS 62; BP_DIAS 70
[2019-07-06] MEDS ORDERED: LIDOCAINE 2%-EPI 1:100,000 30 ML VIAL IJ ONE (12:30)
--- NOTE | 2019-07-06 13:00 | NUR ---
telegraph office telephone clerk notes Dr Chavarria perfomed bedside I and D procedure patient tolerated well. Wound packed with packing strips. Will continue to monitor.
[2019-07-06] MEDS: CLINDAMYCIN 900 MG in IV D5W 50 ML IV SCH ×2 (13:03→21:07)
[2019-07-06] MEDS: HYDROCODONE/APAP 5/325MG 1 EACH TABLET PO PRN ×2 (13:13→17:43)
[2019-07-06] MEDS: IPRATROPIUM NEB FS 0.5 MG/2.5 ML AMPUL.NEB NEB SCH ×2 (14:56→19:33)
--- NOTE | 2019-07-06 14:56 | NUR ---
RT BREATHING TX GIVEN LATE. RT UNAWARE OF SCHEDULED BREATHING TREATMENTS. PT AWAKE AND RESPONSIVE. NO SOB NOTED AT THIS TIME. Addendum: 07/06/19 at 1457 by GIOVANNA CHILEL RT Amended: Links added.
[2019-07-06 16:00] VITALS: BP 118/66
--- NOTE | 2019-07-06 18:39 | NUR ---
MS RN NOTES PATIENT IN BED RESTING NO SOB OR ACUTE DISTRESS NOTED. NO ACUTE CHANGES NOTED DURING SHIFT. PATIENT REPORTS INCREASED PAIN AT THE SITE OF THE I AND D. PAIN WAS CONTROLLED WITH MEDICATION. BED IN LOW LOCKED POSITION CALL LIGHT WITHIN REACH. WILL ENDORSE CARE TO PM SHIFT.
[2019-07-06 19:50] VITALS: BP 119/70
--- NOTE | 2019-07-06 20:18 | NUR ---
M/S RN NOTES PATIENT CURRENTLY RESTING IN BED A/O x4 AND AMBULATORY. NO SIGNS OF DISTRESS OR SOB NOTED. L FA MIDLINE #20. SAFETY PRECAUTIONS IN PLACE WITH BED IN LOWEST POSITION, LOCKED, AND CALL LIGHT WITHIN REACH. WILL CONTINUE TO MONITOR.
[2019-07-07] MEDS: IPRATROPIUM NEB FS 0.5 MG/2.5 ML AMPUL.NEB NEB SCH ×3 (01:30→14:44)
--- NOTE | 2019-07-07 03:20 | NUR ---
M/S RN NOTES DID NOT TAKE PICTURE OF RIGHT HIP/ BUTTOCKS CELLULITIS WOUND DUE TO POST DEBRIDEMENT PACKING AND DRESSING. WILL ENDORSE TO ONCOMING NURSE TO TAKE PICTURE WHEN DOES DEBRIDEMENT AGAIN.
[2019-07-07] MEDS: IV NS 0.9% 1,000 ML IV PRN (04:00)
[2019-07-07] MEDS: CLINDAMYCIN 900 MG in IV D5W 50 ML IV SCH (05:08)
--- NOTE | 2019-07-07 06:15 | NUR ---
M/S RN CLOSING NOTES PATIENT IS SLEEPING IN BED, SHE IS A/O x4. NO SIGNS OF DISTRESS, BREATHING EVEN AND UNLABORED, NO COMPLAINTS OF PAIN. SHE IS ON 2 L O2 NASAL CANULA NEEDED WITH LEFT FA MIDLINE RUNNING NS @ 125 ML/ HR. PATIENT KEPT CLEAN AND DRIED, ALL NEEDS ATTENDED TO. SAFETY PRECAUTIONS IN PLACE WITH BED IN LOWEST POSITION, LOCKED, AND CALL LIGHT WITHIN REACH. WILL ENDORSE TO ON COMING SHIFT ABOUT ANDRE.
[2019-07-07 06:17] LABS: BASOPHILS # (AUTO) 0.1 /CMM (0.0-0.2); BASOPHILS % (AUTO) 1.1 % (0.0-2.0); EOSINOPHILS % (AUTO) 2.3 % (0.0-6.0); HEMATOCRIT 38 % (33-45); HEMOGLOBIN 12.2 g/dL (11.5-14.8); LYMPHOCYTES # (AUTO) 2.1 /CMM (0.8-4.8); LYMPHOCYTES % (AUTO) 24.8 % (20.0-44.0); MEAN CORPUSCULAR HGB CONC 32 g/dl (31.0-36.0); MEAN CORPUSCULAR VOLUME 88 fL (82-100); MONOCYTES # (AUTO) 0.7 /CMM (0.1-1.30); MONOCYTES % (AUTO) 8.1 % (2.0-12.0); NEUTROPHILS # (AUTO) 5.5 /CMM (1.8-8.9); NEUTROPHILS % (AUTO) 63.7 % (43.0-81.0); PLATELET COUNT (AUTO) 207 /CMM (150-450); WHITE BLOOD COUNT (AUTO) 8.6 K/uL (4.3-11.0)
[2019-07-07 06:37] LABS: CALCIUM, SERUM 8.4 mg/dL (8.5-10.1); CREATININE 0.7 mg/dL (0.6-1.3); MAGNESIUM 2.2 mg/dL (1.8-2.4); PHOSPHORUS 2.6 mg/dL (2.5-4.9); POTASSIUM 3.5 mmol/L (3.5-5.1)
[2019-07-07 08:00] VITALS: BP 120/62
--- NOTE | 2019-07-07 08:09 | NUR ---
MS RN NOTES. PATIENT IN BED RESTING NO SOB OR ACUTE DISTRESS NOTED. PATIENT ALERT, ORIENTED X4. AMBULATORY. BED IN LOW LOCKED POSITION. CALL LIGHT WITHIN REACH. WILL CONTINUE TO MONITOR.
[2019-07-07] MEDS: FUROSEMIDE 40 MG TABLET PO SCH (08:28)
[2019-07-07] MEDS: APIXABAN 5 MG TABLET PO SCH ×2 (08:28→17:01)
[2019-07-07] MEDS: MONTELUKAST SODIUM (10MG) 10 MG TABLET PO SCH (08:29)
[2019-07-07] MEDS: FLUTICASONE/VILANTEROL 1 EACH BLST.W.DEV IH SCH (08:29)
[2019-07-07] MEDS: HYDROCODONE/APAP 5/325MG 1 EACH TABLET PO PRN (09:48)
--- NOTE | 2019-07-07 10:39 | NUR ---
WOUND CARE CONSULT: PT SEEN FOR RT BUTTOCK ABSCESS, S/P I&D. RECOMMENDATIONS MADE FOR WOUND CARE AND SKIN PROTECTION. DISCUSSED WITH NURSING STAFF. PT IS INDEPENDENT WITH BED MOBILITY AND IS CONTINENT. WILL SEE PRN. Addendum: 07/07/19 at 1040 by BREANNA WEEKS WNDNU Amended: Links added.
[2019-07-07] MEDS ORDERED: POTASSIUM CHLORIDE 20 MEQ TAB.PRT.SR PO ONE (12:00)
[2019-07-07] MEDS ORDERED: TRAM50TA2 PO (12:12)
[2019-07-07] MEDS ORDERED: CLIN150C15 PO (12:12)
[2019-07-07] MEDS: CLINDAMYCIN HCL 150 MG CAPSULE PO SCH ×2 (12:20→17:09)
[2019-07-07] MEDS ORDERED: PRED20TA PO (12:34)
--- NOTE | 2019-07-07 15:30 | NUR ---
MS RN NOTES CALLED [facility] CONFIRMED IF ELECTRONIC RX WAS RECEIVED. SPOKE TO CHASITY CONFIRMED RX IS READY. NOTIFIED PATIENT.
[2019-07-07 16:00] VITALS: BP 129/63
[2019-07-07] MEDS ORDERED: TDAP [DIPH/PERTUSSIS/TET] 0.5 ML VIAL IM ONE (16:00)
--- NOTE | 2019-07-07 16:02 | NUR ---
MS RN NOTES PATIENT DOES NOT HAVE ANYONE TO PICK HER UP. REQUESTED TAXI VOUCHER FROM IRRIGATION SPECIALIST. PROVIDED TO PATIENT.
--- NOTE | 2019-07-07 16:36 | NUR ---
MS RN NOTES PROVIDED PATIENT WITH HOME HEALTH INFORMATION ([facility] [phone]) PATIENT WILL BE SEEN TOMORROW AM .
--- NOTE | 2019-07-07 17:00 | NUR ---
MS RN NOTES PROVIDED DISCHARGE INSTRUCTION TO PATIENT, VERBALIZED UNDERSTANDING. DISCHARGE PAPERS PROVIDED. PATIENT REQUESTS TO STAY AND HAVE DINNER BEFORE TAXI IS CALLED. WILL CONTINUE TO MONITOR.
--- NOTE | 2019-07-07 18:30 | NUR ---
MS RN NOTES PATIENT DISCHARGED HOME. DISCHARGE TEACHING PROVIDED VERBALIZED UNDERSTANDING. PATIENT IN STABLE CONDITION. ALL NEEDS MET. MIDLINE REMOVED WITH MINIMAL BLEEDING. IB BAND ALSO REMOVED. TAXI VOUCHER PROVIDED. PATIENT ESCORTED TO TAXI BY RODRIGO.
== END 2019-07-07 18:30 | disposition home health service (06) | DRG 383 ==
LOC: ER 18:55 → TELE 07-06 02:15 → MED 07-06 14:56
PROVIDERS: ADMIT Family Medicine; ATTEND Nurse Practitioner Acute Care
DX: L02.415 Cutaneous abscess of right lower limb (principal); E88.01 Alpha-1-antitrypsin deficiency; E83.39 Other disorders of phosphorus metabolism; L03.115 Cellulitis of right lower limb; E83.42 Hypomagnesemia; J44.9 Chronic obstructive pulmonary disease, unspecified; L02.31 Cutaneous abscess of buttock; K21.9 Gastro-esophageal reflux disease without esophagitis; G43.909 Migraine, unspecified, not intractable, without status migrainosus; I10 Essential (primary) hypertension; Z98.82 Breast implant status; Z87.891 Personal history of nicotine dependence; Z79.899 Other long term (current) drug therapy; Z88.1 Allergy status to other antibiotic agents; Z88.0 Allergy status to penicillin; Z79.51 Long term (current) use of inhaled steroids; Z79.01 Long term (current) use of anticoagulants; E87.6 Hypokalemia; B19.20 Unspecified viral hepatitis C without hepatic coma; Z98.890 Other specified postprocedural states; E88.09 Other disorders of plasma-protein metabolism, not elsewhere classified
CPT/HCPCS: 36415; 71045-TC; 73701-TC; 80048-TC; 80061-TC; 80076-TC; 83605-TC; 83735-TC; 84100-TC; 85025-TC; 85730-TC; 87040-TC; 87070-TC; 87081-TC; 90715; A6253; A6403; A6407; G0378; J3370; J3475; J3490; J7030; J7050; J7060; Q9967

== ENCOUNTER 2019-07-28 17:17 | Emergency (ER) | payer OTHER ==
[~2019-07-28] VITALS: Ht 165.1 cm; Wt 52.2 kg
[~2019-07-28 17:17] MED LIST changes: +CLIN150C15 PO; +PRED20TA PO; +TRAM50TA2 PO
[2019-07-28 17:28] VITALS: BP 115/81
[2019-08-30] MEDS ORDERED: RXENO XX (20:21)
[2019-08-30] MEDS ORDERED: RXVAN XX (20:21)
== END 2019-07-28 18:20 | disposition home or self-care (01) ==
LOC: ER 17:18
DX: L03.314 Cellulitis of groin (principal); I10 Essential (primary) hypertension; J44.9 Chronic obstructive pulmonary disease, unspecified; Z98.890 Other specified postprocedural states; Z86.19 Personal history of other infectious and parasitic diseases; Z88.0 Allergy status to penicillin; Z88.1 Allergy status to other antibiotic agents; Z79.899 Other long term (current) drug therapy

== ENCOUNTER 2019-08-28 21:04 | Inpatient (IN) | payer OTHER ==
[~2019-08-28] VITALS: Ht 165.1 cm; Wt 63.0 kg
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
[2019-08-28] MEDS ORDERED: ALBUTEROL FS 2.5 MG/3 ML VIAL.NEB NEB ONE (21:30)
[2019-08-28] MEDS ORDERED: IPRATROPIUM NEB FS 0.5 MG/2.5 ML AMPUL.NEB NEB ONE (21:30)
[2019-08-28] MEDS ORDERED: VANCOMYCIN 1 GM in IV D5W 250 ML IV ONE (21:30)
[2019-08-28] MEDS ORDERED: ALBUTEROL FS 2.5 MG/3 ML VIAL.NEB ONE (21:38)
[2019-08-28] MEDS ORDERED: IPRATROPIUM NEB FS 0.5 MG/2.5 ML AMPUL.NEB ONE (21:38)
[2019-08-28 22:20] LABS: BASOPHILS # (AUTO) 0.1 /CMM (0.0-0.2); BASOPHILS % (AUTO) 0.8 % (0.0-2.0); EOSINOPHILS % (AUTO) 0.7 % (0.0-6.0); HEMATOCRIT 40 % (33-45); HEMOGLOBIN 12.8 g/dL (11.5-14.8); LYMPHOCYTES % (AUTO) 11.6 % (20.0-44.0); MEAN CORPUSCULAR HGB CONC 32 g/dl (31.0-36.0); MEAN CORPUSCULAR VOLUME 86 fL (82-100); MONOCYTES # (AUTO) 1.4 /CMM (0.1-1.30); MONOCYTES % (AUTO) 7.8 % (2.0-12.0); NEUTROPHILS # (AUTO) 13.8 /CMM (1.8-8.9); NEUTROPHILS % (AUTO) 79.1 % (43.0-81.0); PLATELET COUNT (AUTO) 279 /CMM (150-450); WHITE BLOOD COUNT (AUTO) 17.4 K/uL (4.3-11.0)
[2019-08-28] MEDS ORDERED: VANCOMYCIN 1 GM VIAL ONE (22:25)
[2019-08-28] MEDS ORDERED: IV NS 0.9% 1,000 ML BAG IV ONE (22:30)
[2019-08-28 22:53] LABS: ALANINE AMINOTRANSFERASE 45 U/L (12-78); ALBUMIN 2.4 g/dL (3.4-5.0); ALKALINE PHOSPHATASE 186 U/L (46-116); ASPARTATE AMINOTRANSFERASE 36 U/L (15-37); BILIRUBIN,DIRECT 0.5 mg/dL (0.0-0.2); CALCIUM, SERUM 9.2 mg/dL (8.5-10.1); CARBON DIOXIDE 32 mmol/L (21-32); CHLORIDE 105 mmol/L (98-107); CREATININE 0.8 mg/dL (0.6-1.3); GLUCOSE 174 mg/dL (74-106); POTASSIUM 3.5 mmol/L (3.5-5.1); SODIUM SERUM 142 mmol/L (136-145); TOTAL PROTEIN, SERUM 6.1 g/dL (6.4-8.2); UREA NITROGEN, BLOOD 17 mg/dL (7-18)
--- NOTE | 2019-08-28 23:17 | NUR ---
PT ASLEEP, NO ACUTE DISTRESS NOTED, RESP EVEN AND UNLABORED. CALL LIGHT WITHIN REACH. WILL CONTINUE TO MONITOR PT CLOSELY.
[2019-08-28] MEDS ORDERED: CT SWABBABLE VALVE TRANS SET 1 EA INFUS.SET MC ONE (23:19)
[2019-08-28] MEDS ORDERED: IV NS 0.9% 250 ML IV ONE (23:19)
[2019-08-28] MEDS ORDERED: IOHEXOL-300 100 ML VIAL IV ONE (23:19)
--- NOTE | 2019-08-28 23:23 | NUR ---
PT TRANSPORTED TO RADIOLOGY FOR CT.
[2019-08-29] MEDS ORDERED: diphenhydrAMINE HCL 50 MG/ML VIAL ONE ×2 (00:27→00:58)
[2019-08-29] MEDS ORDERED: IBUPROFEN 600 MG TABLET PO ONE ×3 (00:27→01:00)
[2019-08-29] MEDS ORDERED: diphenhydrAMINE HCL 50 MG/ML VIAL IV ONE (01:00)
--- NOTE | 2019-08-29 01:03 | NUR ---
pt asleep, no acute distress noted, resp even and unlabored. call light within reach. will continue to monitor pt closely.
--- NOTE | 2019-08-29 02:17 | NUR ---
DR GANDHI IS SPEAKING DR RODRÍGUEZ AT [facility]
--- NOTE | 2019-08-29 02:46 | NUR ---
pt ambulatory to the bathroom with steady gait noted. pt aaox4 no acute distress noted. resp even and unlabored.
--- NOTE | 2019-08-29 04:33 | NUR ---
PER SERGE COATING MACHINE OPERATOR HELPER. VERBAL AUTH TO ADMIT PATIENT,
--- NOTE | 2019-08-29 05:19 | NUR ---
pt asleep, no acute distress noted, resp even and unlabored. call light within reach. will continue to monitor pt closely.
--- NOTE | 2019-08-29 05:57 | NUR ---
REPORT CALLED TO INSTRUMENT AND CONTROLS TECHNICIANHAILY ABDI. WILL TRANSPORT PT VIA ACLS PROTOCOL.
[2019-08-29] MEDS ORDERED: MAGNESIUM HYDROXIDE 30 ML UDC PO PRN (06:00)
[2019-08-29] MEDS ORDERED: ONDANSETRON HCL/PF 4 MG/2 ML VIAL IVP PRN (06:00)
[2019-08-29] MEDS ORDERED: MAG HYDROX/AL HYDROX/SIMETH 30 ML UDC PO PRN (06:00)
[2019-08-29] MEDS ORDERED: Z GUARD REMEDY 2 OZ OINT TP PRN (06:00)
[2019-08-29] MEDS ORDERED: HYDROCODONE/APAP 10/325MG 1 EA TABLET PO PRN (06:00)
[2019-08-29] MEDS ORDERED: ACETAMINOPHEN 325 MG TABLET PO PRN (06:00)
[2019-08-29] MEDS ORDERED: HYDROCODONE/APAP 5/325MG 1 EACH TABLET PO PRN (06:00)
[2019-08-29 06:40] VITALS: BP 93/61
--- NOTE | 2019-08-29 06:40 | NUR ---
RN NOTES RECEIVED PT. FROM ER A/OX4, SR ON TELE MONITOR HR-79, NOT IN DISTRESS, MAKE PATIENT COMFORTABLE, DENIES PAIN, SIDERAILSUPX2, ENDORSED TO DAYSHIFT NURSE TO ADMIT THE PATIENT
--- NOTE | 2019-08-29 07:00 | NUR ---
MS/RN Opening Note Received patient in bed, AO x 4, able to responds all stimuli. Pt. does no appears pain or any discomfort. Skin is warm to touch, clean/dry. Kept lower bed of position with elevated HOB. No s/s of respiratory distress. Will continue to monitor.
[2019-08-29 08:00] VITALS: BP 97/51
[2019-08-29] MEDS ORDERED: ZOLP10TA6 PO (08:20)
[2019-08-29] MEDS ORDERED: PRED2.5T PO (08:20)
[2019-08-29] MEDS ORDERED: ALPR1TAB7 PO (08:20)
[2019-08-29] MEDS ORDERED: METF-440 PO (08:20)
[2019-08-29] MEDS ORDERED: TRAM50TA2 PO (08:20)
[2019-08-29] MEDS ORDERED: FEE PK DOSING 1 MIN EA MC ONE (08:31)
[2019-08-29 08:39] LABS: BILIRUBIN,DIRECT 0.3 mg/dL (0.0-0.2); BILIRUBIN,TOTAL 0.8 mg/dL (0.2-1.0); CALCIUM, SERUM 8.7 mg/dL (8.5-10.1); CREATININE 0.6 mg/dL (0.6-1.3); MAGNESIUM 2.2 mg/dL (1.8-2.4); PHOSPHORUS 3.3 mg/dL (2.5-4.9); POTASSIUM 3.2 mmol/L (3.5-5.1); TOTAL PROTEIN, SERUM 5.4 g/dL (6.4-8.2)
[2019-08-29] MEDS: ALBUTEROL FS 2.5 MG/0.5 ML VIAL.NEB NEB SCH ×3 (08:39→20:00)
[2019-08-29] MEDS: IPRATROPIUM NEB FS 0.5 MG/2.5 ML AMPUL.NEB NEB SCH ×3 (08:39→20:00)
[2019-08-29 08:58] LABS: THYROID STIMULATING HORMONE 0.831 uIU/mL (0.358-3.74)
[2019-08-29] MEDS: VANCOMYCIN 0.75 GM in IV D5W 250 ML IV SCH ×2 (11:50→21:38)
[2019-08-29] MEDS: POTASSIUM CHLORIDE 20 MEQ TAB.PRT.SR PO SCH ×2 (12:17→14:24)
[2019-08-29 12:55] LABS: BASOPHILS # (AUTO) 0.1 /CMM (0.0-0.2); BASOPHILS % (AUTO) 0.5 % (0.0-2.0); EOSINOPHILS % (AUTO) 3.2 % (0.0-6.0); HEMATOCRIT 37 % (33-45); HEMOGLOBIN 11.9 g/dL (11.5-14.8); LYMPHOCYTES # (AUTO) 1.5 /CMM (0.8-4.8); MEAN CORPUSCULAR HGB CONC 32 g/dl (31.0-36.0); MEAN CORPUSCULAR VOLUME 87 fL (82-100); MONOCYTES # (AUTO) 0.9 /CMM (0.1-1.30); MONOCYTES % (AUTO) 9.1 % (2.0-12.0); NEUTROPHILS % (AUTO) 72.2 % (43.0-81.0); PLATELET COUNT (AUTO) 179 /CMM (150-450); RED BLOOD CELL COUNT(AUTO) 4.22 MIL/uL (4.0-5.2); WHITE BLOOD COUNT (AUTO) 9.7 K/uL (4.3-11.0)
[2019-08-29] MEDS ORDERED: ALPRAZOLAM 1 MG TABLET PO PRN (15:30)
[2019-08-29] MEDS ORDERED: TRAMADOL HCL 50 MG TABLET PO PRN (15:30)
[2019-08-29] MEDS ORDERED: METFORMIN 500 MG TABLET PO PRN (15:30)
[2019-08-29] MEDS ORDERED: ZOLPIDEM TARTRATE 10 MG TABLET PO PRN (15:30)
[2019-08-29 16:00] VITALS: BP 126/88
[2019-08-29] MEDS ORDERED: APIXABAN 5 MG TABLET PO SCH (17:00)
[2019-08-29] MEDS: MONTELUKAST SODIUM (10MG) 10 MG TABLET PO SCH (18:12)
--- NOTE | 2019-08-29 18:30 | NUR ---
MS/RN Closing Note Patient in bed comfortably, no appears pain or any discomfort. No s/s of respiratory distress, kept lower bed position with elevated HOB. Skin is warm to touch, clean/dry, intact IV site. Call light within reach, will endorse plant operator/shift supervisor.
--- NOTE | 2019-08-29 19:05 | NUR ---
MS RN NOTES RECEIVED PT IN BED AWAKE AND ABLE TO MAKE NEEDS KNOWN. PT A/O X3. RESPIRATIONS EVEN AND UNLABORED WITH NO S/S OF ACUTE DISTRESS OR SOB NOTED. NO COMPLAINTS OF PAIN AT THIS TIME. PT NOTED WITH RWRIST #22G PATENT AND INTACT AND SL. SAFETY MEASURES IN PLACE WITH BED IN LOWEST LOCKED POSITION WITH SIDE RAILS UP X2. CALL LIGHT WITHIN REACH. WILL CONTINUE TO MONITOR.
[2019-08-29] MEDS ORDERED: ALBUTEROL FS 2.5 MG/3 ML VIAL.NEB NEB PRN (19:30)
[2019-08-29 20:00] VITALS: BP 117/75
[2019-08-30] MEDS: ALBUTEROL FS 2.5 MG/0.5 ML VIAL.NEB NEB SCH ×3 (07:11→19:03)
[2019-08-30] MEDS: IPRATROPIUM NEB FS 0.5 MG/2.5 ML AMPUL.NEB NEB SCH ×3 (07:11→19:02)
--- NOTE | 2019-08-30 07:23 | NUR ---
MS RN NOTES PT IN BED AWAKE AND ABLE TO MAKE NEEDS KNOWN. PT A/O X3. RESPIRATIONS EVEN AND UNLABORED WITH NO S/S OF ACUTE DISTRESS OR SOB NOTED THROUGHOUT SHIFT. NO COMPLAINTS OF PAIN AT THIS TIME. SAFETY MEASURES IN PLACE WITH BED IN LOWEST LOCKED POSITION WITH SIDE RAILS UP X2. CALL LIGHT WITHIN REACH. WILL ENDORSE TO ONCOMING NURSE FOR ANDRE.
--- NOTE | 2019-08-30 07:30 | NUR ---
RN OPENING NOTES RECEIVED PATIENT IN BED RESTING. A/OX4, ABLE TO MAKE NEEDS KNOWN. NOT IN ANY FORM OF DISTRESS. NO SOB. DENIED PAIN OR DISCOMFORT AT THIS TIME. NO IV ACCESS AT THIS TIME. KEPT PATIENT SAFE AND COMFORTABLE. BED IN LOW/LOCKED POSITION SIDERAILS UPX2, CALL LIGHT IN REACH. WILL CONT TO MONITOR ACCORDINGLY.
[2019-08-30 08:00] VITALS: BP 112/73
[2019-08-30] MEDS ORDERED: FUROSEMIDE 40 MG TABLET PO SCH (09:00)
[2019-08-30] MEDS ORDERED: predniSONE 5 MG TABLET PO SCH (09:00)
[2019-08-30] MEDS ORDERED: TIOTROPIUM BROMIDE 6 CAP/BOX CAP.W.DEV IH SCH (09:00)
[2019-08-30] MEDS ORDERED: FLUTICASONE/VILANTEROL 1 EACH BLST.W.DEV IH SCH (09:00)
[2019-08-30] MEDS: ENOXAPARIN SODIUM 60 MG/0.6 ML DISP.SYRIN SQ SCH ×3 (09:00→21:10)
--- NOTE | 2019-08-30 11:08 | NUR ---
midline inserted by yisel vernon nurse. left upper arm gauge 18 intact and patent.
[2019-08-30] MEDS: VANCOMYCIN 0.75 GM in IV D5W 250 ML IV SCH ×2 (11:10→21:11)
[2019-08-30 12:00] LABS: BASOPHILS # (AUTO) 0.1 /CMM (0.0-0.2); BASOPHILS % (AUTO) 0.6 % (0.0-2.0); EOSINOPHILS % (AUTO) 3.6 % (0.0-6.0); HEMATOCRIT 36 % (33-45); HEMOGLOBIN 11.5 g/dL (11.5-14.8); LYMPHOCYTES # (AUTO) 1.5 /CMM (0.8-4.8); LYMPHOCYTES % (AUTO) 16.8 % (20.0-44.0); MEAN CORPUSCULAR HGB CONC 32 g/dl (31.0-36.0); MEAN CORPUSCULAR VOLUME 88 fL (82-100); MONOCYTES % (AUTO) 11.1 % (2.0-12.0); NEUTROPHILS # (AUTO) 5.9 /CMM (1.8-8.9); NEUTROPHILS % (AUTO) 67.9 % (43.0-81.0); PLATELET COUNT (AUTO) 181 /CMM (150-450); RED BLOOD CELL COUNT(AUTO) 4.06 MIL/uL (4.0-5.2); WHITE BLOOD COUNT (AUTO) 8.7 K/uL (4.3-11.0)
[2019-08-30 12:08] LABS: CALCIUM, SERUM 9.3 mg/dL (8.5-10.1); CREATININE 0.7 mg/dL (0.6-1.3); POTASSIUM 3.6 mmol/L (3.5-5.1)
--- NOTE | 2019-08-30 14:53 | NUR ---
rn notes patient refused full body assessment and pictures. per patient, "i don't have any open wounds.", "i only have bruises all over from the blood thinners that i take but that's all, i don't want any more pictures, you guys already took it.". Patient agreed to have pictures taken only on bilateral buttocks with cellulitis and left upper arm wound at an earlier time witness by RODRIGO Regalado..
[2019-08-30 16:00] VITALS: BP 101/64
[2019-08-30] MEDS: MONTELUKAST SODIUM (10MG) 10 MG TABLET PO SCH (17:23)
--- NOTE | 2019-08-30 19:45 | NUR ---
RN CLOSING NOTES PATIENT IN STABLE CONDITION. ALL NEEDS ATTENDED AND PROVIDED. ASSISTED WITH ADLS. ALL DUE MEDICATIONS GIVEN ORDERED. KEPT PATIENT SAFE AND COMFORTABLE. BED IN LOW/LOCKED POSITION. SIDERAILS UPX2. CALL LIGHT IN REACH. ENDORSED TO NIGHT RN FOR ANDRE. SCHEDULED FOR TRANSFER AT [facility] TONIGHT.
--- NOTE | 2019-08-30 20:07 | NUR ---
called report to HAILY Snow from [facility].
[2019-08-30] MEDS ORDERED: RXENO XX (20:21)
[2019-08-30] MEDS ORDERED: RXVAN XX (20:21)
--- NOTE | 2019-08-30 20:55 | NUR ---
Call made to [employer] or logistics at [phone] patient was rescheduled for pickup time of 2330 by milton olivera because they needed additional paperwork to be confirmed per termite control service representative.
--- NOTE | 2019-08-30 21:03 | NUR ---
updated [facility] on new pickuptime of 2330 johanna castillo. direct number is [phone] upated on patient status.
--- NOTE | 2019-08-30 23:54 | NUR ---
am west here to miner pick the patient. report given to emt del palacios . of [address]. patient to be transferred to [facility] via ambulance. patient in no apparent distress. breathing even and unlabored patient transferring with iv midline in left upper arm.
== END 2019-08-31 00:03 | disposition short-term general hospital (02) | DRG 383 ==
LOC: ER 21:18 → TELE 08-29 05:46 → MED 08-29 08:23
PROVIDERS: ADMIT Family Medicine; ATTEND Family Medicine
PROC: 05HA33Z Insertion of Infusion Device into Left Brachial Vein, Percutaneous Approach (ICD-10-PCS; principal; 2019-08-30)
DX: L03.116 Cellulitis of left lower limb (principal); D89.9 Disorder involving the immune mechanism, unspecified; E88.01 Alpha-1-antitrypsin deficiency; I82.621 Acute embolism and thrombosis of deep veins of right upper extremity; Z99.81 Dependence on supplemental oxygen; L03.317 Cellulitis of buttock; R06.03 Acute respiratory distress; L03.114 Cellulitis of left upper limb; L02.31 Cutaneous abscess of buttock; R09.02 Hypoxemia; I10 Essential (primary) hypertension; Z88.1 Allergy status to other antibiotic agents; Z88.0 Allergy status to penicillin; Z79.899 Other long term (current) drug therapy; Z79.51 Long term (current) use of inhaled steroids; B19.20 Unspecified viral hepatitis C without hepatic coma; E87.6 Hypokalemia; Z79.01 Long term (current) use of anticoagulants; Z79.52 Long term (current) use of systemic steroids; Z87.891 Personal history of nicotine dependence; K21.9 Gastro-esophageal reflux disease without esophagitis; G43.909 Migraine, unspecified, not intractable, without status migrainosus; Z86.718 Personal history of other venous thrombosis and embolism; Z98.82 Breast implant status; J44.9 Chronic obstructive pulmonary disease, unspecified
CPT/HCPCS: 36415; 71045-TC; 72193-TC; 80048-TC; 80053-TC; 80076-TC; 83605-TC; 83735-TC; 84100-TC; 84443-TC; 84484-TC; 85025-TC; 87040-TC; 87081-TC; 94799-TC; G0378; J1200; J1650; J3370; J7030; J7050; J7060; J7512; Q9967

== ENCOUNTER 2019-09-26 19:25 | Emergency (ER) | payer OTHER ==
[~2019-09-26] VITALS: Ht 165.1 cm; Wt 56.7 kg
[~2019-09-26 19:25] MED LIST changes: +ALPR1TAB7 PO; -APIX5TAB PO; -CLIN150C15 PO; +METF-440 PO; +PRED2.5T PO; -PRED20TA PO; +RXENO XX; +RXVAN XX; +ZOLP10TA6 PO
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
--- NOTE | 2019-09-26 19:59 | NUR ---
MIDLINE NURSE AT BEDSIDE
[2019-09-26] MEDS ORDERED: ONDANSETRON HCL/PF 4 MG/2 ML VIAL IVP ONE (20:00)
[2019-09-26] MEDS ORDERED: MORPHINE SULFATE INJ 2 MG/ML DISP.SYRIN IV ONE (20:00)
--- NOTE | 2019-09-26 20:14 | NUR ---
britt 18g midline
[2019-09-26 20:30] LABS: BASOPHILS # (AUTO) 0.1 /CMM (0.0-0.2); BASOPHILS % (AUTO) 1.5 % (0.0-2.0); EOSINOPHILS % (AUTO) 4.2 % (0.0-6.0); HEMATOCRIT 41 % (33-45); HEMOGLOBIN 12.9 g/dL (11.5-14.8); LYMPHOCYTES # (AUTO) 1.8 /CMM (0.8-4.8); MEAN CORPUSCULAR HGB CONC 31 g/dl (31.0-36.0); MEAN CORPUSCULAR VOLUME 84 fL (82-100); MONOCYTES # (AUTO) 0.7 /CMM (0.1-1.30); MONOCYTES % (AUTO) 8.6 % (2.0-12.0); NEUTROPHILS # (AUTO) 5.3 /CMM (1.8-8.9); NEUTROPHILS % (AUTO) 63.7 % (43.0-81.0); PLATELET COUNT (AUTO) 182 /CMM (150-450); RED BLOOD CELL COUNT(AUTO) 4.88 MIL/uL (4.0-5.2); WHITE BLOOD COUNT (AUTO) 8.3 K/uL (4.3-11.0)
[2019-09-26] MEDS ORDERED: ONDANSETRON HCL/PF 4 MG/2 ML VIAL ONE (20:35)
[2019-09-26] MEDS ORDERED: MORPHINE SULFATE INJ 4 MG/ML DISP.SYRIN ONE (20:36)
[2019-09-26 20:45] LABS: CALCIUM, SERUM 10.2 mg/dL (8.5-10.1); CREATININE 0.8 mg/dL (0.6-1.3); POTASSIUM 3.4 mmol/L (3.5-5.1)
[2019-09-26] MEDS ORDERED: HYDROCODONE/APAP 5/325MG 1 EACH TABLET ONE (21:59)
[2019-09-26] MEDS ORDERED: HYDROCODONE/APAP 5/325MG 1 EACH TABLET PO ONE (22:00)
[2019-09-26 22:21] VITALS: BP 124/81
--- NOTE | 2019-09-26 22:21 | NUR ---
IV removed. Catheter intact and site benign. Pressure and 4x4 applied to site. No bleeding noted.Patient discharged to home in stable condition. Written and verbal after care instructions given. Patient verbalizes understanding of instruction. Patient is ambulatory with a steady gait.
== END 2019-09-26 22:23 | disposition home or self-care (01) ==
LOC: ER 19:28
DX: J44.9 Chronic obstructive pulmonary disease, unspecified (principal); R07.81 Pleurodynia; I10 Essential (primary) hypertension; Z98.890 Other specified postprocedural states; Z88.0 Allergy status to penicillin; Z88.1 Allergy status to other antibiotic agents; Z79.899 Other long term (current) drug therapy; Z79.84 Long term (current) use of oral hypoglycemic drugs
CPT/HCPCS: 36410; 36415; 71045; 80048; 84484; 85025; 93005; 96374; 96375; 99285; J2270; J2405

== ENCOUNTER 2019-10-18 21:46 | Emergency (ER) | payer OTHER ==
[~2019-10-18] VITALS: Ht 165.1 cm; Wt 52.2 kg
--- NOTE | 2019-10-18 21:51 | NUR ---
BIBS FOR C/O "L CHEST PAIN , SOB AND COUGH X 2 WKS. I COUGHED UP BLOOD LAST NIGHT" PT TO BED 6, PT AWAKE, ALERT, AAOX4, VSS, NAD NOTED, PENDING MD MASSEY
[2019-10-18 22:39] LABS: BASOPHILS # (AUTO) 0.1 /CMM (0.0-0.2); BASOPHILS % (AUTO) 1.2 % (0.0-2.0); EOSINOPHILS % (AUTO) 2.7 % (0.0-6.0); HEMATOCRIT 47 % (33-45); HEMOGLOBIN 15.1 g/dL (11.5-14.8); LYMPHOCYTES # (AUTO) 2.6 /CMM (0.8-4.8); LYMPHOCYTES % (AUTO) 28.1 % (20.0-44.0); MEAN CORPUSCULAR HGB CONC 32 g/dl (31.0-36.0); MEAN CORPUSCULAR VOLUME 85 fL (82-100); MONOCYTES # (AUTO) 0.8 /CMM (0.1-1.30); NEUTROPHILS # (AUTO) 5.4 /CMM (1.8-8.9); PLATELET COUNT (AUTO) 213 /CMM (150-450); WHITE BLOOD COUNT (AUTO) 9.1 K/uL (4.3-11.0)
[2019-10-18 22:45] LABS: CALCIUM, SERUM 10.4 mg/dL (8.5-10.1); CARBON DIOXIDE 28 mmol/L (21-32); CHLORIDE 104 mmol/L (98-107); GLUCOSE 132 mg/dL (74-106); POTASSIUM 3.6 mmol/L (3.5-5.1); SODIUM SERUM 141 mmol/L (136-145); UREA NITROGEN, BLOOD 18 mg/dL (7-18)
--- NOTE | 2019-10-18 22:45 | NUR ---
PT TO CT AT THIS TIME
[2019-10-18 22:52] LABS: ALANINE AMINOTRANSFERASE 128 U/L (12-78); ALBUMIN 3.3 g/dL (3.4-5.0); ALKALINE PHOSPHATASE 187 U/L (46-116); ASPARTATE AMINOTRANSFERASE 107 U/L (15-37); BILIRUBIN,DIRECT 0.3 mg/dL (0.0-0.2); BILIRUBIN,TOTAL 0.7 mg/dL (0.2-1.0); TOTAL PROTEIN, SERUM 7.2 g/dL (6.4-8.2)
[2019-10-18] MEDS ORDERED: HYDROCODONE/APAP 5/325MG 1 EACH TABLET ONE (22:59)
[2019-10-18] MEDS ORDERED: HYDROCODONE/APAP 5/325MG 1 EACH TABLET PO ONE (23:00)
[2019-10-18] MEDS ORDERED: IPRATROPIUM NEB FS 0.5 MG/2.5 ML AMPUL.NEB ONE (23:57)
[2019-10-19] MEDS ORDERED: AZITHROMYCIN 250 MG TABLET PO ONE
[2019-10-19] MEDS ORDERED: IPRATROPIUM NEB FS 0.5 MG/2.5 ML AMPUL.NEB NEB ONE
--- NOTE | 2019-10-19 00:05 | NUR ---
TURNED IN CLINICALS AND FACESHEET TO ADMITTING
--- NOTE | 2019-10-19 00:07 | NUR ---
PT RECIEVING BREATHING TEREATMENT
[2019-10-19] MEDS ORDERED: AZITHROMYCIN 250 MG TABLET ONE (00:15)
[2019-10-19] MEDS ORDERED: ENOXAPARIN SODIUM 60 MG/0.6 ML DISP.SYRIN SQ ONE ×2 (00:28→00:30)
--- NOTE | 2019-10-19 00:36 | NUR ---
BRIAN MERAZ SPOKE TO DR. OSUNA AT [facility] REGARDING PT.
--- NOTE | 2019-10-19 00:36 | NUR ---
Lalo salvador in [facility] - 10/19/19 at 0039 by MAMADOU BRIAN MERAZ SPOKE TO DR. RUSSO AT [facility] REGARDING PT.
--- NOTE | 2019-10-19 02:37 | NUR ---
received auth number for Ambulance: [id number] Awaiting for call from [facility] for bed number.
--- NOTE | 2019-10-19 03:05 | NUR ---
PT RESTING QUIETLY, NO ACUTE DISTRESS NOTED, RESP EVEN AND UNLABORED. CALL LIGHT WIHTIN REACH. WILL CONTINUE TO MONITOR PT CLOSELY.
--- NOTE | 2019-10-19 05:02 | NUR ---
SPOKE TO DARIANA (ASSISTANT PROFESSOR OF RELIGION) PT ACCEPTED AT [facility] ACCEPTING MD COYNE PHONE NUMBER FOR REPORT ROOM #[phone]
--- NOTE | 2019-10-19 05:02 | NUR ---
Lalo salvador in [facility] - 10/19/19 at 7681 by MAMADOU SPOKE TO DARIANA (RURAL CARRIER ASSOCIATE) PT ACCEPTED AT [facility] ACCEPTING MD COYNE PHONE NUMBER FOR REPORT
--- NOTE | 2019-10-19 05:12 | NUR ---
REPORT CALLED TO [facility] HAILY MORIN. WILL CALL FOR TRANSPORT.
--- NOTE | 2019-10-19 05:25 | NUR ---
CALLED [facility] FOR ALS TRANSPORT TO [facility]. #[id number] ETA: 1 HOUR
--- NOTE | 2019-10-19 06:15 | NUR ---
[facility] NEW ETA 1100.
--- NOTE | 2019-10-19 06:26 | NUR ---
CALLED [facility] FOR ALS TRANSPORT DUE TO THE "UPDATED" ETA OF [facility] AT 1100. ETA FOR [facility]: 1 HOUR RUN #: KIRA (LAST NAME OF PT)
[2019-10-19 07:51] VITALS: BP 135/71
--- NOTE | 2019-10-19 07:52 | NUR ---
patient wheeled via gurney accompanied by 2 emt in no distress going to [facility].
== END 2019-10-19 07:52 | disposition short-term general hospital (02) ==
LOC: ER 21:49
DX: J44.1 Chronic obstructive pulmonary disease with (acute) exacerbation (principal); E88.01 Alpha-1-antitrypsin deficiency; R00.0 Tachycardia, unspecified; I10 Essential (primary) hypertension; E87.6 Hypokalemia; R74.0 Nonspecific elevation of levels of transaminase and lactic acid dehydrogenase [LDH]; Z86.19 Personal history of other infectious and parasitic diseases; Z88.0 Allergy status to penicillin; Z88.1 Allergy status to other antibiotic agents; Z79.899 Other long term (current) drug therapy
CPT/HCPCS: 36415; 71250; 80048; 80076; 84484; 85025; 93005; 94640; 96372; 99285; J1650

== ENCOUNTER 2020-03-16 22:25 | Emergency (ER) | payer OTHER ==
[~2020-03-16] VITALS: Ht 165.1 cm; Wt 47.6 kg
[2020-03-16 22:27] VITALS: BP 136/84
== END 2020-03-17 00:23 | disposition home or self-care (01) ==
LOC: ER 22:25
DX: S90.121A Contusion of right lesser toe(s) without damage to nail, initial encounter (principal); R05 Cough; I10 Essential (primary) hypertension; F17.200 Nicotine dependence, unspecified, uncomplicated; Z86.19 Personal history of other infectious and parasitic diseases; Z98.890 Other specified postprocedural states; Z88.0 Allergy status to penicillin; Z88.1 Allergy status to other antibiotic agents; Z79.899 Other long term (current) drug therapy; W22.8XXA Striking against or struck by other objects, initial encounter; Y93.89 Activity, other specified; Y92.89 Other specified places as the place of occurrence of the external cause; Y99.8 Other external cause status
CPT/HCPCS: 71045-TC; 73630-TC

== ENCOUNTER 2020-05-11 20:32 | Emergency (ER) | payer OTHER ==
[2020-05-11] MEDS ORDERED: IPRATROPIUM NEB FS 0.5 MG/2.5 ML AMPUL.NEB NEB ONE (22:30)
[2020-05-11] MEDS ORDERED: ALBUTEROL FS 2.5 MG/3 ML VIAL.NEB NEB ONE (22:30)
[2020-05-11] MEDS ORDERED: MORPHINE SULFATE INJ 2 MG/ML DISP.SYRIN IV ONE (22:30)
[2020-05-11] MEDS ORDERED: ONDANSETRON HCL/PF - ER 4 MG/2 ML VIAL IV ONE (22:30)
[2020-05-11] MEDS ORDERED: methylPREDNISolone SOD SUCC 125 MG/2ML VIAL IV ONE (22:30)
[2020-05-11] MEDS ORDERED: IV NS 0.9% 500 ML BAG IV ONE (22:30)
[2020-05-11] MEDS ORDERED: ONDANSETRON HCL/PF 4 MG/2 ML VIAL ONE (23:22)
[2020-05-11] MEDS ORDERED: methylPREDNISolone SOD SUCC 125 MG/2ML VIAL ONE (23:22)
[2020-05-11] MEDS ORDERED: MORPHINE SULFATE INJ 4 MG/ML DISP.SYRIN ONE (23:23)
[2020-05-11] MEDS ORDERED: IPRATROPIUM NEB FS 0.5 MG/2.5 ML AMPUL.NEB ONE (23:32)
[2020-05-11] MEDS ORDERED: ALBUTEROL FS 2.5 MG/3 ML VIAL.NEB ONE (23:32)
== END 2020-05-12 01:04 | disposition home or self-care (01) ==
DX: G43.909 Migraine, unspecified, not intractable, without status migrainosus (principal); I10 Essential (primary) hypertension; J44.9 Chronic obstructive pulmonary disease, unspecified; F17.200 Nicotine dependence, unspecified, uncomplicated; Z98.890 Other specified postprocedural states; Z88.0 Allergy status to penicillin; Z88.8 Allergy status to other drugs, medicaments and biological substances; Z79.899 Other long term (current) drug therapy
CPT/HCPCS: 36415; 71045; 80048; 80076; 83880; 84484; 85007; 85025; 93005; 94640; 96361; 96374; 96375; 99285; J2270; J2405 ×2; J2930; J7040

== ENCOUNTER 2020-06-06 16:19 | Emergency (ER) | payer OTHER ==
[~2020-06-06] VITALS: Ht 165.1 cm; Wt 46.3 kg
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
--- NOTE | 2020-06-06 16:46 | NUR ---
AMMON POPE IN THE ROOM CURRENTLY JUSTIN JESSICA
[2020-06-06] MEDS ORDERED: TDAP [DIPH/PERTUSSIS/TET] 0.5 ML VIAL IM ONE ×2 (16:52→17:00)
--- NOTE | 2020-06-06 17:11 | NUR ---
WOUND CARE TX DONE. TETANUS SHOT ADMINISTERED WITH PTS CONSENT
[2020-06-06 17:14] VITALS: BP 110/78
--- NOTE | 2020-06-06 17:27 | NUR ---
Patient discharged to home in stable condition. Written and verbal after care instructions given. Patient verbalizes understanding of instruction.
== END 2020-06-06 17:27 | disposition home or self-care (01) ==
LOC: ER 16:19
DX: S81.812A Laceration without foreign body, left lower leg, initial encounter (principal); I10 Essential (primary) hypertension; J44.9 Chronic obstructive pulmonary disease, unspecified; E87.6 Hypokalemia; R74.01 Elevation of levels of liver transaminase levels; Z86.19 Personal history of other infectious and parasitic diseases; Z98.82 Breast implant status; Z88.0 Allergy status to penicillin; Z79.84 Long term (current) use of oral hypoglycemic drugs; Z79.899 Other long term (current) drug therapy; W22.8XXA Striking against or struck by other objects, initial encounter; Y93.01 Activity, walking, marching and hiking; Y92.89 Other specified places as the place of occurrence of the external cause; Y99.8 Other external cause status
CPT/HCPCS: 90715

== ENCOUNTER 2020-06-16 23:34 | Emergency (ER) | payer OTHER ==
[~2020-06-16] VITALS: Ht 160 cm; Wt 52.2 kg
[2020-06-17 00:02] VITALS: BP 136/85
--- NOTE | 2020-06-17 00:25 | NUR ---
Patient discharged to home in stable condition. Written and verbal after care instructions given. Patient verbalizes understanding of instruction.
== END 2020-06-17 00:26 | disposition home or self-care (01) ==
LOC: ER 23:34
DX: S81.812D Laceration without foreign body, left lower leg, subsequent encounter (principal); I10 Essential (primary) hypertension; J44.9 Chronic obstructive pulmonary disease, unspecified; E87.6 Hypokalemia; Z86.19 Personal history of other infectious and parasitic diseases; Z98.82 Breast implant status; Z88.0 Allergy status to penicillin; Z88.1 Allergy status to other antibiotic agents; Z79.84 Long term (current) use of oral hypoglycemic drugs; Z79.899 Other long term (current) drug therapy; W22.8XXD Striking against or struck by other objects, subsequent encounter

== ENCOUNTER 2020-07-07 23:44 | Emergency (ER) | payer OTHER ==
[~2020-07-07] VITALS: Ht 165.1 cm; Wt 47.2 kg
[2020-07-07 23:54] VITALS: BP 129/80
[2020-07-08] MEDS ORDERED: KETOROLAC TROMETHAMINE 15 MG/ML VIAL ONE (01:28)
[2020-07-08] MEDS ORDERED: KETOROLAC TROMETHAMINE INJ 30 MG/ML VIAL IM ONE (01:30)
--- NOTE | 2020-07-08 01:39 | NUR ---
Patient discharged to home in stable condition. Written and verbal after care instructions given. Patient verbalizes understanding of instruction.
== END 2020-07-08 01:43 | disposition home or self-care (01) ==
LOC: ER 23:44
DX: S82.892D Other fracture of left lower leg, subsequent encounter for closed fracture with routine healing (principal); I10 Essential (primary) hypertension; J44.9 Chronic obstructive pulmonary disease, unspecified; E87.6 Hypokalemia; Z98.82 Breast implant status; Z86.19 Personal history of other infectious and parasitic diseases; Z88.0 Allergy status to penicillin; Z88.1 Allergy status to other antibiotic agents; Z79.899 Other long term (current) drug therapy; Z79.84 Long term (current) use of oral hypoglycemic drugs; W22.8XXD Striking against or struck by other objects, subsequent encounter
CPT/HCPCS: 73590; 96372; 99283; J1885

== ENCOUNTER 2020-08-04 16:34 | Emergency (ER) | payer OTHER ==
[~2020-08-04] VITALS: Ht 165.1 cm; Wt 47.6 kg
[2020-08-04 16:34] VITALS: BP 134/83
== END 2020-08-04 18:42 | disposition home or self-care (01) ==
LOC: ER 16:37
DX: S70.12XA Contusion of left thigh, initial encounter (principal); I10 Essential (primary) hypertension; J44.9 Chronic obstructive pulmonary disease, unspecified; F17.200 Nicotine dependence, unspecified, uncomplicated; Z98.890 Other specified postprocedural states; Z88.0 Allergy status to penicillin; Z88.1 Allergy status to other antibiotic agents; Z79.899 Other long term (current) drug therapy; W01.198A Fall on same level from slipping, tripping and stumbling with subsequent striking against other object, initial encounter; Y93.89 Activity, other specified; Y92.89 Other specified places as the place of occurrence of the external cause; Y99.8 Other external cause status
CPT/HCPCS: 73552; 93971-TC

== ENCOUNTER 2020-08-11 17:26 | Inpatient (IN) | payer MEDICAID, OTHER ==
[~2020-08-11] VITALS: Ht 165.1 cm; Wt 46.3 kg
--- NOTE | 2020-08-11 19:43 | NUR ---
PT CAME TO ER BED 10 C/O HEADACHE. PATIENT IS AAOX2. PATIENT IS BREATHING EVENLY AND UNLABORED ON 2L OF NASAL CANNULA. PER BOYFRIEND PT IS MORE ALTERED THAN NORMAL, C/O HEADACHE SINCE LAST NIGHT.
[2020-08-11] MEDS ORDERED: IV NS 0.9% 1,000 ML BAG IV ONE (20:00)
--- NOTE | 2020-08-11 20:13 | NUR ---
PATIENT TAKEN TO CT.
[2020-08-11 20:19] LABS: BASOPHILS % (AUTO) 0.2 % (0.0-2.0); HEMATOCRIT 46 % (33-45); HEMOGLOBIN 15.3 g/dL (11.5-14.8); LYMPHOCYTES # (AUTO) 0.5 /CMM (0.8-4.8); LYMPHOCYTES % (AUTO) 8.1 % (20.0-44.0); MEAN CORPUSCULAR HGB CONC 33 g/dl (31.0-36.0); MEAN CORPUSCULAR VOLUME 94 fL (82-100); MONOCYTES # (AUTO) 0.4 /CMM (0.1-1.30); MONOCYTES % (AUTO) 6.6 % (2.0-12.0); NEUTROPHILS # (AUTO) 5.4 /CMM (1.8-8.9); NEUTROPHILS % (AUTO) 85.1 % (43.0-81.0); PLATELET COUNT (AUTO) 91 /CMM (150-450); RED BLOOD CELL COUNT(AUTO) 4.91 MIL/uL (4.0-5.2); WHITE BLOOD COUNT (AUTO) 6.4 K/uL (4.3-11.0)
--- NOTE | 2020-08-11 20:32 | NUR ---
called rt for ABG
--- NOTE | 2020-08-11 20:46 | NUR ---
CRISTINA IS AT BEDSIDE FOR WOUND CLEANING ON THE LEFT SIDE OF HEAD.
[2020-08-11 20:53] LABS: SERUM AMMONIA 28 umol/L (11-32)
[2020-08-11 20:57] LABS: CALCIUM, SERUM 9.2 mg/dL (8.5-10.1); CARBON DIOXIDE 30 mmol/L (21-32); CHLORIDE 95 mmol/L (98-107); CREATININE 0.7 mg/dL (0.6-1.3); GLUCOSE 155 mg/dL (74-106); POTASSIUM 3.9 mmol/L (3.5-5.1); SODIUM SERUM 130 mmol/L (136-145); UREA NITROGEN, BLOOD 26 mg/dL (7-18)
[2020-08-11 20:57] LABS: ABG BASE EXCESS 3.5 mmol/L; ABG OXYGEN SATURATION 93.9 % (92.0-98.5); ABG PCO2 42.6 mmHg (35.0-45.0); ABG PH 7.437 (7.350-7.450); ABG PO2 70.7 mmHg (75.0-100.0); AaDO2 107.6 mmHg; COHb 0.9 % (0.5-1.5); MetHb 0.4 % (0.0-1.5); O2Hb 92.7 % (94.0-97.0); SITE, ABG Left Radial; VENT MODE, BG 3 LNC
[2020-08-11 21:03] LABS: ALANINE AMINOTRANSFERASE 65 U/L (12-78); ALBUMIN 2.2 g/dL (3.4-5.0); ALCOHOL, BLOOD < 3 mg/dL (0-0); ALKALINE PHOSPHATASE 80 U/L (46-116); ASPARTATE AMINOTRANSFERASE 125 U/L (15-37); BILIRUBIN,DIRECT 0.8 mg/dL (0.0-0.2); BILIRUBIN,TOTAL 1.1 mg/dL (0.2-1.0); TOTAL PROTEIN, SERUM 6.5 g/dL (6.4-8.2)
--- NOTE | 2020-08-11 21:15 | NUR ---
URINE COLLECTED AND SENT TO THE LAB. FEMALE CLASS A TRUCK DRIVER NOTIFIED.
--- NOTE | 2020-08-11 21:18 | NUR ---
lab called regarding positive covid result.
[2020-08-11 21:19] LABS: ACETAMINOPHEN < 10 ug/ml (10-30)
[2020-08-11 21:20] LABS: ALCOHOL, BLOOD < 3 mg/dL (0-0)
[2020-08-11 21:29] LABS: B-TYPE NATRIURETIC PEPTIDE 289 PG/ML (0-125)
[2020-08-11] MEDS ORDERED: AZITHROMYCIN 500 MG in IV D5W 250 ML IV ONE (21:30)
[2020-08-11] MEDS ORDERED: CEFTRIAXONE 1GM BAG (ER ONLY) 1 GM/50 ML PIGGYBACK IV ONE (21:30)
[2020-08-11] MEDS ORDERED: DEXAMETHASONE SOD PHOSPHATE 10 MG/ML VIAL IV ONE (21:30)
--- NOTE | 2020-08-11 21:34 | NUR ---
REC'D AUTHORIZATION FROM SUPERVISOR METALIZING CYNTHIA TO ADMIT PATIENT TO [facility]
[2020-08-11] MEDS ORDERED: DEXAMETHASONE SOD PHOSPHATE 10 MG/ML VIAL ONE (21:46)
[2020-08-11] MEDS ORDERED: CEFTRIAXONE 1GM BAG (ER ONLY) 50 ML IV ONE (21:46)
[2020-08-11] MEDS ORDERED: AZITHROMYCIN 500 MG VIAL ONE (22:10)
--- NOTE | 2020-08-11 22:12 | NUR ---
CALLED LAB FOR URINE RESULTS, LAB ASSISTANCE SAID THAT IT ISN'T RUNNING YET. WILL RUN RIGHT NOW.
[2020-08-11 22:28] LABS: BILIRUBIN,URINE SMALL (NEGATIVE); COLOR,URINE DARK YELLOW (YELLOW); LEUKOCYTE ESTERASE ,URINE NEGATIVE (NEGATIVE); NITRITE, URINE NEGATIVE (NEGATIVE); PROTEIN,URINE 30 mg/dl (NEGATIVE); UGLUCOSE NEGATIVE (NEGATIVE)
[2020-08-11 22:37] LABS: BACTERIA,URINE None seen /HPF (None Seen); MUCUS,URINE Few /LPF (None Seen); RBC,URINE 0-2 /HPF (0-2); SQUAMOUS EPITHELIAL CELL,UR Few /HPF (None Seen); URINE AMORPHOUS URATE Few /HPF (None Seen); WBC,URINE 0-2 /HPF (0-3)
--- NOTE | 2020-08-11 22:54 | NUR ---
SKYLAR POPE SPOKE TO DR. EVANS REGARDING PT.
[2020-08-12] MEDS ORDERED: ZOLPIDEM TARTRATE 5 MG TABLET PO PRN
[2020-08-12] MEDS ORDERED: ONDANSETRON HCL/PF 4 MG/2 ML VIAL IVP PRN
[2020-08-12] MEDS ORDERED: MAG HYDROX/AL HYDROX/SIMETH 30 ML UDC PO PRN
[2020-08-12] MEDS ORDERED: ACETAMINOPHEN 325 MG TABLET PO PRN
[2020-08-12] MEDS ORDERED: Z GUARD REMEDY 2 OZ OINT TP PRN
[2020-08-12] MEDS ORDERED: MAGNESIUM HYDROXIDE 30 ML UDC PO PRN
[2020-08-12] MEDS ORDERED: ALBUTEROL SULFATE INH 18 GM HFA.AER.AD IH PRN
[2020-08-12] MEDS ORDERED: ENOXAPARIN SODIUM 40 MG/0.4 ML DISP.SYRIN SQ SCH
--- NOTE | 2020-08-12 00:03 | NUR ---
pt asleep, no acute distress noted, resp even and unlabored. no pain or discomfort noted. call light within reach. will continue to monitor pt closely.
[2020-08-12] MEDS: IV NS 0.9% 1,000 ML IV PRN (00:32)
[2020-08-12 04:51] LABS: BASOPHILS % (AUTO) 0.2 % (0.0-2.0); EOSINOPHILS % (AUTO) 0.1 % (0.0-6.0); HEMATOCRIT 40 % (33-45); HEMOGLOBIN 13.4 g/dL (11.5-14.8); LYMPHOCYTES # (AUTO) 0.4 /CMM (0.8-4.8); LYMPHOCYTES % (AUTO) 10.4 % (20.0-44.0); MEAN CORPUSCULAR HGB CONC 34 g/dl (31.0-36.0); MEAN CORPUSCULAR VOLUME 93 fL (82-100); MONOCYTES # (AUTO) 0.2 /CMM (0.1-1.30); MONOCYTES % (AUTO) 5.2 % (2.0-12.0); NEUTROPHILS # (AUTO) 3.6 /CMM (1.8-8.9); NEUTROPHILS % (AUTO) 84.1 % (43.0-81.0); PLATELET COUNT (AUTO) 59 /CMM (150-450); RED BLOOD CELL COUNT(AUTO) 4.26 MIL/uL (4.0-5.2); WHITE BLOOD COUNT (AUTO) 4.3 K/uL (4.3-11.0)
[2020-08-12 05:01] LABS: CALCIUM, SERUM 7.8 mg/dL (8.5-10.1); CREATININE 0.6 mg/dL (0.6-1.3); MAGNESIUM 2.2 mg/dL (1.8-2.4); PHOSPHORUS 2.1 mg/dL (2.5-4.9); POTASSIUM 4.3 mmol/L (3.5-5.1)
[2020-08-12 05:30] LABS: BAND % (MANUAL) 10 % (0.0-5.0); LYMPHOCYTES % (MANUAL) 5 % (16-48); MONOCYTES % (MANUAL) 7 % (0-11.0); NEUTROPHILS % (MANUAL) 78 (42-76)
--- NOTE | 2020-08-12 07:36 | NUR ---
REPORT GIVEN TO KEIRY JOHANSEN FOR ANDRE.
--- NOTE | 2020-08-12 08:30 | NUR ---
pt in bed sleeping. nad noted. pt is easiliy arrousable. swallong eval done. pt able to tolearte thin fluids w/o cough nor choking.
[2020-08-12] MEDS ORDERED: FLUTICASONE/SALMETEROL 1 DISK IH SCH (09:00)
[2020-08-12] MEDS ORDERED: TIOTROPIUM BROMIDE 6 CAP/BOX CAP.W.DEV IH SCH (09:00)
[2020-08-12] MEDS: IPRATROPIUM BROMIDE 14 GM INHALER (or 12.9 GM) IH SCH ×3 (10:00→23:08)
[2020-08-12] MEDS: FLUTICASONE/VILANTEROL 1 EACH BLST.W.DEV IH SCH (10:00)
[2020-08-12] MEDS ORDERED: REMDESIVIR (CHARGED) 200 MG, *LOADING DOSE 1 EA in IV NS 0.9% 210 ML IV ONE (10:30)
[2020-08-12] MEDS: CEFTRIAXONE 1 G in IV D5W 50 ML IV SCH (15:03)
[2020-08-12] MEDS ORDERED: K PHOS NEUTRAL 250 MG TABLET PO ONE (16:30)
[2020-08-12] MEDS ORDERED: MONTELUKAST SODIUM (10MG) 10 MG TABLET ONE (17:26)
[2020-08-12] MEDS ORDERED: K PHOS NEUTRAL 250 MG TABLET ONE (17:27)
--- NOTE | 2020-08-12 17:30 | NUR ---
pt provided with meal
--- NOTE | 2020-08-12 17:30 | NUR ---
Pt provided with measl
--- NOTE | 2020-08-12 17:52 | NUR ---
urine output from [facility] 1000ml
[2020-08-12] MEDS: MONTELUKAST SODIUM (10MG) 10 MG TABLET PO SCH (18:28)
--- NOTE | 2020-08-12 19:49 | NUR ---
PT'S SIGNIFICANT OTHER, SHILPA WAS UPDATED WITH PT'S CONDITION. PT IS TO HAVE A ALPHA PROTEIN 1 INFUSION ON FRIDAYS AT [facility]. [facility] WILL BE CALLING
--- NOTE | 2020-08-12 20:20 | NUR ---
BED ASSIGNMENT 205-2
--- NOTE | 2020-08-12 20:37 | NUR ---
REPORT GIVEN TO HAILY AGUILERA FOR ANDRE
--- NOTE | 2020-08-12 20:59 | NUR ---
[place] emt and rn at bedside with acls protocol. nad noted during transport.
[2020-08-12 22:30] VITALS: BP 93/59
[2020-08-12] MEDS: AZITHROMYCIN 500 MG in IV D5W 250 ML IV SCH (23:08)
[2020-08-13] VITALS (12 sets, daily range): BP systolic 90–122; BP diastolic 48–66
[2020-08-13] MEDS: DEXAMETHASONE SOD PHOSPHATE 4 MG/ML VIAL IV SCH ×2 (00:55→21:00)
[2020-08-13] MEDS: IPRATROPIUM BROMIDE 14 GM INHALER (or 12.9 GM) IH SCH ×4 (04:47→21:07)
--- NOTE | 2020-08-13 07:00 | NUR ---
LINE WELDER CLOSING NOTES: PT IN BED, ASLEEP,AROUSABLE,NO S/S OF DISTRESS NOTED. CALL LIGHT WITHIN REACH. BED IN LOWEST AND LOCKED POSITION. BED ALARM ON. HOB ELEVATED. WITH O2 AT 5L/MIN NASAL CANNULA SATTING AT 94-95%. NO COMPLAIN OF PAIN. PT HAS PROLASTIN INFUSION WEEKLY EVERY SUNDAY AT [facility], AND PT SAID THAT SHE CANNOT MISS IT, MARCO A GUERRA MADE AWARE LAST NIGHT, ENDORSED TO HAILY MEJIA.
[2020-08-13 07:33] LABS: CALCIUM, SERUM 8.6 mg/dL (8.5-10.1); CREATININE 0.5 mg/dL (0.6-1.3); PHOSPHORUS 2.5 mg/dL (2.5-4.9); POTASSIUM 4.1 mmol/L (3.5-5.1)
[2020-08-13] MEDS: IV NS 0.9% 1,000 ML IV PRN (08:08)
[2020-08-13] MEDS ORDERED: REMDESIVIR (CHARGED) 100 MG in IV NS 0.9% 230 ML IV SCH (10:30)
[2020-08-13] MEDS: FLUTICASONE/VILANTEROL 1 EACH BLST.W.DEV IH SCH (11:16)
--- NOTE | 2020-08-13 11:58 | NUR ---
RN NOTE Spoke with Pema infusion nurse at [facility] and patient has been taken off the list for infusion today. Per Dr. Chavarria, we do not have the medication available alpha-1 antitrypsin. Patient made aware.
[2020-08-13] MEDS: CEFTRIAXONE 1 G in IV D5W 50 ML IV SCH (15:42)
[2020-08-13] MEDS: MONTELUKAST SODIUM (10MG) 10 MG TABLET PO SCH (18:07)
--- NOTE | 2020-08-13 19:37 | NUR ---
RN CLOSING NOTE Patient is resting in bed, A/O x3, with periods of confusion, showing no signs of acute distress or SOB, saturating 92% on 3L NC. IV line is clean and intact flushing well. All patient needs met, all due medications given, patient kept clean and dry throughout shift. Fall safety and aspiration precautions enforced. Will endorse to boat canvas installer for ANDRE.
[2020-08-13] MEDS: AZITHROMYCIN 500 MG in IV D5W 250 ML IV SCH (21:00)
[2020-08-14] VITALS: BP 107/67
[2020-08-14] MEDS: IPRATROPIUM BROMIDE 14 GM INHALER (or 12.9 GM) IH SCH ×4 (03:38→21:49)
[2020-08-14 04:00] VITALS: BP 116/65
--- NOTE | 2020-08-14 06:44 | NUR ---
BUS INFO CONSULTANT CLOSING NOTES: PT IN BED, ASLEEP,AROUSABLE, A/O X4. NO S/S OF DISTRESS NOTED. CALL LIGHT WITHIN REACH. BED IN LOWEST AND LOCKED POSITION. BED ALARM ON. O2 TITRATED TO 2L/MIN NASAL CANNULA,SATTING GOOD.
[2020-08-14] MEDS: IV NS 0.9% 1,000 ML IV PRN (07:55)
[2020-08-14 08:00] VITALS: BP 110/61
--- NOTE | 2020-08-14 08:00 | NUR ---
RN Opening note Received patient in bed, AO x 4 able to responds all stimuli, Pt does no appears pain or distress. Skin is warm to touch keep clean/dry intact IV site, respiratory even and unlabored with oxygen at 2LPM O2sat 92%. Kept locked bed with elevated HOB for aspiration precaution and ensure airway and lowest bed foe safety. Call light within reach, will continue to monitor.
[2020-08-14] MEDS: FLUTICASONE/VILANTEROL 1 EACH BLST.W.DEV IH SCH (10:16)
[2020-08-14 10:35] LABS: BASOPHILS % (AUTO) 0.1 % (0.0-2.0); HEMATOCRIT 43 % (33-45); LYMPHOCYTES # (AUTO) 0.4 /CMM (0.8-4.8); LYMPHOCYTES % (AUTO) 9.1 % (20.0-44.0); MEAN CORPUSCULAR HGB CONC 33 g/dl (31.0-36.0); MEAN CORPUSCULAR VOLUME 95 fL (82-100); MONOCYTES # (AUTO) 0.3 /CMM (0.1-1.30); MONOCYTES % (AUTO) 7.8 % (2.0-12.0); NEUTROPHILS # (AUTO) 3.7 /CMM (1.8-8.9); PLATELET COUNT (AUTO) 87 /CMM (150-450); RED BLOOD CELL COUNT(AUTO) 4.48 MIL/uL (4.0-5.2); WHITE BLOOD COUNT (AUTO) 4.4 K/uL (4.3-11.0)
[2020-08-14 11:09] LABS: CALCIUM, SERUM 8.5 mg/dL (8.5-10.1); CREATININE 0.6 mg/dL (0.6-1.3); MAGNESIUM 2.9 mg/dL (1.8-2.4); PHOSPHORUS 2.4 mg/dL (2.5-4.9); POTASSIUM 4.1 mmol/L (3.5-5.1)
[2020-08-14 12:00] VITALS: BP 105/60
[2020-08-14] MEDS: CEFTRIAXONE 1 G in IV D5W 50 ML IV SCH (14:51)
[2020-08-14 15:14] LABS: BAND % (MANUAL) 4 % (0.0-5.0); LYMPHOCYTES % (MANUAL) 6 % (16-48); MONOCYTES % (MANUAL) 8 % (0-11.0); NEUTROPHILS % (MANUAL) 82 (42-76)
[2020-08-14] MEDS ORDERED: K PHOS NEUTRAL 250 MG TABLET PO ONE (15:30)
[2020-08-14 16:00] VITALS: BP 122/66
[2020-08-14] MEDS: MONTELUKAST SODIUM (10MG) 10 MG TABLET PO SCH (17:05)
--- NOTE | 2020-08-14 18:30 | NUR ---
RN closing Patient in bed resting, does no appears pain or discomfort. Skin is warm to touch kepp clean/dry, intact site running NS at 50 ml/hr. Respiratory even and unlabored with oxygen at 2LPM O2sat 92%. Kept elevated HOB for ensure air way and aspiration precaution and lowest bed for safety. Call light within reach, will endorse date night sitter.
--- NOTE | 2020-08-14 19:30 | NUR ---
TELE/RN OPENING NOTES RECEIVED PATIENT IN BED RESTING. PATIENT IS ALERT AND ORIENTED X 4. PATIENT BREATHING IS EVEN AND UNLABORED, NO SIGNS OF RESPIRATORY DISTRESS NOTED. PATIENT HAS LEFT EJ RUNNING NS AT 50CC/HR. SAFETY MEASURES ARE IN PLACE, BED IS LOCKED AND PLACED IN THE LOW POSITION , SIDE RAILS UP X 2, CALL LIGHT WITHIN REACH. WILL CONTINUE TO MONITOR THROUGH OUT SHIFT.
[2020-08-14 20:00] VITALS: BP 106/74
[2020-08-14] MEDS: DEXAMETHASONE SOD PHOSPHATE 4 MG/ML VIAL IV SCH (21:49)
[2020-08-15] VITALS: BP 112/77
[2020-08-15] MEDS: IPRATROPIUM BROMIDE 14 GM INHALER (or 12.9 GM) IH SCH ×4 (03:21→20:56)
[2020-08-15 04:00] VITALS: BP 115/66
[2020-08-15] MEDS: IV NS 0.9% 1,000 ML IV PRN (06:01)
[2020-08-15 06:52] LABS: BASOPHILS % (AUTO) 0.2 % (0.0-2.0); HEMATOCRIT 44 % (33-45); HEMOGLOBIN 14.5 g/dL (11.5-14.8); LYMPHOCYTES # (AUTO) 0.4 /CMM (0.8-4.8); LYMPHOCYTES % (AUTO) 8.7 % (20.0-44.0); MEAN CORPUSCULAR HGB CONC 33 g/dl (31.0-36.0); MEAN CORPUSCULAR VOLUME 93 fL (82-100); MONOCYTES # (AUTO) 0.4 /CMM (0.1-1.30); MONOCYTES % (AUTO) 9.2 % (2.0-12.0); NEUTROPHILS # (AUTO) 3.6 /CMM (1.8-8.9); NEUTROPHILS % (AUTO) 81.9 % (43.0-81.0); PLATELET COUNT (AUTO) 105 /CMM (150-450); RED BLOOD CELL COUNT(AUTO) 4.71 MIL/uL (4.0-5.2); WHITE BLOOD COUNT (AUTO) 4.4 K/uL (4.3-11.0)
--- NOTE | 2020-08-15 07:00 | NUR ---
TELE/RN CLOSING NOTES PATIENT IN BED RESTING. PATIENT IS ALERT AND ORIENTED X 4. PATIENT BREATHING IS EVEN AND UNLABORED, NO SIGNS OF RESPIRATORY DISTRESS NOTED. PATIENT HAS LEFT EJ RUNNING NS AT 50CC/HR. ALL PATIENTS NEEDS HAVE BEEN MET DURING SHIFT. SAFETY MEASURES ARE IN PLACE, BED IS LOCKED AND PLACED IN THE LOW POSITION , SIDE RAILS UP X 2, CALL LIGHT WITHIN REACH. WILL ENDORSE CARE TO DAY SHIFT NURSE.
[2020-08-15 07:21] LABS: CALCIUM, SERUM 8.6 mg/dL (8.5-10.1); CREATININE 0.5 mg/dL (0.6-1.3); MAGNESIUM 2.4 mg/dL (1.8-2.4); PHOSPHORUS 2.9 mg/dL (2.5-4.9)
[2020-08-15 08:00] VITALS: BP 109/78
--- NOTE | 2020-08-15 08:01 | NUR ---
BULK INTAKE WORKER OPEN NOTES PATIENT IS A/O X 4 WITH NO SIGNS OF DISTRESS ON 2L OF NASAL CANNULA. L EJ INTACT RUNNING AT 50 ML/HR. NO COMPLAIN OF PAIN AT THIS TIME. CHEN CATH INTACT. ON TELE MONITOR SB 51. SAFETY MEASURES ARE APPLIED, BED IS IN LOW POSITION SIDE RAILS UP X 2. CALL LIGHT WITHIN REACH. WILL CONTINUE TO MONITOR.
[2020-08-15] MEDS: AZITHROMYCIN 250 MG TABLET PO SCH (10:12)
[2020-08-15] MEDS: FLUTICASONE/VILANTEROL 1 EACH BLST.W.DEV IH SCH (10:12)
[2020-08-15 12:00] VITALS: BP 105/57
[2020-08-15] MEDS: CEFTRIAXONE 1 G in IV D5W 50 ML IV SCH (14:27)
[2020-08-15 16:00] VITALS: BP 128/67
[2020-08-15] MEDS: MONTELUKAST SODIUM (10MG) 10 MG TABLET PO SCH (17:02)
--- NOTE | 2020-08-15 19:48 | NUR ---
PALLET STONE POSITIONER CLOSE NOTES PATIENT IS A/O X 4 WITH NO SIGNS OF DISTRESS ON 2L OF NASAL CANNULA. L EJ INTACT RUNNING AT 50 ML/HR. NO COMPLAIN OF PAIN AT THIS TIME. CHEN CATH INTACT. ON TELE MONITOR SB 50'S. PATIENT KEPT CLEAN AND DRY. ALL NEEDS, CARE, TREATMENT, AND MEDICATIONS WERE ADMINISTERED ANTICIPATED PER ORDER. SAFETY MEASURES ARE APPLIED, BED IS IN LOW POSITION SIDE RAILS UP X 2. CALL LIGHT WITHIN REACH WILL ENDORSE TO THE SQL SSRS SSIS DEVELOPER NURSE.
[2020-08-15 20:00] VITALS: BP 119/78
--- NOTE | 2020-08-15 20:29 | NUR ---
INJECTION PRESS OPERATOR OPENING NOTE Patient awake in bed, A/O x4, on bedrest. Tele monitor sinus eliazar, 50's. Afebrile. No pain, nausea, vomiting. Breathing even, clear, unlabored, on RA. No acute distress or SOB noted. Pa catheter in place. Urine output clear and yellow. IV site L EJ running NS @ 50 ml/hr. BS hypoactive. Appetite is fair. Bed in low position, wheels locked, side rails up x2, call light within reach.
[2020-08-15] MEDS: DEXAMETHASONE SOD PHOSPHATE 4 MG/ML VIAL IV SCH (20:48)
[2020-08-16] VITALS: BP 102/56
[2020-08-16] MEDS: IPRATROPIUM BROMIDE 14 GM INHALER (or 12.9 GM) IH SCH ×3 (02:58→14:26)
[2020-08-16 04:00] VITALS: BP 134/77
[2020-08-16] MEDS: IV NS 0.9% 1,000 ML IV PRN (05:01)
[2020-08-16 06:45] LABS: BASOPHILS % (AUTO) 0.1 % (0.0-2.0); HEMATOCRIT 43 % (33-45); HEMOGLOBIN 14.4 g/dL (11.5-14.8); LYMPHOCYTES # (AUTO) 0.4 /CMM (0.8-4.8); LYMPHOCYTES % (AUTO) 8.7 % (20.0-44.0); MEAN CORPUSCULAR HGB CONC 34 g/dl (31.0-36.0); MEAN CORPUSCULAR VOLUME 92 fL (82-100); MONOCYTES # (AUTO) 0.3 /CMM (0.1-1.30); MONOCYTES % (AUTO) 6.7 % (2.0-12.0); NEUTROPHILS # (AUTO) 3.6 /CMM (1.8-8.9); NEUTROPHILS % (AUTO) 84.5 % (43.0-81.0); PLATELET COUNT (AUTO) 115 /CMM (150-450); RED BLOOD CELL COUNT(AUTO) 4.68 MIL/uL (4.0-5.2); WHITE BLOOD COUNT (AUTO) 4.3 K/uL (4.3-11.0)
[2020-08-16 06:57] LABS: CALCIUM, SERUM 8.7 mg/dL (8.5-10.1); CREATININE 0.4 mg/dL (0.6-1.3); MAGNESIUM 2.2 mg/dL (1.8-2.4); POTASSIUM 4.1 mmol/L (3.5-5.1)
--- NOTE | 2020-08-16 07:35 | NUR ---
CRNP CLOSING NOTE Patient awake in bed, A/O x4, on bedrest. Tele monitor sinus eliazar. Breathing even, clear, unlabored, on RA. No acute distress or SOB noted. Pa catheter in place. Urine output clear and yellow, 1000 ml. i small bowel movement. IV site L EJ running NS @ 50 ml/hr. Bed in low position, wheels locked, side rails up x2, call light within reach. Will endorse to oncoming nurse.
--- NOTE | 2020-08-16 07:40 | NUR ---
ARMATURE STRAIGHTENER OPENING NOTES Patient is in bed resting, awake and verbally responsive. A/O x4, able to make needs known. Breathing even and unlabored, on 2L O2 via nc, also tolerates RA. On tele monitoring, reading of sr/sinus eliazar, hr in the low 60's. Pa catheter intact and in place, draining urine of yellow color. IV line on L EJ, intact and patent, ivf of NS @ 50 ml/hr. Safety precs in place: bed in locked and on lowest position, side rails up x2, call light within reach. Will continue to monitor.
[2020-08-16 08:00] VITALS: BP 140/80
[2020-08-16] MEDS: AZITHROMYCIN 250 MG TABLET PO SCH (09:28)
[2020-08-16] MEDS: FLUTICASONE/VILANTEROL 1 EACH BLST.W.DEV IH SCH (09:30)
[2020-08-16] MEDS: CEFTRIAXONE 1 G in IV D5W 50 ML IV SCH (14:26)
[2020-08-16 16:00] VITALS: BP 120/72
--- NOTE | 2020-08-16 16:59 | NUR ---
RN NOTES SPOKE W/ PATIENT AND INFORMED ABOUT DISCHARGE TODAY TO HOME; PATIENT REQUESTED IF SHE CAN REST FOR NOW AND WILL TALK ABOUT IT LATER.
[2020-08-16] MEDS: MONTELUKAST SODIUM (10MG) 10 MG TABLET PO SCH (17:46)
--- NOTE | 2020-08-16 18:02 | NUR ---
RN NOTES PATIENT REFUSED BODY CHECK AND REFUSED PHOTOS TO BE TAKEN OF SKIN ISSUES. EXPLAINED IMPORTANCE BUT PATIENT STILL REFUSED. RIGHT TO REFUSE RESPECTED.
--- NOTE | 2020-08-16 18:31 | NUR ---
RN NOTES INFORMED RN PROJECT/PRODUCTION MANAGER IMAGING OF TAXI VOUCHER; PER RN PROJECT/PRODUCTION MANAGER IMAGING, PATIENT CANNOT GO HOME VIA TAXI BECAUSE PATIENT IS POSITIVE FOR COVID. RN PROJECT/PRODUCTION MANAGER IMAGING INFORMED HAILY RANGELMANAGER OF EMPLOYEE RELATIONS ABOUT TRANSPORTATION.
--- NOTE | 2020-08-16 18:38 | NUR ---
RN NOTES SPOKE W/ HAILY RANGELSEMICONDUCTOR WAFERS SAW OPERATOR, AND WAS INFORMED THAT PATIENT WILL BE PICKED UP BY TODAY BY [facility] AT 1945, ADDRESS: [id number] [place] [address], [place] [address].
--- NOTE | 2020-08-16 19:04 | NUR ---
RADIATOR MECHANIC CLOSING NOTES PATIENT W/ ORDER FOR DISCHARGE TODAY TO HOME PER DR. KOEHLER. DISCHARGE INSTRUCTIONS AND EDUCATION GIVEN TO PATIENT. BELONGINGS LIST AND DISCHARGE FORM SIGNED BY PATIENT. CHEN CATH REMOVED TODAY, PATIENT ABLE TO VOID X1 POST F/C REMOVAL. TRANSPORTATION ALREADY SET-UP FOR PATIENT FOR DISCHARGE. WILL ENDORSE TO INTEGRATION DEVELOPER RN FOR ANDRE AND DISCHARGE OF PATIENT.
--- NOTE | 2020-08-16 19:40 | NUR ---
OUTSIDE ENERGY SALES REPRESENTATIVES NOTES PATIENT PICKED UP TODAY BY [facility]IA [facility], ACCOMPANIED BY 3 vendor management specialist. NAME ARMBAND AND IV LINE REMOVED. CHARGE NURSE AND MD AWARE OF DISCHARGE.
== END 2020-08-16 19:40 | disposition home or self-care (01) | DRG 720 ==
LOC: ER 17:40 → TRANSITION 22:32 → TELE2 08-12 20:27
PROVIDERS: ADMIT Nurse Practitioner Acute Care; ATTEND Nurse Practitioner Acute Care
PROC: XW033E5 Introduction of Remdesivir Anti-infective into Peripheral Vein, Percutaneous Approach, New Technology Group 5 (ICD-10-PCS; principal; 2020-08-12)
PROC: XW13325 Transfusion of Convalescent Plasma (Nonautologous) into Peripheral Vein, Percutaneous Approach, New Technology Group 5 (ICD-10-PCS; 2020-08-12)
DX: A41.89 Other specified sepsis (principal); E86.0 Dehydration; E87.1 Hypo-osmolality and hyponatremia; G93.41 Metabolic encephalopathy; J12.89 Other viral pneumonia; U07.1 COVID-19; E44.0 Moderate protein-calorie malnutrition; W19.XXXA Unspecified fall, initial encounter; Y92.9 Unspecified place or not applicable; E88.01 Alpha-1-antitrypsin deficiency; E78.5 Hyperlipidemia, unspecified; I10 Essential (primary) hypertension; J44.0 Chronic obstructive pulmonary disease with (acute) lower respiratory infection; J81.1 Chronic pulmonary edema; N17.0 Acute kidney failure with tubular necrosis; B19.20 Unspecified viral hepatitis C without hepatic coma; Z88.1 Allergy status to other antibiotic agents; Z88.0 Allergy status to penicillin; Z79.51 Long term (current) use of inhaled steroids; Z79.84 Long term (current) use of oral hypoglycemic drugs; Z79.899 Other long term (current) drug therapy; B15.9 Hepatitis A without hepatic coma; R74.01 Elevation of levels of liver transaminase levels; D69.6 Thrombocytopenia, unspecified; Z87.891 Personal history of nicotine dependence; Z98.82 Breast implant status; J96.01 Acute respiratory failure with hypoxia; S00.03XA Contusion of scalp, initial encounter
CPT/HCPCS: 36415; 36600; 70450-TC; 71045-TC; 80048-TC; 80061-TC; 80076-TC; 81001; 82140-TC; 83735-TC; 83880; 84100-TC; 84484-TC; 85025-TC; 85378-TC; 85730-TC; 86140-TC; 86850-TC; 87081-TC; A6403; C9803; G0378; G0480; J0456; J0696; J1100; J2405; J7030; J7040; J7060; P9017-BL

== ENCOUNTER 2020-09-14 19:22 | Emergency (ER) | payer OTHER ==
[~2020-09-14] VITALS: Ht 165.1 cm; Wt 45.4 kg
[2020-09-14] MEDS ORDERED: ONDANSETRON 4 MG TAB.RAPDIS ONE (19:58)
[2020-09-14] MEDS ORDERED: HYDROCODONE/APAP 5/325MG TABLET ONE ×2 (19:58→21:15)
[2020-09-14] MEDS ORDERED: ONDANSETRON 4 MG TAB.RAPDIS SL ONE (20:00)
[2020-09-14] MEDS ORDERED: HYDROCODONE/APAP 5/325MG TABLET PO ONE (20:00)
--- NOTE | 2020-09-14 20:23 | NUR ---
MOLLY FROM HOME TO ER BED 16. AAOX4. NOT IN RESP DISTRESS, BUT SATTING @ 90% AND PLACED ON O2 VIA NC @ 2LPM SATTING @ 93%. BROUGHT IN FOR R ROMAN HEMATOMA AND PAIN S/P FALL WHILE SHE WAS WALKING HER DOG. DENIES HITING HER HEAD. NO KO. SHE OBATINED A HEMATOMA 10CM X 8CM INTACT. NO S/S OF COMPARTMENT SYNDROME. PEDAL PULSES ARE PALPABLE AND EQUAL. SENSATION ARE EQUAL WELL. PAIN IS 10/10 SHARP AND THROBBING. SHE ALSO IS COMPLAINING OF A R HIP PAIN BECAUSE SHE LANDED ON IT. NO SHORTENING NOR ROTATION NOTED. PROVIDER WAS AT THE BEDSIDE FOR EVAL. ORDERS RECEIVED, NOTED AND CARRIED OUT. MEDICATED ORDERED
--- NOTE | 2020-09-14 21:08 | NUR ---
[facility] ET A 0956
--- NOTE | 2020-09-14 21:11 | NUR ---
PT WAS NOTED WITJ O2 SAT OF 88% ON RA. PT IS BASELINE LOW O2 AND USES O2 AT HOME PRN. PT IS NOT IN ANY RESP DISTRESS. PABLO HUMAN FACTORS ADVISOR LEAD WAS AT THE BEDSIDE WELL.
--- NOTE | 2020-09-14 21:39 | NUR ---
[facility] 315 AT BEDSIDE FOR PT TRANSPORT BACK TO HER RESIDENCE. PT IS IN STABLE CONDITION FOR TRANSPORT. ALL BELONGINGS ARE WITH THE PATIENT.
[2020-09-14 21:40] VITALS: BP 108/78
== END 2020-09-14 21:40 | disposition home or self-care (01) ==
LOC: ER 19:23
DX: S80.11XA Contusion of right lower leg, initial encounter (principal); E88.01 Alpha-1-antitrypsin deficiency; J44.9 Chronic obstructive pulmonary disease, unspecified; F17.200 Nicotine dependence, unspecified, uncomplicated; I10 Essential (primary) hypertension; Z98.890 Other specified postprocedural states; Z88.0 Allergy status to penicillin; Z88.1 Allergy status to other antibiotic agents; Z79.899 Other long term (current) drug therapy; W01.0XXA Fall on same level from slipping, tripping and stumbling without subsequent striking against object, initial encounter; Y93.K1 Activity, walking an animal; Y92.89 Other specified places as the place of occurrence of the external cause; Y99.8 Other external cause status
CPT/HCPCS: 73502; 73590; 99284; Q0162

== ENCOUNTER 2020-10-04 14:54 | Emergency (ER) | payer OTHER ==
[~2020-10-04] VITALS: Ht 160 cm; Wt 45.4 kg
--- NOTE | 2020-10-04 15:25 | NUR ---
BIBS FROM HOME TO ER BED 10. AAOX4. NOT IN RESP DISTRESS. CAME IN ON WHEELCHAIR. CAME IN FOR A OPEN WOUND ON HER R ROMAN WHICH HAPPENED BECAUSE SHE HAD A HEMATOMA THAT RAPTURE. WOUND IS NOTED WITH SEROUS DRAINAGE. DRY SCAB ALSO NOTED. AWAITING MD FOR EVAL. EMT WAS AT THE BEDSIDE FOR WOUND CLEANING.
[2020-10-04] MEDS ORDERED: CLIN300C12 PO (15:56)
[2020-10-04] MEDS ORDERED: BACI1PAC12 TP (15:59)
[2020-10-04] MEDS ORDERED: BACI/NEOM/POLY B OINT PKT 1 UDPKT PACKET TP ONE (16:00)
--- NOTE | 2020-10-04 16:00 | NUR ---
emt at bedside for wound care. wound cleansed with NS, pat dry, bacitracin ointment, non adherent dressing and wrapped with kerlix.
--- NOTE | 2020-10-04 16:19 | NUR ---
Patient discharged to home in stable condition. Written and verbal after care instructions given. Patient verbalizes understanding of instruction. Pt ambulatory with a steady gait w/ an aide of a cane.
[2020-10-04 16:21] VITALS: BP 123/68
== END 2020-10-04 16:23 | disposition home or self-care (01) ==
LOC: ER 15:00
DX: S80.11XA Contusion of right lower leg, initial encounter (principal); L08.9 Local infection of the skin and subcutaneous tissue, unspecified; I10 Essential (primary) hypertension; I25.10 Atherosclerotic heart disease of native coronary artery without angina pectoris; J44.9 Chronic obstructive pulmonary disease, unspecified; E87.6 Hypokalemia; E11.9 Type 2 diabetes mellitus without complications; F17.200 Nicotine dependence, unspecified, uncomplicated; Z86.19 Personal history of other infectious and parasitic diseases; Z86.16 Personal history of COVID-19; Z90.89 Acquired absence of other organs; Z98.82 Breast implant status; Z88.0 Allergy status to penicillin; Z88.1 Allergy status to other antibiotic agents; Z79.84 Long term (current) use of oral hypoglycemic drugs; Z79.899 Other long term (current) drug therapy; W18.39XA Other fall on same level, initial encounter; Y93.89 Activity, other specified; Y92.89 Other specified places as the place of occurrence of the external cause; Y99.8 Other external cause status
CPT/HCPCS: 99283; A6403

== ENCOUNTER 2020-10-06 16:54 | Emergency (ER) | payer OTHER ==
[~2020-10-06] VITALS: Ht 165.1 cm; Wt 47.6 kg
[~2020-10-06 16:54] MED LIST changes: +BACI1PAC12 TP; +CLIN300C12 PO
[2020-10-06 17:19] VITALS: BP 101/64
--- NOTE | 2020-10-06 17:40 | NUR ---
wound care rendered. wound cleansed with ns, pat dry, non adherent dressing and covered with dry dressing. pt was also provided with supplies for wound care at home.
--- NOTE | 2020-10-06 17:46 | NUR ---
Patient discharged to home in stable condition. Written and verbal after care instructions given. Patient verbalizes understanding of instruction.Pt ambulatory with a steady gait w/ an aide of a cane and uses wheelchair
== END 2020-10-06 17:48 | disposition home or self-care (01) ==
LOC: ER 16:58
DX: L02.415 Cutaneous abscess of right lower limb (principal); J44.9 Chronic obstructive pulmonary disease, unspecified; I10 Essential (primary) hypertension; F17.200 Nicotine dependence, unspecified, uncomplicated; Z98.890 Other specified postprocedural states; Z88.0 Allergy status to penicillin; Z88.1 Allergy status to other antibiotic agents; Z79.899 Other long term (current) drug therapy

== ENCOUNTER 2020-12-03 21:15 | Emergency (ER) | payer OTHER ==
[~2020-12-03] VITALS: Ht 165.1 cm; Wt 46.7 kg
--- NOTE | 2020-12-03 21:46 | NUR ---
BIBS FROM HOME TO ER BED 12. AAOX4. NOT IN RESP DISTRESS. AMBULATORY W/ A CANE. CAME IN FOR R ANKLE PAIN W/ SWELLING AND TENDER TO TOUCH. AGGREVATED BY WALKING. PAIN IS RATED 10/10. AWAITING MD FOR EVAL.
[2020-12-03] MEDS ORDERED: NAPR-1009 PO (23:23)
--- NOTE | 2020-12-03 23:28 | NUR ---
Patient discharged to home in stable condition. Written and verbal after care instructions given. Patient verbalizes understanding of instruction. Pt ambulatory with a steady gait w/ an aide of a cane
[2020-12-03 23:30] VITALS: BP 132/86
== END 2020-12-03 23:31 | disposition home or self-care (01) ==
LOC: ER 21:20
DX: M25.571 Pain in right ankle and joints of right foot (principal); R60.9 Edema, unspecified; J44.9 Chronic obstructive pulmonary disease, unspecified; I10 Essential (primary) hypertension; E87.6 Hypokalemia; F17.200 Nicotine dependence, unspecified, uncomplicated; Z86.19 Personal history of other infectious and parasitic diseases; Z98.82 Breast implant status; Z88.0 Allergy status to penicillin; Z79.84 Long term (current) use of oral hypoglycemic drugs; Z79.899 Other long term (current) drug therapy
CPT/HCPCS: 73610-TC; 73630-TC; 93971-TC

== ENCOUNTER 2020-12-10 17:48 | Emergency (ER) | payer OTHER ==
[~2020-12-10] VITALS: Ht 165.1 cm; Wt 48.5 kg
[~2020-12-10 17:48] MED LIST changes: +NAPR-1009 PO
--- NOTE | 2020-12-10 18:00 | NUR ---
PATIENT PRESENTED TO ER WITH C/O BILAT FOOT/ANKLE PAIN PAIN AND SWELLING X 1 WEEK. RATES PAIN 8/10. IN ROOM AIR AND DENIES SOB. RESPIRATION REGULAR AND UNLABORED. WARM BLANKET PROVIDED FOR COMFORT. WILL CONTINUE TO MONITOR THE PATIENT.
[2020-12-10 19:34] LABS: BASOPHILS % (AUTO) 0.6 % (0.0-2.0); EOSINOPHILS % (AUTO) 5.8 % (0.0-6.0); HEMATOCRIT 44 % (33-45); HEMOGLOBIN 14.8 g/dL (11.5-14.8); LYMPHOCYTES # (AUTO) 1.6 /CMM (0.8-4.8); LYMPHOCYTES % (AUTO) 21.9 % (20.0-44.0); MEAN CORPUSCULAR HGB CONC 34 g/dl (31.0-36.0); MEAN CORPUSCULAR VOLUME 95 fL (82-100); MONOCYTES # (AUTO) 0.6 /CMM (0.1-1.30); MONOCYTES % (AUTO) 8.6 % (2.0-12.0); NEUTROPHILS # (AUTO) 4.6 /CMM (1.8-8.9); NEUTROPHILS % (AUTO) 63.1 % (43.0-81.0); PLATELET COUNT (AUTO) 137 /CMM (150-450); RED BLOOD CELL COUNT(AUTO) 4.65 MIL/uL (4.0-5.2); WHITE BLOOD COUNT (AUTO) 7.3 K/uL (4.3-11.0)
[2020-12-10 19:43] LABS: CALCIUM, SERUM 9.6 mg/dL (8.5-10.1); CREATININE 0.6 mg/dL (0.6-1.3); POTASSIUM 3.5 mmol/L (3.5-5.1)
[2020-12-10] MEDS ORDERED: DICL100G16 TP (20:32)
--- NOTE | 2020-12-10 21:06 | NUR ---
pt ok to discharge per Simran POPE. Patient discharged to home in stable condition. Written and verbal after care instructions given. Patient verbalizes understanding of instruction.Patient is awake and alert to self, day, and place.
[2020-12-10 21:07] VITALS: BP 117/70
== END 2020-12-10 21:08 | disposition home or self-care (01) ==
LOC: ER 17:51
DX: S90.31XA Contusion of right foot, initial encounter (principal); R60.0 Localized edema; E88.01 Alpha-1-antitrypsin deficiency; J44.9 Chronic obstructive pulmonary disease, unspecified; I10 Essential (primary) hypertension; E87.6 Hypokalemia; F17.200 Nicotine dependence, unspecified, uncomplicated; Z86.19 Personal history of other infectious and parasitic diseases; Z86.73 Personal history of transient ischemic attack (TIA), and cerebral infarction without residual deficits; Z98.82 Breast implant status; Z88.0 Allergy status to penicillin; Z88.1 Allergy status to other antibiotic agents; Z79.899 Other long term (current) drug therapy; X58.XXXA Exposure to other specified factors, initial encounter; Y93.89 Activity, other specified; Y92.89 Other specified places as the place of occurrence of the external cause; Y99.8 Other external cause status
CPT/HCPCS: 36415; 71045-TC; 73630-TC; 80048-TC; 83880; 85025-TC; 93970-TC

== ENCOUNTER 2020-12-11 22:40 | Emergency (ER) | payer OTHER ==
[~2020-12-11] VITALS: Ht 165.1 cm; Wt 48.5 kg
[~2020-12-11 22:40] MED LIST changes: +DICL100G16 TP
[2020-12-12] MEDS ORDERED: HYDR-4209 PO (00:10)
[2020-12-12] MEDS ORDERED: DICL100G16 TP (00:10)
[2020-12-12] MEDS ORDERED: HYDROCODONE/APAP 5/325MG TABLET ONE (00:20)
[2020-12-12] MEDS ORDERED: HYDROCODONE/APAP 5/325MG TABLET PO ONE (00:30)
[2020-12-12 00:44] VITALS: BP 120/67
== END 2020-12-12 00:45 | disposition home or self-care (01) ==
LOC: ER 22:41
DX: M79.672 Pain in left foot (principal); M79.671 Pain in right foot; R60.0 Localized edema; L98.499 Non-pressure chronic ulcer of skin of other sites with unspecified severity; F17.200 Nicotine dependence, unspecified, uncomplicated; I10 Essential (primary) hypertension; Z98.890 Other specified postprocedural states; Z88.0 Allergy status to penicillin; Z88.1 Allergy status to other antibiotic agents; Z79.899 Other long term (current) drug therapy

== ENCOUNTER 2021-01-23 23:51 | Emergency (ER) | payer OTHER ==
[~2021-01-23] VITALS: Ht 165.1 cm; Wt 47.6 kg
[~2021-01-23 23:51] MED LIST changes: +HYDR-4209 PO
--- NOTE | 2021-01-24 00:07 | NUR ---
PRESENTED TO THE ER FOR C/O R BREAST REDNESS AND ARM TO TOUCH, AND L ARM REDNESS. PT HAS BILATERAL BREAST IMPLANTS WHICH WAS PLACED IN 15 YEARS AGO. ALSO W/ C/O HARD TIME BREATHING. W/ HX OF ASTHMA, SATTING 90-91% ON R/A. NO COUGH. PT WAS PLACED IN BED 4 ER ON [id number]
[2021-01-24] MEDS ORDERED: IPRATROPIUM NEB FS 0.5 MG/2.5 ML AMPUL.NEB NEB ONE (00:30)
[2021-01-24] MEDS ORDERED: predniSONE 20 MG TABLET PO ONE (00:30)
[2021-01-24] MEDS ORDERED: ALBUTEROL FS 2.5 MG/3 ML VIAL.NEB NEB ONE (00:30)
[2021-01-24] MEDS ORDERED: SULFAMETH/TRIMETH 800/160 MG 1 UDTAB TABLET PO ONE (00:30)
[2021-01-24] MEDS ORDERED: SULFAMETH/TRIMETH 800/160 MG 1 UDTAB TABLET ONE (00:33)
[2021-01-24] MEDS ORDERED: predniSONE 20 MG TABLET ONE (00:33)
[2021-01-24] MEDS ORDERED: ALBUTEROL FS 2.5 MG/3 ML VIAL.NEB ONE (00:34)
[2021-01-24] MEDS ORDERED: IPRATROPIUM NEB FS 0.5 MG/2.5 ML AMPUL.NEB ONE (00:35)
--- NOTE | 2021-01-24 00:38 | NUR ---
RT AT BED SIDE FOR BREATHING TX
--- NOTE | 2021-01-24 00:41 | NUR ---
RAD AT BED SIDE
--- NOTE | 2021-01-24 01:36 | NUR ---
DR BOATENG AT BED SIDE
[2021-01-24] MEDS ORDERED: FLUC150T PO (01:47)
[2021-01-24] MEDS ORDERED: ALBU18HF2 INH (01:47)
[2021-01-24] MEDS ORDERED: SULF1TAB48 PO (01:47)
[2021-01-24] MEDS ORDERED: FLUCONAZOLE (100 MG) 100 MG TABLET ONE (01:54)
[2021-01-24] MEDS ORDERED: FLUCONAZOLE (100 MG) 100 MG TABLET PO ONE (02:00)
--- NOTE | 2021-01-24 02:06 | NUR ---
PT is medically stable for d/c. Patient discharged to home in stable condition. Rx and Written and verbal after care instructions given. Patient verbalizes understanding of instruction.
[2021-01-24 02:07] VITALS: BP 128/74
== END 2021-01-24 02:08 | disposition home or self-care (01) ==
LOC: ER 23:55
DX: J44.1 Chronic obstructive pulmonary disease with (acute) exacerbation (principal); R21 Rash and other nonspecific skin eruption; E88.01 Alpha-1-antitrypsin deficiency; Z98.82 Breast implant status; Z86.718 Personal history of other venous thrombosis and embolism; Z86.19 Personal history of other infectious and parasitic diseases; Z88.1 Allergy status to other antibiotic agents; Z88.0 Allergy status to penicillin; Z87.891 Personal history of nicotine dependence; R05 Cough; Z20.822 Contact with and (suspected) exposure to COVID-19
CPT/HCPCS: 71045; 73060; 87426; 94640; 99284; C9803

== ENCOUNTER 2021-05-12 16:39 | Emergency (ER) | payer OTHER ==
[~2021-05-12] VITALS: Ht 165.1 cm; Wt 48.1 kg
[~2021-05-12 16:39] MED LIST changes: +ALBU18HF2 INH; +FLUC150T PO; +SULF1TAB48 PO
[2021-05-12 17:29] VITALS: BP 113/44
--- NOTE | 2021-05-12 17:30 | NUR ---
TO ER BED 1, C/O OF RT BUCCAL SORE NOTICED TODAY, AAOX4, BREATHING EVEN AND NON LABORED, ATTACHED TO MONITOR
[2021-05-12] MEDS ORDERED: NYST5ORA PO (17:47)
--- NOTE | 2021-05-12 18:01 | NUR ---
Patient discharged to home in stable condition. Written and verbal after care instructions given. Patient verbalizes understanding of instruction.
== END 2021-05-12 18:02 | disposition home or self-care (01) ==
LOC: ER 16:44
DX: K13.79 Other lesions of oral mucosa (principal); I10 Essential (primary) hypertension; J44.9 Chronic obstructive pulmonary disease, unspecified; F17.200 Nicotine dependence, unspecified, uncomplicated; Z86.19 Personal history of other infectious and parasitic diseases; Z98.82 Breast implant status; Z88.0 Allergy status to penicillin; Z88.1 Allergy status to other antibiotic agents; Z79.899 Other long term (current) drug therapy

== ENCOUNTER 2021-05-19 12:34 | Emergency (ER) | payer OTHER ==
[~2021-05-19] VITALS: Ht 165.1 cm; Wt 48.1 kg
[2021-05-19 12:34] VITALS: BP 126/82
[~2021-05-19 12:34] MED LIST changes: +NYST5ORA PO
--- NOTE | 2021-05-19 12:36 | NUR ---
TO ER BED 3, C/O LEFT HIP BOIL [id number] P/S 12/20, AAOX4, BREATHING EVEN AND NON LABORED, AWAITING TO BE SEEN BY
--- NOTE | 2021-05-19 13:04 | NUR ---
Patient discharged to home in stable condition. Written and verbal after care instructions given. Patient verbalizes understanding of instruction.
== END 2021-05-19 13:17 | disposition home or self-care (01) ==
LOC: ER 12:37
DX: L90.5 Scar conditions and fibrosis of skin (principal); I10 Essential (primary) hypertension; J44.9 Chronic obstructive pulmonary disease, unspecified; F17.200 Nicotine dependence, unspecified, uncomplicated; Z98.890 Other specified postprocedural states; Z88.0 Allergy status to penicillin; Z88.1 Allergy status to other antibiotic agents; Z79.899 Other long term (current) drug therapy

== ENCOUNTER 2021-05-25 17:32 | Emergency (ER) | payer OTHER ==
[~2021-05-25] VITALS: Ht 165.1 cm; Wt 48.1 kg
--- NOTE | 2021-05-25 18:00 | NUR ---
AAOX3, came to ER c/o R HIP PAIN S/P GLF IN SHOWER 3 DAYS AGO. CMS WNL. No obvious deformity noted. Skin is warm and non diaphoretic. Awaiting md for eval.
--- NOTE | 2021-05-25 18:02 | NUR ---
TOSHIA CHENG AT THE BEDSIDE
[2021-05-25] MEDS ORDERED: ACETAMINOPHEN ES 500 MG TABLET PO ONE (18:30)
[2021-05-25] MEDS ORDERED: ACETAMINOPHEN ES 500 MG TABLET ONE (18:41)
[2021-05-25] MEDS ORDERED: IV NS 0.9% 0 ML IV ONE (18:46)
[2021-05-25] MEDS ORDERED: IOHEXOL-300 100 ML VIAL IV ONE ×2 (18:46→19:34)
[2021-05-25] MEDS ORDERED: IV NS 0.9% 250 ML IV ONE ×2 (18:48→19:34)
--- NOTE | 2021-05-25 18:58 | NUR ---
THE PATIENT IS TAKEN TO CT
--- NOTE | 2021-05-25 19:15 | NUR ---
REC'D REPORT FROM HIALY MURPHY FOR ANDRE
--- NOTE | 2021-05-25 19:15 | NUR ---
REPORT GIVEN TO NURSE BARAJAS FOR ANDRE
[2021-05-25 19:19] LABS: BASOPHILS # (AUTO) 0.1 K/uL (0.0-0.2); BASOPHILS % (AUTO) 1.1 % (0.0-2.0); EOSINOPHILS % (AUTO) 6.2 % (0.0-6.0); HEMATOCRIT 51 % (33-45); HEMOGLOBIN 16.9 g/dL (11.5-14.8); LYMPHOCYTES # (AUTO) 2.7 K/uL (0.8-4.8); LYMPHOCYTES % (AUTO) 23.8 % (20.0-44.0); MEAN CORPUSCULAR HGB CONC 33 g/dl (31.0-36.0); MEAN CORPUSCULAR VOLUME 97 fL (82-100); MONOCYTES # (AUTO) 0.8 K/uL (0.1-1.30); MONOCYTES % (AUTO) 7.2 % (2.0-12.0); NEUTROPHILS % (AUTO) 61.7 % (43.0-81.0); PLATELET COUNT (AUTO) 155 K/uL (150-450); WHITE BLOOD COUNT (AUTO) 11.3 K/uL (4.3-11.0)
--- NOTE | 2021-05-25 19:30 | NUR ---
COVID SWAB SENT TO LAB
--- NOTE | 2021-05-25 20:00 | NUR ---
RETURNED FROM CT
[2021-05-25] MEDS ORDERED: IV NS 0.9% 1,000 ML BAG IV ONE (20:30)
[2021-05-25] MEDS ORDERED: CLINDAMYCIN 900 MG in IV D5W 50 ML IV ONE (20:30)
[2021-05-25] MEDS ORDERED: VANCOMYCIN 1 GM in IV D5W 250 ML IV ONE (20:30)
[2021-05-25] MEDS ORDERED: VANCOMYCIN 1 GM VIAL ONE (20:37)
[2021-05-25] MEDS ORDERED: CLINDAMYCIN 900 MG/6 ML VIAL ONE (20:37)
--- NOTE | 2021-05-25 21:28 | NUR ---
CALLED LAB TO F/U ON CHEMISTRY RESULTS. PER LAB, IT WAS REDRAWN AND RUNNING
--- NOTE | 2021-05-25 21:45 | NUR ---
Patient does not wish to proceed with medical care recommended by Dr. Bautista. Patient given information related to possible complications, up to and including , which could occur as a result of leaving the hospital at this time. Patient verbalizes understanding of risks involved due to leaving against medical advice. Patient has signed AMA form.
[2021-05-25 21:47] LABS: CALCIUM, SERUM 9.1 mg/dL (8.5-10.1); CREATININE 0.5 mg/dL (0.6-1.3)
--- NOTE | 2021-05-25 22:00 | NUR ---
IV removed. Catheter intact and site benign. Pressure and 4x4 applied to site. No bleeding noted. Pt ambulatory with a steady gait, awaiting ride home
[2021-05-25 23:33] VITALS: BP 132/86
== END 2021-05-25 23:00 | disposition left against medical advice (07) ==
LOC: ER 17:38
DX: L03.115 Cellulitis of right lower limb (principal); S73.101A Unspecified sprain of right hip, initial encounter; W22.03XA Walked into furniture, initial encounter; Y93.E1 Activity, personal bathing and showering; Y92.031 Bathroom in apartment as the place of occurrence of the external cause; Z53.29 Procedure and treatment not carried out because of patient's decision for other reasons; F17.200 Nicotine dependence, unspecified, uncomplicated; Z88.1 Allergy status to other antibiotic agents; Z88.0 Allergy status to penicillin; Z20.822 Contact with and (suspected) exposure to COVID-19; E88.01 Alpha-1-antitrypsin deficiency; Z86.718 Personal history of other venous thrombosis and embolism; Z98.82 Breast implant status; J44.9 Chronic obstructive pulmonary disease, unspecified; Z86.19 Personal history of other infectious and parasitic diseases; I10 Essential (primary) hypertension; Z79.899 Other long term (current) drug therapy
CPT/HCPCS: 36415; 73701; 80048; 85025; 87081; 87426; 96365; 96375; 99285; C9803; J3370; J3490; J7030; J7040; J7050; J7060 ×2; Q9967

== ENCOUNTER 2021-10-10 20:07 | Emergency (ER) | payer OTHER ==
[~2021-10-10] VITALS: Ht 165.1 cm; Wt 49.0 kg
[2021-10-10] MEDS ORDERED: MAG HYDROX/AL HYDROX/SIMETH 30 ML UDC ONE (21:40)
[2021-10-10] MEDS ORDERED: LIDOCAINE VISCOUS 2% UD 15 ML UDC ONE (21:40)
[2021-10-10] MEDS ORDERED: FAMOTIDINE/PF INJ 20 MG/2 ML VIAL IV ONE (21:40)
[2021-10-10] MEDS: LIDOCAINE VISCOUS 2% UD 15 ML UDC MM ONE (22:07)
[2021-10-10] MEDS: FAMOTIDINE/PF INJ 20 MG/2 ML VIAL IV ONE (22:07)
[2021-10-10] MEDS: MAG HYDROX/AL HYDROX/SIMETH 30 ML UDC PO ONE (22:07)
[2021-10-10 22:19] LABS: BASOPHILS # (AUTO) 0.1 K/uL (0.0-0.2); EOSINOPHILS % (AUTO) 3.8 % (0.0-6.0); HEMATOCRIT 48 % (33-45); HEMOGLOBIN 16.2 g/dL (11.5-14.8); LYMPHOCYTES # (AUTO) 1.8 K/uL (0.8-4.8); LYMPHOCYTES % (AUTO) 25.2 % (20.0-44.0); MEAN CORPUSCULAR HGB CONC 34 g/dl (31.0-36.0); MEAN CORPUSCULAR VOLUME 94 fL (82-100); MONOCYTES # (AUTO) 0.4 K/uL (0.1-1.30); MONOCYTES % (AUTO) 6.1 % (2.0-12.0); NEUTROPHILS # (AUTO) 4.5 K/uL (1.8-8.9); NEUTROPHILS % (AUTO) 63.9 % (43.0-81.0); PLATELET COUNT (AUTO) 122 K/uL (150-450); RED BLOOD CELL COUNT(AUTO) 5.09 MIL/uL (4.0-5.2)
[2021-10-10 22:59] LABS: CALCIUM, SERUM 9.5 mg/dL (8.5-10.1); CARBON DIOXIDE 28 mmol/L (21-32); CHLORIDE 106 mmol/L (98-107); CREATININE 0.6 mg/dL (0.6-1.3); GLUCOSE 126 mg/dL (74-106); POTASSIUM 3.4 mmol/L (3.5-5.1); SODIUM SERUM 143 mmol/L (136-145); UREA NITROGEN, BLOOD 9 mg/dL (7-18)
[2021-10-10 23:05] LABS: ALANINE AMINOTRANSFERASE 53 U/L (12-78); ALBUMIN 2.8 g/dL (3.4-5.0); ALKALINE PHOSPHATASE 119 U/L (46-116); ASPARTATE AMINOTRANSFERASE 41 U/L (15-37); BILIRUBIN,DIRECT 0.5 mg/dL (0.0-0.2); BILIRUBIN,TOTAL 1.1 mg/dL (0.2-1.0); TOTAL PROTEIN, SERUM 6.6 g/dL (6.4-8.2)
[2021-10-11 02:42] VITALS: BP 144/88
[2021-10-12] MEDS ORDERED: CLIN300C12 PO (19:37)
== END 2021-10-11 02:22 | disposition home or self-care (01) ==
LOC: ER 20:11
DX: R22.43 Localized swelling, mass and lump, lower limb, bilateral (principal); R07.89 Other chest pain; D69.6 Thrombocytopenia, unspecified; R74.01 Elevation of levels of liver transaminase levels; I10 Essential (primary) hypertension; J44.9 Chronic obstructive pulmonary disease, unspecified; F17.200 Nicotine dependence, unspecified, uncomplicated; Z86.19 Personal history of other infectious and parasitic diseases; Z87.2 Personal history of diseases of the skin and subcutaneous tissue; Z86.2 Personal history of diseases of the blood and blood-forming organs and certain disorders involving the immune mechanism; Z98.86 Personal history of breast implant removal; Z88.0 Allergy status to penicillin; Z88.1 Allergy status to other antibiotic agents; Z79.51 Long term (current) use of inhaled steroids; Z79.891 Long term (current) use of opiate analgesic; Z79.1 Long term (current) use of non-steroidal anti-inflammatories (NSAID); Z79.52 Long term (current) use of systemic steroids; Z79.899 Other long term (current) drug therapy
CPT/HCPCS: 36415; 71045; 80048; 80076; 84484 ×2; 85025; 93005; 93970; 96374; 99285; 99406; J3490

== ENCOUNTER 2021-10-12 18:27 | Emergency (ER) | payer OTHER ==
[~2021-10-12] VITALS: Ht 165.1 cm; Wt 49.0 kg
[2021-10-12 18:41] VITALS: BP 138/67
[2021-10-12] MEDS ORDERED: IBUPROFEN 400 MG TABLET PO ONE (19:30)
[2021-10-12] MEDS ORDERED: TDAP [DIPH/PERTUSSIS/TET] 0.5 ML VIAL IM ONE ×2 (19:30→19:35)
[2021-10-12] MEDS ORDERED: CLIN300C12 PO (19:37)
[2021-10-12] MEDS ORDERED: IBUPROFEN 400 MG TABLET ONE (19:43)
--- NOTE | 2021-10-12 20:16 | NUR ---
Patient discharged to home in stable condition. Written and verbal after care instructions given. Patient verbalizes understanding of instruction. Pt left on wheelchair.
== END 2021-10-12 20:19 | disposition home or self-care (01) ==
LOC: ER 18:28
DX: S81.812A Laceration without foreign body, left lower leg, initial encounter (principal); I10 Essential (primary) hypertension; J44.9 Chronic obstructive pulmonary disease, unspecified; D69.6 Thrombocytopenia, unspecified; B18.2 Chronic viral hepatitis C; F17.200 Nicotine dependence, unspecified, uncomplicated; E88.01 Alpha-1-antitrypsin deficiency; Z87.2 Personal history of diseases of the skin and subcutaneous tissue; Z98.86 Personal history of breast implant removal; Z88.0 Allergy status to penicillin; Z88.1 Allergy status to other antibiotic agents; Z79.4 Long term (current) use of insulin; Z79.891 Long term (current) use of opiate analgesic; Z79.1 Long term (current) use of non-steroidal anti-inflammatories (NSAID); Z79.52 Long term (current) use of systemic steroids; Z79.84 Long term (current) use of oral hypoglycemic drugs; Z79.899 Other long term (current) drug therapy; W22.8XXA Striking against or struck by other objects, initial encounter; Y93.89 Activity, other specified; Y92.89 Other specified places as the place of occurrence of the external cause; Y99.8 Other external cause status
CPT/HCPCS: 73590-TC; 90715

== ENCOUNTER 2021-11-18 17:38 | Emergency (ER) | payer OTHER ==
[~2021-11-18] VITALS: Ht 162.6 cm; Wt 49.0 kg
[2021-11-18] MEDS ORDERED: methylPREDNISolone SOD SUCC 125 MG/2ML VIAL ONE (19:39)
[2021-11-18] MEDS ORDERED: methylPREDNISolone SOD SUCC 125 MG/2ML VIAL IV ONE (20:00)
[2021-11-18] MEDS: ALBUTEROL FS 2.5 MG/3 ML VIAL.NEB CONTNEB ONE (20:00)
[2021-11-18] MEDS: IPRATROPIUM NEB FS 0.5 MG/2.5 ML AMPUL.NEB NEB ONE (20:00)
--- NOTE | 2021-11-18 20:00 | NUR ---
ASSUMED PT CARE, PT IN BED AWAKE, ALERT AND ORIENTED. NOTED SOB. PER PT SHE IS HAVING DIFFICULTY BREATHING AND FEELS TIGHT. PT IS SATTING @ 90$ ON RA. WAS AT THE BED SIDE FOR EVAL. ORDERS RECEIVED, NOTED AND CARRIED OUT. IV LINE ESTABLISHED ON LFA 24 G. MEDICATED ORDERED
[2021-11-18] MEDS ORDERED: IPRATROPIUM NEB FS 0.5 MG/2.5 ML AMPUL.NEB ONE ×2 (20:53→22:03)
[2021-11-18] MEDS ORDERED: ALBUTEROL FS 2.5 MG/3 ML VIAL.NEB ONE ×2 (20:53→22:03)
[2021-11-18 20:56] LABS: BASOPHILS # (AUTO) 0.1 K/uL (0.0-0.2); BASOPHILS % (AUTO) 0.9 % (0.0-2.0); EOSINOPHILS % (AUTO) 4.3 % (0.0-6.0); HEMATOCRIT 46 % (33-45); HEMOGLOBIN 15.1 g/dL (11.5-14.8); LYMPHOCYTES # (AUTO) 2.7 K/uL (0.8-4.8); MEAN CORPUSCULAR HGB CONC 33 g/dl (31.0-36.0); MEAN CORPUSCULAR VOLUME 96 fL (82-100); MONOCYTES # (AUTO) 0.7 K/uL (0.1-1.30); MONOCYTES % (AUTO) 8.6 % (2.0-12.0); NEUTROPHILS # (AUTO) 4.3 K/uL (1.8-8.9); NEUTROPHILS % (AUTO) 53.2 % (43.0-81.0); PLATELET COUNT (AUTO) 124 K/uL (150-450); RED BLOOD CELL COUNT(AUTO) 4.79 MIL/uL (4.0-5.2); WHITE BLOOD COUNT (AUTO) 8.1 K/uL (4.3-11.0)
--- NOTE | 2021-11-18 21:08 | NUR ---
RT pt assessed, lung sounds clear/diminished. pt not having sob or resp distress. does not need hour long tx. notified dr feliciano.
[2021-11-18 21:51] LABS: CALCIUM, SERUM 10.1 mg/dL (8.5-10.1); CARBON DIOXIDE 24 mmol/L (21-32); CHLORIDE 105 mmol/L (98-107); CREATININE 0.7 mg/dL (0.6-1.3); GLUCOSE 85 mg/dL (74-106); POTASSIUM 3.9 mmol/L (3.5-5.1); SODIUM SERUM 138 mmol/L (136-145); UREA NITROGEN, BLOOD 15 mg/dL (7-18)
[2021-11-18] MEDS ORDERED: CEFTRIAXONE 1GM BAG (ER ONLY) 50 ML IV ONE ×2 (22:00→22:10)
[2021-11-18] MEDS ORDERED: AZITHROMYCIN 500 MG in IV D5W 250 ML IV ONE (22:00)
--- NOTE | 2021-11-18 22:00 | NUR ---
PT IS GOING TO TRANSFERED TO [facility] PER HOME FURNISHINGS SALES REPRESENTATIVEPEDRO. WILL CALL BACK FOR TRANSFER INFO.
[2021-11-18] MEDS ORDERED: AZITHROMYCIN 500 MG VIAL ONE (22:11)
--- NOTE | 2021-11-19 02:05 | NUR ---
IV removed. Catheter intact and site benign. Pressure and 4x4 applied to site. No bleeding noted.
--- NOTE | 2021-11-19 02:07 | NUR ---
Patient does not wish to proceed with medical care recommended by Lena Ross. Patient given information related to possible complications, up to and including , which could occur as a result of leaving the hospital at this time. Patient verbalizes understanding of risks involved due to leaving against medical advice. Patient has signed AMA form.
--- NOTE | 2021-11-19 02:08 | NUR ---
Pt ambulatory with a steady gait
[2021-11-19 02:22] VITALS: BP 107/53
== END 2021-11-19 02:10 | disposition left against medical advice (07) ==
LOC: ER 17:40
DX: J44.1 Chronic obstructive pulmonary disease with (acute) exacerbation (principal); I10 Essential (primary) hypertension; J44.9 Chronic obstructive pulmonary disease, unspecified; E88.01 Alpha-1-antitrypsin deficiency; Z86.19 Personal history of other infectious and parasitic diseases; Z87.2 Personal history of diseases of the skin and subcutaneous tissue; Z98.82 Breast implant status; Z88.0 Allergy status to penicillin; Z88.8 Allergy status to other drugs, medicaments and biological substances; Z79.51 Long term (current) use of inhaled steroids; Z79.84 Long term (current) use of oral hypoglycemic drugs; Z79.52 Long term (current) use of systemic steroids; Z79.899 Other long term (current) drug therapy
CPT/HCPCS: 36415; 71045; 80048; 84484; 85025; 87040 ×2; 93005 ×2; 94644; 96365; 96367; 96375; 99285; J0456; J0696; J2930; J7060

== ENCOUNTER 2022-07-09 01:52 | Inpatient (IN) | payer OTHER ==
[~2022-07-09] VITALS: Ht 165.1 cm; Wt 53.5 kg
--- NOTE | 2022-07-09 02:20 | NUR ---
TO ER BED 4. BIBS C/O BILATERAL LEG SWELLING AND PAIN X 2 WEEKS. PT IS ALERT AND ORIENTED. RR EVEN AND NON LABORED. SWELLING AND PITTING EDEMA NOTED ON BILAT LEGS. CONNECTED TO POX AND HEART MONITOR. PT O2 SAT NOTED AT 84%, PROVIDED 2L OF O2 NASAL CANNULA, HX COPD. AWAITING MD MASSEY
[2022-07-09] MEDS ORDERED: FUROSEMIDE 40 MG/4 ML VIAL IV ONE (02:30)
[2022-07-09] MEDS ORDERED: ALBUTEROL FS 2.5 MG/0.5 ML VIAL.NEB NEB ONE (02:30)
[2022-07-09] MEDS ORDERED: methylPREDNISolone SOD SUCC 125 MG/2ML VIAL IV ONE (02:30)
--- NOTE | 2022-07-09 02:52 | NUR ---
COVID SWAB COLLECTED
--- NOTE | 2022-07-09 02:55 | NUR ---
TECHNICAL SOLUTIONS ENGINEER AT BEDSIDE TO EKG
--- NOTE | 2022-07-09 03:01 | NUR ---
XRAY AT BEDSIDE
--- NOTE | 2022-07-09 03:10 | NUR ---
INFLUENZA SWAB COLLECTED
--- NOTE | 2022-07-09 03:13 | NUR ---
urine collected and sent to lab.
[2022-07-09 03:25] LABS: BILIRUBIN,URINE 1+ (NEGATIVE); COLOR,URINE YELLOW (YELLOW); LEUKOCYTE ESTERASE ,URINE NEGATIVE (NEGATIVE); NITRITE, URINE NEGATIVE (NEGATIVE); PH,URINE 5.5 (5.0-8.0); PROTEIN,URINE NEGATIVE (NEGATIVE); UGLUCOSE NEGATIVE (NEGATIVE); UROBILINOGEN,URINE 0.2 EU/dL (0.2)
[2022-07-09 03:50] LABS: BACTERIA,URINE Rare /HPF (None Seen); RBC,URINE 0-2 /HPF (0-2); SQUAMOUS EPITHELIAL CELL,UR Few /HPF (None Seen); WBC,URINE 0-2 /HPF (0-3)
[2022-07-09] MEDS ORDERED: FUROSEMIDE 40 MG/4 ML VIAL ONE (04:27)
[2022-07-09] MEDS ORDERED: methylPREDNISolone SOD SUCC 125 MG/2ML VIAL ONE (04:27)
[2022-07-09 05:07] LABS: BASOPHILS % (AUTO) 0.5 % (0.0-2.0); EOSINOPHILS % (AUTO) 3.8 % (0.0-6.0); HEMATOCRIT 43 % (33-45); HEMOGLOBIN 14.4 g/dL (11.5-14.8); LYMPHOCYTES % (AUTO) 27.1 % (20.0-44.0); MEAN CORPUSCULAR HGB CONC 33 g/dl (31.0-36.0); MEAN CORPUSCULAR VOLUME 95 fL (82-100); MONOCYTES # (AUTO) 0.7 K/uL (0.1-1.30); MONOCYTES % (AUTO) 9.2 % (2.0-12.0); NEUTROPHILS # (AUTO) 4.4 K/uL (1.8-8.9); NEUTROPHILS % (AUTO) 59.4 % (43.0-81.0); PLATELET COUNT (AUTO) 116 K/uL (150-450); RED BLOOD CELL COUNT(AUTO) 4.55 MIL/uL (4.0-5.2); WHITE BLOOD COUNT (AUTO) 7.3 K/uL (4.3-11.0)
[2022-07-09 05:26] LABS: CARBON DIOXIDE 31 mmol/L (21-32); CHLORIDE 105 mmol/L (98-107); CREATININE 0.6 mg/dL (0.6-1.3); GLUCOSE 119 mg/dL (74-106); POTASSIUM 3.3 mmol/L (3.5-5.1); SODIUM SERUM 141 mmol/L (136-145); UREA NITROGEN, BLOOD 20 mg/dL (7-18)
[2022-07-09] MEDS ORDERED: ALBUTEROL FS 2.5 MG/0.5 ML VIAL.NEB ONE (05:34)
[2022-07-09 05:38] LABS: ALANINE AMINOTRANSFERASE 64 U/L (12-78); ALBUMIN 2.6 g/dL (3.4-5.0); ALKALINE PHOSPHATASE 118 U/L (46-116); ASPARTATE AMINOTRANSFERASE 66 U/L (15-37); BILIRUBIN,DIRECT 0.3 mg/dL (0.0-0.2); BILIRUBIN,TOTAL 0.8 mg/dL (0.2-1.0); TOTAL PROTEIN, SERUM 6.2 g/dL (6.4-8.2)
--- NOTE | 2022-07-09 05:41 | NUR ---
S/W PEDRO HOROWITZ [facility] PREFERRED IPA PROVIDED VERBAL CLINICALS. OK TO ADMIT HERE
[2022-07-09] MEDS ORDERED: hydrALAZINE HCL IV 20 MG VIAL IV PRN (06:00)
[2022-07-09] MEDS ORDERED: DEXTROSE 50%-WATER 50 ML DISP.SYRIN IV PRN (06:00)
[2022-07-09] MEDS ORDERED: ALPRAZOLAM 1 MG TABLET PO PRN (06:00)
[2022-07-09] MEDS ORDERED: MORPHINE SULFATE INJ 2 MG/ML DISP.SYRIN IV PRN (06:00)
[2022-07-09] MEDS: methylPREDNISolone SOD SUCC 40 MG/ML VIAL IV SCH ×3 (06:00→22:00)
[2022-07-09] MEDS ORDERED: ASPIRIN 325 MG TABLET PO ONE (06:00)
[2022-07-09] MEDS ORDERED: ALBUTEROL FS 2.5 MG/0.5 ML VIAL.NEB NEB PRN (06:00)
[2022-07-09] MEDS ORDERED: ONDANSETRON HCL/PF 4 MG/2 ML VIAL IVP PRN (06:00)
[2022-07-09] MEDS ORDERED: ASPIRIN 325 MG TABLET ONE (06:26)
[2022-07-09] MEDS: BLOOD SUGAR DIAGNOSTIC 1 EACH STRIP VI SCH ×4 (07:56→21:54)
--- NOTE | 2022-07-09 08:02 | NUR ---
REPORT GIVEN TO JESSICA JOHANSEN FOR ANDRE
--- NOTE | 2022-07-09 08:25 | NUR ---
TRANSFERRED TO BED 327 IN STABLE CONDITION
--- NOTE | 2022-07-09 08:30 | NUR ---
MOUNTER SOUSAPHONES NOTE RECEIVED PT VIA SHARI FROM ER. PT IS ALERT ORIENTED X4. ABLE TO MAKE NEEDS KNOWN. ON ROOM AIR, BREATHING EVENLY AND UNLABORED. NO SOB OR S/S OF DISTRESS NOTED. PATIENT ORIENTED TO ROOM AND HOW TO USE CALL LIGHT. ALL BELONGINGS ACCOUNTED FOR, BELONGING SHEET SIGNED, PORT A CATH NOTED ON RIGHT CHEST. EDEMA NOTE ON BLE WITH MINIMAL WEEPING. MULTIPLE BRUISES AND DISCOLORATION NOTED ON ARMS AND RIGHT BREAST. DISTENDED ABDOMEN NOTED. PHOTOS TAKEN AND RECORDED IN HER CHART. VS TAKEN AND RECORDED, BP 144/77, P 89, R 18, TEMP 98.1, O2 98%. SAFETY PRECAUTIONS IN PLACE, BED LOCKED IN LOWEST POSITION, BED SIDE TABLE AND CALL LIGHT WITHIN REACH. WILL CONTINUE TO MONITOR.
[2022-07-09] MEDS ORDERED: FUROSEMIDE 40 MG TABLET PO SCH (09:00)
--- NOTE | 2022-07-09 09:15 | NUR ---
RN NOTE Patient has 0600 scheduled Solu-medrol medication. Verified with Jesus, pharmacist, patient was given solu-medrol at 0430 and to non-admin the 0600 dose. Will administer the next dose at 1400.
[2022-07-09] MEDS: HEPARIN SODIUM, PORCINE 5000 UNITS/1 ML VIAL SQ SCH ×2 (09:32→21:52)
--- NOTE | 2022-07-09 10:23 | NUR ---
RN NOTE FOLLOWED UP WITH PHARMACY FOR BREO ELLIPTA INHALER. PER PHARMACY THEY WILL BRING IT UP.
[2022-07-09] MEDS ORDERED: POTASSIUM CHLORIDE 20 MEQ TAB.PRT.SR PO ONE (11:00)
[2022-07-09] MEDS: FLUTICASONE/VILANTEROL 1 EACH BLST.W.DEV IH SCH (11:29)
[2022-07-09 12:00] VITALS: BP 107/68
[2022-07-09] MEDS: INSULIN REGULAR, HUMAN 100 UNIT/ML 3 ML VIAL SQ PRN ×2 (12:21→17:32)
[2022-07-09] MEDS: FUROSEMIDE 40 MG/4 ML VIAL IV SCH ×3 (13:29→21:28)
[2022-07-09] MEDS: POTASSIUM CHLORIDE 20 MEQ TAB.PRT.SR PO SCH ×3 (13:29→15:52)
[2022-07-09] MEDS: IPRATROPIUM NEB FS 0.5 MG/2.5 ML AMPUL.NEB HHN SCH ×2 (15:12→19:58)
[2022-07-09] MEDS ORDERED: HEPARIN-LOCK FLUSH PORCINE PF 10 UNITS/1 ML (10 ML)DISP.SYRIN IV ONE (15:30)
[2022-07-09 16:00] VITALS: BP 121/77
--- NOTE | 2022-07-09 16:30 | NUR ---
RN NOTE PORT A CATH NEEDLE REMOVED. CLEANED PORT WITH ALCOHOL SWAB. FLUSHED WITH 10CC SALINE, AND THEN CLEANED THE PORT AGAIN WITH ALCOHOL SWAB, FLUSHED WITH 10CC HEPARIN. REMOVED NEEDLE, NO BLEEDING NOTED AND APPLIED BAND-AID. WILL CONTINUE TO MONITOR.
[2022-07-09] MEDS: MONTELUKAST SODIUM (10MG) 10 MG TABLET PO SCH (17:16)
--- NOTE | 2022-07-09 17:39 | NUR ---
RN NOTE PT REFUSED INSULIN PER SLIDING SCALE. PT BLOOD GLUCOSE LEVEL 195. EXPLAINED RISK AND BENEFITS OF MEDICATION. PATIENT STILL REFUSING. CONTINUE TO MONITOR.
--- NOTE | 2022-07-09 18:45 | NUR ---
CHILLER HAND CLOSING NOTE PT IS AWAKE IN BED, ALERT AND ORIENTED X4. PT ON ROOM AIR WITH NO S/S OF SOB AND ACUTE DISTRESS, PT HAS O2 PRN ON 2L. PT ON TELE MONITOR READING ST @110. PT HAS LEFT UPPER ARM ML, #18G SL, PATENT AND INTACT. DENIES ANY PAIN AND DISCOMFORT. ALL NEEDS ATTENDED TO. SAFETY PRECAUTIONS IN PLACE, BED LOCKED IN LOWEST POSITION, BED SIDE TABLE AND CALL LIGHT WITHIN REACH. WILL ENDORSE TO NEXT SHIFT RN FOR ANDRE.
--- NOTE | 2022-07-09 19:30 | NUR ---
RN OPENING NOTE PATIENT SITTING AT THE EDGE OF THE BED, WITH FIANCE. PATIENT IS A/O X 4 ABLE TO MAKE NEEDS KNOWN. PATIENT CURRENTLY ON RA, 86-88% AT THIS TIME, NO SOB NOTED, COUGHING OBSERVED. PATIENT WAS INITIALLY REFUSING 2LPM VIA NC, BUT EVENTUALLY AGREED, O2 SAT NOW 96% ON 2LPM VIA NC. PATIENT DOES NOT REPORT ANY DIFFICULTY BREATHING, NO PAIN. TELE MONITOR READS ST 105 BPM. ADRIANA MIDLINE 18 G SALINE LOCKED AT THIS TIME, FLUSHING WELL. SAFETY MEASURES IN PLACE: BED LOCKED AND IN LOWEST POSITION, CALL LIGHT WITHIN REACH, SIDE RAILS UP. WILL MONITOR PATIENT CLOSELY.
[2022-07-09 20:00] VITALS: BP 118/74
--- NOTE | 2022-07-09 22:21 | NUR ---
PATIENT REFUSED SOLUMEDROL IV, SHE SAYS THAT IT MAKES HER SWELL UP MORE AND SHE DOES NOT WANT TO BE ALL SWOLLEN ON HER DAY ON SUNDAY. EDUCATED PATIENT REGARDING MEDICATION, BENEFITS, AND RISKS. PER PATIENT SHE IS NOT HAVING ANY DIFFICULTY BREATHING AND HER "PRIORITY" IS FOR THE SWELLING TO GO DOWN.
[2022-07-09] MEDS: *INSULIN REGULAR(HUMULIN R)HUM 100 UNIT/ML VIAL SQ PRN (22:47)
[2022-07-10] VITALS: BP 101/67
[2022-07-10] MEDS: IPRATROPIUM NEB FS 0.5 MG/2.5 ML AMPUL.NEB HHN SCH ×4 (01:30→20:09)
--- NOTE | 2022-07-10 02:01 | NUR ---
RT NOTE PATIENT REFUSE TX AT THIS TIME. NO RESPIRATORY DISTRESS NOTED. PRIMARY NURSE IS AWARE. WILL CONTINUE TO MONITOR PATIENT.
[2022-07-10 04:00] VITALS: BP 109/71
[2022-07-10] MEDS: methylPREDNISolone SOD SUCC 40 MG/ML VIAL IV SCH ×3 (06:00→22:00)
[2022-07-10] MEDS: INSULIN REGULAR, HUMAN 100 UNIT/ML 3 ML VIAL SQ PRN ×3 (06:40→17:37)
[2022-07-10 06:41] LABS: BASOPHILS % (AUTO) 0.2 % (0.0-2.0); HEMATOCRIT 44 % (33-45); HEMOGLOBIN 14.5 g/dL (11.5-14.8); LYMPHOCYTES # (AUTO) 1.3 K/uL (0.8-4.8); LYMPHOCYTES % (AUTO) 11.5 % (20.0-44.0); MEAN CORPUSCULAR HGB CONC 33 g/dl (31.0-36.0); MEAN CORPUSCULAR VOLUME 95 fL (82-100); MONOCYTES # (AUTO) 0.5 K/uL (0.1-1.30); NEUTROPHILS # (AUTO) 9.1 K/uL (1.8-8.9); NEUTROPHILS % (AUTO) 83.3 % (43.0-81.0); PLATELET COUNT (AUTO) 120 K/uL (150-450); WHITE BLOOD COUNT (AUTO) 10.9 K/uL (4.3-11.0)
[2022-07-10] MEDS: BLOOD SUGAR DIAGNOSTIC 1 EACH STRIP VI SCH ×4 (06:41→22:03)
[2022-07-10 06:56] LABS: ALBUMIN 2.5 g/dL (3.4-5.0); BILIRUBIN,TOTAL 0.7 mg/dL (0.2-1.0); CALCIUM, SERUM 9.8 mg/dL (8.5-10.1); CREATININE 0.8 mg/dL (0.6-1.3); MAGNESIUM 2.4 mg/dL (1.8-2.4); PHOSPHORUS 3.5 mg/dL (2.5-4.9); POTASSIUM 3.8 mmol/L (3.5-5.1); TOTAL PROTEIN, SERUM 6.2 g/dL (6.4-8.2)
[2022-07-10 07:00] VITALS: BP 108/64
--- NOTE | 2022-07-10 07:40 | NUR ---
RN CLOSING NOTE PATIENT RESTING ON THE BED. ON RA AT THIS TIME, NO DYSPNEA NOTED, CONGESTION OBSERVED. REMINDED PATIENT TO PUT NC ON HER OXYGEN GOES DOWN. PATIENT CONTINUES TO REFUSE SOLUMEDROL FOR THE SAME REASON. WILL LET DAY SHIFT NURSE KNOW. SAFETY MEASURES IMPLEMENTED. ALL NEEDS MET AND ATTENDED. ALL ORDERS CARRIED OUT. ENDORSED TO DAY SHIFT NURSE FOR ANDRE.
--- NOTE | 2022-07-10 07:55 | NUR ---
PROFESSIONAL PROGRAMMER ANALYST OPENING NOTE Patient in bed, awake. A/O x 4, able to make needs known. On room air, breathing evenly and unlabored. No SOB or s/s of distress noted. IV access on ADRIANA midline SL, intact and patent. On tele monitoring showing SR, HR 82. Patient denies any pain or discomfort at this time. BLE edema noted. Bilateral legs kept elevated. Safety precautions in place: bed in low, locked position; siderails up x 2; call light within reach. Will continue to monitor.
[2022-07-10] MEDS: POTASSIUM CHLORIDE 20 MEQ TAB.PRT.SR PO SCH ×3 (08:28→11:16)
[2022-07-10] MEDS: FUROSEMIDE 100 MG/10 ML VIAL IV SCH ×3 (08:28→17:11)
[2022-07-10] MEDS: FLUTICASONE/VILANTEROL 1 EACH BLST.W.DEV IH SCH (08:29)
[2022-07-10] MEDS: HEPARIN SODIUM, PORCINE 5000 UNITS/1 ML VIAL SQ SCH ×2 (08:30→22:02)
[2022-07-10] MEDS ORDERED: IOHEXOL-300 100 ML VIAL IV ONE ×2 (08:33→09:14)
[2022-07-10] MEDS ORDERED: IV NS 0.9% 250 ML IV ONE ×2 (08:34→09:14)
[2022-07-10 12:00] VITALS: BP 101/52
[2022-07-10] MEDS ORDERED: ALBUTEROL SULFATE 8 GM HFA.AER.AD IH PRN (12:00)
--- NOTE | 2022-07-10 14:13 | NUR ---
RN NOTE Patient refused Solu-medrol scheduled for 1400, states that it makes her swell more. Explained the risks and benefits of the medication, patient still refused. Will continue to monitor.
[2022-07-10] MEDS: MONTELUKAST SODIUM (10MG) 10 MG TABLET PO SCH (17:11)
[2022-07-10] MEDS: ACETAMINOPHEN 325 MG TABLET PO PRN (18:01)
--- NOTE | 2022-07-10 18:51 | NUR ---
MICROSOFT ACCESS DEVELOPER CLOSING NOTE Patient in bed, resting. A/O x 4, able to make needs known. On O2 at 2 LPM via NC, breathing evenly and unlabored. No SOB or s/s of distress noted. IV access on ADRIANA midline SL, intact and patent. On tele monitoring showing Sinus tachycardia, HR 101. Patient denies any pain or discomfort at this time. BLE edema subsided. Bilateral legs kept elevated. Encouraged to ambulate. Patient reports constipation for a couple of days, gave prune juice. Patient reports bowel movement x1. All needs attended to. Due meds given. Safety precautions in place: bed in low, locked position; siderails up x 2; call light within reach. Will endorse to security shift manager nurse for ANDRE.
--- NOTE | 2022-07-10 19:15 | NUR ---
RN OPENING NOTE PATIENT EYES CLOSED, RESTING, EASILY ROUSED. PATIENT IS A/O X 4 ABLE TO MAKE NEEDS KNOWN. PATIENT ON 2LPM VIA NC TOLERATING WELL, NO SOB NOTED, COUGHING OBSERVED. PATIENT DOES NOT REPORT ANY DIFFICULTY BREATHING, NO PAIN. TELE MONITOR READS ST 107 BPM. ADRIANA MIDLINE 18 G SALINE LOCKED AT THIS TIME, FLUSHING WELL. PATIENT NOT IN ANY APPARENT DISTRESS. SAFETY MEASURES IN PLACE: BED LOCKED AND IN LOWEST POSITION, CALL LIGHT WITHIN REACH, SIDE RAILS UP. WILL MONITOR PATIENT CLOSELY.
[2022-07-10 20:00] VITALS: BP 141/92
--- NOTE | 2022-07-10 22:02 | NUR ---
RN NOTE PATIENT REFUSED SOLUMEDROL, STATES IT MAKES HER SWELL UP MORE. BS 124 MG/DL, NO COVERAGE GIVEN. GAVE PATIENT EGG SANDWICH AND CRANBERRY JUICES. WILL MONITOR PATIENT FOR HYPO/HYPERGLYCEMIA.
[2022-07-11] VITALS: BP 95/60
[2022-07-11] MEDS: IPRATROPIUM NEB FS 0.5 MG/2.5 ML AMPUL.NEB HHN SCH ×4 (01:30→20:06)
[2022-07-11 04:00] VITALS: BP 95/57
[2022-07-11] MEDS: INSULIN REGULAR, HUMAN 100 UNIT/ML 3 ML VIAL SQ PRN ×3 (06:22→18:09)
[2022-07-11] MEDS: BLOOD SUGAR DIAGNOSTIC 1 EACH STRIP VI SCH ×4 (06:32→21:09)
--- NOTE | 2022-07-11 07:02 | NUR ---
RN CLOSING NOTE PATIENT IN BED, AWAKE. PATIENT IS A/O X 4 ABLE TO MAKE NEEDS KNOWN. PATIENT ON 2LPM VIA NC TOLERATING WELL, NO SOB NOTED, COUGHING OBSERVED. PATIENT DOES NOT REPORT ANY DIFFICULTY BREATHING, NO PAIN. TELE MONITOR READS SR 79 BPM. ADRIANA MIDLINE 18 G SALINE LOCKED AT THIS TIME, FLUSHING WELL. PATIENT NOT IN ANY APPARENT DISTRESS. SAFETY MEASURES IN PLACE: BED LOCKED AND IN LOWEST POSITION, CALL LIGHT WITHIN REACH, SIDE RAILS UP. JAYME LOWER EXTREMITIES ELEVATED WITH 4 PILLOWS. ALL NEEDS MET AND ATTENDED. ALL ORDERS CARRIED OUT. WILL ENDORSE TO DAY SHIFT NURSE FOR ANDRE.
[2022-07-11 07:05] LABS: BASOPHILS % (AUTO) 0.2 % (0.0-2.0); HEMATOCRIT 46 % (33-45); LYMPHOCYTES # (AUTO) 2.4 K/uL (0.8-4.8); LYMPHOCYTES % (AUTO) 16.3 % (20.0-44.0); MEAN CORPUSCULAR HGB CONC 33 g/dl (31.0-36.0); MEAN CORPUSCULAR VOLUME 95 fL (82-100); MONOCYTES # (AUTO) 1.4 K/uL (0.1-1.30); MONOCYTES % (AUTO) 9.6 % (2.0-12.0); NEUTROPHILS # (AUTO) 10.4 K/uL (1.8-8.9); NEUTROPHILS % (AUTO) 71.9 % (43.0-81.0); PLATELET COUNT (AUTO) 143 K/uL (150-450); RED BLOOD CELL COUNT(AUTO) 4.81 MIL/uL (4.0-5.2); WHITE BLOOD COUNT (AUTO) 14.4 K/uL (4.3-11.0)
[2022-07-11 07:22] LABS: ALBUMIN 2.4 g/dL (3.4-5.0); CALCIUM, SERUM 9.6 mg/dL (8.5-10.1); CREATININE 0.9 mg/dL (0.6-1.3); MAGNESIUM 2.2 mg/dL (1.8-2.4); PHOSPHORUS 2.5 mg/dL (2.5-4.9); POTASSIUM 3.2 mmol/L (3.5-5.1); TOTAL PROTEIN, SERUM 6.2 g/dL (6.4-8.2)
--- NOTE | 2022-07-11 07:30 | NUR ---
FLOW MACHINE OPERATOR OPENING NOTES RECEIVED PATIENT AWAKE ON BED AND A/O X 4. ABLE TO MAKE NEEDS KNOWN. PATIENT ON 2LPM VIA NC TOLERATING WELL, NO SOB NOTED. WITH NO COMPLAINTS OF PAIN OR DISCOMFORT AT THIS TIME. ON TELE MONITOR CURRENTLY READING SINUS RHYTHM AT 98BPM WITH IV ACCESS AT ADRIANA MIDLINE G18 SALINE LOCKED, PATENT AND INTACT. SAFETY MEASURES IN PLACE: BED LOCKED AND IN LOWEST POSITION, CALL LIGHT WITHIN REACH, SIDE RAILS UP. WILL MONITOR PATIENT CLOSELY.
[2022-07-11 08:00] VITALS: BP 108/69
[2022-07-11] MEDS: FLUTICASONE/VILANTEROL 1 EACH BLST.W.DEV IH SCH (09:13)
[2022-07-11] MEDS: POTASSIUM CHLORIDE 20 MEQ TAB.PRT.SR PO SCH ×2 (09:14→10:34)
[2022-07-11] MEDS: HEPARIN SODIUM, PORCINE 5000 UNITS/1 ML VIAL SQ SCH ×2 (09:17→21:09)
[2022-07-11] MEDS: SPIRONOLACTONE 25 MG TABLET PO SCH (09:20)
--- NOTE | 2022-07-11 10:23 | NUR ---
WOUND CARE CONSULT: PT PRESENTS WITH AREAS OF SKIN DISCOLORATION, SCARRING AND DRY ABRASIONS/SCABS, PRESENT ON ADMISSION. RT LOWER LEG OPEN WOUND WAS PRESENT ON ADMISSION. DPM CONSULT CALLED TO DR CADENA. CURRENT JOE SCORE IS 21. MD IN AGREEMENT WITH PLAN OF CARE.
[2022-07-11 12:10] VITALS: BP 106/63
[2022-07-11 16:00] VITALS: BP 114/63
[2022-07-11] MEDS: MONTELUKAST SODIUM (10MG) 10 MG TABLET PO SCH (18:17)
--- NOTE | 2022-07-11 19:15 | NUR ---
RN OPENING NOTE PATIENT IN BED, FIANCE AT BEDSIDE. PATIENT IS A/O X 4 ABLE TO MAKE NEEDS KNOWN. PATIENT ON 2LPM VIA NC TOLERATING WELL, NO SOB NOTED, COUGHING OBSERVED. PATIENT DOES NOT REPORT ANY DIFFICULTY BREATHING, NO PAIN. ADRIANA MIDLINE 18 G SALINE LOCKED AT THIS TIME, FLUSHING WELL. REPORTS OF MILD HEADACHE. PATIENT NOT IN ANY APPARENT DISTRESS. SAFETY MEASURES IN PLACE: BED LOCKED AND IN LOWEST POSITION, CALL LIGHT WITHIN REACH, SIDE RAILS UP. WILL MONITOR PATIENT CLOSELY.
--- NOTE | 2022-07-11 19:30 | NUR ---
MS RN CLOSING NOTES PATIENT AWAKE ON BED AND A/O X 4. ABLE TO MAKE NEEDS KNOWN. PATIENT ON 2LPM VIA NC TOLERATING WELL, NO SOB NOTED. WITH NO COMPLAINTS OF PAIN OR DISCOMFORT AT THIS TIME. WITH IV ACCESS AT ADRIANA MIDLINE G18 SALINE LOCKED, PATENT AND INTACT. DUE MEDS GIVEN. SAFETY MEASURES IN PLACE: BED LOCKED AND IN LOWEST POSITION, CALL LIGHT WITHIN REACH, SIDE RAILS UP. WILL ENDORSE TO NEXT SHIFT FOR ANDRE.
[2022-07-11] MEDS: ACETAMINOPHEN 325 MG TABLET PO PRN (19:54)
[2022-07-11 20:00] VITALS: BP_SYST 103; BP_SYST 96; BP_DIAS 52; BP_DIAS 61
--- NOTE | 2022-07-11 20:00 | NUR ---
TYLENOL 650 MG GIVEN FOR MILD PAIN.
[2022-07-11] MEDS: *INSULIN REGULAR(HUMULIN R)HUM 100 UNIT/ML VIAL SQ PRN (22:15)
[2022-07-12] MEDS: IPRATROPIUM NEB FS 0.5 MG/2.5 ML AMPUL.NEB HHN SCH ×3 (01:30→14:55)
[2022-07-12 06:32] LABS: BASOPHILS % (AUTO) 0.5 % (0.0-2.0); EOSINOPHILS % (AUTO) 3.8 % (0.0-6.0); HEMATOCRIT 43 % (33-45); HEMOGLOBIN 14.3 g/dL (11.5-14.8); LYMPHOCYTES # (AUTO) 1.8 K/uL (0.8-4.8); LYMPHOCYTES % (AUTO) 23.6 % (20.0-44.0); MEAN CORPUSCULAR HGB CONC 33 g/dl (31.0-36.0); MEAN CORPUSCULAR VOLUME 95 fL (82-100); MONOCYTES # (AUTO) 0.8 K/uL (0.1-1.30); MONOCYTES % (AUTO) 9.6 % (2.0-12.0); NEUTROPHILS # (AUTO) 4.9 K/uL (1.8-8.9); NEUTROPHILS % (AUTO) 62.5 % (43.0-81.0); PLATELET COUNT (AUTO) 123 K/uL (150-450); RED BLOOD CELL COUNT(AUTO) 4.52 MIL/uL (4.0-5.2); WHITE BLOOD COUNT (AUTO) 7.8 K/uL (4.3-11.0)
--- NOTE | 2022-07-12 06:57 | NUR ---
RN CLOSING NOTE PATIENT IN BED, AWAKE. PATIENT IS A/O X 4 ABLE TO MAKE NEEDS KNOWN. PATIENT ON 2LPM VIA NC TOLERATING WELL, NO SOB NOTED, COUGHING OBSERVED. PATIENT DOES NOT REPORT ANY DIFFICULTY BREATHING, NO PAIN. ADRIANA MIDLINE 18 G SALINE LOCKED AT THIS TIME, FLUSHING WELL. PAIN MANAGED WITH TYLENOL X 1. BS 87 MG/DL, NO COVERAGE GIVEN. PATIENT PROVIDED CRANBERRY JUICES. PATIENT NOT IN ANY APPARENT DISTRESS. SAFETY MEASURES IN PLACE: BED LOCKED AND IN LOWEST POSITION, CALL LIGHT WITHIN REACH, SIDE RAILS UP. ALL NEEDS MET AND ATTENDED. ALL ORDERS CARRIED OUT. WILL ENDORSE TO DAY SHIFT NURSE FOR ANDRE.
[2022-07-12 06:59] LABS: CALCIUM, SERUM 9.3 mg/dL (8.5-10.1); CREATININE 0.7 mg/dL (0.6-1.3); MAGNESIUM 2.2 mg/dL (1.8-2.4); POTASSIUM 3.6 mmol/L (3.5-5.1)
[2022-07-12] MEDS: BLOOD SUGAR DIAGNOSTIC 1 EACH STRIP VI SCH ×2 (06:59→11:47)
--- NOTE | 2022-07-12 07:59 | NUR ---
MS RN OPENING NOTE Patient in bed, awake. A/O x 4, able to make needs known. On room air, breathing evenly and unlabored. No SOB or s/s of distress noted. IV access on ADRIANA midline SL, intact and patent. RCW Port a cath noted. Patient denies any pain or discomfort at this time. Safety precautions in place: bed in low, locked position; siderails up x 2; call light within reach. Will continue to monitor.
[2022-07-12 08:00] VITALS: BP 109/62
[2022-07-12] MEDS: FLUTICASONE/VILANTEROL 1 EACH BLST.W.DEV IH SCH ×2 (09:00→09:06)
--- NOTE | 2022-07-12 09:00 | NUR ---
RN NOTE Patient refused Breo Ellipta inhaler, states it makes her throat itch. Explained the risks and benefits of medication, patient will refused. Will continue to monitor.
[2022-07-12] MEDS: SPIRONOLACTONE 25 MG TABLET PO SCH (09:06)
[2022-07-12] MEDS: HEPARIN SODIUM, PORCINE 5000 UNITS/1 ML VIAL SQ SCH (09:07)
[2022-07-12] MEDS ORDERED: MUPIROCIN OINT 2% 22 GM TUBE TP SCH (10:00)
--- NOTE | 2022-07-12 10:50 | NUR ---
RN NOTE Followed up with pharmacy regarding Bactroban ointment, still not available in patient's cassette.
[2022-07-12] MEDS: INSULIN REGULAR, HUMAN 100 UNIT/ML 3 ML VIAL SQ PRN (11:49)
[2022-07-12] MEDS ORDERED: GUAIFENESIN LA 600 MG TABLET.SA PO SCH (12:00)
[2022-07-12] MEDS ORDERED: GUAI600T53 PO (13:01)
[2022-07-12] MEDS ORDERED: SPIR25TA6 PO (13:01)
[2022-07-12 16:00] VITALS: BP 102/61
--- NOTE | 2022-07-12 17:05 | NUR ---
DIRECTOR SURFACE TRANSPORTATION NOTE PATIENT DISCHARGED IN STABLE MEDICAL CONDITION. A/OX4, VS TAKEN, STABLE AND RECORDED. IV ACCESS REMOVED. NAME ARM BAND REMOVED. SKIN ASSESSMENT DONE AND PICTURES TAKEN AND RECORDED IN CHART. DENIES PAIN AND DISCOMFORT AT THIS TIME. ALL BELONGINGS CHECKED AND SIGNED. HEALTH TEACHING AND DISCHARGE INSTRUCTIONS GIVEN TO PATIENT VERBALLY AND IN WRITTEN FORM, VERBALIZED UNDERSTANDING. LEFT VIA PRIVATE CAR WITH FRIEND, NO SIGN OF DISTRESS NOTED.
== END 2022-07-12 17:10 | disposition home or self-care (01) | DRG 190 ==
LOC: ER 02:05 → TELE 07:58 → MED 07-11 12:31
PROVIDERS: ADMIT Nurse Practitioner Acute Care; ATTEND Student in an Organized Health Care Education/Training Program
PROC: 05HA33Z Insertion of Infusion Device into Left Brachial Vein, Percutaneous Approach (ICD-10-PCS; principal; 2022-07-09)
DX: I21.4 Non-ST elevation (NSTEMI) myocardial infarction (principal); I50.33 Acute on chronic diastolic (congestive) heart failure; E44.0 Moderate protein-calorie malnutrition; I11.0 Hypertensive heart disease with heart failure; E88.01 Alpha-1-antitrypsin deficiency; E87.6 Hypokalemia; Z20.822 Contact with and (suspected) exposure to COVID-19; J44.9 Chronic obstructive pulmonary disease, unspecified; Z87.891 Personal history of nicotine dependence; Z79.899 Other long term (current) drug therapy; Z79.84 Long term (current) use of oral hypoglycemic drugs; Z79.51 Long term (current) use of inhaled steroids; Z98.82 Breast implant status; E78.5 Hyperlipidemia, unspecified; B19.20 Unspecified viral hepatitis C without hepatic coma; R60.0 Localized edema; L30.9 Dermatitis, unspecified; Z88.1 Allergy status to other antibiotic agents; Z88.0 Allergy status to penicillin; E88.09 Other disorders of plasma-protein metabolism, not elsewhere classified; I87.8 Other specified disorders of veins; L97.919 Non-pressure chronic ulcer of unspecified part of right lower leg with unspecified severity; S80.11XA Contusion of right lower leg, initial encounter; X58.XXXA Exposure to other specified factors, initial encounter; Y92.9 Unspecified place or not applicable; N28.1 Cyst of kidney, acquired
CPT/HCPCS: 36410; 36415; 71045-TC; 80048-TC; 80053-TC; 80076-TC; 81001; 82962-TC; 83605-TC; 83735-TC; 83880; 84100-TC; 84484-TC; 85025-TC; 85730-TC; 87040-TC; 93307-TC; 93970-TC; 94799-TC; C9803; G0378; J1642; J1644; J1815; J1940; J2920; J2930; J7050; Q9967

== ENCOUNTER 2022-08-01 03:15 | Inpatient (IN) | payer OTHER ==
[~2022-08-01] VITALS: Ht 165.1 cm; Wt 53.5 kg
[~2022-08-01 03:15] MED LIST changes: -ALBU18HF2 INH; -ALPR1TAB7 PO; -BACI1PAC12 TP; -CLIN300C12 PO; -DICL100G16 TP; -FLUC150T PO; -FURO-144 PO; +GUAI600T53 PO; -HYDR-4209 PO; -METF-440 PO; -MONT10TA22 PO; -NAPR-1009 PO; -NYST5ORA PO; -PRED2.5T PO; -RXENO XX; -RXVAN XX; +SPIR25TA6 PO; -SULF1TAB48 PO; -TRAM50TA2 PO; -ZOLP10TA6 PO
--- NOTE | 2022-08-01 03:25 | NUR ---
MOLLY FROM HOME C/O SOB. PER RA, SAT 86% ON RA. PLACED ON CPAP PLASTIC MOLDER. SAT 97%. MD AT BEDSIDE FOR EVAL.
[2022-08-01] MEDS ORDERED: methylPREDNISolone SOD SUCC 125 MG/2ML VIAL ONE (03:39)
[2022-08-01 03:49] LABS: EOSINOPHILS % (AUTO) 1.1 % (0.0-6.0); HEMATOCRIT 47 % (33-45); HEMOGLOBIN 15.9 g/dL (11.5-14.8); LYMPHOCYTES # (AUTO) 1.1 K/uL (0.8-4.8); LYMPHOCYTES % (AUTO) 9.9 % (20.0-44.0); MEAN CORPUSCULAR HGB CONC 34 g/dl (31.0-36.0); MEAN CORPUSCULAR VOLUME 95 fL (82-100); NEUTROPHILS # (AUTO) 9.6 K/uL (1.8-8.9); PLATELET COUNT (AUTO) 176 K/uL (150-450); RED BLOOD CELL COUNT(AUTO) 4.95 MIL/uL (4.0-5.2); WHITE BLOOD COUNT (AUTO) 10.8 K/uL (4.3-11.0)
[2022-08-01] MEDS ORDERED: CEFTRIAXONE 1 G in IV D5W 50 ML IV ONE (04:00)
[2022-08-01] MEDS ORDERED: ALBUTEROL FS 2.5 MG/3 ML VIAL.NEB CONTNEB ONE (04:00)
[2022-08-01] MEDS ORDERED: methylPREDNISolone SOD SUCC 125 MG/2ML VIAL IV ONE (04:00)
[2022-08-01] MEDS ORDERED: IPRATROPIUM NEB FS 0.5 MG/2.5 ML AMPUL.NEB NEB ONE (04:00)
[2022-08-01] MEDS ORDERED: ALBUTEROL FS 2.5 MG/3 ML VIAL.NEB ONE (04:02)
[2022-08-01] MEDS ORDERED: IPRATROPIUM NEB FS 0.5 MG/2.5 ML AMPUL.NEB ONE (04:02)
[2022-08-01 04:10] LABS: ALANINE AMINOTRANSFERASE 49 U/L (12-78); ALBUMIN 2.7 g/dL (3.4-5.0); ALKALINE PHOSPHATASE 114 U/L (46-116); ASPARTATE AMINOTRANSFERASE 57 U/L (15-37); BILIRUBIN,DIRECT 0.6 mg/dL (0.0-0.2); BILIRUBIN,TOTAL 1.1 mg/dL (0.2-1.0); CALCIUM, SERUM 9.4 mg/dL (8.5-10.1); CARBON DIOXIDE 26 mmol/L (21-32); CHLORIDE 98 mmol/L (98-107); CREATININE 0.7 mg/dL (0.6-1.3); GLUCOSE 134 mg/dL (74-106); POTASSIUM 4.2 mmol/L (3.5-5.1); SODIUM SERUM 128 mmol/L (136-145); TOTAL PROTEIN, SERUM 6.7 g/dL (6.4-8.2); UREA NITROGEN, BLOOD 22 mg/dL (7-18)
--- NOTE | 2022-08-01 04:12 | NUR ---
COVID SWAB AND INFLUENZA COLLECTED AND SENT TO LAB.
[2022-08-01] MEDS ORDERED: CEFTRIAXONE 1GM BAG (ER ONLY) 50 ML IV ONE (04:23)
[2022-08-01 04:30] LABS: ABG BASE EXCESS 2.9 mmol/L; ABG PCO2 42.3 mmHg (35.0-45.0); ABG PH 7.432 (7.350-7.450); ABG PO2 68.6 mmHg (75.0-100.0); COHb 0.9 % (0.5-1.5); MetHb 0.4 % (0.0-1.5); O2Hb 92.8 % (94.0-97.0); SITE, ABG Right Radial; VENT MODE, BG ST 18 15/5 40%
[2022-08-01] MEDS ORDERED: MAG HYDROX/AL HYDROX/SIMETH 30 ML UDC PO PRN (06:30)
[2022-08-01] MEDS ORDERED: ONDANSETRON HCL/PF 4 MG/2 ML VIAL IVP PRN (06:30)
[2022-08-01] MEDS ORDERED: IPRATROPIUM NEB FS 0.5 MG/2.5 ML AMPUL.NEB NEB PRN (06:30)
[2022-08-01] MEDS ORDERED: ALBUTEROL FS 2.5 MG/3 ML VIAL.NEB NEB PRN (06:30)
[2022-08-01] MEDS ORDERED: ACETAMINOPHEN 325 MG TABLET PO PRN (06:30)
[2022-08-01] MEDS ORDERED: HYDROCODONE/APAP 5/325MG TABLET PO PRN (06:30)
[2022-08-01] MEDS ORDERED: MAGNESIUM HYDROXIDE 30 ML UDC PO PRN (06:30)
[2022-08-01] MEDS ORDERED: MORPHINE SULFATE INJ 2 MG/ML DISP.SYRIN IV PRN (06:30)
[2022-08-01] MEDS ORDERED: Z GUARD REMEDY 4 OZ OINT TP PRN (06:30)
--- NOTE | 2022-08-01 07:15 | NUR ---
RECEVED PT FROM PRUDENCE JOHANSEN PT ON BIPAP AWAKE AND ALERT FALLOW COMMAND
--- NOTE | 2022-08-01 07:20 | NUR ---
PT PULL OUT BIPAP FIO2 2L NC WITH MILD SOB
--- NOTE | 2022-08-01 09:10 | NUR ---
ROOM ASSIGNED= 252
--- NOTE | 2022-08-01 09:30 | NUR ---
DR. ABDALLA ( [facility] ) OK TO ADMIT PT [facility] WILL ORDER IN 2L/NC
[2022-08-01] MEDS ORDERED: ENOXAPARIN SODIUM 40 MG/0.4 ML DISP.SYRIN SQ ONE (09:35)
[2022-08-01] MEDS ORDERED: PANTOPRAZOLE 40 MG TABLET.DR PO ONE (09:35)
[2022-08-01] MEDS: ENOXAPARIN SODIUM 40 MG/0.4 ML DISP.SYRIN SQ SCH (09:37)
[2022-08-01] MEDS: PANTOPRAZOLE 40 MG TABLET.DR PO SCH (09:38)
[2022-08-01] MEDS ORDERED: FURO20TA4 PO (09:44)
[2022-08-01 09:55] LABS: BAND % (MANUAL) 8 % (0.0-5.0); LYMPHOCYTES % (MANUAL) 18 % (16-48); MONOCYTES % (MANUAL) 9 % (0-11.0); NEUTROPHILS % (MANUAL) 65 (42-76)
[2022-08-01] MEDS ORDERED: AZITHROMYCIN 500 MG in IV D5W 250 ML IV ONE (10:00)
[2022-08-01 10:16] LABS: ABG BASE EXCESS 0.3 mmol/L; ABG PCO2 41.2 mmHg (35.0-45.0); ABG PH 7.403 (7.350-7.450); ABG PO2 67.1 mmHg (75.0-100.0); COHb 0.6 % (0.5-1.5); MetHb 0.3 % (0.0-1.5); O2Hb 91.9 % (94.0-97.0); SITE, ABG Left Radial; VENT MODE, BG 2L NC
--- NOTE | 2022-08-01 10:45 | NUR ---
JOHNSON DONE AND DR. ABDALLA NOTEFED
--- NOTE | 2022-08-01 11:14 | NUR ---
ROOM [facility]
--- NOTE | 2022-08-01 11:18 | NUR ---
TIMMY ARMSTRONG RN
--- NOTE | 2022-08-01 11:18 | NUR ---
TO ROOM 117-2 VIA GARN STABLE VS O2 SAT 92% WITH FIO2 2LNC
[2022-08-01] MEDS: IPRATROPIUM NEB FS 0.5 MG/2.5 ML AMPUL.NEB NEB SCH ×5 (11:27→23:50)
--- NOTE | 2022-08-01 12:00 | NUR ---
RN NOTES Received resident from ED via Aox4. Pt on 2lpm NC. Hernandez. IV wrist 22g Addendum: 08/01/22 at 1847 by PETE MONTES RN (continuation) IV site on left wrist 22g. Noted with sob, shallow breathing, sat 91% at 2lpm. No c/o pain at this time.
[2022-08-01] MEDS: ALBUTEROL FS 2.5 MG/3 ML VIAL.NEB NEB SCH ×5 (13:22→23:50)
[2022-08-01] MEDS: methylPREDNISolone SOD SUCC 40 MG/ML VIAL IV SCH ×2 (13:54→21:09)
[2022-08-01 14:07] VITALS: BP 117/67
[2022-08-01 16:00] VITALS: BP 121/71
[2022-08-01] MEDS: BUDESONIDE RESPULE INH 0.5 MG/2 ML AMPUL.NEB NEB SCH (16:47)
[2022-08-01] MEDS ORDERED: FLUTICASONE/SALMETEROL 1 DISK IH SCH (17:00)
--- NOTE | 2022-08-01 18:47 | NUR ---
RN CLOSING NOTES Resident remains in stable condition. Aox4. VS WNL. No complain of pain. L wrist 22g IV line removed. ADRIANA midline 18g inserted, patent, intact and dry. HOB elevated, 2lpm via NC. Pt uses bedside commode with assist. Call light within easy reach. Safety precaution observed at all times. Bed in low and locked position.
[2022-08-01] MEDS ORDERED: IPRATROPIUM NEB FS 0.5 MG/2.5 ML AMPUL.NEB NEB SCH (19:30)
[2022-08-01] MEDS ORDERED: ALBUTEROL FS 2.5 MG/3 ML VIAL.NEB NEB SCH (19:30)
--- NOTE | 2022-08-01 19:38 | NUR ---
RN OPENING NOTES; Received Patient in bed aaox4,Able to make needs known,on 2l 02 via NC dale well No sign sob/distress noted,No complain of Pain/Discomfort at this time,IV Access on ADRIANA midline 18g Intact and Patent,Pt uses bedside commode with assist. Call light within easy reach. Safety precaution observed at all times. Bed in low and locked position.Will Continue to monitor.
[2022-08-01 20:00] VITALS: BP 110/71
[2022-08-02] VITALS: BP 128/65
[2022-08-02] MEDS: ALBUTEROL FS 2.5 MG/3 ML VIAL.NEB NEB SCH ×6 (03:37→23:04)
[2022-08-02] MEDS: IPRATROPIUM NEB FS 0.5 MG/2.5 ML AMPUL.NEB NEB SCH ×6 (03:37→23:00)
[2022-08-02 04:00] VITALS: BP 128/65
[2022-08-02] MEDS: methylPREDNISolone SOD SUCC 40 MG/ML VIAL IV SCH ×3 (04:44→21:52)
[2022-08-02] MEDS: ENOXAPARIN SODIUM 40 MG/0.4 ML DISP.SYRIN SQ SCH (05:38)
[2022-08-02] MEDS: CEFTRIAXONE 1 G in IV D5W 50 ML IV SCH (06:04)
[2022-08-02 06:33] LABS: BASOPHILS % (AUTO) 0.1 % (0.0-2.0); HEMATOCRIT 40 % (33-45); HEMOGLOBIN 13.6 g/dL (11.5-14.8); LYMPHOCYTES # (AUTO) 0.9 K/uL (0.8-4.8); LYMPHOCYTES % (AUTO) 7.7 % (20.0-44.0); MEAN CORPUSCULAR HGB CONC 34 g/dl (31.0-36.0); MEAN CORPUSCULAR VOLUME 95 fL (82-100); MONOCYTES # (AUTO) 0.6 K/uL (0.1-1.30); MONOCYTES % (AUTO) 5.2 % (2.0-12.0); NEUTROPHILS # (AUTO) 9.9 K/uL (1.8-8.9); PLATELET COUNT (AUTO) 157 K/uL (150-450); WHITE BLOOD COUNT (AUTO) 11.4 K/uL (4.3-11.0)
--- NOTE | 2022-08-02 06:40 | NUR ---
RN CLOSING NOTES; Patient in bed aaox4,Able to make needs known,on 2l 02 via NC dale well No sign sob/distress noted,No complain of Pain/Discomfort during shift,Due meds given as order,all needs attended,IV Access on ADRIANA midline 18g Intact and Patent,Pt uses bedside commode with assist. Call light within easy reach. Safety precaution observed at all times. Bed in low and locked position.Anurag endorsed to next shift.
[2022-08-02 07:07] LABS: CALCIUM, SERUM 8.5 mg/dL (8.5-10.1); CREATININE 0.7 mg/dL (0.6-1.3); POTASSIUM 4.1 mmol/L (3.5-5.1)
--- NOTE | 2022-08-02 07:30 | NUR ---
ROLL BUCKER OPENING NOTES RECEIVED PT AWAKE IN BED AOX4. NO COMPLAINTS OF PAIN OR DISCOMFORT AT THIS TIME. RESPIRATIONS ARE EQUAL AND UNLABORED WITH NO SOB. PT IS ON NASAL CANNULA CURRENTLY ON 1L. PT IS PO AND RECEIVES MEDS ORALLY. IV ACCESS ON ADRIANA MIDLINE PATENT AND INTACT. BED SAFETY AND AT ITS LOWEST SETTING. SIDERAILS UP AT ALL TIMES. WILL ANTICIPATE NEEDS.
[2022-08-02 08:00] VITALS: BP 126/77
[2022-08-02] MEDS: PANTOPRAZOLE 40 MG TABLET.DR PO SCH (08:18)
[2022-08-02] MEDS: SPIRONOLACTONE 25 MG TABLET PO SCH (08:18)
--- NOTE | 2022-08-02 08:23 | NUR ---
WOUND CARE CONSULT: PT PRESENTS WITH PAINFUL DRY WOUND TO RT LOWER LEG, PRESENT ON ADMISSION. DR CADENA CALLED FOR DPM CONSULT. IN AGREEMENT WITH PLAN OF CARE.
--- NOTE | 2022-08-02 08:59 | NUR ---
ICD 9 CODER NOTES NEW ORDER FROM DR. HERNÁNDEZ TO DC PREVIOUS DIET AND CHANGE TO REGULAR DIET. NOTED AND CARRIED OUT.
[2022-08-02] MEDS ORDERED: TIOTROPIUM BROMIDE 6 CAP/BOX CAP.W.DEV IH SCH (09:00)
[2022-08-02] MEDS ORDERED: K PHOS NEUTRAL 250 MG TABLET PO ONE (10:00)
[2022-08-02] MEDS: BUDESONIDE RESPULE INH 0.5 MG/2 ML AMPUL.NEB NEB SCH ×3 (10:07→17:00)
[2022-08-02] MEDS: AZITHROMYCIN 500 MG in IV D5W 250 ML IV SCH (10:44)
[2022-08-02 12:00] VITALS: BP 122/70
[2022-08-02 16:00] VITALS: BP 131/71
--- NOTE | 2022-08-02 18:23 | NUR ---
CYLINDER WORKER CLOSING NOTES ALL DUE MEDS AND TX GIVEN ORDERED. PT TOLERATED EVERYTHING WELL. PT HAS NC AT 2L AND TOLERATING IT WELL WITH 02 SATURATION AT 96%. IV ACCESS ON ADRIANA ML PATENT AND INTACT. NO COMPLAINTS OF PAIN OR DISCOMFORT. HOW ELEVATED TO 30-45 DEGREES. ALL NEEDS ATTENDED TO. WILL ENDORSE TO ONCOMING NURSE.
[2022-08-02 20:00] VITALS: BP 115/69
--- NOTE | 2022-08-02 20:00 | NUR ---
GEAR TECHNICIAN OPENING NOTES; Received Patient in bed aox4,Able to make needs known,on 2l 02 via NC tolerated well sating 97% No sign sob/distress noted,No complain of Pain/Discomfort at this time,IV Access on ADRIANA midline 18g Intact and Patent,on tele monitor st hr 125 on the monitor. due mers given as order no ase noted . Pt uses bedside commode with assist. Call light within easy reach. Safety precaution observed at all times. Bed in low and locked position.Will Continue to monitor.
--- NOTE | 2022-08-02 23:05 | NUR ---
RT albuteral not given due to high heart rate
[2022-08-02 23:09] LABS: BILIRUBIN,URINE NEGATIVE (NEGATIVE); COLOR,URINE YELLOW (YELLOW); LEUKOCYTE ESTERASE ,URINE NEGATIVE (NEGATIVE); NITRITE, URINE NEGATIVE (NEGATIVE); PROTEIN,URINE NEGATIVE (NEGATIVE); UGLUCOSE NEGATIVE (NEGATIVE); UROBILINOGEN,URINE 0.2 EU/dL (0.2)
[2022-08-03] VITALS: BP 105/76
[2022-08-03] MEDS: ALBUTEROL FS 2.5 MG/3 ML VIAL.NEB NEB SCH ×3 (03:30→20:21)
[2022-08-03] MEDS: IPRATROPIUM NEB FS 0.5 MG/2.5 ML AMPUL.NEB NEB SCH ×5 (03:30→20:21)
[2022-08-03 04:00] VITALS: BP 106/64
[2022-08-03] MEDS: methylPREDNISolone SOD SUCC 40 MG/ML VIAL IV SCH (05:53)
[2022-08-03] MEDS: CEFTRIAXONE 1 G in IV D5W 50 ML IV SCH (06:12)
[2022-08-03] MEDS: ENOXAPARIN SODIUM 40 MG/0.4 ML DISP.SYRIN SQ SCH (06:15)
--- NOTE | 2022-08-03 06:38 | NUR ---
FRONT LINE LEADER CLOSING NOTES; Patient in bed a/ox4,Able to make needs known,on 2L 02 via NC tolerated well . No sign sob/distress noted,No complain of Pain/Discomfort during shift,Due meds given as order,all needs attended,IV Access on ADRIANA midline 18g Intact and Patent,Pt uses bedside commode with assist. Call light within easy reach. Safety precaution observed at all times. Bed in low and locked position.Anurag endorsed to next shift.
[2022-08-03 06:50] LABS: CALCIUM, SERUM 10.5 mg/dL (8.5-10.1); CREATININE 0.8 mg/dL (0.6-1.3); PHOSPHORUS 3.1 mg/dL (2.5-4.9); POTASSIUM 4.7 mmol/L (3.5-5.1)
--- NOTE | 2022-08-03 07:17 | NUR ---
INSURANCE BUSINESS ANALYST OPENING NOTES: RECEIVED PATIENT ASLEEP BUT EASILY AROUSES TO VOICE AND TOUCH. PATIENT IS ALERT, ORIENTED X 4. NO SOB NOTED, BREATHING EVEN AND UNLABORED. ON OXYGEN WITH 2L/MIN VIA N/C WITH OXYGEN SATURATION OF 96%. ON SR WITH HR OF 93 ON TELE MONITOR. IV SITE ON LEFT UPPER ARM MIDLINE INTACT, PATENT, FLUSHES WELL WITH NO S/S INFILTRATION NOTED. ALL SAFETY MEASURES IN PLACE. BED LOCKED AND IN LOWEST POSITION WITH BED ALARM ON. CALL LIGHT WITHIN REACH. INSTRUCTED PATIENT FOR SAFETY USE OF THE BEDSIDE COMMODE. PATIENT VERBALIZED UNDERSTANDING. WILL CONTINUE TO MONITOR PATIENT THROUGHOUT SHIFT
[2022-08-03] MEDS: PANTOPRAZOLE 40 MG TABLET.DR PO SCH (07:37)
[2022-08-03 07:45] LABS: BASOPHILS % (AUTO) 0.1 % (0.0-2.0); HEMATOCRIT 45 % (33-45); HEMOGLOBIN 14.9 g/dL (11.5-14.8); LYMPHOCYTES # (AUTO) 0.9 K/uL (0.8-4.8); LYMPHOCYTES % (AUTO) 6.4 % (20.0-44.0); MEAN CORPUSCULAR HGB CONC 33 g/dl (31.0-36.0); MEAN CORPUSCULAR VOLUME 95 fL (82-100); MONOCYTES # (AUTO) 0.9 K/uL (0.1-1.30); MONOCYTES % (AUTO) 6.5 % (2.0-12.0); NEUTROPHILS # (AUTO) 12.2 K/uL (1.8-8.9); PLATELET COUNT (AUTO) 205 K/uL (150-450)
[2022-08-03 08:00] VITALS: BP 100/59
[2022-08-03] MEDS: SPIRONOLACTONE 25 MG TABLET PO SCH (08:17)
[2022-08-03] MEDS: BUDESONIDE RESPULE INH 0.5 MG/2 ML AMPUL.NEB NEB SCH ×2 (08:27→16:46)
[2022-08-03] MEDS: AZITHROMYCIN 500 MG in IV D5W 250 ML IV SCH (09:11)
[2022-08-03 12:00] VITALS: BP 100/66
[2022-08-03 16:00] VITALS: BP 100/60
[2022-08-03] MEDS ORDERED: MENTHOL/CETYLPYRD (CEPACOL) 1 LOZ LOZENGE PO PRN (16:00)
[2022-08-03] MEDS: NYSTATIN (PYXIS) 500,000 UNIT/5 ML ORAL.SUSP PO SCH (16:26)
--- NOTE | 2022-08-03 18:59 | NUR ---
LAUNDRY OPERATOR CLLSING NOTES: PATINE REMAINS STABLE THROUGHOUT SHIFT. NO C/O PAIN OR DISCOMFORT NOTED AT THIS TIME. NO APPARENT DISTRESS NOTED. ALL SAFETY MEASURES IMPLEMENTED. WILL ENDORSE TO INCOMING NURSE FOR CONTINUITY OF CARE
[2022-08-03 20:00] VITALS: BP 117/70
--- NOTE | 2022-08-03 20:00 | NUR ---
FINANCIAL SERVICES INTERN OPENING NOTES; Received Patient in bed aox4,Able to make needs known,on 2l 02 via NC tolerated well sating 97%V/S STABLE AFEBRILE . No sign sob/distress noted,No complain of Pain/Discomfort at this time,IV Access on ADRIANA midline 18g Intact and Patent,on tele sR 88 on the monitor. due mers given as order no ase noted . Pt uses bedside commode with assist. Call light within easy reach. Safety precaution observed at all times. Bed in low and locked position.Will Continue to monitor.
[2022-08-04] VITALS (7 sets, daily range): BP systolic 103–120; BP diastolic 59–76
[2022-08-04] MEDS: IPRATROPIUM NEB FS 0.5 MG/2.5 ML AMPUL.NEB NEB SCH ×4 (00:43→20:06)
[2022-08-04] MEDS: ALBUTEROL FS 2.5 MG/3 ML VIAL.NEB NEB SCH ×4 (00:43→20:06)
[2022-08-04] MEDS: CEFTRIAXONE 1 G in IV D5W 50 ML IV SCH (06:03)
[2022-08-04] MEDS: ENOXAPARIN SODIUM 40 MG/0.4 ML DISP.SYRIN SQ SCH (06:05)
--- NOTE | 2022-08-04 06:48 | NUR ---
PATENT PROSECUTION ATTORNEY CLOSING NOTES; Patient in bed a/ox4,Able to make needs known,on 2L 02 via NC tolerated well . No sign sob/distress noted,No complain of Pain/Discomfort during shift,Due meds given as order,all needs attended,IV Access on ADRIANA midline 18g Intact and Patent,Pt uses bedside commode with assist. Call light within easy reach. Safety precaution observed at all times. Bed in low and locked position.Anurag endorsed to next shift.
[2022-08-04 07:12] LABS: CREATININE 0.7 mg/dL (0.6-1.3); POTASSIUM 4.9 mmol/L (3.5-5.1)
[2022-08-04] MEDS: PANTOPRAZOLE 40 MG TABLET.DR PO SCH (07:33)
--- NOTE | 2022-08-04 07:46 | NUR ---
RN OPENING NOTES Pt. resting comfortably in bed. AOX4, verbally responsive, able to make needs known. No complain of pain or discomfort at this time. No sob, no acute resp distress noted at this time. Remains on 2lpm via NC, well tolerated. ADRIANA midline patent, intact and dry. Call light within easy reach. Safety precautions observed. Will continue yo monitor pt.
[2022-08-04] MEDS: BUDESONIDE RESPULE INH 0.5 MG/2 ML AMPUL.NEB NEB SCH ×2 (08:01→14:16)
[2022-08-04 08:29] LABS: HEMATOCRIT 46 % (33-45); HEMOGLOBIN 15.1 g/dL (11.5-14.8); LYMPHOCYTES # (AUTO) 1.3 K/uL (0.8-4.8); LYMPHOCYTES % (AUTO) 11.8 % (20.0-44.0); MEAN CORPUSCULAR HGB CONC 33 g/dl (31.0-36.0); MEAN CORPUSCULAR VOLUME 96 fL (82-100); MONOCYTES # (AUTO) 1.2 K/uL (0.1-1.30); MONOCYTES % (AUTO) 10.7 % (2.0-12.0); NEUTROPHILS # (AUTO) 8.3 K/uL (1.8-8.9); NEUTROPHILS % (AUTO) 77.5 % (43.0-81.0); PLATELET COUNT (AUTO) 159 K/uL (150-450); RED BLOOD CELL COUNT(AUTO) 4.74 MIL/uL (4.0-5.2); WHITE BLOOD COUNT (AUTO) 10.7 K/uL (4.3-11.0)
[2022-08-04] MEDS: NYSTATIN (PYXIS) 500,000 UNIT/5 ML ORAL.SUSP PO SCH ×3 (09:23→16:31)
[2022-08-04] MEDS: AZITHROMYCIN 500 MG in IV D5W 250 ML IV SCH (09:24)
[2022-08-04] MEDS: predniSONE 20 MG TABLET PO SCH (09:24)
[2022-08-04] MEDS: SPIRONOLACTONE 25 MG TABLET PO SCH (09:24)
[2022-08-04] MEDS ORDERED: IV NS 0.9% 250 ML IV PRN (10:00)
--- NOTE | 2022-08-04 18:30 | NUR ---
RN CLOSING NOTES Pt. remains in stable condition. Alert and oriented x4. Able to verbalize needs. Remains on 2lpm via NC, well tolerated O2 sat 92%. Denies pain or discomfort. ADRIANA midline 18g patent, dry and secured. VS WNL. All due medications given as ordered. Pt ambulatory with assist, commode at bedside. Fall and safety precaution implemented, bed in lowest position, locked. All needs attended. Continue with current plan of care. Call light within easy reach.
--- NOTE | 2022-08-04 18:57 | NUR ---
HAND OFF REPORT GIVEN TO NIGHTSHIFT HAILY SMALLWOOD FOR CONTINUATION OF CARE.
--- NOTE | 2022-08-04 20:00 | NUR ---
PASTING INSPECTOR OPENING NOTES; Received Patient in bed aox4,Able to make needs known,on 2l 02 via NC tolerated well sating 97%V/S STABLE AFEBRILE . No sign sob/distress noted,No complain of Pain/Discomfort at this time,IV Access on ADRIANA midline 18g Intact and Patent,on tele sR 85 on the monitor . Pt uses bedside commode with assist. Call light within easy reach. Safety precaution observed at all times. Bed in low and locked position.Will Continue to monitor.
[2022-08-05] VITALS: BP 116/82
[2022-08-05] MEDS: ALBUTEROL FS 2.5 MG/3 ML VIAL.NEB NEB SCH ×4 (01:30→20:07)
[2022-08-05] MEDS: IPRATROPIUM NEB FS 0.5 MG/2.5 ML AMPUL.NEB NEB SCH ×4 (01:30→20:07)
[2022-08-05 04:00] VITALS: BP 116/82
--- NOTE | 2022-08-05 06:37 | NUR ---
SUPERVISOR PLASTIC SHEETS CLOSING NOTES; Patient in bed a/ox4,Able to make needs known,on 2L 02 via NC tolerated well . No sign sob/distress noted,No complain of Pain/Discomfort during shift,Due meds given as order,all needs attended,IV Access on ADRIANA midline 18g Intact and Patent,Pt uses bedside commode with assist. Call light within easy reach. Safety precaution observed at all times. Bed in low and locked position.Anurag endorsed to next shift.
[2022-08-05] MEDS: CEFTRIAXONE 1 G in IV D5W 50 ML IV SCH (06:46)
[2022-08-05] MEDS: ENOXAPARIN SODIUM 40 MG/0.4 ML DISP.SYRIN SQ SCH (06:47)
[2022-08-05 06:57] LABS: BASOPHILS % (AUTO) 0.1 % (0.0-2.0); EOSINOPHILS % (AUTO) 0.4 % (0.0-6.0); HEMATOCRIT 44 % (33-45); HEMOGLOBIN 14.8 g/dL (11.5-14.8); LYMPHOCYTES # (AUTO) 1.5 K/uL (0.8-4.8); LYMPHOCYTES % (AUTO) 16.5 % (20.0-44.0); MEAN CORPUSCULAR HGB CONC 33 g/dl (31.0-36.0); MEAN CORPUSCULAR VOLUME 96 fL (82-100); MONOCYTES # (AUTO) 1.1 K/uL (0.1-1.30); MONOCYTES % (AUTO) 12.3 % (2.0-12.0); NEUTROPHILS # (AUTO) 6.2 K/uL (1.8-8.9); NEUTROPHILS % (AUTO) 70.7 % (43.0-81.0); PLATELET COUNT (AUTO) 146 K/uL (150-450); RED BLOOD CELL COUNT(AUTO) 4.63 MIL/uL (4.0-5.2); WHITE BLOOD COUNT (AUTO) 8.8 K/uL (4.3-11.0)
[2022-08-05 07:13] LABS: CALCIUM, SERUM 10.4 mg/dL (8.5-10.1); CREATININE 0.7 mg/dL (0.6-1.3)
[2022-08-05 08:00] VITALS: BP 97/63
[2022-08-05] MEDS: BUDESONIDE RESPULE INH 0.5 MG/2 ML AMPUL.NEB NEB SCH ×2 (09:00→17:00)
[2022-08-05] MEDS: AZITHROMYCIN 500 MG in IV D5W 250 ML IV SCH (11:17)
[2022-08-05] MEDS: SPIRONOLACTONE 25 MG TABLET PO SCH (11:17)
[2022-08-05] MEDS: NYSTATIN (PYXIS) 500,000 UNIT/5 ML ORAL.SUSP PO SCH ×3 (11:17→17:12)
[2022-08-05] MEDS: PANTOPRAZOLE 40 MG TABLET.DR PO SCH (11:17)
[2022-08-05] MEDS: predniSONE 20 MG TABLET PO SCH (11:17)
[2022-08-05 12:00] VITALS: BP 104/66
[2022-08-05] MEDS: methylPREDNISolone SOD SUCC 125 MG/2ML VIAL IV SCH ×2 (15:28→17:12)
[2022-08-05 16:00] VITALS: BP 101/68
--- NOTE | 2022-08-05 17:04 | NUR ---
RECEIVED PATIENT ON 2LNC SATURATIONS AT 93-97%. ORDERED HHN TXS JESSY WELL WITH NO ADVERSE REACTION NOTED
--- NOTE | 2022-08-05 19:16 | NUR ---
RN NOTE PATIENT IN BED, AOX4. NO PAIN OR DISTRESS NOTED AT THIS TIME. BREATHING ON 2L NC, TOLERATING WELL. WILL ENDORSE CONTINUITY OF CARE TO STUDY MANAGER.
--- NOTE | 2022-08-05 19:41 | NUR ---
RN OPENING NOTES PT IN BED, SITTING UPRIGHT, WITH VISITOR AT BEDSIDE. AOx4, ABLE TO MAKE NEEDS KNOWN. ON NC 2LPM AND TOLERATING WELL. NO SOB NOTED. NO S/SX OF RESPIRATORY DISTRESS NOTED. TELE MONITOR DETECTS SINUS RHYTHM WITH RATE OF 96. IV ACCESS IN ADRIANA MIDLINE #18G. IV IS INTACT, PATENT, AND FLUSHING WELL. SAFETY PRECAUTIONS IN PLACE: BED IN LOWEST, LOCKED POSITION, SIDERAILS UPx2, AND BRAKES ON. TABLE AND CALL LIGHT WITHIN REACH. ALL NEEDS MET AT THIS TIME.
[2022-08-05 20:00] VITALS: BP 109/65
[2022-08-06] VITALS: BP 100/66
[2022-08-06] MEDS: ALBUTEROL FS 2.5 MG/3 ML VIAL.NEB NEB SCH ×4 (01:50→20:40)
[2022-08-06] MEDS: IPRATROPIUM NEB FS 0.5 MG/2.5 ML AMPUL.NEB NEB SCH ×4 (01:50→20:40)
[2022-08-06 04:00] VITALS: BP 104/65
[2022-08-06] MEDS: CEFTRIAXONE 1 G in IV D5W 50 ML IV SCH (06:00)
[2022-08-06] MEDS: ENOXAPARIN SODIUM 40 MG/0.4 ML DISP.SYRIN SQ SCH (06:40)
--- NOTE | 2022-08-06 06:45 | NUR ---
RN CLOSING NOTES PT IN BED, SITTING UPRIGHT, ASLEEP, AWAKENS TO VERBAL STIMULI. AOx4, ABLE TO MAKE NEEDS KNOWN. ON NC 2LPM AND TOLERATING WELL. NO SOB NOTED. NO S/SX OF RESPIRATORY DISTRESS NOTED. TELE MONITOR DETECTS SINUS RHYTHM WITH RATE OF 96. IV ACCESS IN ADRIANA MIDLINE #18G. IV IS INTACT, PATENT, AND FLUSHING WELL. ALL ORDERS CARRIED OUT. ALL NEEDS MET. PT KEPT CLEAN AND DRY. SAFETY PRECAUTIONS IN PLACE: BED IN LOWEST, LOCKED POSITION, SIDERAILS UPx2, AND BRAKES ON. TABLE AND CALL LIGHT WITHIN REACH. WILL ENDORSE TO ONCOMING SHIFT FOR ANDRE.
--- NOTE | 2022-08-06 07:25 | NUR ---
SURFACE GRINDER TENDER OPENING NOTES RECEIVED PT SITTING ON BEDSIDE COMMODE, AOx4, ABLE TO MAKE NEEDS KNOWN. ON OXYGEN INHALATION AT 2LPM VIA NC TOLERATING WELL. NO SOB NOR ANY S/SX OF RESPIRATORY DISTRESS NOTED. TELE MONITOR IS SHOWING SINUS RHYTHM AT 90 BPM. IV ACCESS IN ADRIANA MIDLINE G#18, SALINE LOCKED, PATENT, DRESSING INTACT, AND FLUSHING WELL. SAFETY PRECAUTIONS IN PLACE: BED IN LOWEST AND LOCKED POSITION, SIDERAILS UP X2,TRAY TABLE AND CALL LIGHT WITHIN EASY REACH. WILL CONTINUE TO MONITOR AT THIS TIME.
[2022-08-06] MEDS: PANTOPRAZOLE 40 MG TABLET.DR PO SCH (07:49)
[2022-08-06 08:00] VITALS: BP 122/69
[2022-08-06] MEDS: SPIRONOLACTONE 25 MG TABLET PO SCH (08:03)
[2022-08-06] MEDS: methylPREDNISolone SOD SUCC 125 MG/2ML VIAL IV SCH ×2 (08:03→16:40)
[2022-08-06] MEDS: NYSTATIN (PYXIS) 500,000 UNIT/5 ML ORAL.SUSP PO SCH ×3 (08:03→16:39)
[2022-08-06] MEDS: BUDESONIDE RESPULE INH 0.5 MG/2 ML AMPUL.NEB NEB SCH ×2 (09:04→17:23)
[2022-08-06 09:07] LABS: HEMATOCRIT 44 % (33-45); HEMOGLOBIN 14.7 g/dL (11.5-14.8); LYMPHOCYTES # (AUTO) 0.7 K/uL (0.8-4.8); LYMPHOCYTES % (AUTO) 6.7 % (20.0-44.0); MEAN CORPUSCULAR HGB CONC 33 g/dl (31.0-36.0); MEAN CORPUSCULAR VOLUME 96 fL (82-100); MONOCYTES # (AUTO) 0.4 K/uL (0.1-1.30); MONOCYTES % (AUTO) 3.7 % (2.0-12.0); NEUTROPHILS # (AUTO) 9.7 K/uL (1.8-8.9); NEUTROPHILS % (AUTO) 89.6 % (43.0-81.0); PLATELET COUNT (AUTO) 144 K/uL (150-450); RED BLOOD CELL COUNT(AUTO) 4.62 MIL/uL (4.0-5.2); WHITE BLOOD COUNT (AUTO) 10.8 K/uL (4.3-11.0)
[2022-08-06 09:20] LABS: CALCIUM, SERUM 9.9 mg/dL (8.5-10.1); CREATININE 0.8 mg/dL (0.6-1.3); POTASSIUM 4.8 mmol/L (3.5-5.1)
[2022-08-06 12:00] VITALS: BP 106/61
[2022-08-06 16:00] VITALS: BP 113/67
--- NOTE | 2022-08-06 19:04 | NUR ---
CO CHAIRMAN CLOSING NOTES PT LYING IN BED WITH HOB ELEVATED, AOx4, ABLE TO MAKE NEEDS KNOWN. ON OXYGEN INHALATION AT 2LPM VIA NC TOLERATING WELL. NO SOB NOR ANY S/SX OF RESPIRATORY DISTRESS NOTED. TELE MONITOR IS SHOWING SINUS TACHY AT 101 BPM. IV ACCESS IN ADRIANA MIDLINE G#18, SALINE LOCKED, PATENT, DRESSING INTACT, AND FLUSHING WELL. ALL DUE MEDS GIVEN. ALL NEEDS MET. NO PAIN NOR DISCOMFORT AT THIS TIME. SAFETY PRECAUTIONS MAINTAINED: BED IN LOWEST AND LOCKED POSITION, SIDERAILS UP X2,TRAY TABLE AND CALL LIGHT WITHIN EASY REACH. WILL ENDORSE TO WORKFORCE CONSULTANT NURSE..
--- NOTE | 2022-08-06 19:30 | NUR ---
TRANSPORTATION SPECIALIST OPENING NOTES RECEIVED PATIENT AWAKE IN BED IN HIGH URBAN'S. A/O X4. BREATHING EVEN AND NON-LABORED, ON O2 AT 2LPM VIA NASAL CANULA. NOT IN APPARENT DISTRESS. NO C/O PAIN OR DISCOMFORT AT THIS TIME. ON TELE MONITOR READING SINUS TACHYCARDIA WITH INVERTED T-WAVE AT 102 BPM. HAS LEFT UPPER ARM MIDLINE #18G AND SALINE LOCKED. NO S/S INFILTRATION NOTED. SAFETY PRECAUTIONS IN PLACE: BED LOCKED AND IN LOW POSITION, SIDE RAILS UP X2, CALL LIGHT WITHIN REACH. WILL CONTINUE POC.
[2022-08-06 20:00] VITALS: BP 125/73
[2022-08-07] VITALS (7 sets, daily range): BP systolic 114–136; BP diastolic 72–81
[2022-08-07] MEDS: ALBUTEROL FS 2.5 MG/3 ML VIAL.NEB NEB SCH ×4 (01:30→20:21)
[2022-08-07] MEDS: IPRATROPIUM NEB FS 0.5 MG/2.5 ML AMPUL.NEB NEB SCH ×4 (01:30→20:21)
[2022-08-07] MEDS: ENOXAPARIN SODIUM 40 MG/0.4 ML DISP.SYRIN SQ SCH (05:50)
[2022-08-07] MEDS: CEFTRIAXONE 1 G in IV D5W 50 ML IV SCH (06:08)
--- NOTE | 2022-08-07 06:51 | NUR ---
MANAGER MATERIALS MANAGEMENT CLOSING NOTES PATIENT LAYING IN BED AWAKE, HOB ELEVATED. ABLE TO VERBALIZE NEEDS. NO ACUTE EVENTS DURING THE NIGHT. NO CARDIAC OR RESPIRATORY DISTRESS NOTED. DENIES PAIN AT THIS TIME. AFEBRILE. ON TELE MONITOR READING SINUS RHYTHM AT 73 BPM. LEFT UPPER ARM MIDLINE #18G INTACT, PATENT AND FLUSHING. ABLE TO USE BEDSIDE COMMODE ALONE. ALL DUE MEDS GIVEN AND NEEDS ATTENDED. SAFETY PRECAUTIONS MAINTAINED. WILL ENDORSE TO NEXT SHIFT FOR ANDRE.
--- NOTE | 2022-08-07 07:25 | NUR ---
DATA CENTER MANAGER NOTES RECIVED PT IN BED, ASLEEP. TELEMETRY SHOWED SR 72/MIN. OXYGEN AT 2/L, REDUCED TO 1L VIA NC, WILL CONTINUE MONITOR OXIMETRY. FALL PRECAUTIONS IMPLEMENTED, BED LOCKED AND IN LOWEST POSITION, ALL SAFETY MEASURES IMPLEMENTED.
[2022-08-07] MEDS: PANTOPRAZOLE 40 MG TABLET.DR PO SCH (07:40)
[2022-08-07] MEDS: BUDESONIDE RESPULE INH 0.5 MG/2 ML AMPUL.NEB NEB SCH ×2 (08:17→14:27)
[2022-08-07] MEDS: NYSTATIN (PYXIS) 500,000 UNIT/5 ML ORAL.SUSP PO SCH ×3 (09:01→16:43)
[2022-08-07] MEDS: SPIRONOLACTONE 25 MG TABLET PO SCH (09:02)
[2022-08-07] MEDS: methylPREDNISolone SOD SUCC 125 MG/2ML VIAL IV SCH ×2 (09:02→16:43)
--- NOTE | 2022-08-07 10:36 | NUR ---
RN NOTE @10:20 PT REPORTED SOME SOB. resp rate 20, o2 saturation 90%. HAS O2 VIA NC 1/L, INCREASED TO 2/L. RECHECK IN 15 MIN.
[2022-08-07 10:54] LABS: BASOPHILS % (AUTO) 0.1 % (0.0-2.0); HEMATOCRIT 46 % (33-45); HEMOGLOBIN 14.7 g/dL (11.5-14.8); LYMPHOCYTES # (AUTO) 0.7 K/uL (0.8-4.8); LYMPHOCYTES % (AUTO) 5.2 % (20.0-44.0); MEAN CORPUSCULAR HGB CONC 32 g/dl (31.0-36.0); MEAN CORPUSCULAR VOLUME 97 fL (82-100); MONOCYTES # (AUTO) 0.9 K/uL (0.1-1.30); MONOCYTES % (AUTO) 6.4 % (2.0-12.0); NEUTROPHILS # (AUTO) 12.1 K/uL (1.8-8.9); NEUTROPHILS % (AUTO) 88.3 % (43.0-81.0); PLATELET COUNT (AUTO) 133 K/uL (150-450); RED BLOOD CELL COUNT(AUTO) 4.73 MIL/uL (4.0-5.2); WHITE BLOOD COUNT (AUTO) 13.7 K/uL (4.3-11.0)
--- NOTE | 2022-08-07 10:57 | NUR ---
RN NOTE PT ON 2/L O2 VIA NC, RESP RATE 16, SATURATION 91%, CONTINUE TO MONITOR.
[2022-08-07 11:07] LABS: CALCIUM, SERUM 10.1 mg/dL (8.5-10.1); CREATININE 0.7 mg/dL (0.6-1.3); MAGNESIUM 2.6 mg/dL (1.8-2.4); PHOSPHORUS 2.4 mg/dL (2.5-4.9); POTASSIUM 4.4 mmol/L (3.5-5.1)
[2022-08-07] MEDS ORDERED: K PHOS NEUTRAL 250 MG TABLET PO ONE (13:00)
--- NOTE | 2022-08-07 18:56 | NUR ---
BUSINESS DEVELOPMENT INTERN CLOSING NOTES PT LYING IN BED WITH HOB ELEVATED, AOx4, ABLE TO MAKE NEEDS KNOWN. ON O2 AT 2LPM VIA NC. IV ACCESS IN ADRIANA MIDLINE G#18, SALINE LOCKED, AND FLUSHING WELL. WOUND ON RIGHT CALF OOZING, WOUND CARE CONSALT REQUESTED. SAFETY PRECAUTIONS MAINTAINED: BED IN LOWEST AND LOCKED POSITION, SIDERAILS UP X2,TRAY TABLE AND CALL LIGHT WITHIN EASY REACH. WILL ENDORSE TO DIRECTOR OF UNDERGRADUATE ADMISSIONS NURSE..
--- NOTE | 2022-08-07 19:15 | NUR ---
HARBOR DEPARTMENT MANAGER OPENING NOTES PATIENT IS SITTING IN BED, AWAKE, A/O X4. SHE IS ON O2 AT 2LPM VIA NASAL CANULA. NO S/S OF SOB OR DISTRESS. TOLERATED WELL. PATIENT DENIES OF HAVING PAIN. ON TELE MONITOR READING SINUS RHYTHM AT 90s. LEFT UPPER ARM MIDLINE #18G; SALINE LOCKED. PATENT AND INTACT. SAFETY PRECAUTIONS IN PLACE: BED LOCKED AND IN LOW POSITION, SIDE RAILS UP X2, CALL LIGHT AND TABLE ARE WITHIN REACH. WILL CONTINUE MONITORING PATIENT'S CONDITION AND PROVIDE THE CARE SHE NEEDS.
[2022-08-08] VITALS: BP 115/60
[2022-08-08] MEDS: IPRATROPIUM NEB FS 0.5 MG/2.5 ML AMPUL.NEB NEB SCH ×4 (01:15→20:16)
[2022-08-08] MEDS: ALBUTEROL FS 2.5 MG/3 ML VIAL.NEB NEB SCH ×4 (01:16→20:16)
[2022-08-08 04:00] VITALS: BP 126/71
[2022-08-08] MEDS: CEFTRIAXONE 1 G in IV D5W 50 ML IV SCH (06:21)
[2022-08-08] MEDS: ENOXAPARIN SODIUM 40 MG/0.4 ML DISP.SYRIN SQ SCH (06:23)
[2022-08-08 06:36] LABS: CALCIUM, SERUM 10.2 mg/dL (8.5-10.1); CREATININE 0.6 mg/dL (0.6-1.3); MAGNESIUM 2.6 mg/dL (1.8-2.4); PHOSPHORUS 3.1 mg/dL (2.5-4.9); POTASSIUM 4.6 mmol/L (3.5-5.1)
[2022-08-08 06:38] LABS: HEMATOCRIT 43 % (33-45); HEMOGLOBIN 14.3 g/dL (11.5-14.8); LYMPHOCYTES # (AUTO) 0.7 K/uL (0.8-4.8); LYMPHOCYTES % (AUTO) 6.8 % (20.0-44.0); MEAN CORPUSCULAR HGB CONC 33 g/dl (31.0-36.0); MEAN CORPUSCULAR VOLUME 96 fL (82-100); MONOCYTES # (AUTO) 0.6 K/uL (0.1-1.30); MONOCYTES % (AUTO) 6.3 % (2.0-12.0); NEUTROPHILS # (AUTO) 8.3 K/uL (1.8-8.9); NEUTROPHILS % (AUTO) 86.9 % (43.0-81.0); PLATELET COUNT (AUTO) 121 K/uL (150-450); RED BLOOD CELL COUNT(AUTO) 4.47 MIL/uL (4.0-5.2); WHITE BLOOD COUNT (AUTO) 9.5 K/uL (4.3-11.0)
--- NOTE | 2022-08-08 07:27 | NUR ---
DIRECTOR HEDIS CLOSING NOTE PATIENT IS IN BED, SLEEPING. EASILY BEING AROUSED. SHE IS ON O2 AT 2LPM VIA NASAL CANULA. NO S/S OF SOB OR DISTRESS. TOLERATED WELL. ON TELE MONITOR READING SINUS RHYTHM AT 90s. LEFT UPPER ARM MIDLINE #18G; SALINE LOCKED. PATENT AND INTACT. SAFETY PRECAUTIONS IN PLACE: BED LOCKED AND IN LOW POSITION, SIDE RAILS UP X2, CALL LIGHT AND TABLE ARE WITHIN REACH. WILL ENDORSE NEXT SHIFT NURSE FOR CONTINUING PATIENT CARE.
[2022-08-08 08:00] VITALS: BP 106/66
[2022-08-08] MEDS: PANTOPRAZOLE 40 MG TABLET.DR PO SCH (08:09)
[2022-08-08] MEDS: SPIRONOLACTONE 25 MG TABLET PO SCH (08:10)
[2022-08-08] MEDS: NYSTATIN (PYXIS) 500,000 UNIT/5 ML ORAL.SUSP PO SCH ×3 (08:10→16:38)
[2022-08-08] MEDS: methylPREDNISolone SOD SUCC 125 MG/2ML VIAL IV SCH ×2 (08:10→16:38)
[2022-08-08] MEDS: BUDESONIDE RESPULE INH 0.5 MG/2 ML AMPUL.NEB NEB SCH ×2 (09:00→17:34)
--- NOTE | 2022-08-08 11:28 | NUR ---
WOUND CARE CONSULT/FOLLOW UP: PT SEEN FOR RT LOWER LEG WOUND WHICH IS NOW DRAINING MODERATE AMOUNT OF PINK DRAINAGE. DR CADENA NOTIFIED. WOUND DRESSED WITH GAUZE, ABD PAD AND SECURED WITH BURN NET. LEG ELEVATED ON PILLOW.
[2022-08-08 12:00] VITALS: BP 106/65
[2022-08-08] MEDS ORDERED: SCOPOLAMINE PATCH 1 MG/72HR TD SCH (14:00)
[2022-08-08 16:00] VITALS: BP 113/68
--- NOTE | 2022-08-08 18:34 | NUR ---
PATIENT IS AWAKE, ALERT AND ORIENTED X3, NO COMPLAINT OF PAIN, STILL ON 2L/MIN OF OXYGEN VIA N/C. VITAL SIGNS ARE STABLE.
[2022-08-08 20:00] VITALS: BP 118/56
[2022-08-09] VITALS: BP 122/69
[2022-08-09] MEDS: ALBUTEROL FS 2.5 MG/3 ML VIAL.NEB NEB SCH ×5 (01:30→20:08)
[2022-08-09] MEDS: IPRATROPIUM NEB FS 0.5 MG/2.5 ML AMPUL.NEB NEB SCH ×5 (01:30→20:08)
[2022-08-09 04:00] VITALS: BP 119/73
--- NOTE | 2022-08-09 04:48 | NUR ---
closing notes: alert and orientated X4 uses the bedside commode using 02 2 liters n/c no noted SOB sats 94 - 96% no coughing able to sleep with HOB elevated
[2022-08-09] MEDS: ENOXAPARIN SODIUM 40 MG/0.4 ML DISP.SYRIN SQ SCH (06:22)
[2022-08-09] MEDS: CEFTRIAXONE 1 G in IV D5W 50 ML IV SCH (06:22)
[2022-08-09 06:39] LABS: BASOPHILS % (AUTO) 0.1 % (0.0-2.0); HEMATOCRIT 42 % (33-45); HEMOGLOBIN 13.7 g/dL (11.5-14.8); LYMPHOCYTES # (AUTO) 0.6 K/uL (0.8-4.8); LYMPHOCYTES % (AUTO) 5.2 % (20.0-44.0); MEAN CORPUSCULAR HGB CONC 33 g/dl (31.0-36.0); MEAN CORPUSCULAR VOLUME 97 fL (82-100); MONOCYTES # (AUTO) 0.7 K/uL (0.1-1.30); MONOCYTES % (AUTO) 6.6 % (2.0-12.0); NEUTROPHILS # (AUTO) 9.5 K/uL (1.8-8.9); NEUTROPHILS % (AUTO) 88.1 % (43.0-81.0); PLATELET COUNT (AUTO) 122 K/uL (150-450); RED BLOOD CELL COUNT(AUTO) 4.36 MIL/uL (4.0-5.2); WHITE BLOOD COUNT (AUTO) 10.7 K/uL (4.3-11.0)
[2022-08-09 07:06] LABS: CALCIUM, SERUM 10.2 mg/dL (8.5-10.1); CREATININE 0.6 mg/dL (0.6-1.3); MAGNESIUM 2.6 mg/dL (1.8-2.4); PHOSPHORUS 2.6 mg/dL (2.5-4.9); POTASSIUM 4.6 mmol/L (3.5-5.1)
--- NOTE | 2022-08-09 07:17 | NUR ---
PATIENT STILL ASLEEP, NO SIGNS OF IN DISTRESS. STILL ON 2L/MIN OXYGEN VIA N/C. NO COMPLAINT OF SHORTH OF BREATHE.
[2022-08-09] MEDS: PANTOPRAZOLE 40 MG TABLET.DR PO SCH (07:49)
[2022-08-09] MEDS: SPIRONOLACTONE 25 MG TABLET PO SCH (07:50)
[2022-08-09] MEDS: NYSTATIN (PYXIS) 500,000 UNIT/5 ML ORAL.SUSP PO SCH ×3 (07:50→17:00)
[2022-08-09] MEDS: methylPREDNISolone SOD SUCC 125 MG/2ML VIAL IV SCH (07:50)
[2022-08-09 08:00] VITALS: BP 120/75
[2022-08-09] MEDS ORDERED: LEVO750T46 PO (11:43)
[2022-08-09] MEDS ORDERED: FLUT1DIS5 IH (11:43)
[2022-08-09] MEDS ORDERED: ALBU18HF2 IH (11:43)
[2022-08-09] MEDS ORDERED: TIOT18CA3 IH (11:43)
[2022-08-09] MEDS ORDERED: PRED50TA PO (11:43)
[2022-08-09] MEDS: BUDESONIDE RESPULE INH 0.5 MG/2 ML AMPUL.NEB NEB SCH ×2 (11:55→17:35)
[2022-08-09 12:00] VITALS: BP 120/67
[2022-08-09] MEDS ORDERED: methylPREDNISolone SOD SUCC 125 MG/2ML VIAL IV SCH (12:00)
[2022-08-09] MEDS ORDERED: DOXY100T2 PO (12:42)
[2022-08-09 16:00] VITALS: BP 119/65
--- NOTE | 2022-08-09 16:11 | NUR ---
ADDRESS CHANGE CLERK NOTES DISCHARGE SUMMARY INSTRUCTIONS REVIEWED WITH THE PATIENT, CONFIRMED UNDERSTANDING, VERIFY PHARMACY OF CHOICE FOR THE PRESCRIPTION. NOTED RIGHT LOWER LEG WOUND, SEEN BY MD. INFORMED DR. GUZMAN WITH ORDER FOR HOME HEALTH REFERRAL, INFORMED CURRICULUM WRITER DEMIAN. ALL DISCHARGE PAPERWORKS SIGNED BY THE PATIENT AND BELONGINGS LIST SIGNED BY THE PATIENT. AWAITING FOR TRANSPORT.
--- NOTE | 2022-08-09 18:46 | NUR ---
PT LYING IN BED WITH HOB ELEVATED, AOx4, ABLE TO MAKE NEEDS KNOWN. ON O2 AT 2LPM VIA NC. IV ACCESS IN ADRIANA MIDLINE G#18, SALINE LOCKED, AND FLUSHING WELL. WOUND ON RIGHT CALF DRESSING CHANGED, PATIENT IS GOING HOME TODAY.
--- NOTE | 2022-08-09 20:20 | NUR ---
ENGINEER DESIGN AND CONSTRUCTION NOTES PATIENT EXITED THE HOSPITAL VIA GURNEY, RELEASED ALL PERSONAL BELONGINGS AND DISCHARGE PAPERWORKS.
== END 2022-08-09 21:26 | disposition home or self-care (01) | DRG 133 ==
LOC: ER 03:16 → TELE-TD 11:14 → TELE1 08-02 09:58
PROVIDERS: ADMIT Nurse Practitioner Acute Care; ATTEND Internal Medicine
PROC: 05H633Z Insertion of Infusion Device into Left Subclavian Vein, Percutaneous Approach (ICD-10-PCS; principal; 2022-08-01)
PROC: B547ZZA Ultrasonography of Left Subclavian Vein, Guidance (ICD-10-PCS; 2022-08-01)
PROC: 0JBQ0ZZ Excision of Right Foot Subcutaneous Tissue and Fascia, Open Approach (ICD-10-PCS; 2022-08-09)
DX: J96.01 Acute respiratory failure with hypoxia (principal); I50.33 Acute on chronic diastolic (congestive) heart failure; E87.1 Hypo-osmolality and hyponatremia; E88.09 Other disorders of plasma-protein metabolism, not elsewhere classified; E88.01 Alpha-1-antitrypsin deficiency; I11.0 Hypertensive heart disease with heart failure; J20.9 Acute bronchitis, unspecified; E78.5 Hyperlipidemia, unspecified; I47.1 Supraventricular tachycardia; K21.9 Gastro-esophageal reflux disease without esophagitis; Z87.891 Personal history of nicotine dependence; Z88.0 Allergy status to penicillin; Z20.822 Contact with and (suspected) exposure to COVID-19; Z86.19 Personal history of other infectious and parasitic diseases; J44.1 Chronic obstructive pulmonary disease with (acute) exacerbation; L97.829 Non-pressure chronic ulcer of other part of left lower leg with unspecified severity; L97.819 Non-pressure chronic ulcer of other part of right lower leg with unspecified severity; J44.0 Chronic obstructive pulmonary disease with (acute) lower respiratory infection; I48.92 Unspecified atrial flutter; M25.571 Pain in right ankle and joints of right foot; L97.319 Non-pressure chronic ulcer of right ankle with unspecified severity
CPT/HCPCS: 36410; 36415; 36600; 71045-TC; 80048-TC; 80076-TC; 82803-TC; 83605-TC; 83735-TC; 83880; 84100-TC; 84484-TC; 85025-TC; 87040-TC; 87081-TC; 93926-TC; 94799-TC; A4217; A6253; A6403; C9803; G0378; J0456; J0696; J1650; J2920; J2930; J7050; J7060; J7070

== ENCOUNTER 2023-05-27 20:33 | Emergency (ER) | payer OTHER ==
[~2023-05-27] VITALS: Ht 165.1 cm; Wt 48.1 kg
[~2023-05-27 20:33] MED LIST changes: +DOXY100T2 PO; +FURO20TA4 PO; +PRED50TA PO
[2023-05-27] MEDS ORDERED: NAPR-1164 PO (22:38)
[2023-05-27] MEDS ORDERED: KETOROLAC TROMETHAMINE 15 MG/ML VIAL ONE (22:55)
[2023-05-27] MEDS ORDERED: KETOROLAC TROMETHAMINE INJ 60 MG/2 ML VIAL IM ONE (23:00)
[2023-05-27 23:37] VITALS: BP 110/65; TEMP 98.2; O2SAT 95
== END 2023-05-27 23:38 | disposition home or self-care (01) ==
LOC: ER 20:37
DX: S90.31XA Contusion of right foot, initial encounter (principal); I10 Essential (primary) hypertension; J44.9 Chronic obstructive pulmonary disease, unspecified; Z90.89 Acquired absence of other organs; Z98.86 Personal history of breast implant removal; Z88.0 Allergy status to penicillin; Z88.8 Allergy status to other drugs, medicaments and biological substances; Z79.899 Other long term (current) drug therapy; W20.8XXA Other cause of strike by thrown, projected or falling object, initial encounter; Y93.89 Activity, other specified; Y92.89 Other specified places as the place of occurrence of the external cause; Y99.8 Other external cause status
CPT/HCPCS: 99283; 96372; 73630; J1885

== ENCOUNTER 2023-06-30 20:02 | Emergency (ER) | payer OTHER ==
[~2023-06-30] VITALS: Ht 165.1 cm; Wt 49.9 kg
[~2023-06-30 20:02] MED LIST changes: +NAPR-1164 PO
[2023-06-30] MEDS: methylPREDNISolone SOD SUCC 125 MG/2ML VIAL IV ONE (21:30)
[2023-06-30] MEDS: CEFTRIAXONE 1GM BAG (ER ONLY) 50 ML IV ONE (21:30)
[2023-06-30] MEDS: AZITHROMYCIN 500 MG in IV D5W 250 ML IV ONE (21:30)
[2023-06-30] MEDS: ONDANSETRON HCL/PF 4 MG/2 ML VIAL IVP ONE (21:30)
[2023-06-30 22:23] VITALS: O2SAT 88
[2023-06-30] MEDS: ALBUTEROL FS 2.5 MG/3 ML VIAL.NEB CONTNEB ONE (22:23)
[2023-06-30] MEDS: IPRATROPIUM NEB FS 0.5 MG/2.5 ML AMPUL.NEB NEB ONE (22:23)
[2023-06-30] MEDS ORDERED: IPRATROPIUM NEB FS 0.5 MG/2.5 ML AMPUL.NEB ONE (22:25)
[2023-06-30] MEDS ORDERED: ALBUTEROL FS 2.5 MG/3 ML VIAL.NEB ONE (22:25)
[2023-06-30] MEDS ORDERED: CEFTRIAXONE 1 G VIAL ONE (23:20)
[2023-06-30] MEDS ORDERED: AZITHROMYCIN 500 MG VIAL ONE (23:20)
[2023-06-30] MEDS ORDERED: ONDANSETRON HCL/PF 4 MG/2 ML VIAL ONE (23:20)
[2023-06-30] MEDS ORDERED: methylPREDNISolone SOD SUCC 125 MG/2ML VIAL ONE (23:20)
[2023-06-30 23:23] VITALS: O2SAT 100
[2023-06-30] MEDS ORDERED: CEFTRIAXONE 1GM BAG (ER ONLY) 50 ML IV ONE (23:27)
[2023-06-30 23:33] LABS: CALCIUM, SERUM 9.8 mg/dL (8.5-10.1); CARBON DIOXIDE 28 mmol/L (21-32); CHLORIDE 98 mmol/L (98-107); CREATININE 0.8 mg/dL (0.6-1.3); GLUCOSE 136 mg/dL (74-106); POTASSIUM 3.5 mmol/L (3.5-5.1); SODIUM SERUM 130 mmol/L (136-145); UREA NITROGEN, BLOOD 26 mg/dL (7-18)
[2023-06-30 23:35] LABS: INR 1.33 (0.91-1.10); PARTIAL THROMBOPLASTIN TIME 33.9 SEC (24.3-34.3); PROTHROMBIN TIME 13.8 SECS (9.2-11.1)
[2023-06-30 23:39] LABS: ALANINE AMINOTRANSFERASE 53 U/L (12-78); ALBUMIN 2.3 g/dL (3.4-5.0); ALKALINE PHOSPHATASE 185 U/L (46-116); ASPARTATE AMINOTRANSFERASE 56 U/L (15-37); BILIRUBIN,TOTAL 2.6 mg/dL (0.2-1.0); TOTAL PROTEIN, SERUM 6.6 g/dL (6.4-8.2)
[2023-06-30 23:41] LABS: LACTIC ACID 1.9 mmol/L (0.4-2.0)
[2023-06-30 23:58] LABS: BASOPHILS # (AUTO) 0.1 K/uL (0.0-0.2); BASOPHILS % (AUTO) 0.8 % (0.0-2.0); EOSINOPHILS # (AUTO) 0.3 K/uL (0.0-0.7); EOSINOPHILS % (AUTO) 3.3 % (0.0-6.0); HEMATOCRIT 41 % (33-45); HEMOGLOBIN 13.8 g/dL (11.5-14.8); LYMPHOCYTES # (AUTO) 1.7 K/uL (0.8-4.8); LYMPHOCYTES % (AUTO) 18.2 % (20.0-44.0); MEAN CORPUSCULAR HEMOGLOBIN 31 PG (26.0-33.0); MEAN CORPUSCULAR HGB CONC 33 g/dl (31.0-36.0); MEAN CORPUSCULAR VOLUME 93 fL (82-100); MONOCYTES # (AUTO) 1.1 K/uL (0.1-1.30); MONOCYTES % (AUTO) 11.6 % (2.0-12.0); NEUTROPHILS % (AUTO) 66.1 % (43.0-81.0); PLATELET COUNT (AUTO) 92 K/uL (150-450); RED BLOOD CELL COUNT(AUTO) 4.46 MIL/uL (4.0-5.2); RED CELL DISTRIBUTION WIDTH 15.7 % (11.5-15.0); WHITE BLOOD COUNT (AUTO) 9.1 K/uL (4.3-11.0)
[2023-06-30 23:59] LABS: PLATELET ESTIMATE DECRE
[2023-07-01] MEDS ORDERED: FUROSEMIDE 40 MG/4 ML VIAL ONE (01:36)
[2023-07-01] MEDS: FUROSEMIDE 40 MG/4 ML VIAL IV ONE (01:36)
[2023-07-01] MEDS ORDERED: ONDANSETRON HCL/PF 4 MG/2 ML VIAL ONE (03:49)
[2023-07-01] MEDS: ONDANSETRON HCL/PF 4 MG/2 ML VIAL IV ONE (04:03)
[2023-07-01 12:05] VITALS: BP 118/63; TEMP 99; O2SAT 100
== END 2023-07-01 12:05 | disposition left against medical advice (07) ==
LOC: ER 20:05
DX: J44.9 Chronic obstructive pulmonary disease, unspecified (principal); I11.0 Hypertensive heart disease with heart failure; I50.9 Heart failure, unspecified; F17.200 Nicotine dependence, unspecified, uncomplicated; Z98.82 Breast implant status; Z90.89 Acquired absence of other organs; Z88.0 Allergy status to penicillin; Z88.8 Allergy status to other drugs, medicaments and biological substances; Z79.899 Other long term (current) drug therapy
CPT/HCPCS: 99285; 96365; 71045; 96375 ×2; 96368; 93005; 84145; 85025; 80048; 87040 ×2; 83605; 80076; 36415; 84484; 85730; 83880; 94644; 96376; J2930; J2405 ×2; J0456; J0696; J1940; J7060

== ENCOUNTER 2023-10-02 17:13 | Emergency (ER) | payer OTHER ==
[~2023-10-02] VITALS: Ht 165.1 cm; Wt 49.0 kg
[2023-10-02] MEDS ORDERED: VANCOMYCIN 1 GM /D5W 250 ML PB IV ONE (21:23)
[2023-10-02] MEDS ORDERED: VANCOMYCIN 500 MG VIAL ONE (21:23)
[2023-10-02] MEDS ORDERED: WATER FOR INJECTION,STERILE 10 ML ONE (21:24)
[2023-10-02] MEDS: VANCOMYCIN HCL 1.25 GM in IV D5W 260 ML IV ONE (21:37)
[2023-10-02 21:43] LABS: BASOPHILS # (AUTO) 0.1 K/uL (0.0-0.2); BASOPHILS % (AUTO) 0.5 % (0.0-2.0); EOSINOPHILS # (AUTO) 0.2 K/uL (0.0-0.7); EOSINOPHILS % (AUTO) 2.3 % (0.0-6.0); HEMATOCRIT 40 % (33-45); HEMOGLOBIN 13.5 g/dL (11.5-14.8); LYMPHOCYTES # (AUTO) 2.4 K/uL (0.8-4.8); LYMPHOCYTES % (AUTO) 21.7 % (20.0-44.0); MEAN CORPUSCULAR HEMOGLOBIN 31 PG (26.0-33.0); MEAN CORPUSCULAR HGB CONC 34 g/dl (31.0-36.0); MEAN CORPUSCULAR VOLUME 92 fL (82-100); MONOCYTES # (AUTO) 0.7 K/uL (0.1-1.30); MONOCYTES % (AUTO) 6.4 % (2.0-12.0); NEUTROPHILS # (AUTO) 7.5 K/uL (1.8-8.9); NEUTROPHILS % (AUTO) 69.1 % (43.0-81.0); PLATELET COUNT (AUTO) 93 K/uL (150-450); RED BLOOD CELL COUNT(AUTO) 4.38 MIL/uL (4.0-5.2); RED CELL DISTRIBUTION WIDTH 16.6 % (11.5-15.0); WHITE BLOOD COUNT (AUTO) 10.9 K/uL (4.3-11.0)
[2023-10-02 21:51] LABS: CALCIUM, SERUM 9.4 mg/dL (8.5-10.1); CREATININE 0.6 mg/dL (0.6-1.3); POTASSIUM 3.4 mmol/L (3.5-5.1)
[2023-10-02] MEDS ORDERED: CLIN300C12 PO (21:55)
[2023-10-02 22:04] LABS: ERYTHROCYTE SEDIMENTATION RATE 23 MM/HR (0-30)
[2023-10-02 22:06] LABS: C-REACTIVE PROTEIN 1.98 mg/dL (0.0-0.30)
[2023-10-02 22:14] LABS: INR 1.18 (0.91-1.10); PARTIAL THROMBOPLASTIN TIME 33.8 SEC (24.3-34.3); PROTHROMBIN TIME 12.4 SECS (9.2-11.1)
[2023-10-02 22:29] LABS: EOSINOPHILS % (MANUAL) 4 % (0-4); LYMPHOCYTES % (MANUAL) 22 % (16-48); MONOCYTES % (MANUAL) 6 % (0-11.0); NEUTROPHILS % (MANUAL) 68 (42-76); PLATELET ESTIMATE DECREASED
[2023-10-02 22:30] LABS: ANISOCYTOSIS 1+
[2023-10-02] MEDS ORDERED: IBUP-1955 PO (23:09)
[2023-10-02] MEDS ORDERED: HYDR-3976 GT (23:09)
[2023-10-02] MEDS ORDERED: HYDROCODONE/APAP 5/325MG TABLET ONE (23:44)
[2023-10-02] MEDS: HYDROCODONE/APAP 5/325MG TABLET PO ONE (23:51)
[2023-10-03 01:08] VITALS: BP 132/80; TEMP 98.3; O2SAT 99
== END 2023-10-03 01:08 | disposition home or self-care (01) ==
LOC: ER 17:13
DX: L03.115 Cellulitis of right lower limb (principal); L02.415 Cutaneous abscess of right lower limb; I10 Essential (primary) hypertension; J44.9 Chronic obstructive pulmonary disease, unspecified; Z90.89 Acquired absence of other organs; Z88.0 Allergy status to penicillin; Z88.8 Allergy status to other drugs, medicaments and biological substances; Z79.899 Other long term (current) drug therapy
CPT/HCPCS: 99285; 96365; 10060; 73700; 85025; 80048; 87040 ×2; 85652; 36415; 85730; 86140; 85007; J3370 ×2; A6407; J7060

== ENCOUNTER 2023-10-04 16:01 | Emergency (ER) | payer OTHER ==
[~2023-10-04] VITALS: Ht 165.1 cm; Wt 49.0 kg
[~2023-10-04 16:01] MED LIST changes: +CLIN300C12 PO; +HYDR-3976 GT; +IBUP-1955 PO
[2023-10-04 17:16] VITALS: BP 111/69; TEMP 97; O2SAT 94
== END 2023-10-04 17:04 | disposition home or self-care (01) ==
LOC: ER 16:24
DX: L02.416 Cutaneous abscess of left lower limb (principal); I10 Essential (primary) hypertension; J44.9 Chronic obstructive pulmonary disease, unspecified; Z90.89 Acquired absence of other organs; Z88.0 Allergy status to penicillin; Z88.8 Allergy status to other drugs, medicaments and biological substances; Z79.899 Other long term (current) drug therapy
CPT/HCPCS: 99281; A6403; A6407

== ENCOUNTER 2024-01-19 22:19 | Emergency (ER) | payer OTHER ==
[~2024-01-19] VITALS: Ht 165.1 cm; Wt 49.0 kg
[~2024-01-19 22:19] MED LIST changes: +KETO5DRO9 EACHEYE; +NITR100C6 PO; +POLY119P PO; +POLY15DR31 EACHEYE
[2024-01-19 23:19] VITALS: BP 125/76; TEMP 99.1; O2SAT 91
[2024-01-19] MEDS ORDERED: SULFAMETH/TRIMETH 800/160 MG 1 UDTAB TABLET ONE (23:58)
[2024-01-19] MEDS ORDERED: SULF1TAB48 PO (23:59)
[2024-01-20] MEDS: SULFAMETH/TRIMETH 800/160 MG 1 UDTAB TABLET PO ONE
[2024-01-20 00:30] LABS: APPEARANCE,URINE SLIGHTLY CLOUDY (CLEAR); BILIRUBIN,URINE NEGATIVE (NEGATIVE); BLOOD, URINE NEGATIVE Ery/uL (NEGATIVE); COLOR,URINE YELLOW (YELLOW); KETONES,URINE NEGATIVE (NEGATIVE); LEUKOCYTE ESTERASE ,URINE NEGATIVE (NEGATIVE); NITRITE, URINE NEGATIVE (NEGATIVE); PROTEIN,URINE NEGATIVE (NEGATIVE); UGLUCOSE NEGATIVE (NEGATIVE); UROBILINOGEN,URINE 0.2 EU/dL (0.2)
== END 2024-01-20 01:12 | disposition home or self-care (01) ==
LOC: ER 22:23
DX: N39.0 Urinary tract infection, site not specified (principal); I10 Essential (primary) hypertension; F17.200 Nicotine dependence, unspecified, uncomplicated; J44.9 Chronic obstructive pulmonary disease, unspecified; Z90.89 Acquired absence of other organs; Z88.0 Allergy status to penicillin; Z88.8 Allergy status to other drugs, medicaments and biological substances
CPT/HCPCS: 87086-TC

== ENCOUNTER 2024-02-22 12:25 | Emergency (ER) | payer OTHER ==
[~2024-02-22] VITALS: Ht 167.6 cm; Wt 49.0 kg
[~2024-02-22 12:25] MED LIST changes: +SULF1TAB48 PO
[2024-02-22 15:24] LABS: BASOPHILS # (AUTO) 0.1 K/uL (0.0-0.2); BASOPHILS % (AUTO) 0.7 % (0.0-2.0); EOSINOPHILS # (AUTO) 0.2 K/uL (0.0-0.7); HEMATOCRIT 37 % (33-45); HEMOGLOBIN 12.3 g/dL (11.5-14.8); MEAN CORPUSCULAR HEMOGLOBIN 30 PG (26.0-33.0); MEAN CORPUSCULAR HGB CONC 33 g/dl (31.0-36.0); MEAN CORPUSCULAR VOLUME 91 fL (82-100); MONOCYTES # (AUTO) 0.9 K/uL (0.1-1.30); MONOCYTES % (AUTO) 7.6 % (2.0-12.0); NEUTROPHILS # (AUTO) 8.7 K/uL (1.8-8.9); NEUTROPHILS % (AUTO) 72.7 % (43.0-81.0); PLATELET COUNT (AUTO) 99 K/uL (150-450); RED BLOOD CELL COUNT(AUTO) 4.07 MIL/uL (4.0-5.2); RED CELL DISTRIBUTION WIDTH 16.1 % (11.5-15.0)
[2024-02-22] MEDS ORDERED: VANCOMYCIN 1 GM /D5W 250 ML PB IV ONE (15:29)
[2024-02-22 15:37] LABS: INR 1.31 (0.91-1.10); PARTIAL THROMBOPLASTIN TIME 25.1 SEC (24.3-34.3); PROTHROMBIN TIME 13.3 SECS (9.2-11.1)
[2024-02-22 15:49] LABS: LACTIC ACID 2.8 mmol/L (0.4-2.0)
[2024-02-22] MEDS: IV NS 0.9% 1,000 ML BAG IV ONE (16:15)
[2024-02-22 16:22] LABS: CALCIUM, SERUM 9.4 mg/dL (8.5-10.1); CARBON DIOXIDE 32 mmol/L (21-32); CHLORIDE 104 mmol/L (98-107); CREATININE 0.4 mg/dL (0.6-1.3); GLUCOSE 141 mg/dL (74-106); POTASSIUM 3.9 mmol/L (3.5-5.1); SODIUM SERUM 141 mmol/L (136-145); UREA NITROGEN, BLOOD 8 mg/dL (7-18)
[2024-02-22 16:24] LABS: ALANINE AMINOTRANSFERASE 43 U/L (12-78); ALKALINE PHOSPHATASE 132 U/L (46-116); ASPARTATE AMINOTRANSFERASE 41 U/L (15-37); BILIRUBIN,DIRECT 0.5 mg/dL (0.0-0.2); TOTAL PROTEIN, SERUM 6.4 g/dL (6.4-8.2)
[2024-02-22] MEDS: VANCOMYCIN 1 GM in IV D5W 250 ML IV ONE (16:30)
[2024-02-22 17:07] LABS: ANISOCYTOSIS 1+; EOSINOPHILS % (MANUAL) 1 % (0-4); LYMPHOCYTES % (MANUAL) 21 % (16-48); MONOCYTES % (MANUAL) 10 % (0-11.0); NEUTROPHILS % (MANUAL) 68 (42-76); PLATELET ESTIMATE DECREASED
[2024-02-22] MEDS ORDERED: HYDROCODONE/APAP 5/325MG TABLET ONE (18:39)
[2024-02-22] MEDS: HYDROCODONE/APAP 5/325MG TABLET PO ONE (18:41)
[2024-02-23 07:45] VITALS: BP 126/75; TEMP 98.5; O2SAT 96
== END 2024-02-23 08:25 | disposition short-term general hospital (02) ==
LOC: ER 12:41
DX: A41.89 Other specified sepsis (principal); L03.115 Cellulitis of right lower limb; R65.20 Severe sepsis without septic shock; I10 Essential (primary) hypertension; F17.200 Nicotine dependence, unspecified, uncomplicated; Z88.0 Allergy status to penicillin; Z90.49 Acquired absence of other specified parts of digestive tract; Z88.8 Allergy status to other drugs, medicaments and biological substances
CPT/HCPCS: 99291; 96365; 93005; 71045; 84145; 85025; 80048; 87040 ×2; 83605 ×2; 80076; 36415; 84484; 85730; 85007; J3370 ×2; J7030; A4223; J7060

== ENCOUNTER 2024-03-09 17:28 | Emergency (ER) | payer OTHER ==
[~2024-03-09] VITALS: Ht 165.1 cm; Wt 49.9 kg
[2024-03-09 17:47] VITALS: TEMP 98.2
[2024-03-09] MEDS: ALBUTEROL FS 2.5 MG/3 ML VIAL.NEB NEB ONE (19:24)
[2024-03-09] MEDS: IPRATROPIUM NEB FS 0.5 MG/2.5 ML AMPUL.NEB NEB ONE (19:24)
[2024-03-09] MEDS ORDERED: IPRATROPIUM NEB FS 0.5 MG/2.5 ML AMPUL.NEB ONE (19:28)
[2024-03-09] MEDS ORDERED: ALBUTEROL FS 2.5 MG/3 ML VIAL.NEB ONE (19:28)
[2024-03-09 19:40] VITALS: O2SAT 96
[2024-03-09 20:31] LABS: BASOPHILS % (AUTO) 0.7 % (0.0-2.0); EOSINOPHILS # (AUTO) 0.3 K/uL (0.0-0.7); EOSINOPHILS % (AUTO) 4.7 % (0.0-6.0); HEMATOCRIT 37 % (33-45); HEMOGLOBIN 12.2 g/dL (11.5-14.8); LYMPHOCYTES # (AUTO) 2.1 K/uL (0.8-4.8); LYMPHOCYTES % (AUTO) 32.3 % (20.0-44.0); MEAN CORPUSCULAR HEMOGLOBIN 32 PG (26.0-33.0); MEAN CORPUSCULAR HGB CONC 33 g/dl (31.0-36.0); MEAN CORPUSCULAR VOLUME 96 fL (82-100); MONOCYTES # (AUTO) 0.6 K/uL (0.1-1.30); MONOCYTES % (AUTO) 9.2 % (2.0-12.0); NEUTROPHILS # (AUTO) 3.4 K/uL (1.8-8.9); NEUTROPHILS % (AUTO) 53.1 % (43.0-81.0); PLATELET COUNT (AUTO) 97 K/uL (150-450); RED BLOOD CELL COUNT(AUTO) 3.87 MIL/uL (4.0-5.2); RED CELL DISTRIBUTION WIDTH 19.1 % (11.5-15.0); WHITE BLOOD COUNT (AUTO) 6.4 K/uL (4.3-11.0)
[2024-03-09 20:40] VITALS: O2SAT 99
[2024-03-09 20:56] LABS: CALCIUM, SERUM 9.9 mg/dL (8.5-10.1); CARBON DIOXIDE 32 mmol/L (21-32); CHLORIDE 109 mmol/L (98-107); CREATININE 0.5 mg/dL (0.6-1.3); GLUCOSE 100 mg/dL (74-106); POTASSIUM 3.4 mmol/L (3.5-5.1); SODIUM SERUM 146 mmol/L (136-145); UREA NITROGEN, BLOOD 11 mg/dL (7-18)
[2024-03-09 21:09] LABS: INR 1.25 (0.91-1.10); PARTIAL THROMBOPLASTIN TIME 28.8 SEC (24.3-34.3); PROTHROMBIN TIME 13.1 SECS (9.2-11.1)
[2024-03-09 21:14] LABS: ALANINE AMINOTRANSFERASE 38 U/L (12-78); ALBUMIN 2.2 g/dL (3.4-5.0); ALKALINE PHOSPHATASE 112 U/L (46-116); ASPARTATE AMINOTRANSFERASE 36 U/L (15-37); BILIRUBIN,DIRECT 0.4 mg/dL (0.0-0.2); BILIRUBIN,TOTAL 1.1 mg/dL (0.2-1.0); NT-PRO BNP 99 pg/mL (0-125); TOTAL PROTEIN, SERUM 6.7 g/dL (6.4-8.2)
[2024-03-09 22:04] LABS: EOSINOPHILS % (MANUAL) 3 % (0-4); LYMPHOCYTES % (MANUAL) 31 % (16-48); MONOCYTES % (MANUAL) 6 % (0-11.0); NEUTROPHILS % (MANUAL) 60 (42-76); PLATELET ESTIMATE DECREASED
[2024-03-09 22:05] LABS: STOMATOCYTES 1+
[2024-03-09] MEDS ORDERED: AZIT500T2 PO (22:23)
[2024-03-09 23:08] VITALS: BP 120/80; O2SAT 91
== END 2024-03-09 23:00 | disposition home or self-care (01) ==
LOC: ER 17:30
DX: R05.9 Cough, unspecified (principal); R22.42 Localized swelling, mass and lump, left lower limb; I10 Essential (primary) hypertension; J44.9 Chronic obstructive pulmonary disease, unspecified; F17.200 Nicotine dependence, unspecified, uncomplicated; Z79.1 Long term (current) use of non-steroidal anti-inflammatories (NSAID); Z98.890 Other specified postprocedural states; Z79.899 Other long term (current) drug therapy; Z79.891 Long term (current) use of opiate analgesic; Z20.822 Contact with and (suspected) exposure to COVID-19; Z88.0 Allergy status to penicillin
CPT/HCPCS: 36415; 71046; 80048-TC; 80076-TC; 83880; 84484-TC; 85025-TC; 85730-TC; 93971-TC; 94799-TC

== ENCOUNTER → 2024-03-14 | Emergency (ER) | payer OTHER ==
[~2024-03-14] VITALS: Ht 167.6 cm; Wt 49.9 kg
[~2024-03-14] MED LIST changes: +AZIT500T2 PO; +HYDROCODONE/APAP 5/325MG TABLET ONE
[2024-03-14] MEDS: HYDROCODONE/APAP 5/325MG TABLET PO ONE (14:29)
[2024-03-14 15:22] VITALS: BP 105/56; TEMP 98.8; O2SAT 98
== END | disposition home or self-care (01) ==
LOC: ER 12:01
DX: L03.116 Cellulitis of left lower limb (principal); I10 Essential (primary) hypertension; J44.9 Chronic obstructive pulmonary disease, unspecified; F17.200 Nicotine dependence, unspecified, uncomplicated; Z79.51 Long term (current) use of inhaled steroids; Z98.890 Other specified postprocedural states; Z79.899 Other long term (current) drug therapy; Z88.0 Allergy status to penicillin

== ENCOUNTER 2024-03-22 16:49 | Emergency (ER) | payer OTHER ==
[~2024-03-22] VITALS: Ht 170.2 cm; Wt 72.6 kg
[~2024-03-22 16:49] MED LIST changes: -HYDROCODONE/APAP 5/325MG TABLET ONE
[2024-03-22 17:07] VITALS: BP 162/86; TEMP 98
[2024-03-22] MEDS ORDERED: methylPREDNISolone SOD SUCC 125 MG/2ML VIAL ONE (18:09)
[2024-03-22] MEDS ORDERED: Magnesium 1GM/D5W 100ML PREMIX 100 ML IV ONE ×2 (18:09→18:54)
[2024-03-22] MEDS: methylPREDNISolone SOD SUCC 125 MG/2ML VIAL IV ONE (18:15)
[2024-03-22] MEDS: Magnesium 1GM/D5W 100ML PREMIX 200 ML IV ONE (18:15)
[2024-03-22] MEDS ORDERED: IPRATROPIUM NEB FS 0.5 MG/2.5 ML AMPUL.NEB ONE (18:16)
[2024-03-22] MEDS ORDERED: ALBUTEROL FS 2.5 MG/3 ML VIAL.NEB ONE (18:16)
[2024-03-22] MEDS: IPRATROPIUM NEB FS 0.5 MG/2.5 ML AMPUL.NEB NEB ONE (18:28)
[2024-03-22] MEDS: ALBUTEROL FS 2.5 MG/3 ML VIAL.NEB CONTNEB ONE (18:28)
[2024-03-22 18:29] VITALS: O2SAT 91
[2024-03-22 18:35] LABS: ALANINE AMINOTRANSFERASE 38 U/L (12-78); ALKALINE PHOSPHATASE 111 U/L (46-116); ASPARTATE AMINOTRANSFERASE 55 U/L (15-37); BILIRUBIN,DIRECT 0.3 mg/dL (0.0-0.2); BILIRUBIN,TOTAL 1.1 mg/dL (0.2-1.0); CALCIUM, SERUM 9.7 mg/dL (8.5-10.1); CARBON DIOXIDE 32 mmol/L (21-32); CHLORIDE 109 mmol/L (98-107); CREATININE 0.4 mg/dL (0.6-1.3); GLUCOSE 126 mg/dL (74-106); NT-PRO BNP 148 pg/mL (0-125); POTASSIUM 4.8 mmol/L (3.5-5.1); SODIUM SERUM 143 mmol/L (136-145); TOTAL PROTEIN, SERUM 6.9 g/dL (6.4-8.2); UREA NITROGEN, BLOOD 8 mg/dL (7-18)
[2024-03-22 18:54] LABS: BASOPHILS % (AUTO) 0.6 % (0.0-2.0); EOSINOPHILS # (AUTO) 0.1 K/uL (0.0-0.7); EOSINOPHILS % (AUTO) 1.9 % (0.0-6.0); HEMATOCRIT 37 % (33-45); HEMOGLOBIN 12.3 g/dL (11.5-14.8); LYMPHOCYTES # (AUTO) 1.7 K/uL (0.8-4.8); LYMPHOCYTES % (AUTO) 30.1 % (20.0-44.0); MEAN CORPUSCULAR HEMOGLOBIN 31 PG (26.0-33.0); MEAN CORPUSCULAR HGB CONC 33 g/dl (31.0-36.0); MEAN CORPUSCULAR VOLUME 94 fL (82-100); MONOCYTES # (AUTO) 0.3 K/uL (0.1-1.30); NEUTROPHILS # (AUTO) 3.4 K/uL (1.8-8.9); NEUTROPHILS % (AUTO) 61.4 % (43.0-81.0); PLATELET COUNT (AUTO) 89 K/uL (150-450); RED BLOOD CELL COUNT(AUTO) 3.95 MIL/uL (4.0-5.2); WHITE BLOOD COUNT (AUTO) 5.5 K/uL (4.3-11.0)
[2024-03-22] MEDS: AZITHROMYCIN 500 MG in IV D5W 250 ML IV ONE (19:16)
[2024-03-22 19:35] VITALS: O2SAT 90; O2SAT 92
[2024-03-22 19:55] LABS: EOSINOPHILS % (MANUAL) 1 % (0-4); LYMPHOCYTES % (MANUAL) 22 % (16-48); MONOCYTES % (MANUAL) 4 % (0-11.0); NEUTROPHILS % (MANUAL) 73 (42-76); PLATELET ESTIMATE DECREASED
[2024-03-22 19:56] LABS: ANISOCYTOSIS 1+; OVALOCYTES 1+
== END 2024-03-22 22:16 | disposition short-term general hospital (02) ==
LOC: ER 16:55
DX: J44.1 Chronic obstructive pulmonary disease with (acute) exacerbation (principal); I10 Essential (primary) hypertension; F17.200 Nicotine dependence, unspecified, uncomplicated; Z79.1 Long term (current) use of non-steroidal anti-inflammatories (NSAID); Z79.891 Long term (current) use of opiate analgesic; Z98.890 Other specified postprocedural states; Z79.899 Other long term (current) drug therapy; Z20.822 Contact with and (suspected) exposure to COVID-19; Z88.0 Allergy status to penicillin; Z88.1 Allergy status to other antibiotic agents
CPT/HCPCS: 99291; 96365; 96367; 96375; 87426; 93005; 71045; 85025; 80048; 80076; 36415; 84484; 83880; 94644; 85007; J2919; J7030; J7040; J0456; A4223; J3475 ×2; J7060

== ENCOUNTER 2024-06-04 11:38 | Emergency (ER) | payer MEDICAID, OTHER ==
[~2024-06-04] VITALS: Ht 170.2 cm; Wt 73.5 kg
[2024-06-04] MEDS ORDERED: methylPREDNISolone SOD SUCC 125 MG/2ML VIAL ONE (12:23)
[2024-06-04] MEDS ORDERED: Magnesium 1GM/D5W 100ML PREMIX 200 ML IV ONE (12:24)
[2024-06-04] MEDS: Magnesium 1GM/D5W 100ML PREMIX 200 ML IV ONE (12:34)
[2024-06-04] MEDS: methylPREDNISolone SOD SUCC 125 MG/2ML VIAL IV ONE (12:34)
[2024-06-04] MEDS: ALBUTEROL FS 2.5 MG/3 ML VIAL.NEB CONTNEB ONE (12:35)
[2024-06-04] MEDS ORDERED: IPRATROPIUM NEB FS 0.5 MG/2.5 ML AMPUL.NEB ONE (12:45)
[2024-06-04 12:47] VITALS: O2SAT 93
[2024-06-04] MEDS: IPRATROPIUM NEB FS 0.5 MG/2.5 ML AMPUL.NEB NEB ONE (12:47)
[2024-06-04 12:48] LABS: BASOPHILS % (AUTO) 0.6 % (0.0-2.0); EOSINOPHILS # (AUTO) 0.2 K/uL (0.0-0.7); EOSINOPHILS % (AUTO) 4.6 % (0.0-6.0); HEMATOCRIT 37 % (33-45); HEMOGLOBIN 12.4 g/dL (11.5-14.8); LYMPHOCYTES # (AUTO) 1.8 K/uL (0.8-4.8); LYMPHOCYTES % (AUTO) 34.1 % (20.0-44.0); MEAN CORPUSCULAR HEMOGLOBIN 30 PG (26.0-33.0); MEAN CORPUSCULAR HGB CONC 34 g/dl (31.0-36.0); MEAN CORPUSCULAR VOLUME 90 fL (82-100); MONOCYTES # (AUTO) 0.5 K/uL (0.1-1.30); MONOCYTES % (AUTO) 9.4 % (2.0-12.0); NEUTROPHILS # (AUTO) 2.6 K/uL (1.8-8.9); NEUTROPHILS % (AUTO) 51.3 % (43.0-81.0); PLATELET COUNT (AUTO) 113 K/uL (150-450); RED BLOOD CELL COUNT(AUTO) 4.11 MIL/uL (4.0-5.2); RED CELL DISTRIBUTION WIDTH 18.9 % (11.5-15.0); WHITE BLOOD COUNT (AUTO) 5.2 K/uL (4.3-11.0)
[2024-06-04 12:59] LABS: CALCIUM, SERUM 9.9 mg/dL (8.5-10.1); CARBON DIOXIDE 36 mmol/L (21-32); CHLORIDE 102 mmol/L (98-107); CREATININE 0.6 mg/dL (0.6-1.3); GLUCOSE 114 mg/dL (74-106); POTASSIUM 2.8 mmol/L (3.5-5.1); SODIUM SERUM 143 mmol/L (136-145); UREA NITROGEN, BLOOD 16 mg/dL (7-18)
[2024-06-04 13:02] VITALS: O2SAT 100
[2024-06-04 13:10] LABS: ALANINE AMINOTRANSFERASE 39 U/L (12-78); ALBUMIN 2.2 g/dL (3.4-5.0); ALKALINE PHOSPHATASE 140 U/L (46-116); ASPARTATE AMINOTRANSFERASE 68 U/L (15-37); BILIRUBIN,DIRECT 0.7 mg/dL (0.0-0.2); BILIRUBIN,TOTAL 1.7 mg/dL (0.2-1.0); NT-PRO BNP 107 pg/mL (0-125); TOTAL PROTEIN, SERUM 5.8 g/dL (6.4-8.2)
[2024-06-04] MEDS ORDERED: POTASSIUM CHLORIDE 20 MEQ POWDER PACKET ONE (14:18)
[2024-06-04] MEDS: AZITHROMYCIN 500 MG in IV D5W 250 ML IV ONE (14:27)
[2024-06-04] MEDS: POTASSIUM CHLORIDE 20 MEQ POWDER PACKET PO ONE (14:27)
[2024-06-04 18:43] VITALS: BP 112/78; TEMP 98; O2SAT 95
== END 2024-06-04 19:26 | disposition short-term general hospital (02) ==
LOC: ER 11:40
DX: J44.1 Chronic obstructive pulmonary disease with (acute) exacerbation (principal); I10 Essential (primary) hypertension; F17.200 Nicotine dependence, unspecified, uncomplicated; L30.9 Dermatitis, unspecified; Z86.79 Personal history of other diseases of the circulatory system; Z87.19 Personal history of other diseases of the digestive system; Z87.39 Personal history of other diseases of the musculoskeletal system and connective tissue; Z79.52 Long term (current) use of systemic steroids; Z79.899 Other long term (current) drug therapy; Z86.19 Personal history of other infectious and parasitic diseases; Z88.0 Allergy status to penicillin; Z88.1 Allergy status to other antibiotic agents; Z90.49 Acquired absence of other specified parts of digestive tract
CPT/HCPCS: 99291; 96365; 96366; 96375; 96368; 93005; 71045; 85025; 80048; 80076; 36415; 84484; 83880; 94762; 94640; 94799 ×2; J2919; J0456; J3475; A4223 ×2; J7060

== ENCOUNTER 2024-06-29 00:08 | Inpatient (IN) | payer OTHER ==
[~2024-06-29] VITALS: Ht 162.6 cm; Wt 57.2 kg
[2024-06-29] VITALS (12 sets, daily range): BP systolic 92–116; BP diastolic 58–70; TEMP 98–98.8; O2SAT 94–100
[2024-06-29 01:21] LABS: BASOPHILS % (AUTO) 0.2 % (0.0-2.0); EOSINOPHILS # (AUTO) 0.5 K/uL (0.0-0.7); EOSINOPHILS % (AUTO) 3.9 % (0.0-6.0); HEMATOCRIT 32 % (33-45); HEMOGLOBIN 10.3 g/dL (11.5-14.8); LYMPHOCYTES # (AUTO) 1.4 K/uL (0.8-4.8); MEAN CORPUSCULAR HEMOGLOBIN 29 PG (26.0-33.0); MEAN CORPUSCULAR HGB CONC 33 g/dl (31.0-36.0); MEAN CORPUSCULAR VOLUME 89 fL (82-100); MONOCYTES # (AUTO) 0.4 K/uL (0.1-1.30); NEUTROPHILS # (AUTO) 9.7 K/uL (1.8-8.9); NEUTROPHILS % (AUTO) 80.9 % (43.0-81.0); PLATELET COUNT (AUTO) 68 K/uL (150-450); RED BLOOD CELL COUNT(AUTO) 3.55 MIL/uL (4.0-5.2); RED CELL DISTRIBUTION WIDTH 18.9 % (11.5-15.0)
[2024-06-29] MEDS ORDERED: ALBUTEROL FS 2.5 MG/3 ML VIAL.NEB ONE (01:27)
[2024-06-29] MEDS ORDERED: IPRATROPIUM NEB FS 0.5 MG/2.5 ML AMPUL.NEB ONE (01:27)
[2024-06-29] MEDS: IPRATROPIUM NEB FS 0.5 MG/2.5 ML AMPUL.NEB NEB ONE (01:28)
[2024-06-29] MEDS: ALBUTEROL FS 2.5 MG/3 ML VIAL.NEB CONTNEB ONE (01:28)
[2024-06-29 01:29] LABS: CALCIUM, SERUM 9.3 mg/dL (8.5-10.1); CARBON DIOXIDE 37 mmol/L (21-32); CHLORIDE 105 mmol/L (98-107); CREATININE 0.4 mg/dL (0.6-1.3); GLUCOSE 103 mg/dL (74-106); POTASSIUM 2.9 mmol/L (3.5-5.1); SODIUM SERUM 143 mmol/L (136-145); UREA NITROGEN, BLOOD 26 mg/dL (7-18)
[2024-06-29] MEDS ORDERED: methylPREDNISolone SOD SUCC 125 MG/2ML VIAL ONE (01:34)
[2024-06-29] MEDS ORDERED: Magnesium 1GM/D5W 100ML PREMIX 100 ML IV ONE ×2 (01:34→02:27)
[2024-06-29 01:41] LABS: ALANINE AMINOTRANSFERASE 37 U/L (12-78); ALBUMIN 1.9 g/dL (3.4-5.0); ALKALINE PHOSPHATASE 100 U/L (46-116); ASPARTATE AMINOTRANSFERASE 41 U/L (15-37); BILIRUBIN,DIRECT 0.9 mg/dL (0.0-0.2); BILIRUBIN,TOTAL 2.8 mg/dL (0.2-1.0); NT-PRO BNP 831 pg/mL (0-125); TOTAL PROTEIN, SERUM 4.7 g/dL (6.4-8.2)
[2024-06-29] MEDS: methylPREDNISolone SOD SUCC 125 MG/2ML VIAL IV ONE (01:42)
[2024-06-29] MEDS: Magnesium 1GM/D5W 100ML PREMIX 200 ML IV ONE (01:43)
[2024-06-29 01:45] LABS: ABG BASE EXCESS 8.2 mmol/L (-2.0-3.0); ABG OXYGEN SATURATION 95.7 % (94.0-98.0); ABG PCO2 44.8 mmHg (32.0-45.0); ABG PO2 82.5 mmHg (83.0-108.0); ABG TOTAL HEMOGLOBIN 11.4 G/dL (12.0-16.0); COHb 0.6 % (0.5-1.5); MetHb 0.4 % (0.0-1.5); O2Hb 94.7 % (94.0-97.0); SITE, ABG RIGHT RADIAL
[2024-06-29] MEDS ORDERED: POTASSIUM CHLORIDE 20 MEQ POWDER PACKET ONE (03:32)
[2024-06-29] MEDS ORDERED: ASPIRIN 325 MG TABLET ONE (03:33)
[2024-06-29] MEDS: POTASSIUM CHLORIDE 20 MEQ POWDER PACKET PO ONE (03:50)
[2024-06-29] MEDS: ASPIRIN 325 MG TABLET PO ONE (03:50)
[2024-06-29] MEDS ORDERED: IPRATROPIUM NEB FS 0.5 MG/2.5 ML AMPUL.NEB NEB PRN (04:30)
[2024-06-29] MEDS ORDERED: ONDANSETRON HCL/PF 4 MG/2 ML VIAL IVP PRN (04:30)
[2024-06-29] MEDS ORDERED: Z GUARD REMEDY 4 OZ OINT TP PRN (04:30)
[2024-06-29] MEDS ORDERED: ALBUTEROL FS 2.5 MG/3 ML VIAL.NEB NEB PRN (04:30)
[2024-06-29 06:18] LABS: ALBUMIN 2.1 g/dL (3.4-5.0); CALCIUM, SERUM 9.5 mg/dL (8.5-10.1); CREATININE 0.7 mg/dL (0.6-1.3); MAGNESIUM 2.8 mg/dL (1.8-2.4); PHOSPHORUS 2.6 mg/dL (2.5-4.9); POTASSIUM 3.1 mmol/L (3.5-5.1)
[2024-06-29 06:32] LABS: EOSINOPHILS % (AUTO) 0.5 % (0.0-6.0); HEMATOCRIT 34 % (33-45); HEMOGLOBIN 11.3 g/dL (11.5-14.8); LYMPHOCYTES # (AUTO) 0.4 K/uL (0.8-4.8); LYMPHOCYTES % (AUTO) 4.6 % (20.0-44.0); MEAN CORPUSCULAR HEMOGLOBIN 30 PG (26.0-33.0); MEAN CORPUSCULAR HGB CONC 34 g/dl (31.0-36.0); MEAN CORPUSCULAR VOLUME 88 fL (82-100); MONOCYTES # (AUTO) 0.2 K/uL (0.1-1.30); NEUTROPHILS # (AUTO) 8.1 K/uL (1.8-8.9); NEUTROPHILS % (AUTO) 92.9 % (43.0-81.0); PLATELET COUNT (AUTO) 66 K/uL (150-450); RED BLOOD CELL COUNT(AUTO) 3.83 MIL/uL (4.0-5.2); WHITE BLOOD COUNT (AUTO) 8.7 K/uL (4.3-11.0)
[2024-06-29 07:29] LABS: BASOPHILS % (MANUAL) 0 % (0.0-2.0); EOSINOPHILS % (MANUAL) 0 % (0-4); LYMPHOCYTES % (MANUAL) 9 % (16-48); MONOCYTES % (MANUAL) 4 % (0-11.0); NEUTROPHILS % (MANUAL) 87 (42-76); PLATELET ESTIMATE DECREASED
[2024-06-29] MEDS: PANTOPRAZOLE 40 MG TABLET.DR PO SCH (08:19)
[2024-06-29] MEDS: ALBUTEROL FS 2.5 MG/3 ML VIAL.NEB NEB SCH (10:00)
[2024-06-29] MEDS: IPRATROPIUM NEB FS 0.5 MG/2.5 ML AMPUL.NEB NEB SCH (10:00)
[2024-06-29] MEDS: POTASSIUM CHLORIDE 20 MEQ TAB.PRT.SR PO SCH (10:06)
[2024-06-29] MEDS ORDERED: FLUT1BLS6 IH (10:21)
[2024-06-29] MEDS ORDERED: POTA10TA11 PO (10:21)
[2024-06-29] MEDS ORDERED: PRED10TA PO (10:21)
[2024-06-29] MEDS ORDERED: ALPR1TAB7 PO (10:21)
[2024-06-29] MEDS ORDERED: HYDR-3976 PO (10:21)
[2024-06-29] MEDS ORDERED: FURO40TA5 PO (10:21)
[2024-06-29] MEDS ORDERED: ALBU18HF2 IH (10:21)
[2024-06-29] MEDS ORDERED: IPRA3AMP23 INH (10:21)
[2024-06-30] VITALS (12 sets, daily range): BP systolic 95–130; BP diastolic 48–67; TEMP 97.7–98.3; O2SAT 91–100
[2024-06-30] MEDS: methylPREDNISolone SOD SUCC 40 MG/ML VIAL IV SCH (05:19)
[2024-06-30 06:56] LABS: BASOPHILS % (AUTO) 0.1 % (0.0-2.0); EOSINOPHILS # (AUTO) 0.3 K/uL (0.0-0.7); EOSINOPHILS % (AUTO) 2.1 % (0.0-6.0); HEMATOCRIT 29 % (33-45); HEMOGLOBIN 9.7 g/dL (11.5-14.8); LYMPHOCYTES # (AUTO) 2.4 K/uL (0.8-4.8); LYMPHOCYTES % (AUTO) 19.5 % (20.0-44.0); MEAN CORPUSCULAR HEMOGLOBIN 29 PG (26.0-33.0); MEAN CORPUSCULAR HGB CONC 33 g/dl (31.0-36.0); MEAN CORPUSCULAR VOLUME 88 fL (82-100); MONOCYTES % (AUTO) 8.2 % (2.0-12.0); NEUTROPHILS # (AUTO) 8.5 K/uL (1.8-8.9); NEUTROPHILS % (AUTO) 70.1 % (43.0-81.0); PLATELET COUNT (AUTO) 82 K/uL (150-450); RED BLOOD CELL COUNT(AUTO) 3.29 MIL/uL (4.0-5.2); RED CELL DISTRIBUTION WIDTH 18.5 % (11.5-15.0); WHITE BLOOD COUNT (AUTO) 12.2 K/uL (4.3-11.0)
[2024-06-30 07:20] LABS: CALCIUM, SERUM 9.7 mg/dL (8.5-10.1); CREATININE 0.6 mg/dL (0.6-1.3); MAGNESIUM 1.8 mg/dL (1.8-2.4); PHOSPHORUS 1.3 mg/dL (2.5-4.9); POTASSIUM 3.8 mmol/L (3.5-5.1)
[2024-06-30 08:41] LABS: ANISOCYTOSIS 1+; BASOPHILS % (MANUAL) 0 % (0.0-2.0); EOSINOPHILS % (MANUAL) 2 % (0-4); LYMPHOCYTES % (MANUAL) 21 % (16-48); MONOCYTES % (MANUAL) 5 % (0-11.0); NEUTROPHILS % (MANUAL) 72 (42-76); PLATELET ESTIMATE DECREASED
[2024-06-30] MEDS: K PHOS NEUTRAL 250 MG TABLET PO ONE (16:01)
[2024-06-30] MEDS: ARGININE/GLUTAMINE/CALCIUM BMB 1 EACH POWD.PACK PO SCH (16:02)
[2024-06-30] MEDS: ZOLPIDEM TARTRATE 5 MG TABLET PO PRN (22:36)
[2024-07-01] VITALS (16 sets, daily range): BP systolic 97–123; BP diastolic 59–77; TEMP 97.5–98.6; O2SAT 94–99
[2024-07-01] MEDS: DOXYCYCLINE HYCLATE (100 MG) 100 MG TABLET PO SCH (09:42)
[2024-07-01 11:41] LABS: CALCIUM, SERUM 9.8 mg/dL (8.5-10.1); CREATININE 0.5 mg/dL (0.6-1.3); POTASSIUM 4.6 mmol/L (3.5-5.1)
[2024-07-01 13:31] LABS: BASOPHILS % (AUTO) 0.1 % (0.0-2.0); HEMATOCRIT 30 % (33-45); HEMOGLOBIN 10.1 g/dL (11.5-14.8); LYMPHOCYTES # (AUTO) 0.9 K/uL (0.8-4.8); LYMPHOCYTES % (AUTO) 9.4 % (20.0-44.0); MEAN CORPUSCULAR HEMOGLOBIN 31 PG (26.0-33.0); MEAN CORPUSCULAR HGB CONC 34 g/dl (31.0-36.0); MEAN CORPUSCULAR VOLUME 90 fL (82-100); MONOCYTES # (AUTO) 0.6 K/uL (0.1-1.30); MONOCYTES % (AUTO) 5.9 % (2.0-12.0); NEUTROPHILS # (AUTO) 8.5 K/uL (1.8-8.9); NEUTROPHILS % (AUTO) 84.6 % (43.0-81.0); PLATELET COUNT (AUTO) 100 K/uL (150-450); RED CELL DISTRIBUTION WIDTH 18.4 % (11.5-15.0)
[2024-07-01 20:13] LABS: APPEARANCE,URINE CLEAR (CLEAR); BILIRUBIN,URINE NEGATIVE (NEGATIVE); BLOOD, URINE NEGATIVE Ery/uL (NEGATIVE); COLOR,URINE DARK YELLOW (YELLOW); KETONES,URINE NEGATIVE (NEGATIVE); LEUKOCYTE ESTERASE ,URINE NEGATIVE (NEGATIVE); NITRITE, URINE NEGATIVE (NEGATIVE); PROTEIN,URINE NEGATIVE (NEGATIVE); UGLUCOSE NEGATIVE (NEGATIVE)
[2024-07-01 20:16] LABS: ADD URINE CULTURE NO; BACTERIA,URINE Rare /HPF (None Seen); RBC,URINE 0-2 /HPF (0-2); WBC,URINE 0-2 /HPF (0-3)
[2024-07-01 20:29] LABS: AMPHETAMINE, URINE NEGATIVE (NEGATIVE); BARBITURATE, URINE NEGATIVE (NEGATIVE); BENZODIAZEPINE, URINE NEGATIVE (NEGATIVE); CANNABINOID, URINE NEGATIVE (NEGATIVE); COCCAINE, URINE NEGATIVE (NEGATIVE); PHENCYCLIDINE SCREEN,URINE NEGATIVE (NEGATIVE)
[2024-07-01 20:31] LABS: OPIATE, URINE POSITIVE (NEGATIVE)
[2024-07-01] MEDS: ACETAMINOPHEN 325 MG TABLET PO PRN (22:49)
[2024-07-02] VITALS (13 sets, daily range): BP systolic 103–132; BP diastolic 60–72; TEMP 97.7–98.9; O2SAT 93–100
[2024-07-02 07:00] LABS: BASOPHILS % (AUTO) 0.7 % (0.0-2.0); EOSINOPHILS % (AUTO) 0.3 % (0.0-6.0); HEMATOCRIT 29 % (33-45); HEMOGLOBIN 9.6 g/dL (11.5-14.8); LYMPHOCYTES # (AUTO) 0.8 K/uL (0.8-4.8); MEAN CORPUSCULAR HEMOGLOBIN 29 PG (26.0-33.0); MEAN CORPUSCULAR HGB CONC 33 g/dl (31.0-36.0); MEAN CORPUSCULAR VOLUME 90 fL (82-100); MONOCYTES # (AUTO) 0.3 K/uL (0.1-1.30); NEUTROPHILS # (AUTO) 4.9 K/uL (1.8-8.9); RED BLOOD CELL COUNT(AUTO) 3.28 MIL/uL (4.0-5.2); RED CELL DISTRIBUTION WIDTH 18.2 % (11.5-15.0); WHITE BLOOD COUNT (AUTO) 6.1 K/uL (4.3-11.0)
[2024-07-02 07:01] LABS: ALBUMIN 1.9 g/dL (3.4-5.0); BILIRUBIN,TOTAL 0.9 mg/dL (0.2-1.0); CALCIUM, SERUM 10.1 mg/dL (8.5-10.1); CREATININE 0.5 mg/dL (0.6-1.3); MAGNESIUM 2.2 mg/dL (1.8-2.4); PHOSPHORUS 2.3 mg/dL (2.5-4.9); POTASSIUM 4.3 mmol/L (3.5-5.1)
[2024-07-02 08:42] LABS: PLATELET COUNT (AUTO) 88 K/uL (150-450)
[2024-07-02 08:43] LABS: BASOPHILS % (MANUAL) 0 % (0.0-2.0); EOSINOPHILS % (MANUAL) 0 % (0-4); LYMPHOCYTES % (MANUAL) 13 % (16-48); MONOCYTES % (MANUAL) 6 % (0-11.0); NEUTROPHILS % (MANUAL) 81 (42-76)
[2024-07-02 08:44] LABS: ANISOCYTOSIS 1+; PLATELET ESTIMATE DECREASED
[2024-07-02] MEDS: K PHOS NEUTRAL 250 MG TABLET PO ONE (16:12)
[2024-07-03] VITALS (14 sets, daily range): BP systolic 108–145; BP diastolic 60–87; TEMP 98.1–98.3; O2SAT 84–100
[2024-07-03] MEDS: methylPREDNISolone SOD SUCC 40 MG/ML VIAL IV SCH (16:18)
[2024-07-04] VITALS (7 sets, daily range): BP systolic 99–109; BP diastolic 60–63; TEMP 98–99; O2SAT 94–100
[2024-07-04] MEDS ORDERED: PRED20TA PO (13:51)
[2024-07-04] MEDS ORDERED: DOXY100T2 PO (13:51)
== END 2024-07-04 15:50 | disposition home health service (06) | DRG 140 ==
LOC: ER 00:11 → TELE1 03:13 → MEDSG1 07-03 11:54
PROVIDERS: ADMIT Internal Medicine
DX: J44.1 Chronic obstructive pulmonary disease with (acute) exacerbation (principal); J96.01 Acute respiratory failure with hypoxia; I21.A1 Myocardial infarction type 2; G93.41 Metabolic encephalopathy; D69.6 Thrombocytopenia, unspecified; E87.3 Alkalosis; B19.20 Unspecified viral hepatitis C without hepatic coma; E88.01 Alpha-1-antitrypsin deficiency; E78.5 Hyperlipidemia, unspecified; Z87.2 Personal history of diseases of the skin and subcutaneous tissue; Z98.82 Breast implant status; Z90.49 Acquired absence of other specified parts of digestive tract; Z88.0 Allergy status to penicillin; Z88.1 Allergy status to other antibiotic agents; Z79.899 Other long term (current) drug therapy; Z79.51 Long term (current) use of inhaled steroids; K21.9 Gastro-esophageal reflux disease without esophagitis; N28.89 Other specified disorders of kidney and ureter; I48.0 Paroxysmal atrial fibrillation; I73.9 Peripheral vascular disease, unspecified; S81.812A Laceration without foreign body, left lower leg, initial encounter; S81.811A Laceration without foreign body, right lower leg, initial encounter; S91.311A Laceration without foreign body, right foot, initial encounter; X58.XXXA Exposure to other specified factors, initial encounter; Y92.9 Unspecified place or not applicable; Z86.79 Personal history of other diseases of the circulatory system; F17.200 Nicotine dependence, unspecified, uncomplicated; R79.89 Other specified abnormal findings of blood chemistry; I10 Essential (primary) hypertension; R60.9 Edema, unspecified
CPT/HCPCS: 36415; 36600; 71045-TC; 80048-TC; 80053-TC; 80076-TC; 81001; 82040-TC; 82803-TC; 83735-TC; 83880; 84100-TC; 84484-TC; 85025-TC; 93307-TC; 93970-TC; 94760-TC; 94762-TC; 94799-TC; 97110-TC; 97530-TC; 97535-TC; A6253; G0378; J2919; J3475

== ENCOUNTER 2024-07-12 20:49 | Inpatient (IN) | payer OTHER ==
[~2024-07-12] VITALS: Ht 165.1 cm; Wt 50.3 kg
[~2024-07-12 20:49] MED LIST changes: +ALPR1TAB7 PO; -AZIT500T2 PO; -CLIN300C12 PO; +FLUT1BLS6 IH; -FLUT1DIS5 IH; -FURO20TA4 PO; +FURO40TA5 PO; -GUAI600T53 PO; -HYDR-3976 GT; +HYDR-3976 PO; -IBUP-1955 PO; +IPRA3AMP23 INH; -KETO5DRO9 EACHEYE; -NAPR-1164 PO; -NITR100C6 PO; -POLY119P PO; -POLY15DR31 EACHEYE; +POTA10TA11 PO; +PRED20TA PO; -PRED50TA PO; -SPIR25TA6 PO; -SULF1TAB48 PO; -TIOT18CA3 IH
[2024-07-12] MEDS: ALBUTEROL FS 2.5 MG/3 ML VIAL.NEB CONTNEB ONE (21:49)
[2024-07-12] MEDS: IPRATROPIUM NEB FS 0.5 MG/2.5 ML AMPUL.NEB NEB ONE (21:49)
[2024-07-12] MEDS ORDERED: IPRATROPIUM NEB FS 0.5 MG/2.5 ML AMPUL.NEB ONE (21:52)
[2024-07-12] MEDS ORDERED: ALBUTEROL FS 2.5 MG/3 ML VIAL.NEB ONE (21:52)
[2024-07-12 21:56] VITALS: O2SAT 96
[2024-07-12 22:11] VITALS: O2SAT 98
[2024-07-12 22:12] VITALS: O2SAT 98
[2024-07-12] MEDS: ALBUTEROL FS 2.5 MG/0.5 ML VIAL.NEB NEB ONE (22:18)
[2024-07-12] MEDS ORDERED: ALBUTEROL FS 2.5 MG/0.5 ML VIAL.NEB ONE (22:21)
[2024-07-12 22:27] VITALS: O2SAT 99
[2024-07-12 22:28] VITALS: O2SAT 99
[2024-07-12] MEDS: VANCOMYCIN 1 GM in IV D5W 250 ML IV ONE (22:30)
[2024-07-12] MEDS: methylPREDNISolone SOD SUCC 125 MG/2ML VIAL IV ONE (22:30)
[2024-07-12] MEDS: AZITHROMYCIN 500 MG in IV D5W 250 ML IV ONE (22:30)
[2024-07-12 22:43] VITALS: O2SAT 99
[2024-07-12] MEDS ORDERED: methylPREDNISolone SOD SUCC 125 MG/2ML VIAL ONE (22:44)
[2024-07-12 22:45] LABS: CALCIUM, SERUM 8.8 mg/dL (8.5-10.1); CREATININE 0.4 mg/dL (0.6-1.3); POTASSIUM 3.5 mmol/L (3.5-5.1); TOTAL PROTEIN, SERUM 4.5 g/dL (6.4-8.2)
[2024-07-12 22:46] LABS: BASOPHILS % (AUTO) 0.7 % (0.0-2.0); EOSINOPHILS # (AUTO) 0.1 K/uL (0.0-0.7); EOSINOPHILS % (AUTO) 1.7 % (0.0-6.0); HEMATOCRIT 34 % (33-45); HEMOGLOBIN 11.2 g/dL (11.5-14.8); LYMPHOCYTES # (AUTO) 1.2 K/uL (0.8-4.8); LYMPHOCYTES % (AUTO) 20.6 % (20.0-44.0); MEAN CORPUSCULAR HEMOGLOBIN 30 PG (26.0-33.0); MEAN CORPUSCULAR HGB CONC 33 g/dl (31.0-36.0); MEAN CORPUSCULAR VOLUME 91 fL (82-100); MONOCYTES # (AUTO) 0.4 K/uL (0.1-1.30); MONOCYTES % (AUTO) 7.3 % (2.0-12.0); NEUTROPHILS # (AUTO) 4.2 K/uL (1.8-8.9); NEUTROPHILS % (AUTO) 69.7 % (43.0-81.0); RED BLOOD CELL COUNT(AUTO) 3.67 MIL/uL (4.0-5.2); RED CELL DISTRIBUTION WIDTH 18.9 % (11.5-15.0); WHITE BLOOD COUNT (AUTO) 6.1 K/uL (4.3-11.0)
[2024-07-12 22:58] LABS: ALBUMIN 1.1 g/dL (3.4-5.0); PLATELET COUNT (AUTO) 18 K/uL (150-450)
[2024-07-12] MEDS ORDERED: Magnesium 1GM/D5W 100ML PREMIX 100 ML IV ONE ×2 (23:00→23:01)
[2024-07-12 23:03] LABS: BILIRUBIN,TOTAL 1.3 mg/dL (0.2-1.0)
[2024-07-12 23:04] LABS: BILIRUBIN,DIRECT 0.3 mg/dL (0.0-0.2)
[2024-07-12] MEDS: Magnesium 1GM/D5W 100ML PREMIX 200 ML IV ONE (23:07)
[2024-07-12 23:10] LABS: LACTIC ACID 2.2 mmol/L (0.4-2.0)
[2024-07-12 23:43] LABS: ANISOCYTOSIS 1+; EOSINOPHILS % (MANUAL) 1 % (0-4); LYMPHOCYTES % (MANUAL) 20 % (16-48); MONOCYTES % (MANUAL) 8 % (0-11.0); NEUTROPHILS % (MANUAL) 71 (42-76); PLATELET ESTIMATE DECREASED
[2024-07-12 23:49] LABS: OVALOCYTES 1+
[2024-07-12] MEDS ORDERED: ACETAMINOPHEN 325 MG TABLET ONE (23:52)
[2024-07-12] MEDS: ACETAMINOPHEN 325 MG TABLET PO ONE (23:55)
[2024-07-13] VITALS (12 sets, daily range): BP systolic 93–113; BP diastolic 57–82; TEMP 97.1–98.2; O2SAT 94–100
[2024-07-13] MEDS ORDERED: ONDANSETRON HCL/PF 4 MG/2 ML VIAL IVP PRN
[2024-07-13] MEDS ORDERED: AZITHROMYCIN 500 MG VIAL ONE (00:04)
[2024-07-13] MEDS ORDERED: VANCOMYCIN 1 GM /D5W 250 ML PB IV ONE (01:17)
[2024-07-13] MEDS ORDERED: MEROPENEM 1 G in IV NS 0.9% 100 ML IV ONE (02:30)
[2024-07-13] MEDS ORDERED: MEROPENEM 1 G in IV NS 0.9% 100 ML IV SCH (05:00)
[2024-07-13] MEDS: LEVOFLOXACIN 750 MG /D5W 150ML 750 MG in PREMIX 1 EA IV SCH (06:37)
[2024-07-13] MEDS: LEVOFLOXACIN 750 MG /D5W 150ML 150 ML IV ONE (06:50)
[2024-07-13] MEDS: IPRATROPIUM NEB FS 0.5 MG/2.5 ML AMPUL.NEB NEB SCH (07:23)
[2024-07-13] MEDS: ALBUTEROL FS 2.5 MG/3 ML VIAL.NEB NEB SCH (07:24)
[2024-07-13] MEDS ORDERED: TRELEGY ELLIPTA IH (07:51)
[2024-07-13] MEDS ORDERED: PRED10TA PO (07:51)
[2024-07-13] MEDS: methylPREDNISolone SOD SUCC 40 MG/ML VIAL IV SCH (08:18)
[2024-07-13] MEDS: VANCOMYCIN 1 GM in IV D5W 250ml IV SCH (10:32)
[2024-07-13 12:08] LABS: BASOPHILS % (AUTO) 0.1 % (0.0-2.0); HEMATOCRIT 35 % (33-45); HEMOGLOBIN 11.5 g/dL (11.5-14.8); LYMPHOCYTES # (AUTO) 0.6 K/uL (0.8-4.8); LYMPHOCYTES % (AUTO) 7.8 % (20.0-44.0); MEAN CORPUSCULAR HEMOGLOBIN 30 PG (26.0-33.0); MEAN CORPUSCULAR HGB CONC 33 g/dl (31.0-36.0); MEAN CORPUSCULAR VOLUME 91 fL (82-100); MONOCYTES # (AUTO) 0.2 K/uL (0.1-1.30); MONOCYTES % (AUTO) 2.3 % (2.0-12.0); NEUTROPHILS # (AUTO) 6.7 K/uL (1.8-8.9); NEUTROPHILS % (AUTO) 89.8 % (43.0-81.0); PLATELET COUNT (AUTO) 76 K/uL (150-450); RED BLOOD CELL COUNT(AUTO) 3.85 MIL/uL (4.0-5.2); RED CELL DISTRIBUTION WIDTH 18.8 % (11.5-15.0); WHITE BLOOD COUNT (AUTO) 7.5 K/uL (4.3-11.0)
[2024-07-13 12:11] LABS: CALCIUM, SERUM 8.9 mg/dL (8.5-10.1); CREATININE 0.5 mg/dL (0.6-1.3); MAGNESIUM 2.3 mg/dL (1.8-2.4); PHOSPHORUS 2.5 mg/dL (2.5-4.9); POTASSIUM 4.1 mmol/L (3.5-5.1)
[2024-07-13 13:04] LABS: ANISOCYTOSIS 1+; BASOPHILS % (MANUAL) 0 % (0.0-2.0); EOSINOPHILS % (MANUAL) 0 % (0-4); LYMPHOCYTES % (MANUAL) 9 % (16-48); MONOCYTES % (MANUAL) 6 % (0-11.0); NEUTROPHILS % (MANUAL) 85 (42-76); OVALOCYTES 1+; PLATELET ESTIMATE DECREASED
[2024-07-14] VITALS (12 sets, daily range): BP systolic 102–114; BP diastolic 58–73; TEMP 97.7–98.2; O2SAT 94–100
[2024-07-14] MEDS: LEVOFLOXACIN (250MG) 250 MG TABLET PO SCH (05:23)
[2024-07-14 07:07] LABS: CALCIUM, SERUM 9.2 mg/dL (8.5-10.1); CREATININE 0.6 mg/dL (0.6-1.3); POTASSIUM 4.1 mmol/L (3.5-5.1)
[2024-07-14 11:49] LABS: ABG BASE EXCESS 6.3 mmol/L (-2.0-3.0); ABG OXYGEN SATURATION 94.9 % (94.0-98.0); ABG PCO2 55.2 mmHg (32.0-45.0); ABG PH 7.388 (7.350-7.450); ABG PO2 79.5 mmHg (83.0-108.0); ABG TOTAL HEMOGLOBIN 11.3 G/dL (12.0-16.0); COHb 0.3 % (0.5-1.5); MetHb 0.2 % (0.0-1.5); O2Hb 94.4 % (94.0-97.0); SITE, ABG LEFT RADIAL
[2024-07-14] MEDS: VANCOMYCIN 750 MG in IV D5W 250 ML IV SCH (20:04)
[2024-07-15] VITALS (12 sets, daily range): BP systolic 103–130; BP diastolic 58–77; TEMP 97.6–98.8; O2SAT 95–98
[2024-07-15 08:28] LABS: BASOPHILS % (AUTO) 0.2 % (0.0-2.0); HEMATOCRIT 30 % (33-45); HEMOGLOBIN 9.9 g/dL (11.5-14.8); LYMPHOCYTES # (AUTO) 0.6 K/uL (0.8-4.8); LYMPHOCYTES % (AUTO) 5.2 % (20.0-44.0); MEAN CORPUSCULAR HEMOGLOBIN 30 PG (26.0-33.0); MEAN CORPUSCULAR HGB CONC 33 g/dl (31.0-36.0); MEAN CORPUSCULAR VOLUME 90 fL (82-100); MONOCYTES # (AUTO) 0.5 K/uL (0.1-1.30); MONOCYTES % (AUTO) 4.6 % (2.0-12.0); NEUTROPHILS # (AUTO) 10.6 K/uL (1.8-8.9); PLATELET COUNT (AUTO) 65 K/uL (150-450); RED BLOOD CELL COUNT(AUTO) 3.31 MIL/uL (4.0-5.2); RED CELL DISTRIBUTION WIDTH 19.2 % (11.5-15.0); WHITE BLOOD COUNT (AUTO) 11.8 K/uL (4.3-11.0)
[2024-07-15 09:02] LABS: CALCIUM, SERUM 9.3 mg/dL (8.5-10.1); CREATININE 0.6 mg/dL (0.6-1.3); POTASSIUM 4.1 mmol/L (3.5-5.1)
[2024-07-15] MEDS ORDERED: DEXTROSE 50%-WATER 50 ML DISP.SYRIN IV PRN (10:30)
[2024-07-15] MEDS: FUROSEMIDE 40 MG/4 ML VIAL IV STA (10:57)
[2024-07-15] MEDS: DOCUSATE SODIUM 250 MG CAPSULE PO SCH (10:57)
[2024-07-15 11:48] LABS: LYMPHOCYTES % (MANUAL) 5 % (16-48); MONOCYTES % (MANUAL) 4 % (0-11.0); NEUTROPHILS % (MANUAL) 91 (42-76); PLATELET ESTIMATE DECREASED
[2024-07-15 11:49] LABS: ANISOCYTOSIS 1+; OVALOCYTES 1+
[2024-07-15] MEDS ORDERED: CYAN10006 IM (12:00)
[2024-07-15] MEDS: BLOOD SUGAR DIAGNOSTIC 1 EACH STRIP VI SCH (12:22)
[2024-07-15] MEDS: INSULIN REGULAR, HUMAN 100 UNIT/ML 3 ML VIAL SQ PRN (16:47)
[2024-07-15] MEDS: Z GUARD REMEDY 4 OZ OINT TP PRN (20:15)
[2024-07-15] MEDS: *INSULIN REGULAR(HUMULIN R)HUM 100 UNIT/ML VIAL SQ PRN (21:48)
[2024-07-15] MEDS: ALPRAZOLAM 1 MG TABLET PO SCH (21:50)
[2024-07-16] VITALS (7 sets, daily range): BP systolic 98–114; BP diastolic 60–72; TEMP 97.9–98.4; O2SAT 97–98
[2024-07-16] MEDS: GLUCERNA SHAKE 237 ML CAN PO SCH (08:05)
[2024-07-16] MEDS ORDERED: Medication Not On Formulary EA ([Trelegy Ellipta] 1 PUFF) IH SCH (09:00)
[2024-07-16] MEDS: FUROSEMIDE 20 MG/2 ML VIAL IV SCH (09:32)
[2024-07-16 11:05] LABS: CREATININE 0.7 mg/dL (0.6-1.3)
[2024-07-16 11:11] LABS: ALBUMIN 1.8 g/dL (3.4-5.0); BILIRUBIN,TOTAL 1.1 mg/dL (0.2-1.0); TOTAL PROTEIN, SERUM 5.5 g/dL (6.4-8.2)
[2024-07-16 12:48] LABS: BASOPHILS # (AUTO) 0.1 K/uL (0.0-0.2); BASOPHILS % (AUTO) 0.9 % (0.0-2.0); HEMATOCRIT 34 % (33-45); HEMOGLOBIN 10.7 g/dL (11.5-14.8); LYMPHOCYTES % (AUTO) 6.5 % (20.0-44.0); MEAN CORPUSCULAR HEMOGLOBIN 30 PG (26.0-33.0); MEAN CORPUSCULAR HGB CONC 32 g/dl (31.0-36.0); MEAN CORPUSCULAR VOLUME 93 fL (82-100); MONOCYTES # (AUTO) 0.7 K/uL (0.1-1.30); MONOCYTES % (AUTO) 4.6 % (2.0-12.0); PLATELET COUNT (AUTO) 52 K/uL (150-450); RED BLOOD CELL COUNT(AUTO) 3.61 MIL/uL (4.0-5.2); RED CELL DISTRIBUTION WIDTH 19.1 % (11.5-15.0); WHITE BLOOD COUNT (AUTO) 14.7 K/uL (4.3-11.0)
[2024-07-16] MEDS: ALBUMIN 25% 25 GM in PREMIX 1 EA IV SCH (13:06)
[2024-07-16 14:24] LABS: ANISOCYTOSIS 1+; BASOPHILS % (MANUAL) 0 % (0.0-2.0); EOSINOPHILS % (MANUAL) 0 % (0-4); LYMPHOCYTES % (MANUAL) 4 % (16-48); MONOCYTES % (MANUAL) 4 % (0-11.0); NEUTROPHILS % (MANUAL) 92 (42-76); PLATELET ESTIMATE DECREASED
[2024-07-16] MEDS: VANCOMYCIN 750 MG in IV D5W 250 ML IV SCH (15:01)
[2024-07-16 16:11] LABS: CALCIUM, SERUM 10.2 mg/dL (8.5-10.1); CREATININE 0.6 mg/dL (0.6-1.3); MAGNESIUM 2.1 mg/dL (1.8-2.4); PHOSPHORUS 2.2 mg/dL (2.5-4.9); POTASSIUM 4.3 mmol/L (3.5-5.1)
[2024-07-16] MEDS: FUROSEMIDE 20 MG/2 ML VIAL IV ONE (16:18)
[2024-07-16 16:56] LABS: BASOPHILS % (AUTO) 0.1 % (0.0-2.0); HEMATOCRIT 27 % (33-45); LYMPHOCYTES # (AUTO) 0.5 K/uL (0.8-4.8); LYMPHOCYTES % (AUTO) 5.2 % (20.0-44.0); MEAN CORPUSCULAR HEMOGLOBIN 30 PG (26.0-33.0); MEAN CORPUSCULAR HGB CONC 33 g/dl (31.0-36.0); MEAN CORPUSCULAR VOLUME 91 fL (82-100); MONOCYTES # (AUTO) 0.7 K/uL (0.1-1.30); NEUTROPHILS % (AUTO) 87.7 % (43.0-81.0); PLATELET COUNT (AUTO) 51 K/uL (150-450); RED BLOOD CELL COUNT(AUTO) 3.02 MIL/uL (4.0-5.2); RED CELL DISTRIBUTION WIDTH 18.7 % (11.5-15.0); WHITE BLOOD COUNT (AUTO) 10.3 K/uL (4.3-11.0)
[2024-07-16 17:25] LABS: ANISOCYTOSIS 1+; PLATELET ESTIMATE DECREASED
[2024-07-16 17:47] LABS: BASOPHILS % (MANUAL) 0 % (0.0-2.0); EOSINOPHILS % (MANUAL) 0 % (0-4); LYMPHOCYTES % (MANUAL) 6 % (16-48); MONOCYTES % (MANUAL) 7 % (0-11.0); NEUTROPHILS % (MANUAL) 87 (42-76)
[2024-07-16] MEDS: ACETAMINOPHEN 325 MG TABLET PO PRN (22:57)
[2024-07-17] VITALS (9 sets, daily range): BP systolic 99–108; BP diastolic 60–65; TEMP 97.9–98.2; O2SAT 95–98
[2024-07-17] MEDS ORDERED: PRED20TA PO (09:44)
[2024-07-17] MEDS ORDERED: LEVO250T59 PO (09:44)
[2024-07-17 13:49] LABS: ALBUMIN 2.7 g/dL (3.4-5.0); CREATININE 0.7 mg/dL (0.6-1.3); POTASSIUM 3.7 mmol/L (3.5-5.1)
[2024-07-17 13:58] LABS: HEMATOCRIT 27 % (33-45); HEMOGLOBIN 9.4 g/dL (11.5-14.8); LYMPHOCYTES # (AUTO) 0.4 K/uL (0.8-4.8); LYMPHOCYTES % (AUTO) 4.2 % (20.0-44.0); MEAN CORPUSCULAR HEMOGLOBIN 31 PG (26.0-33.0); MEAN CORPUSCULAR HGB CONC 35 g/dl (31.0-36.0); MEAN CORPUSCULAR VOLUME 89 fL (82-100); MONOCYTES # (AUTO) 0.6 K/uL (0.1-1.30); MONOCYTES % (AUTO) 5.9 % (2.0-12.0); NEUTROPHILS # (AUTO) 8.5 K/uL (1.8-8.9); NEUTROPHILS % (AUTO) 89.9 % (43.0-81.0); RED BLOOD CELL COUNT(AUTO) 3.04 MIL/uL (4.0-5.2); RED CELL DISTRIBUTION WIDTH 18.9 % (11.5-15.0); WHITE BLOOD COUNT (AUTO) 9.5 K/uL (4.3-11.0)
[2024-07-17 14:06] LABS: PLATELET COUNT (AUTO) 49 K/uL (150-450)
[2024-07-17 14:56] LABS: ANISOCYTOSIS 1+; LYMPHOCYTES % (MANUAL) 6 % (16-48); MONOCYTES % (MANUAL) 8 % (0-11.0); NEUTROPHILS % (MANUAL) 86 (42-76); OVALOCYTES 1+; PLATELET ESTIMATE DECREASED
[2024-07-17] MEDS: methylPREDNISolone SOD SUCC 40 MG/ML VIAL IV SCH (16:01)
[2024-07-17] MEDS: PHENYLEPHRINE/SHK LV/MO/PET,WH 30 GM TUBE RC PRN (16:11)
[2024-07-17] MEDS ORDERED: PHENYLEPHRINE/SHK LV/MO/PET,WH 30 GM TUBE RC SCH (17:00)
[2024-07-18] VITALS (14 sets, daily range): BP systolic 99–120; BP diastolic 61–70; TEMP 97–98.4; O2SAT 93–100
[2024-07-18] MEDS: PANTOPRAZOLE 40 MG TABLET.DR PO SCH ×2 (00:13→08:09)
[2024-07-18] MEDS: ACETYLCYSTEINE 10% SOLN 400 MG/4 ML VIAL NEB SCH (15:50)
[2024-07-18] MEDS: methylPREDNISolone SOD SUCC 40 MG/ML VIAL IV SCH (16:06)
[2024-07-18 19:23] LABS: BASOPHILS % (AUTO) 0.1 % (0.0-2.0); EOSINOPHILS % (AUTO) 0.4 % (0.0-6.0); HEMATOCRIT 30 % (33-45); HEMOGLOBIN 10.1 g/dL (11.5-14.8); LYMPHOCYTES # (AUTO) 0.4 K/uL (0.8-4.8); LYMPHOCYTES % (AUTO) 4.3 % (20.0-44.0); MEAN CORPUSCULAR HEMOGLOBIN 30 PG (26.0-33.0); MEAN CORPUSCULAR HGB CONC 33 g/dl (31.0-36.0); MEAN CORPUSCULAR VOLUME 89 fL (82-100); MONOCYTES # (AUTO) 0.3 K/uL (0.1-1.30); NEUTROPHILS # (AUTO) 7.8 K/uL (1.8-8.9); NEUTROPHILS % (AUTO) 92.2 % (43.0-81.0); PLATELET COUNT (AUTO) 54 K/uL (150-450); RED BLOOD CELL COUNT(AUTO) 3.43 MIL/uL (4.0-5.2); WHITE BLOOD COUNT (AUTO) 8.5 K/uL (4.3-11.0)
[2024-07-18 20:08] LABS: CALCIUM, SERUM 9.9 mg/dL (8.5-10.1); CREATININE 0.8 mg/dL (0.6-1.3); POTASSIUM 4.4 mmol/L (3.5-5.1)
[2024-07-18 20:14] LABS: ALBUMIN 2.4 g/dL (3.4-5.0); TOTAL PROTEIN, SERUM 4.9 g/dL (6.4-8.2)
[2024-07-18 20:36] LABS: NEUTROPHILS % (MANUAL) 92 (42-76)
[2024-07-18 20:37] LABS: LYMPHOCYTES % (MANUAL) 4 % (16-48); MONOCYTES % (MANUAL) 4 % (0-11.0); PLATELET ESTIMATE DECREASED
[2024-07-19] VITALS (11 sets, daily range): BP systolic 95–112; BP diastolic 62–69; TEMP 97.9–98.9; O2SAT 93–100
[2024-07-19] MEDS: ALPRAZOLAM 1 MG TABLET PO PRN (00:32)
[2024-07-19 09:10] LABS: ALBUMIN 2.2 g/dL (3.4-5.0); BILIRUBIN,TOTAL 0.9 mg/dL (0.2-1.0); CALCIUM, SERUM 9.9 mg/dL (8.5-10.1); CREATININE 0.5 mg/dL (0.6-1.3); TOTAL PROTEIN, SERUM 4.6 g/dL (6.4-8.2)
[2024-07-19 09:15] LABS: BASOPHILS % (AUTO) 0.1 % (0.0-2.0); EOSINOPHILS % (AUTO) 0.1 % (0.0-6.0); HEMATOCRIT 28 % (33-45); HEMOGLOBIN 9.4 g/dL (11.5-14.8); LYMPHOCYTES # (AUTO) 0.5 K/uL (0.8-4.8); LYMPHOCYTES % (AUTO) 5.6 % (20.0-44.0); MEAN CORPUSCULAR HEMOGLOBIN 30 PG (26.0-33.0); MEAN CORPUSCULAR HGB CONC 34 g/dl (31.0-36.0); MEAN CORPUSCULAR VOLUME 89 fL (82-100); MONOCYTES # (AUTO) 0.4 K/uL (0.1-1.30); MONOCYTES % (AUTO) 5.2 % (2.0-12.0); NEUTROPHILS # (AUTO) 7.2 K/uL (1.8-8.9); RED BLOOD CELL COUNT(AUTO) 3.12 MIL/uL (4.0-5.2); RED CELL DISTRIBUTION WIDTH 18.9 % (11.5-15.0); WHITE BLOOD COUNT (AUTO) 8.1 K/uL (4.3-11.0)
[2024-07-19 09:19] LABS: PLATELET COUNT (AUTO) 48 K/uL (150-450)
[2024-07-19 16:56] LABS: BAND % (MANUAL) 1 % (0.0-5.0); LYMPHOCYTES % (MANUAL) 4 % (16-48); MONOCYTES % (MANUAL) 3 % (0-11.0); NEUTROPHILS % (MANUAL) 92 (42-76)
[2024-07-19 16:57] LABS: ANISOCYTOSIS 1+; OVALOCYTES 1+; PLATELET ESTIMATE DECREASED
[2024-07-19] MEDS ORDERED: [UNRECOGNIZED DRUG - CODE] IV (19:52)
[2024-07-20] VITALS (12 sets, daily range): BP systolic 102–120; BP diastolic 61–70; TEMP 97.7–98.6; O2SAT 95–99
[2024-07-20 07:56] LABS: BASOPHILS % (AUTO) 0.3 % (0.0-2.0); HEMATOCRIT 30 % (33-45); HEMOGLOBIN 9.9 g/dL (11.5-14.8); LYMPHOCYTES # (AUTO) 0.8 K/uL (0.8-4.8); LYMPHOCYTES % (AUTO) 7.5 % (20.0-44.0); MEAN CORPUSCULAR HEMOGLOBIN 29 PG (26.0-33.0); MEAN CORPUSCULAR HGB CONC 33 g/dl (31.0-36.0); MEAN CORPUSCULAR VOLUME 88 fL (82-100); MONOCYTES # (AUTO) 0.5 K/uL (0.1-1.30); MONOCYTES % (AUTO) 4.6 % (2.0-12.0); NEUTROPHILS # (AUTO) 9.7 K/uL (1.8-8.9); NEUTROPHILS % (AUTO) 87.6 % (43.0-81.0); PLATELET COUNT (AUTO) 57 K/uL (150-450); RED BLOOD CELL COUNT(AUTO) 3.35 MIL/uL (4.0-5.2); RED CELL DISTRIBUTION WIDTH 19.2 % (11.5-15.0)
[2024-07-20 08:17] LABS: ALBUMIN 2.5 g/dL (3.4-5.0); BILIRUBIN,TOTAL 1.6 mg/dL (0.2-1.0); CALCIUM, SERUM 9.9 mg/dL (8.5-10.1); CREATININE 0.5 mg/dL (0.6-1.3); POTASSIUM 4.1 mmol/L (3.5-5.1); TOTAL PROTEIN, SERUM 4.9 g/dL (6.4-8.2)
[2024-07-20 10:07] LABS: LYMPHOCYTES % (MANUAL) 8 % (16-48); MONOCYTES % (MANUAL) 4 % (0-11.0); NEUTROPHILS % (MANUAL) 88 (42-76)
[2024-07-20 10:08] LABS: ANISOCYTOSIS 1+; OVALOCYTES 1+; PLATELET ESTIMATE DECREASED
[2024-07-20] MEDS ORDERED: MISCELLANEOUS MED 1 EA EA XX ONE (10:30)
[2024-07-20] MEDS ORDERED: HOME MED MISCELLANEOUS XX SCH (10:30)
[2024-07-20] MEDS ORDERED: diphenhydrAMINE HCL 50 MG/ML VIAL IV PRN (11:30)
[2024-07-20] MEDS ORDERED: EPINEPHRINE (1:1000) 1 MG/ML AMPUL IV PRN (11:30)
[2024-07-20] MEDS ORDERED: EPINEPHRINE (1:1000) 1 MG/ML AMPUL IM PRN (11:30)
[2024-07-21] VITALS (11 sets, daily range): BP systolic 105–127; BP diastolic 62–74; TEMP 97.6–98; O2SAT 95–99
[2024-07-21 14:45] LABS: EOSINOPHILS % (AUTO) 0.1 % (0.0-6.0); LYMPHOCYTES # (AUTO) 0.5 K/uL (0.8-4.8)
[2024-07-21 14:54] LABS: BASOPHILS % (AUTO) 0.3 % (0.0-2.0); HEMATOCRIT 31 % (33-45); HEMOGLOBIN 10.4 g/dL (11.5-14.8); LYMPHOCYTES % (AUTO) 4.4 % (20.0-44.0); MEAN CORPUSCULAR HEMOGLOBIN 30 PG (26.0-33.0); MEAN CORPUSCULAR HGB CONC 34 g/dl (31.0-36.0); MEAN CORPUSCULAR VOLUME 88 fL (82-100); MONOCYTES # (AUTO) 0.8 K/uL (0.1-1.30); MONOCYTES % (AUTO) 6.8 % (2.0-12.0); NEUTROPHILS # (AUTO) 10.5 K/uL (1.8-8.9); NEUTROPHILS % (AUTO) 88.4 % (43.0-81.0); PLATELET COUNT (AUTO) 57 K/uL (150-450); RED BLOOD CELL COUNT(AUTO) 3.51 MIL/uL (4.0-5.2); RED CELL DISTRIBUTION WIDTH 18.9 % (11.5-15.0); WHITE BLOOD COUNT (AUTO) 11.9 K/uL (4.3-11.0)
[2024-07-21 14:58] LABS: ALBUMIN 2.4 g/dL (3.4-5.0); BILIRUBIN,TOTAL 1.2 mg/dL (0.2-1.0); CALCIUM, SERUM 9.7 mg/dL (8.5-10.1); CREATININE 0.6 mg/dL (0.6-1.3); POTASSIUM 3.7 mmol/L (3.5-5.1)
[2024-07-21 15:06] LABS: BASOPHILS % (MANUAL) 0 % (0.0-2.0); EOSINOPHILS % (MANUAL) 0 % (0-4); LYMPHOCYTES % (MANUAL) 4 % (16-48); MONOCYTES % (MANUAL) 3 % (0-11.0); NEUTROPHILS % (MANUAL) 93 (42-76)
[2024-07-21 15:07] LABS: ANISOCYTOSIS 1+; PLATELET ESTIMATE DECREASED
[2024-07-21] MEDS: PANTOPRAZOLE 40 MG VIAL IV ONE (20:35)
[2024-07-22] VITALS (11 sets, daily range): BP systolic 114–130; BP diastolic 62–79; TEMP 97.7–98; O2SAT 93–99
[2024-07-22 07:52] LABS: BASOPHILS % (AUTO) 0.3 % (0.0-2.0); EOSINOPHILS % (AUTO) 0.1 % (0.0-6.0); HEMATOCRIT 33 % (33-45); HEMOGLOBIN 10.7 g/dL (11.5-14.8); LYMPHOCYTES % (AUTO) 7.3 % (20.0-44.0); MEAN CORPUSCULAR HEMOGLOBIN 29 PG (26.0-33.0); MEAN CORPUSCULAR HGB CONC 33 g/dl (31.0-36.0); MEAN CORPUSCULAR VOLUME 89 fL (82-100); MONOCYTES # (AUTO) 1.2 K/uL (0.1-1.30); NEUTROPHILS # (AUTO) 10.9 K/uL (1.8-8.9); NEUTROPHILS % (AUTO) 83.3 % (43.0-81.0); PLATELET COUNT (AUTO) 54 K/uL (150-450); RED BLOOD CELL COUNT(AUTO) 3.67 MIL/uL (4.0-5.2); RED CELL DISTRIBUTION WIDTH 18.9 % (11.5-15.0); WHITE BLOOD COUNT (AUTO) 13.1 K/uL (4.3-11.0)
[2024-07-22 08:29] LABS: ALBUMIN 2.5 g/dL (3.4-5.0); CALCIUM, SERUM 10.2 mg/dL (8.5-10.1); CREATININE 0.5 mg/dL (0.6-1.3); POTASSIUM 3.7 mmol/L (3.5-5.1); TOTAL PROTEIN, SERUM 5.2 g/dL (6.4-8.2)
[2024-07-22 11:54] LABS: ANISOCYTOSIS 1+; BAND % (MANUAL) 2 % (0.0-5.0); EOSINOPHILS % (MANUAL) 0 % (0-4); LYMPHOCYTES % (MANUAL) 10 % (16-48); MONOCYTES % (MANUAL) 4 % (0-11.0); NEUTROPHILS % (MANUAL) 84 (42-76); PLATELET ESTIMATE DECREASED; STOMATOCYTES 1+
[2024-07-23] VITALS (12 sets, daily range): BP systolic 108–120; BP diastolic 66–84; TEMP 97.9–98.1; O2SAT 93–99
[2024-07-23 06:54] LABS: BASOPHILS % (AUTO) 0.4 % (0.0-2.0); EOSINOPHILS % (AUTO) 0.3 % (0.0-6.0); HEMATOCRIT 31 % (33-45); HEMOGLOBIN 9.8 g/dL (11.5-14.8); LYMPHOCYTES # (AUTO) 0.6 K/uL (0.8-4.8); LYMPHOCYTES % (AUTO) 5.4 % (20.0-44.0); MEAN CORPUSCULAR HEMOGLOBIN 30 PG (26.0-33.0); MEAN CORPUSCULAR HGB CONC 32 g/dl (31.0-36.0); MEAN CORPUSCULAR VOLUME 93 fL (82-100); MONOCYTES # (AUTO) 0.8 K/uL (0.1-1.30); MONOCYTES % (AUTO) 6.9 % (2.0-12.0); NEUTROPHILS # (AUTO) 9.9 K/uL (1.8-8.9); PLATELET COUNT (AUTO) 54 K/uL (150-450); RED CELL DISTRIBUTION WIDTH 19.7 % (11.5-15.0); WHITE BLOOD COUNT (AUTO) 11.4 K/uL (4.3-11.0)
[2024-07-23 07:23] LABS: BILIRUBIN,TOTAL 1.2 mg/dL (0.2-1.0); CALCIUM, SERUM 10.1 mg/dL (8.5-10.1); CREATININE 0.6 mg/dL (0.6-1.3); TOTAL PROTEIN, SERUM 4.6 g/dL (6.4-8.2)
[2024-07-23 11:22] LABS: ANISOCYTOSIS 1+; BAND % (MANUAL) 1 % (0.0-5.0); EOSINOPHILS % (MANUAL) 0 % (0-4); LYMPHOCYTES % (MANUAL) 8 % (16-48); MONOCYTES % (MANUAL) 5 % (0-11.0); NEUTROPHILS % (MANUAL) 86 (42-76); OVALOCYTES 1+; PLATELET ESTIMATE DECREASED
[2024-07-24 06:42] LABS: BASOPHILS # (AUTO) 0.1 K/uL (0.0-0.2); BASOPHILS % (AUTO) 0.9 % (0.0-2.0); EOSINOPHILS % (AUTO) 0.1 % (0.0-6.0); HEMATOCRIT 30 % (33-45); HEMOGLOBIN 10.2 g/dL (11.5-14.8); LYMPHOCYTES # (AUTO) 0.6 K/uL (0.8-4.8); LYMPHOCYTES % (AUTO) 4.5 % (20.0-44.0); MEAN CORPUSCULAR HEMOGLOBIN 30 PG (26.0-33.0); MEAN CORPUSCULAR HGB CONC 34 g/dl (31.0-36.0); MEAN CORPUSCULAR VOLUME 89 fL (82-100); MONOCYTES # (AUTO) 0.7 K/uL (0.1-1.30); MONOCYTES % (AUTO) 4.7 % (2.0-12.0); NEUTROPHILS # (AUTO) 12.6 K/uL (1.8-8.9); NEUTROPHILS % (AUTO) 89.8 % (43.0-81.0); PLATELET COUNT (AUTO) 61 K/uL (150-450); RED CELL DISTRIBUTION WIDTH 18.8 % (11.5-15.0)
[2024-07-24 06:56] LABS: ALBUMIN 2.2 g/dL (3.4-5.0); BILIRUBIN,TOTAL 1.6 mg/dL (0.2-1.0); CALCIUM, SERUM 10.2 mg/dL (8.5-10.1); CREATININE 0.5 mg/dL (0.6-1.3); TOTAL PROTEIN, SERUM 4.8 g/dL (6.4-8.2)
[2024-07-24 06:59] LABS: POTASSIUM 4.1 mmol/L (3.5-5.1)
[2024-07-24 08:00] VITALS: BP 106/65; TEMP 97.5; O2SAT 96; O2SAT 97
[2024-07-24 09:24] LABS: LYMPHOCYTES % (MANUAL) 5 % (16-48); MONOCYTES % (MANUAL) 3 % (0-11.0); NEUTROPHILS % (MANUAL) 92 (42-76); PLATELET ESTIMATE DECREASED
[2024-07-24 09:26] LABS: ANISOCYTOSIS 1+
[2024-07-24 13:41] VITALS: O2SAT 91
[2024-07-24 13:51] VITALS: O2SAT 96; O2SAT 99
[2024-07-24 16:00] VITALS: BP 117/58; TEMP 98.2; O2SAT 98
[2024-07-24 19:29] VITALS: O2SAT 96
[2024-07-24 20:00] VITALS: BP 113/74; TEMP 98.2; O2SAT 96
[2024-07-25] VITALS (8 sets, daily range): BP systolic 100–111; BP diastolic 57–64; TEMP 96.7–97.9; O2SAT 96–100
[2024-07-25 07:13] LABS: HEMATOCRIT 30 % (33-45); HEMOGLOBIN 10.3 g/dL (11.5-14.8); LYMPHOCYTES # (AUTO) 0.6 K/uL (0.8-4.8); LYMPHOCYTES % (AUTO) 2.9 % (20.0-44.0); MEAN CORPUSCULAR HEMOGLOBIN 31 PG (26.0-33.0); MEAN CORPUSCULAR HGB CONC 34 g/dl (31.0-36.0); MEAN CORPUSCULAR VOLUME 89 fL (82-100); MONOCYTES # (AUTO) 1.2 K/uL (0.1-1.30); MONOCYTES % (AUTO) 5.5 % (2.0-12.0); NEUTROPHILS # (AUTO) 20.4 K/uL (1.8-8.9); NEUTROPHILS % (AUTO) 91.6 % (43.0-81.0); PLATELET COUNT (AUTO) 90 K/uL (150-450); RED BLOOD CELL COUNT(AUTO) 3.36 MIL/uL (4.0-5.2); RED CELL DISTRIBUTION WIDTH 18.9 % (11.5-15.0); WHITE BLOOD COUNT (AUTO) 22.2 K/uL (4.3-11.0)
[2024-07-25 07:27] LABS: CALCIUM, SERUM 10.9 mg/dL (8.5-10.1); CREATININE 0.5 mg/dL (0.6-1.3); MAGNESIUM 2.3 mg/dL (1.8-2.4); PHOSPHORUS 2.4 mg/dL (2.5-4.9); POTASSIUM 3.8 mmol/L (3.5-5.1)
[2024-07-25 11:21] LABS: ABG BASE EXCESS 16.1 mmol/L (-2.0-3.0); ABG OXYGEN SATURATION 94.4 % (94.0-98.0); ABG PCO2 48.5 mmHg (32.0-45.0); ABG PH 7.541 (7.350-7.450); ABG PO2 73.6 mmHg (83.0-108.0); ABG TOTAL HEMOGLOBIN 12.2 G/dL (12.0-16.0); COHb 1.1 % (0.5-1.5); MetHb 0.1 % (0.0-1.5); O2Hb 93.3 % (94.0-97.0); SITE, ABG RIGHT RADIAL
[2024-07-25 12:31] LABS: ANISOCYTOSIS 1+; BAND % (MANUAL) 2 % (0.0-5.0); BASOPHILS % (MANUAL) 0 % (0.0-2.0); EOSINOPHILS % (MANUAL) 0 % (0-4); LYMPHOCYTES % (MANUAL) 6 % (16-48); MONOCYTES % (MANUAL) 5 % (0-11.0); NEUTROPHILS % (MANUAL) 87 (42-76); OVALOCYTES FEW; PLATELET ESTIMATE DECREASED
[2024-07-25] MEDS: THERAHONEY GEL 1.5 OZ TUBE TP SCH (14:52)
[2024-07-25] MEDS ORDERED: K PHOS NEUTRAL 250 MG TABLET PO ONE (15:30)
[2024-07-25] MEDS: Sodium Phosphate 15 MMOL in IV NS 0.9% 245 ML IV SCH (16:28)
[2024-07-25] MEDS ORDERED: MORPHINE SULFATE INJ 4 MG/ML DISP.SYRIN IV PRN (21:00)
[2024-07-26] VITALS (13 sets, daily range): BP systolic 109; BP diastolic 78; TEMP 97.7; O2SAT 91–100
[2024-07-26] MEDS: GLUCERNA SHAKE 237 ML CAN PO SCH (17:00)
[2024-07-26 20:36] LABS: EOSINOPHILS % (AUTO) 0.3 % (0.0-6.0); HEMATOCRIT 31 % (33-45); HEMOGLOBIN 10.4 g/dL (11.5-14.8); LYMPHOCYTES # (AUTO) 0.5 K/uL (0.8-4.8); LYMPHOCYTES % (AUTO) 3.3 % (20.0-44.0); MEAN CORPUSCULAR HEMOGLOBIN 31 PG (26.0-33.0); MEAN CORPUSCULAR HGB CONC 34 g/dl (31.0-36.0); MEAN CORPUSCULAR VOLUME 91 fL (82-100); MONOCYTES # (AUTO) 0.7 K/uL (0.1-1.30); MONOCYTES % (AUTO) 5.3 % (2.0-12.0); NEUTROPHILS # (AUTO) 12.5 K/uL (1.8-8.9); NEUTROPHILS % (AUTO) 91.1 % (43.0-81.0); PLATELET COUNT (AUTO) 66 K/uL (150-450); RED BLOOD CELL COUNT(AUTO) 3.39 MIL/uL (4.0-5.2); RED CELL DISTRIBUTION WIDTH 19.9 % (11.5-15.0); WHITE BLOOD COUNT (AUTO) 13.7 K/uL (4.3-11.0)
[2024-07-26 21:12] LABS: ANISOCYTOSIS 1+; LYMPHOCYTES % (MANUAL) 1 % (16-48); MONOCYTES % (MANUAL) 2 % (0-11.0); NEUTROPHILS % (MANUAL) 97 (42-76); PLATELET ESTIMATE DECREASED
[2024-07-26 21:13] LABS: CALCIUM, SERUM 10.9 mg/dL (8.5-10.1); CREATININE 0.5 mg/dL (0.6-1.3); MAGNESIUM 2.4 mg/dL (1.8-2.4); OVALOCYTES 1+; PHOSPHORUS 3.6 mg/dL (2.5-4.9); POTASSIUM 4.3 mmol/L (3.5-5.1)
[2024-07-27] VITALS (13 sets, daily range): BP systolic 99–114; BP diastolic 53–65; TEMP 97.5–99.1; O2SAT 91–100
[2024-07-28 00:01] VITALS: O2SAT 98
[2024-07-28 01:08] VITALS: BP 100/62; TEMP 97.9; O2SAT 97
[2024-07-28 07:38] LABS: BASOPHILS # (AUTO) 0.1 K/uL (0.0-0.2); BASOPHILS % (AUTO) 0.5 % (0.0-2.0); HEMATOCRIT 30 % (33-45); HEMOGLOBIN 9.9 g/dL (11.5-14.8); LYMPHOCYTES # (AUTO) 0.4 K/uL (0.8-4.8); LYMPHOCYTES % (AUTO) 3.2 % (20.0-44.0); MEAN CORPUSCULAR HEMOGLOBIN 30 PG (26.0-33.0); MEAN CORPUSCULAR HGB CONC 34 g/dl (31.0-36.0); MEAN CORPUSCULAR VOLUME 90 fL (82-100); MONOCYTES # (AUTO) 0.4 K/uL (0.1-1.30); MONOCYTES % (AUTO) 3.2 % (2.0-12.0); NEUTROPHILS # (AUTO) 12.6 K/uL (1.8-8.9); NEUTROPHILS % (AUTO) 93.1 % (43.0-81.0); PLATELET COUNT (AUTO) 61 K/uL (150-450); RED BLOOD CELL COUNT(AUTO) 3.31 MIL/uL (4.0-5.2); RED CELL DISTRIBUTION WIDTH 19.7 % (11.5-15.0); WHITE BLOOD COUNT (AUTO) 13.5 K/uL (4.3-11.0)
[2024-07-28 07:53] VITALS: O2SAT 97
[2024-07-28 08:07] LABS: CALCIUM, SERUM 10.6 mg/dL (8.5-10.1); CREATININE 0.4 mg/dL (0.6-1.3); MAGNESIUM 2.4 mg/dL (1.8-2.4); PHOSPHORUS 2.5 mg/dL (2.5-4.9); POTASSIUM 3.3 mmol/L (3.5-5.1)
[2024-07-28] MEDS: POTASSIUM CHLORIDE 20 MEQ TAB.PRT.SR PO SCH (11:30)
[2024-07-28 11:52] LABS: BAND % (MANUAL) 1 % (0.0-5.0); MONOCYTES % (MANUAL) 3 % (0-11.0); NEUTROPHILS % (MANUAL) 96 (42-76)
[2024-07-28 11:53] LABS: ANISOCYTOSIS 1+; PLATELET ESTIMATE DECREASED; STOMATOCYTES 1+
[2024-07-28] MEDS: POTASSIUM CL. PREMIX PERIPHER. 50 ML IV SCH (12:42)
[2024-07-28 14:30] VITALS: O2SAT 95
[2024-07-28] MEDS ORDERED: ACET250T9 PO (14:35)
[2024-07-28 14:50] VITALS: O2SAT 98
[2024-07-28 15:51] LABS: ABG OXYGEN SATURATION 95.8 % (94.0-98.0); ABG PCO2 46.7 mmHg (32.0-45.0); ABG PH 7.582 (7.350-7.450); ABG PO2 78.7 mmHg (83.0-108.0); ABG TOTAL HEMOGLOBIN 10.7 G/dL (12.0-16.0); COHb 0.9 % (0.5-1.5); O2Hb 94.9 % (94.0-97.0)
[2024-07-28] MEDS: acetaZOLAMIDE 250 MG TABLET PO SCH (16:11)
== END 2024-07-28 20:30 | DRG 140 ==
LOC: ER 20:51 → TELE1 07-13 01:21 → MEDSG1 07-15 11:52 → TELE-TD 07-21 10:26 → TELE1 07-22 09:37 → MEDSG1 07-23 08:35 → MED 07-23 22:53
PROVIDERS: ADMIT Nurse Practitioner Family; ATTEND Nurse Practitioner Acute Care
DX: J44.1 Chronic obstructive pulmonary disease with (acute) exacerbation (principal); E43 Unspecified severe protein-calorie malnutrition; D69.6 Thrombocytopenia, unspecified; R18.8 Other ascites; E88.09 Other disorders of plasma-protein metabolism, not elsewhere classified; E88.01 Alpha-1-antitrypsin deficiency; I47.10 Supraventricular tachycardia, unspecified; K74.60 Unspecified cirrhosis of liver; B19.20 Unspecified viral hepatitis C without hepatic coma; Z66 Do not resuscitate; Z51.5 Encounter for palliative care; I10 Essential (primary) hypertension; Z98.82 Breast implant status; Z90.49 Acquired absence of other specified parts of digestive tract; Z91.199 Patient's noncompliance with other medical treatment and regimen due to unspecified reason; Z88.1 Allergy status to other antibiotic agents; Z88.0 Allergy status to penicillin; Z87.891 Personal history of nicotine dependence; Z79.899 Other long term (current) drug therapy; Z79.51 Long term (current) use of inhaled steroids; D64.9 Anemia, unspecified; I25.10 Atherosclerotic heart disease of native coronary artery without angina pectoris; E78.5 Hyperlipidemia, unspecified; I25.2 Old myocardial infarction; I73.9 Peripheral vascular disease, unspecified; S81.012A Laceration without foreign body, left knee, initial encounter; W08.XXXA Fall from other furniture, initial encounter; Y92.9 Unspecified place or not applicable; I48.0 Paroxysmal atrial fibrillation; Y95 Nosocomial condition; K21.9 Gastro-esophageal reflux disease without esophagitis
CPT/HCPCS: 36415; 36600; 71045-TC; 71250-TC; 73564-TC; 76700-TC; 80048-TC; 80053-TC; 80076-TC; 80202-TC; 82140-TC; 82803-TC; 82962-TC; 83605-TC; 83735-TC; 84100-TC; 84484-TC; 85025-TC; 87040-TC; 94760-TC; 94761-TC; 94762-TC; 94799-TC; 97110-TC; 97116-TC; 97530-TC; A4216; A4223; A6253; A6403; A9563; G0378; J0456; J1815; J1940; J1956; J2185; J2470; J2919; J3370; J3371; J3475; J3480; J7030; J7050; J7060; P9047